=== PATIENT | female | born 1945 | race Caucasian/White ===

== ENCOUNTER 2016-11-04 16:31 | Inpatient (IN) | payer MEDICARE, OTHER ==
[2016-11-04 16:32] VITALS: BMI 30.7
--- NOTE | 2016-11-04 17:17 | C.PDOC ---
History Of Present Illness 71 y/o female presents to ED referred by Dr. Burnette for admission to start Hemodialysis. Patient complaints of new onset cough, worsening weakness, anorexia and renal function. Patient has PMHx of DM, HTN, Hypercholesterolemia, CKD, ESRD, Sleep Apnea and Diverticulitis. Status Post Fistula and Rt kidney transplant in 2000. Patient denies fever, sob, N/V/D or any other complaints at this time. REFERRED DR BURNETTE FOR ADMISSION TO START HD. PROGRESSIVE WORSENING WEAKNESS, ANOREXIA, AND RENAL FUNCTION. S/P FISTULA. NO FEVER. 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 Time Seen by Provider: 11/04/16 17:10 Chief Complaint (Nursing): Weakness/Neurological Deficit History Per: Patient History/Exam Limitations: no limitations Onset/Duration Of Symptoms: Days Current Symptoms Are (Timing): Still Present Past Medical History Reviewed: Historical Data, Nursing Documentation, Vital Signs Vital Signs: Last Vital Signs Temp 98.4 F 11/04/16 16:41 Pulse 79 11/04/16 16:41 Resp 20 11/04/16 17:58 BP 144/74 11/04/16 16:41 Pulse Ox 98 11/04/16 18:03 - Medical History PMH: Anemia, Arthritis (R FOOT GOUT), Diabetes, Diverticulitis, HTN, Hypercholesterolemia, End Stage Renal Disease (Kidney transplant Rt.2000), Chronic Kidney Disease (s/ pkidney transplant), Sleep Apnea Surgical History: Cholecystectomy - [facility] Procedures COLONOSCOPY (11/15/14) ESOPHAGOGASTRODUODENOSCOPY [EGD] W/CLOSED BIOPSY (11/15/14) PACKED CELL TRANSFUSION (11/15/14) PLICATION OF VENA CAVA (11/15/14) Family History: States: No Known Family Hx - Social History Hx Tobacco Use: No Hx Alcohol Use: No Hx Substance Use: No - Immunization History Hx Tetanus Toxoid Vaccination: No Hx Influenza Vaccination: No Hx Pneumococcal Vaccination: No Review Of Systems Except As Marked, All Systems Reviewed And Found Negative. Constitutional: Negative for: Fever, Chills Respiratory: Positive for: Cough. Negative for: Shortness of Breath Gastrointestinal: Negative for: Nausea, Vomiting, Diarrhea Neurological: Positive for: Weakness Physical Exam - Physical Exam Appears: Non-toxic Skin: Normal Color, Warm Head: Atraumatic, Normacephalic Oral Mucosa: Moist Chest: Symmetrical Cardiovascular: Rhythm Regular, No Murmur Respiratory: Normal Breath Sounds, No Rales, No Rhonchi, No Wheezing Gastrointestinal/Abdominal: Soft, No Tenderness, No Guarding, No Rebound Extremity: Normal ROM, Capillary Refill (<2 seconds) Neurological/Psych: Oriented x3, Normal Speech, Normal Cognition ED Course And Treatment ECG: Interpreted By Me ECG Rhythm: Sinus Rhythm Rate From EC O2 Sat by Pulse Oximetry: 98 (RA) Pulse Ox Interpretation: Normal - Radiology CXR: Interpreted by Me CXR Interpretation: Yes: No Acute Disease Progress - Re-Evaluation Re-evaluation Note: 11/04/16 17:21 D/W DR BELL C/F DR BURNETTE. ADMIT MED SUPERVISOR COLD ROLLING 11/04/16 17:57 D/W DR FARAH MED SUPERVISOR COLD ROLLING WILL ADMIT - Data Reviewed Data Reviewed: Lab, Diagnostic imaging, EKG, Old records Disposition Counseled Patient/Family Regarding: Studies Performed, Diagnosis - Disposition Disposition: HOSPITALIZED Disposition Time: 17:57 Condition: STABLE Instructions: Weakness (ED) - POA Present On Arrival: None - Clinical Impression Clinical Impression: Renal failure (ARF), acute on chronic, Renal transplant recipient, Weakness generalized - PA / HEAD SWAMPER / Resident Statement MD/ has reviewed & agrees with the documentation as recorded. MD/DO has examined the patient and agrees with the treatment plan. - Scribe Statement The provider has reviewed the documentation as recorded by the Dionte Lantigua All medical record entries made by the Susanaibpedro were at my direction and personally dictated by me. I have reviewed the chart and agree that the record accurately reflects my personal performance of the history, physical exam, medical decision making, and the department course for this patient. I have also personally directed, reviewed, and agree with the discharge instructions and disposition. Decision To Admit - Pt Status Changed To: Hospital Disposition Of: Inpatient - Admit Certification Admit to Inpatient:: After my assessment, the patient will require hospitalization for at least two midnights. This is because of the severity of symptoms shown, intensity of services needed, and/or the medical risk in this patient being treated as an outpatient. - InPatient: Physician Admission Certification: I certify that this patient requires 2 or more midnights of care for the following reason:: SEE NOTE - . Bed Request Type: Regular Admitting Physician: Luiza Farah Patient Diagnosis: Renal failure (ARF), acute on chronic, Renal transplant recipient, Weakness generalized
[2016-11-04 18:03] LABS: BASO % 0.2 % (0.0-2.0); EOS % 0.1 % (0.0-4.0); HEMATOCRIT 26.8 % (34.0-47.0); LYMPH # 0.3 K/uL (1.0-4.3); LYMPH % 6.7 % (20.0-40.0); MEAN CELL VOLUME 82.8 fL (81.0-99.0); MEAN CORPUSCULAR HEMOGLOBIN 25.8 pg (27.0-31.0); MEAN CORPUSCULAR HGB CONC 31.1 g/dL (33.0-37.0); MEAN PLATELET VOLUME 8.1 fL (7.2-11.7); MONO # 0.4 K/uL (0.0-0.8); MONO % 8.5 % (0.0-10.0); PLATELET COUNT 137 K/uL (130-400); RED CELL DISTRIBUTION WIDTH 17.9 % (11.5-14.5); WHITE BLOOD COUNT 5.1 K/uL (4.8-10.8)
[2016-11-04 18:13] LABS: POTASSIUM 3.5 mmol/L (3.6-5.2)
[2016-11-04 18:16] LABS: CALCIUM 7.8 mg/dl (8.6-10.4)
[2016-11-04 18:36] LABS: NEUTROPHIL 87 % (50-75); TOTAL CELLS COUNTED 100
[2016-11-04 20:29] LABS: RBC URINE 4 /hpf (0-3); URINE BACTERIA RARE (<OCC); URINE BILIRUBIN NEGATIVE (NEGATIVE); URINE BLOOD 1+ (NEGATIVE); URINE COLOR Yellow (YELLOW); URINE GLUCOSE (UA) NORMAL (Normal); URINE KETONE NEGATIVE (NEGATIVE); URINE PROTEIN NEGATIVE (NEGATIVE); URINE UROBILINOGEN NORMAL mg/dL (0.2-1.0); WBC URINE 5 /hpf (0-5)
[2016-11-04 20:35] LABS: URINE LEUKOCYTE ESTERASE TRACE Leu/uL (Negative)
[2016-11-04] MEDS ORDERED: guaiFENesin 200 mg/10 ml Syrup UD PO ONE (23:50)
[2016-11-05] MEDS ORDERED: DiphenhydrAMINE 50 mg/ml Inj IVP STA (02:10)
[2016-11-05] MEDS ORDERED: Albuterol-Ipratrop 3 mg / 0.5 (3 ml) UD INH STA (02:11)
[2016-11-05] MEDS: (Novolin 70/30) NPH/Regular 70/30 Units/ml 10 ml vial SC SCH ×2 (07:30→20:02)
[2016-11-05] MEDS: Fluticasone-Salmeterol 250-50mcg Diskus INH SCH (08:18)
[2016-11-05] MEDS: Albuterol-Ipratrop 3 mg / 0.5 (3 ml) UD INH PRN ×2 (08:19→11:37)
--- NOTE | 2016-11-05 08:54 | CP.PCM.PN ---
Subjective - Date & Time of Evaluation Date of Evaluation: 11/05/16 Time of Evaluation: 08:51 - Subjective Subjective: Medicine Progress Note- Dr Farah service Patient seen and examined with son present at bedside. Patient states that she doesn't feel well and is complaining of a non-productive cough. Pt tried taking Robitussin for the cough but it did not help. Patient breathing comfortably on 2L NC. Patient is scheduled for HD today via R arm fistula. Patient denies fever, chills, nausea, chest pain, back pain, vomiting, and dysuria. Objective - Vital Signs/Intake and Output Vital Signs (last 24 hours): Temp Pulse Resp BP Pulse Ox 98.3 F 103 H 18 154/85 H 100 11/05/16 08:00 11/05/16 08:00 11/05/16 08:00 11/05/16 08:00 11/05/16 08:00 Intake and Output: 11/05/16 11/05/16 06:59 18:59 Intake Total 120 Balance 120 - Medications Medications: Current Medications Albuterol/Ipratropium (Duoneb 3 Mg/0.5 Mg (3 Ml) Ud) 3 ml INH RQ4 PRN PRN Reason: Wheezing Last Admin: 11/05/16 08:19 Dose: 3 ml Clonidine HCl (Catapres) 0.3 mg PO TID [facility] Colchicine (Colocrys) 0.6 mg PO DAILY [facility] Cyclosporine (Cyclosporine) 25 mg PO BID [facility] Furosemide (Lasix) 40 mg PO BID [facility] Guaifenesin/Dextromethorphan (Robitussin Dm) 10 ml PO QID [facility] Heparin Sodium (Porcine) (Heparin) 5,000 units SC Q12 [facility] Home Med (Febuxostat [Uloric]) 80 mg PO DAILY [facility] Home Med (Metolazone [Metolazone]) 5 mg PO PRN PRN PRN Reason: edema Insulin Human Isoph/Insulin Regular (Novolin 70/30 (70/30 Units/Ml) 10 Ml) 20 units SC BIDAC [facility] Metoclopramide HCl (Reglan) 10 mg PO TIDAC [facility] Montelukast Sodium (Singulair) 10 mg PO HS [facility] Mycophenolate Mofetil (Cellcept Cap) 250 mg PO BID [facility] Pantoprazole Sodium (Protonix Ec Tab) 40 mg PO DAILY [facility] Prednisone (Prednisone Tab) 5 mg PO DAILY [facility] Rosuvastatin Calcium (Crestor) 2.5 mg PO HS [facility] Fluticasone/Salmeterol (Advair Diskus 250/50) 1 puff INH RQ12 [facility] Last Admin: 11/05/16 08:18 Dose: 1 puff - Constitutional Appears: Non-toxic, No Acute Distress - Head Exam Head Exam: ATRAUMATIC, NORMOCEPHALIC - Eye Exam Eye Exam: EOMI, Normal appearance - ENT Exam ENT Exam: Mucous Membranes Moist - Respiratory Exam Respiratory Exam: Clear to Ausculation Bilateral, NORMAL BREATHING PATTERN. absent: Accessory Muscle Use, Rales, Rhonchi, Wheezes, Respiratory Distress - Cardiovascular Exam Cardiovascular Exam: REGULAR RHYTHM, +S1, +S2 - GI/Abdominal Exam GI & Abdominal Exam: Soft, Normal Bowel Sounds - Extremities Exam Extremities Exam: Full ROM. absent: Pedal Edema Additional comments: Right forearm fistula + bruit + thrill - Neurological Exam Neurological Exam: Alert, Awake, Oriented x3 - Psychiatric Exam Psychiatric exam: Normal Affect, Normal Mood - Skin Skin Exam: Dry, Intact, Normal Color, Warm Assessment and Plan - Assessment and Plan (Free Text) Assessment: (1) ESRD Dr Vigil consulted- help appreciated Patient to start HD today via R fistula Monitor BUN/Cr and electrolytes (2) DM Novolin 20u SC BIDAC Accuchecks (3) HTN Clonidine Lasix (4) Anemia Likely from chronic kidney disease Patient asymptomatic and hemodynamically stable Monitor CBC (5) Prophylactic measures Protonix Heparin 5000u SC q12h SCDs Will discuss with Sofi
[2016-11-05] MEDS ORDERED: Home Med 1 UNIT (Febuxostat [Uloric] 80 MG) PO SCH (10:00)
[2016-11-05] MEDS ORDERED: Rosuvastatin Calcium 2.5 mg Tab PO SCH (10:00)
[2016-11-05] MEDS ORDERED: metOLazone 5 MG TAB PO PRN (10:00)
--- NOTE | 2016-11-05 10:17 | RAD ---
PROCEDURE: CHEST RADIOGRAPH, 1 VIEW HISTORY: Shortness of breath COMPARISON: 05/08/2016. FINDINGS: LUNGS: The lungs are clear. PLEURA: There are small pleural effusions. No pneumothorax. CARDIOVASCULAR: There is mild cardiomegaly. OSSEOUS STRUCTURES: No significant abnormalities. VISUALIZED UPPER ABDOMEN: Normal. OTHER FINDINGS: None. IMPRESSION: Mild cardiomegaly and small pleural effusions.
[2016-11-05] MEDS: CYCLOSPORINE, MODIFIED 25 MG CAP PO SCH ×2 (11:47→20:22)
[2016-11-05] MEDS: Pantoprazole 40 mg EC Tab PO SCH (11:48)
[2016-11-05] MEDS: guaiFENesin DM 200 mg-20 mg/10 ml UD PO SCH ×4 (11:48→21:22)
--- NOTE | 2016-11-05 14:00 | CP.PCM.CON ---
History of Present Illness - History of Present Illness History of Present Illness: History Of Present Illness 71 y/o female presents to ED referred by Dr. Vigil for admission to start Hemodialysis. Patient complaints of new onset cough, worsening weakness, anorexia and renal function. Patient has PMHx of DM, HTN, Hypercholesterolemia, CKD, ESRD, Sleep Apnea and Diverticulitis. Status Post Fistula and Rt kidney transplant in 2000. Patient denies fever, sob, N/V/D or any other complaints at this time. Has had progressive worsening failure and referred by transplant department for dialysis. Not eating well and has had increasing dyspnea PMH: RENAL TRANSPLANT 2000 CHRONIC ALLOGRAFT REJECTION DM 2 HTN CKD 5 DL DIVERTICULAR DISEASE PAD PSH: RENAL TRANSPLANT LE VASCULAR STENT AV FISTULA CONSULT DICTATED WILL SCHEDULE DIALYSIS CHELI Past Patient History - Infectious Disease Hx of Infectious Diseases: None - Past Medical History & Family History Past Medical History?: Yes - Past Social History Smoking Status: Never Smoked - CARDIAC Hx Congestive Heart Failure: Yes Hx Hypercholesterolemia: Yes Hx Hypertension: Yes Other/Comment: cardiac catheterization 02/10/16. scott vena cava filter - PULMONARY Hx Respiratory Disorders: Yes Hx Asthma: Yes Hx Sleep Apnea: Yes Other/Comment: uses cpap - NEUROLOGICAL Hx Neurological Disorder: No - HEENT Hx HEENT Problems: Yes Hx Cataracts: Yes (right eye july 2012 and left eye august 2012) - RENAL Hx Chronic Kidney Disease: Yes Other/Comment: kidney transplan november 07, 2000 - ENDOCRINE/METABOLIC Hx Endocrine Disorders: Yes Hx Diabetes Mellitus Type 2: Yes - HEMATOLOGICAL/ONCOLOGICAL Hx Blood Disorders: Yes Hx Anemia: Yes - INTEGUMENTARY Hx Dermatological Problems: No Other/Comment: varicose vein surgery left leg 1995 - MUSCULOSKELETAL/RHEUMATOLOGICAL Hx Musculoskeletal Disorders: Yes Hx Arthritis: Yes (R FOOT GOUT) Hx Falls: No Hx Gout: Yes - GASTROINTESTINAL Hx Gastrointestinal Disorders: Yes Hx Diverticulitis: Yes Hx Gastritis: Yes Hx Gastroesophageal Reflux: Yes Other/Comment: colonoscopy 08/03/10 - GENITOURINARY/GYNECOLOGICAL Hx Genitourinary Disorders: No - PSYCHIATRIC Hx Psychophysiologic Disorder: No Hx Substance Use: No - SURGICAL HISTORY Hx Surgeries: Yes Hx Cholecystectomy: Yes - ANESTHESIA Hx Anesthesia: Yes Hx Anesthesia Reactions: No Hx Malignant Hyperthermia: No Meds Allergies/Adverse Reactions: Allergies Allergy/AdvReac Type Severity Reaction Status Date / Time allopurinol Allergy Verified 05/08/16 00:45 atorvastatin Allergy Verified 05/08/16 00:45 Iodinated Contrast Media - AdvReac Verified 05/08/16 00:45 Oral and [Iodinated Contrast Media - IV Dye] - Medications Medications: Current Medications Albuterol/Ipratropium (Duoneb 3 Mg/0.5 Mg (3 Ml) Ud) 3 ml INH RQ4 PRN PRN Reason: Wheezing Last Admin: 11/05/16 11:37 Dose: 3 ml Clonidine HCl (Catapres) 0.3 mg PO TID [facility] Last Admin: 11/05/16 11:47 Dose: Not Given Colchicine (Colocrys) 0.6 mg PO DAILY [facility] Cyclosporine (Cyclosporine) 25 mg PO BID [facility] Last Admin: 11/05/16 11:47 Dose: Not Given Furosemide (Lasix) 40 mg PO BID [facility] Last Admin: 11/05/16 11:47 Dose: Not Given Guaifenesin/Dextromethorphan (Robitussin Dm) 10 ml PO QID [facility] Last Admin: 11/05/16 11:48 Dose: Not Given Heparin Sodium (Porcine) (Heparin) 5,000 units SC Q12 [facility] Last Admin: 11/05/16 11:50 Dose: Not Given Home Med (Febuxostat [Uloric]) 80 mg PO DAILY [facility] Insulin Human Isoph/Insulin Regular (Novolin 70/30 (70/30 Units/Ml) 10 Ml) 20 units SC BIDAC [facility] Last Admin: 11/05/16 07:30 Dose: Not Given Metolazone (Zaroxolyn) 5 mg PO DAILY PRN PRN Reason: EDEMA Montelukast Sodium (Singulair) 10 mg PO HS [facility] Mycophenolate Mofetil (Cellcept Cap) 250 mg PO BID [facility] Last Admin: 11/05/16 11:47 Dose: Not Given Ondansetron HCl (Zofran Inj) 8 mg IVP Q6H PRN PRN Reason: Nausea/Vomiting Pantoprazole Sodium (Protonix Ec Tab) 40 mg PO DAILY [facility] Last Admin: 11/05/16 11:48 Dose: Not Given Prednisone (Prednisone Tab) 5 mg PO DAILY [facility] Last Admin: 11/05/16 11:48 Dose: Not Given Rosuvastatin Calcium (Crestor) 2.5 mg PO HS [facility] Fluticasone/Salmeterol (Advair Diskus 250/50) 1 puff INH RQ12 [facility] Last Admin: 11/05/16 08:18 Dose: 1 puff Results - Vital Signs Recent Vital Signs: Last Vital Signs Temp 98 F 11/05/16 13:12 Pulse 88 11/05/16 13:12 Resp 20 11/05/16 13:12 BP 149/80 11/05/16 13:12 Pulse Ox 100 11/05/16 13:12 - Labs Result Diagrams: 11/04/16 17:58 11/04/16 17:58 Labs: Laboratory Results - last 24 hr 11/04/16 11/04/16 11/05/16 20:11 22:24 06:51 POC Glucose (mg/dL) 169 H 118 H Urine Color Yellow Urine Clarity Clear Urine pH 5.0 Ur Specific Anza 1.008 Urine Protein Negative Urine Glucose (UA) Normal Urine Ketones Negative Urine Blood 1+ H Urine Nitrate Negative Urine Bilirubin Negative Urine Urobilinogen Normal Ur Leukocyte Esterase Trace H Urine WBC (Auto) 5 Urine RBC (Auto) 4 H Ur Squamous Epith Cells 9 H Urine Bacteria Rare Hyaline Casts 3-5 H 11/05/16 11:11 POC Glucose (mg/dL) 146 H Urine Color Urine Clarity Urine pH Ur Specific Anza Urine Protein Urine Glucose (UA) Urine Ketones Urine Blood Urine Nitrate Urine Bilirubin Urine Urobilinogen Ur Leukocyte Esterase Urine WBC (Auto) Urine RBC (Auto) Ur Squamous Epith Cells Urine Bacteria Hyaline Casts
--- NOTE | 2016-11-05 14:37 | CON ---
DATE: 11/05/2016 The patient is a 71-year-old female who presents to the Emergency Department with increasing shortnes s of breath. She has not been eating for several days. She was found to have extremely high BUN and creatinine. 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 PAST MEDICAL HISTORY: Renal transplantation in 2000 for diabetic nephropathy. She has diabetes jimena itus type 2, hypertension, dyslipidemia, peripheral arterial disease, sleep apnea, diverticular disea se. PAST SURGICAL HISTORY: Status post AV fistula in the right arm, right kidney transplantation in 2000 , endovascular stent placed in the lower extremities. MEDICATIONS: Include cyclosporine, CellCept, prednisone, Norvasc, Coreg, Protonix, Zaroxolyn, Lasix, K-Dur, mag oxide, Zocor, clonidine. FAMILY HISTORY: Significant for a sister who also had a kidney transplantation. SOCIAL HISTORY: Negative for smoking, alcohol abuse or illicit drug use. REVIEW OF SYSTEMS: Significant for decreased ability to eat. She has not been eating for at least 1 week. She had increasing shortness of breath, increasing peripheral edema. She cannot sleep at [facility], uses CPAP. She has been increasingly confused. No nausea, vomiting, diarrhea. She has increase d abdominal pain of unclear etiology. Also, she had severe gout with gouty tophi with severe arthrit ic pains. Other systems are negative. PHYSICAL EXAMINATION: GENERAL: She is a well-developed female who is lethargic. VITAL SIGNS: Blood pressure 149/80, temperature 98, pulse ox is 100% on nasal cannula 3 liters and p ulse is 88. HEENT: She is anicteric. Mouth was clear. NECK: No JVD. LUNG [place]: Showed basilar rales. HEART: Regular rhythm. No murmur appreciated. ABDOMEN: Tender epigastrically. Renal allograft in right lower quadrant, which was soft and nontend er. EXTREMITIES: She had 3+ pedal edema. She had gouty tophi throughout both hands. BLOOD WORK: Showed a BUN of 122, creatinine 2.3, calcium 7.8, potassium 3.5. 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 She has peripheral arterial disease, coronary artery disease, severe gout and increasing fluid overload. PLAN: Will be for dialysis. She will need a workup for the abdominal pain as well, which was recomm ended. She should at least have abdominal ultrasound and further evaluation by the medical team. Wi schedule dialysis today. Petr Vigil MD cc: [id number] TT: 11/05/2016 14:37:17 Confirmation # [id number] Dictation # [id number]
[2016-11-05] MEDS ORDERED: Lidocaine 1% Inj (20ml) INFIL ONE (15:30)
[2016-11-05 17:07] LABS: PHOSPHOROUS 2.5 mg/dL (2.5-4.5)
--- NOTE | 2016-11-05 17:39 | CARD ---
APPROVED REPORT EKG Measurement Heart [id number] <Conclusion> Sinus rhythm with occasional premature ventricular complexes and premature atrial complexes Right bundle branch block Left anterior fascicular block Bifascicular block Voltage criteria for left ventricular hypertrophy T wave abnormality, consider lateral ischemia Abnormal ECG
[2016-11-05] MEDS ORDERED: Oxycodone/Acetaminophen 5/325 mg Tab PO PRN (18:26)
[2016-11-05] MEDS: Megestrol Acetate 40 mg/ml Cup PO SCH (19:59)
[2016-11-05] MEDS: Rosuvastatin Calcium 2.5 mg Tab PO SCH (21:23)
[2016-11-05] MEDS ORDERED: Tramadol 25 mg PO PRN (21:45)
[2016-11-06] MEDS: Albuterol-Ipratrop 3 mg / 0.5 (3 ml) UD INH PRN ×2 (00:24→11:16)
[2016-11-06 07:29] LABS: BASO % 0.6 % (0.0-2.0); EOS % 0.2 % (0.0-4.0); HEMATOCRIT 25.8 % (34.0-47.0); LYMPH # 0.7 K/uL (1.0-4.3); LYMPH % 8.8 % (20.0-40.0); MEAN CELL VOLUME 83.7 fL (81.0-99.0); MEAN CORPUSCULAR HEMOGLOBIN 26.1 pg (27.0-31.0); MEAN CORPUSCULAR HGB CONC 31.2 g/dL (33.0-37.0); MEAN PLATELET VOLUME 8.5 fL (7.2-11.7); MONO # 1.2 K/uL (0.0-0.8); PLATELET COUNT 162 K/uL (130-400); RED CELL DISTRIBUTION WIDTH 18.2 % (11.5-14.5); WHITE BLOOD COUNT 7.7 K/uL (4.8-10.8)
[2016-11-06 07:57] LABS: BILIRUBIN,TOTAL 1.5 mg/dL (0.2-1.3); TOTAL PROTEIN 5.4 g/dL (6.3-8.3)
[2016-11-06 07:58] LABS: CALCIUM 7.6 mg/dl (8.6-10.4)
[2016-11-06] MEDS: (Novolin 70/30) NPH/Regular 70/30 Units/ml 10 ml vial SC SCH ×2 (08:13→16:30)
--- NOTE | 2016-11-06 09:08 | PN ---
DATE: 11/06/2016 LOCATION: 568, bed B. This 71-year-old female seen for GI consultation on 11/05/2016, as requested by the admitting MD, ree xamined again today due to crampy persistent abdominal pain with subsequent drop of hemoglobin and he matocrit. Denied any actual chest pain, but intermittent periods of slight shortness of breath with cough and generalized weakness and malaise, without reported active bleeding recently. The patient also had been having very poor oral intake with recent loss of appetite as well as mild b stephani weight loss. The entire chart is reviewed, including but not limited to the most recent lab and radiology study re sults, current and previous medication list, current and the previous medical events, and the latest hemoglobin was 8.1 today with hematocrit 25.8, but normal platelet count and normal white blood cells with low potassium of 3.0, BUN of 76, creatinine 1.8 with low calcium 7.6 and a mildly elevated tota l bilirubin to 1.5 with increased alkaline phosphatase with low albumin 2.7, low total protein 5.4. Chest x-ray done at the time of admission, report and films seen indicative of mild cardiomegaly with small pleural effusion. PHYSICAL EXAMINATION: GENERAL: A 71-year-old female. VITAL SIGNS: Afebrile with pulse of 90, respiratory rate 20-22, and blood pressure of 158/76. HEENT: Showed pale, dry oral mucoid membrane, slightly icteric sclerae. LUNGS: Few scattered crepitation, decreased air entry at bases. HEART: Positive S1 and S2. ABDOMEN: Soft. Bowel sounds are present but hypoactive with generalized tenderness and mild distent ion. No mass or organomegaly. No rebound tenderness or guarding. RECTAL: The patient refused. EXTREMITIES: Without significant clubbing or cyanosis, but mild lower extremities edematous changes. NEUROLOGIC: No reported new neurological deficits, sensory or motor. IMPRESSION: 1. Anemia that could be secondary to chronic renal disease versus gastrointestinal blood loss, upper versus lower. 2. Known history of, but not limited to, diverticulosis with recurrent diverticulitis, peptic ulcer disease. 3. Multiple past medical history including, but not limited to, status post renal transplant due to renal failure, had rejections before. 4. Known history of diabetes mellitus, hypertension, hyperlipidemia with peripheral arterial disease . 5. Status post AV fistula insertion before. 6. Lower extremities vascular stent insertion. 7. The patient is admitted for potential starting dialysis by Dr. Vigil. 8. Recently diagnosed pleural effusion by radiology study results. SUGGESTION: 1. Agree with your plan. 2. Flat and upright abdominal x-rays. 3. Cancer markers. 4. The patient may have an early setting of early stage of diverticulitis with reexacerbation of pep tic ulcer disease, may benefit from single dose of Flagyl 500 mg once a day due to her renal failure. That to be discussed with Dr. Vigil. 5. Guaiac all the stool daily x 3. 6. Further recommendation to follow and proton pump inhibitors to be ordered with peripheral hyperal as needed. 7. The patient also may need a low dose of Reglan rather than Zofran due to her recurrent episode of nausea and vomiting until she is more stable clinically. Further recommendation to follow. Jose Le MD cc: [id number] TT: 11/06/2016 09:08:11 Confirmation # [id number] Dictation # [id number] jn
[2016-11-06] MEDS: Fluticasone-Salmeterol 250-50mcg Diskus INH SCH ×2 (09:15→19:48)
[2016-11-06 09:22] LABS: NEUTROPHIL 80 % (50-75); TOTAL CELLS COUNTED 100
[2016-11-06 10:40] LABS: CARCINOEMBRYONIC ANTIGEN 6.4 ng/mL (0-3.0)
[2016-11-06 10:43] LABS: CA 19-9 25.6 U/mL (0-37)
[2016-11-06] MEDS: Megestrol Acetate 40 mg/ml Cup PO SCH (11:12)
[2016-11-06] MEDS: CYCLOSPORINE, MODIFIED 25 MG CAP PO SCH ×2 (11:14→18:20)
[2016-11-06] MEDS: Pantoprazole 40 mg EC Tab PO SCH (11:15)
[2016-11-06] MEDS: guaiFENesin DM 200 mg-20 mg/10 ml UD PO SCH ×4 (11:16→21:35)
--- NOTE | 2016-11-06 11:43 | CP.PCM.PN ---
Subjective - Date & Time of Evaluation Date of Evaluation: 11/06/16 Time of Evaluation: 11:40 - Subjective Subjective: 71 y/o female presents to ED referred by Dr. Vigil for admission to start Hemodialysis. Patient complaints of new onset cough, worsening weakness, anorexia and renal function. Patient has PMHx of DM, HTN, Hypercholesterolemia, CKD, ESRD, Sleep Apnea and Diverticulitis. Status Post Fistula and Rt kidney transplant in 2000. Patient denies fever, sob, N/V/D or any other complaints at this time. Has had progressive worsening failure and referred by transplant department for dialysis. Not eating well and has had increasing dyspnea PMH: RENAL TRANSPLANT 2000 CHRONIC ALLOGRAFT REJECTION DM 2 HTN CKD 5 DL DIVERTICULAR DISEASE PAD PSH: RENAL TRANSPLANT LE VASCULAR STENT AV FISTULA 11/06 Feels better after first dialysis treatment Appetite remains poor Edema improved No sob at rest Has not moved around much since admission 10 point ros negative except for above report Objective - Vital Signs/Intake and Output Vital Signs (last 24 hours): Temp Pulse Resp BP Pulse Ox 98.1 F 93 H 18 155/58 H 95 11/06/16 07:27 11/06/16 07:27 11/06/16 07:27 11/06/16 11:15 11/06/16 07:27 Intake and Output: 11/06/16 11/06/16 06:59 18:59 Intake Total 240 Balance 240 - Medications Medications: Current Medications Albuterol/Ipratropium (Duoneb 3 Mg/0.5 Mg (3 Ml) Ud) 3 ml INH RQ4 PRN PRN Reason: Wheezing Last Admin: 11/06/16 11:16 Dose: 3 ml Belladonna/Phenobarbital () 1 tab PO BID [facility] Clonidine HCl (Catapres) 0.3 mg PO TID [facility] Last Admin: 11/06/16 11:11 Dose: Not Given Colchicine (Colocrys) 0.6 mg PO DAILY [facility] Cyclosporine (Cyclosporine) 25 mg PO BID [facility] Last Admin: 11/06/16 11:14 Dose: Not Given Furosemide (Lasix) 40 mg PO BID [facility] Last Admin: 11/06/16 11:15 Dose: Not Given Guaifenesin/Dextromethorphan (Robitussin Dm) 10 ml PO QID [facility] Last Admin: 11/06/16 11:16 Dose: Not Given Heparin Sodium (Porcine) (Heparin) 5,000 units SC Q12 [facility] Last Admin: 11/06/16 11:14 Dose: Not Given Home Med (Febuxostat [Uloric]) 80 mg PO DAILY [facility] Insulin Human Isoph/Insulin Regular (Novolin 70/30 (70/30 Units/Ml) 10 Ml) 20 units SC BIDAC [facility] Last Admin: 11/06/16 08:13 Dose: Not Given Megestrol Acetate (Megace) 400 mg PO DAILY [facility] Last Admin: 11/06/16 11:12 Dose: 400 mg Metolazone (Zaroxolyn) 5 mg PO DAILY PRN PRN Reason: EDEMA Montelukast Sodium (Singulair) 10 mg PO HS [facility] Last Admin: 11/05/16 21:22 Dose: Not Given Mycophenolate Mofetil (Cellcept Cap) 250 mg PO BID [facility] Last Admin: 11/06/16 11:14 Dose: Not Given Ondansetron HCl (Zofran Inj) 8 mg IVP Q6H PRN PRN Reason: Nausea/Vomiting Last Admin: 11/05/16 18:07 Dose: 8 mg Oxycodone/Acetaminophen (Percocet 5/325 Mg Tab) 1 tab PO Q6H PRN PRN Reason: Pain, moderate (4-7) Stop: 11/08/16 18:27 Pantoprazole Sodium (Protonix Ec Tab) 40 mg PO DAILY [facility] Last Admin: 11/06/16 11:15 Dose: Not Given Prednisone (Prednisone Tab) 5 mg PO DAILY [facility] Last Admin: 11/06/16 11:15 Dose: Not Given Rosuvastatin Calcium (Crestor) 2.5 mg PO [facility] Last Admin: 11/05/16 21:23 Dose: Not Given Fluticasone/Salmeterol (Advair Diskus 250/50) 1 puff INH RQ12 [facility] Last Admin: 11/06/16 09:15 Dose: Not Given Tramadol HCl (Ultram) 25 mg PO Q6 PRN PRN Reason: Pain, moderate (4-7) Last Admin: 11/05/16 21:52 Dose: 25 mg - Labs Labs: 11/06/16 07:20 11/06/16 07:20 - Constitutional Appears: Non-toxic, Older Than Stated Age - Head Exam Head Exam: ATRAUMATIC, NORMAL INSPECTION - Eye Exam Eye Exam: EOMI, Normal appearance - ENT Exam ENT Exam: Mucous Membranes Moist, Normal Oropharynx - Respiratory Exam Respiratory Exam: Rales, Rhonchi - Cardiovascular Exam Cardiovascular Exam: REGULAR RHYTHM, +S1, +S2. absent: JVD - GI/Abdominal Exam GI & Abdominal Exam: Soft, Normal Bowel Sounds Additional comments: allograft nontender - Extremities Exam Extremities Exam: Joint Swelling, Pedal Edema - Neurological Exam Neurological Exam: Alert, Awake, Oriented x3 - Psychiatric Exam Psychiatric exam: Normal Affect, Normal Mood - Skin Skin Exam: Dry, Intact Additional comments: tophi on digits noted Assessment and Plan (1) Renal failure (ARF), acute on chronic Status: Acute (2) Renal transplant recipient Status: Chronic (3) Anemia Status: Acute (4) CHF (congestive heart failure) Status: Acute (5) Diabetes mellitus Status: Acute (6) HTN (hypertension) Status: Acute (7) Hyperlipidemia Status: Acute (8) Gout Status: Chronic - Assessment and Plan (Free Text) Assessment: Failed renal transplant with uremia tolerated dialysis well 11/05 Second treatment today UF 2kg as tolerated Maintain immunosuppression - can d/c csa by discharge Bp improving Access patent Outpatient placement [facility] in progress
--- NOTE | 2016-11-06 14:54 | US ---
Abdominal ultrasound History: Abdominal pain. Comparison: CT scan dated 11/17/2014 Technique: Real-time sonography was performed through the abdomen. Findings: Bilateral pleural effusions identified. Abdominal and pelvic ascites identified. Liver: 18.1 centimeters in length, prominent. Somewhat nodular and cirrhotic contour. Increased echogenicity of the hepatic parenchymal cortex suggestive for hepatic parenchymal disease versus fatty infiltration. Prior cholecystectomy. Common bile duct measures up to 5 millimeters within normal limits. Pancreas not well visualized, likely atrophic. Spleen measures 8.7 centimeters in length, within normal limits. Visualized IVC is preserved. Aorta and not well visualized. [place] right kidney: 5.0 x 2.2 x 2.4 centimeters. Atrophic. Upper pole hypoechoic cyst measuring 9 x 11 x 11 millimeters. Additional more complex multi lobulated lower pole cystic lesion measuring 2.1 x 2.1 x 2.5 centimeters. Left [place] kidney: Not well visualized. Right lower quadrant transplant kidney: 10.3 x 4.3 x 4.4 centimeters. Mild fullness of the transplant kidney collecting system. Impression: Mild fullness of the right lower quadrant transplant kidney collecting system. Left [place] kidney not visualized. Atrophic right [place] kidney with multi lobulated complex cystic lesion emanating from the lower pole measuring up to 2.5 centimeters. Clinical correlation. Additional upper pole smaller hypoechoic cystic lesion. Prominent liver with a somewhat nodular and cirrhotic contour as well as diffuse increased echogenicity suggestive for hepatic parenchymal disease versus fatty infiltration. Abdominal and pelvic ascites. Bilateral pleural effusions. Atrophic pancreas which is not well visualized.
[2016-11-06] MEDS: Belladonna-Phenobarbital PO SCH (18:20)
[2016-11-06] MEDS: Rosuvastatin Calcium 2.5 mg Tab PO SCH (21:34)
[2016-11-07] MEDS: Albuterol-Ipratrop 3 mg / 0.5 (3 ml) UD INH PRN ×4 (08:12→20:00)
[2016-11-07] MEDS: Fluticasone-Salmeterol 250-50mcg Diskus INH SCH ×2 (08:12→20:00)
[2016-11-07] MEDS: (Novolin 70/30) NPH/Regular 70/30 Units/ml 10 ml vial SC SCH ×2 (08:26→17:55)
[2016-11-07] MEDS: CYCLOSPORINE, MODIFIED 25 MG CAP PO SCH ×2 (10:35→17:54)
[2016-11-07] MEDS: Pantoprazole 40 mg EC Tab PO SCH (10:35)
[2016-11-07] MEDS: Belladonna-Phenobarbital PO SCH ×2 (10:35→18:05)
[2016-11-07] MEDS: guaiFENesin DM 200 mg-20 mg/10 ml UD PO SCH ×3 (10:36→21:11)
[2016-11-07] MEDS: Megestrol Acetate 40 mg/ml Cup PO SCH (10:38)
--- NOTE | 2016-11-07 13:08 | PN ---
DATE: 11/07/2016 LOCATION: 568, bed B. This is a 71-year-old female seen and examined in rounds today in the presence of the nursing staff o n the floor as well as the patient's own daughter. Was complaining of much less abdominal pain, had been on ____ p.o. also. No reported nausea or vomiting and the most recent lab results as well as current and previous medica tion list, current and the previous medical events were reviewed. Abdominal ultrasound was done yesterday as requested by myself, which showed left kidney, not visuali zed with atrophy of the right side of the kidney with multiple lobulated complex cystic lesions. Possible diffuse hepatic parenchymal disease versus fatty infiltrate with abdominal and pelvic ascite s as well as bilateral pleural effusion with atrophic pancreas. Most recent lab results showed low hemoglobin of 8.1, hematocrit 25.8 with low indices highly suggest faiza of hypochromic microcytic anemia with blood glucose level of 106 with low potassium of 3.0, incre ased BUN 78, creatinine 1.8 with low calcium and mildly increased total protein as well as low albumi n, low total protein and increased alkaline phosphatase. Her CEA level is 6.4 with CA-125 antigen el evated to 50 for which colonoscopy is to be kept in mind. The patient for hemodialysis. PHYSICAL EXAMINATION: GENERAL: A 71-year-old female, awake, alert, oriented. VITAL SIGNS: Afebrile with pulse of 80, respiratory rate 20-22 with blood pressure of 150/66. HEENT: Showed pale, dry oral mucoid membrane, slightly icteric sclerae. LUNGS: Few scattered crepitation, decreased air entry at bases. HEART: Positive S1 and S2. ABDOMEN: Soft. Bowel sounds are present with mild generalized tenderness. No mass or organomegaly. No rebound tenderness or guarding. EXTREMITIES: Without significant clubbing or cyanosis, but with mild edematous changes. NEUROLOGIC: No reported neurological deficits, sensory or motor. IMPRESSION: 1. Acute renal failure, for hemodialysis. 2. Reexacerbation of peptic ulcer disease. 3. Nonproductive cough of unclear etiology. The patient is still having persistent cough that could be drug-induced versus possible pancreatitis; however, due to the patient's pleural effusion, that c an induce her persistent cough also. 4. Abnormal ultrasound of the abdomen and the pelvis with possible fatty infiltrate of the liver jhonny kevin liver cirrhosis. 5. Ascites, most likely secondary to portal hypertension and/or positive early congestive heart fail ure. 6. Anemia secondary to above. 7. Elevated CEA level, to rule out occult lower gastrointestinal tract malignancy, keeping in mind t hat patient has low hemoglobin and hematocrit. SUGGESTION: 1. Agree with your plan. 2. The patient is to be referred for potential colonoscopy after ____ and adequate preparation. 3. Serum lipase, amylase level. 4. Further recommendation to follow. Jose Le MD cc: 14 TT: 11/07/2016 12:01:30 Confirmation # [id number] Dictation # [id number] mn 11/07/2016 12:07:30
[2016-11-07] MEDS: Rosuvastatin Calcium 2.5 mg Tab PO SCH (21:11)
--- NOTE | 2016-11-08 03:19 | CON ---
DATE: 11/05/[address] Jose Le to Dr. Luiza Muro. I was called for GI consultation by the admitting MD. The patient is seen and fully examined on 01/2017 as requested by the admitting medical team. The entire chart is reviewed, including but not l imited to the most recent lab and radiology study results, current and previous medication list, curr ent and the previous medical events, allergy to medication list, as well as all the available current and the previous medical record. Case discussed at length with the admitting medical staff. HISTORY OF PRESENT ILLNESS: This is a 71-year-old female who was admitted to the hospital through th e Emergency Room as referred by the nephrology fundraising consultant on the case, Dr. Vigil, for initiation of hemodialysis. Had been complaining of crampy abdominal pain, persistent cough, generalized weakness and malaise and there was anorexia, as well as poor oral intake recently with intermittent periods of abdominal pain. The patient also reports some recent change of bowel movement habit of unclear etiology, but no repor key actual chest pain or significant shortness of breath. No reported chills or fever. PAST MEDICAL HISTORY: Including but not limited to: 1. Peptic ulcer disease. 2. End-stage renal disease on hemodialysis. 3. History of hyperlipidemia. 4. Diabetes mellitus. 5. Hypertension. 6. Diverticulosis with period of diverticulitis before. 7. Sleep apnea by history. 8. Status post right kidney transplant in 2000. ALLERGIES TO MEDICATION: Unclear. CURRENT MEDICATIONS: Medication lists were reviewed. FAMILY HISTORY: Noncontributory. SOCIAL HISTORY: No reported history of cigarette smoking or alcohol intake recently. SURGICAL HISTORY: The patient also has a history of status post cholecystectomy. The last colonoscopy the patient had was 2 years ago and she was told it is okay, but with colon poly p as per her doctor's statement. After being admitted to the hospital, the patient was found to have low hemoglobin and hematocrit wit h increased BUN and creatinine with underlying electrolyte imbalance. PHYSICAL EXAMINATION: GENERAL: A 71-year-old female, appears to be awake, alert, oriented, seen and examined for GI consul tation on 11/05/2016 in the presence of her daughters, as well as the staff on the floor. VITAL SIGNS: Afebrile with pulse of 82, respiratory rate 20-22, blood pressure 136/70. HEENT: Showed pale, dry oral mucoid membrane. Nonicteric sclerae. LUNGS: Few scattered crepitation, decreased air entry at bases. LYMPH NODES: No lymphadenitis or lymphadenopathy. HEART: Positive S1 and S2. ABDOMEN: Soft with generalized tenderness. Bowel sounds are hypoactive with mild distention. No ma ss or organomegaly. No rebound tenderness or guarding. RECTAL: The patient refused. EXTREMITIES: With slight lower extremity edematous changes. No clubbing or cyanosis. Peripheral pu lses are present. NEUROLOGICAL: No reported neurological deficits, sensory or motor. IMPRESSION: 1. Reexacerbation of peptic ulcer disease. 2. Change of bowel movement habit with possible diverticulosis and earlier history of diverticulitis . 3. Multiple past medical history including, but not limited to, hypertension, diabetes mellitus, chr onic renal disease, hyperlipidemia, was status post right kidney transplant before, as well as status post cholecystectomy with known history of sleep apnea. SUGGESTION: 1. Agree with your plan. 2. Due to the patient's clinical presentation and recent change of bowel movement habit, as well as reported traces of rectal bleeding recently, the patient will need followup colonoscopy, as well as u pper endoscopy. According to the patient's daughter, patient refused any endoscopic evaluation of th e GI tract. That to be discussed with the admitting MD. 3. Proton pump inhibitor. 4. Guaiac of the stool daily. 5. Cancer markers including CEA and CA 19-9, as well as CA-125. Thank you for letting me participate in your patient's case management. Will follow up closely with you. Jose Le MD cc: 14 TT: 11/08/2016 03:18:48 Confirmation # [id number] Dictation # [id number] mn
--- NOTE | 2016-11-08 07:22 | HP ---
A 71-year-old female suffers from chronic anemia. Admitted to the hospital with chief complaint of s evere anemia. The patient has history of diabetes, hypertension. PHYSICAL EXAMINATION: GENERAL: The patient is awake, alert, oriented. VITAL SIGNS: Temperature 98, pulse 90. HEENT: Within normal limits. NECK: Supple. CHEST: Symmetrical. HEART: Regular. ABDOMEN: Soft. EXTREMITIES: No edema. The patient suffers from severe anemia. The patient will get blood transfusion, supportive care. Luiza Muro MD cc: [id number] TT: 11/05/2016 12:15:09 en
--- NOTE | 2016-11-08 08:44 | PN ---
DATE: 11/06/2016 The patient is getting supportive care in the dialysis. Luiza Muro MD cc: [id number] TT: 11/06/2016 18:23:29 Confirmation # [id number] Dictation # [id number] jn 11/08/2016 07:43:39
[2016-11-08] MEDS: guaiFENesin DM 200 mg-20 mg/10 ml UD PO SCH ×4 (09:01→21:35)
[2016-11-08] MEDS: Fluticasone-Salmeterol 250-50mcg Diskus INH SCH ×2 (09:08→20:46)
[2016-11-08] MEDS: Albuterol-Ipratrop 3 mg / 0.5 (3 ml) UD INH PRN ×2 (09:08→20:46)
--- NOTE | 2016-11-08 09:32 | CP.PCM.PN ---
Subjective - Date & Time of Evaluation Date of Evaluation: 11/08/16 Time of Evaluation: 10:00 - Subjective Subjective: Dr. Farah service: Patient is seen and examined in room. She is seen with daughter present in room. She says that her breathing, nausea, vomiting, and swelling have improved since admission. Patient was told in the past she might need dialysis but refused it. She has no complaints of fever, chills, nausea, vomiting, diarrhea, or constipation. Objective - Vital Signs/Intake and Output Vital Signs (last 24 hours): Temp Pulse Resp BP Pulse Ox 98.1 F 84 20 137/74 97 11/08/16 08:11 11/08/16 08:11 11/08/16 08:11 11/08/16 08:11 11/08/16 08:11 - Medications Medications: Current Medications Albuterol/Ipratropium (Duoneb 3 Mg/0.5 Mg (3 Ml) Ud) 3 ml INH RQ4 PRN PRN Reason: Wheezing Last Admin: 11/08/16 09:08 Dose: 3 ml Belladonna/Phenobarbital () 1 tab PO BID [facility] Last Admin: 11/07/16 18:05 Dose: 1 tab Clonidine HCl (Catapres) 0.3 mg PO TID [facility] Last Admin: 11/07/16 17:54 Dose: 0.3 mg Colchicine (Colocrys) 0.6 mg PO DAILY [facility] Cyclosporine (Cyclosporine) 25 mg PO BID [facility] Last Admin: 11/07/16 17:54 Dose: 25 mg Furosemide (Lasix) 40 mg PO BID [facility] Last Admin: 11/07/16 17:54 Dose: 40 mg Guaifenesin/Dextromethorphan (Robitussin Dm) 10 ml PO QID [facility] Last Admin: 11/08/16 09:01 Dose: Not Given Heparin Sodium (Porcine) (Heparin) 5,000 units SC Q12 [facility] Last Admin: 11/08/16 09:00 Dose: Not Given Home Med (Febuxostat [Uloric]) 80 mg PO DAILY [facility] Insulin Human Isoph/Insulin Regular (Novolin 70/30 (70/30 Units/Ml) 10 Ml) 20 units SC BIDAC [facility] Last Admin: 11/07/16 17:55 Dose: 20 units Megestrol Acetate (Megace) 400 mg PO DAILY [facility] Last Admin: 11/07/16 10:38 Dose: 400 mg Metolazone (Zaroxolyn) 5 mg PO DAILY PRN PRN Reason: EDEMA Montelukast Sodium (Singulair) 10 mg PO HS [facility] Last Admin: 11/07/16 21:11 Dose: 10 mg Mycophenolate Mofetil (Cellcept Cap) 250 mg PO BID [facility] Last Admin: 11/07/16 17:53 Dose: 250 mg Ondansetron HCl (Zofran Inj) 8 mg IVP Q6H PRN PRN Reason: Nausea/Vomiting Last Admin: 11/05/16 18:07 Dose: 8 mg Oxycodone/Acetaminophen (Percocet 5/325 Mg Tab) 1 tab PO Q6H PRN PRN Reason: Pain, moderate (4-7) Stop: 11/08/16 18:27 Pantoprazole Sodium (Protonix Ec Tab) 40 mg PO DAILY [facility] Last Admin: 11/07/16 10:35 Dose: 40 mg Prednisone (Prednisone Tab) 5 mg PO DAILY [facility] Last Admin: 11/07/16 10:38 Dose: 5 mg Rosuvastatin Calcium (Crestor) 2.5 mg PO [facility] Last Admin: 11/07/16 21:11 Dose: 2.5 mg Fluticasone/Salmeterol (Advair Diskus 250/50) 1 puff INH RQ12 [facility] Last Admin: 11/08/16 09:08 Dose: 1 puff Tramadol HCl (Ultram) 25 mg PO Q6 PRN PRN Reason: Pain, moderate (4-7) Last Admin: 11/05/16 21:52 Dose: 25 mg - Labs Labs: 11/06/16 07:20 11/06/16 07:20 - Constitutional Appears: Non-toxic, No Acute Distress - Eye Exam Eye Exam: Normal appearance Pupil Exam: NORMAL ACCOMODATION - ENT Exam ENT Exam: Normal Exam - Respiratory Exam Respiratory Exam: Clear to Ausculation Bilateral. absent: Rhonchi, Wheezes - Cardiovascular Exam Cardiovascular Exam: REGULAR RHYTHM, RRR, +S1, +S2. absent: Gallop, Rubs - Extremities Exam Extremities Exam: Normal Inspection - Psychiatric Exam Psychiatric exam: Normal Affect, Normal Mood Assessment and Plan - Assessment and Plan (Free Text) Assessment: (1) ESRD 11/08: Will need to have outpatient dialysis started. Dr Vigil consulted- help appreciated Patient to start HD today via R fistula Monitor BUN/Cr and electrolytes (2) DM Novolin 20u SC BIDAC Accuchecks (3) HTN Clonidine Lasix (4) Anemia 11/08: Hbg is 6.8, transfused 1 unit post dialysis. Likely from chronic kidney disease Patient asymptomatic and hemodynamically stable Monitor CBC (5) Prophylactic measures Protonix Heparin 5000u SC q12h [facility] Will discuss with Sofi
[2016-11-08] MEDS: (Novolin 70/30) NPH/Regular 70/30 Units/ml 10 ml vial SC SCH ×2 (09:37→19:24)
[2016-11-08] MEDS: Pantoprazole 40 mg EC Tab PO SCH (11:07)
[2016-11-08] MEDS: Megestrol Acetate 40 mg/ml Cup PO SCH (11:07)
[2016-11-08] MEDS: CYCLOSPORINE, MODIFIED 25 MG CAP PO SCH (11:08)
[2016-11-08] MEDS: Belladonna-Phenobarbital PO SCH ×2 (11:09→19:23)
[2016-11-08 11:27] LABS: BASO % 0.4 % (0.0-2.0); EOS % 0.4 % (0.0-4.0); HEMATOCRIT 22.2 % (34.0-47.0); LYMPH # 0.6 K/uL (1.0-4.3); LYMPH % 8.7 % (20.0-40.0); MEAN CELL VOLUME 84.7 fL (81.0-99.0); MEAN CORPUSCULAR HEMOGLOBIN 25.9 pg (27.0-31.0); MEAN CORPUSCULAR HGB CONC 30.6 g/dL (33.0-37.0); MEAN PLATELET VOLUME 8.8 fL (7.2-11.7); MONO # 0.7 K/uL (0.0-0.8); MONO % 10.5 % (0.0-10.0); PLATELET COUNT 136 K/uL (130-400); RED CELL DISTRIBUTION WIDTH 18.2 % (11.5-14.5); WHITE BLOOD COUNT 6.7 K/uL (4.8-10.8)
[2016-11-08 11:44] LABS: ALB/GLOB RATIO 1.1 (1.0-2.1); BILIRUBIN,TOTAL 1.3 mg/dL (0.2-1.3)
[2016-11-08 11:45] LABS: CALCIUM 7.6 mg/dl (8.6-10.4)
--- NOTE | 2016-11-08 11:48 | CP.PCM.PN ---
Subjective - Date & Time of Evaluation Date of Evaluation: 11/08/16 Time of Evaluation: 11:46 - Subjective Subjective: Stable dialysis 6/10 Still very weak; moderately dyspneic still Tophi painful Will need to reschedule dialysis and make outpt dialysis arrangements Objective - Vital Signs/Intake and Output Vital Signs (last 24 hours): Temp Pulse Resp BP Pulse Ox 98.1 F 84 20 137/74 97 11/08/16 08:11 11/08/16 08:11 11/08/16 08:11 11/08/16 08:11 11/08/16 08:11 - Medications Medications: Current Medications Albuterol/Ipratropium (Duoneb 3 Mg/0.5 Mg (3 Ml) Ud) 3 ml INH RQ4 PRN PRN Reason: Wheezing Last Admin: 11/08/16 09:08 Dose: 3 ml Belladonna/Phenobarbital () 1 tab PO BID [facility] Last Admin: 11/08/16 11:09 Dose: 1 tab Clonidine HCl (Catapres) 0.3 mg PO TID [facility] Colchicine (Colocrys) 0.6 mg PO DAILY [facility] Cyclosporine (Cyclosporine) 25 mg PO BID [facility] Last Admin: 11/08/16 11:08 Dose: 25 mg Furosemide (Lasix) 40 mg PO BID [facility] Last Admin: 11/07/16 17:54 Dose: 40 mg Guaifenesin/Dextromethorphan (Robitussin Dm) 10 ml PO QID [facility] Last Admin: 11/08/16 09:01 Dose: Not Given Home Med (Febuxostat [Uloric]) 80 mg PO DAILY [facility] Insulin Human Isoph/Insulin Regular (Novolin 70/30 (70/30 Units/Ml) 10 Ml) 20 units SC BIDAC [facility] Last Admin: 11/08/16 09:37 Dose: 20 units Megestrol Acetate (Megace) 400 mg PO DAILY [facility] Last Admin: 11/08/16 11:07 Dose: 400 mg Metolazone (Zaroxolyn) 5 mg PO DAILY PRN PRN Reason: EDEMA Montelukast Sodium (Singulair) 10 mg PO HS [facility] Last Admin: 11/07/16 21:11 Dose: 10 mg Mycophenolate Mofetil (Cellcept Cap) 250 mg PO BID [facility] Last Admin: 11/08/16 11:09 Dose: 250 mg Ondansetron HCl (Zofran Inj) 8 mg IVP Q6H PRN PRN Reason: Nausea/Vomiting Last Admin: 11/05/16 18:07 Dose: 8 mg Oxycodone/Acetaminophen (Percocet 5/325 Mg Tab) 1 tab PO Q6H PRN PRN Reason: Pain, moderate (4-7) Stop: 11/08/16 18:27 Pantoprazole Sodium (Protonix Ec Tab) 40 mg PO DAILY [facility] Last Admin: 11/08/16 11:07 Dose: 40 mg Prednisone (Prednisone Tab) 5 mg PO DAILY [facility] Last Admin: 11/08/16 11:09 Dose: 5 mg Rosuvastatin Calcium (Crestor) 2.5 mg PO HS [facility] Last Admin: 11/07/16 21:11 Dose: 2.5 mg Fluticasone/Salmeterol (Advair Diskus 250/50) 1 puff INH RQ12 [facility] Last Admin: 11/08/16 09:08 Dose: 1 puff Tramadol HCl (Ultram) 25 mg PO Q6 PRN PRN Reason: Pain, moderate (4-7) Last Admin: 11/05/16 21:52 Dose: 25 mg - Labs Labs: 11/08/16 11:16 11/06/16 07:20 - Constitutional Appears: No Acute Distress, Chronically Ill - Head Exam Head Exam: ATRAUMATIC, NORMAL INSPECTION - Eye Exam Eye Exam: EOMI, Normal appearance - Neck Exam Neck Exam: Normal Inspection. absent: Tenderness - Respiratory Exam Respiratory Exam: Clear to Ausculation Bilateral, NORMAL BREATHING PATTERN - Cardiovascular Exam Cardiovascular Exam: REGULAR RHYTHM, +S1 - GI/Abdominal Exam GI & Abdominal Exam: Soft. 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
[2016-11-08] MEDS ORDERED: Ferric Sodium Gluconat Complex 62.5 mg/5 ml Vial IVPB SCH (12:00)
[2016-11-08] MEDS ORDERED: Potassium Chloride 20 mEq ER Tab PO ONE (12:12)
[2016-11-08 12:21] LABS: MYELOCYTE 1 % (0-0); NEUTROPHIL 77 % (50-75); TOTAL CELLS COUNTED 100
--- NOTE | 2016-11-08 12:37 | PN ---
DATE: 11/08/2016 LOCATION: 568, bed B. This 71-year-old female seen and examined at rounds without significant clinical changes or reported active bleeding, on hemodialysis. The entire chart is reviewed including, but not limited to, the most recent lab and radiology study r esults, current and previous medication lists, current and the previous medical events. Case discuss ed with the staff as well as the patient's daughter at length. It has to be mentioned that today's hemoglobin dropped to 6.8 with hematocrit 22.2 with low indices, but normal white blood cells with low potassium of 3.0, increased BUN 80, creatinine 2.4 with blood g lucose level 173, calcium 7.6 with low albumin 2.6 and low total protein of 5. Please again, the patient, as per her daughter's statement, refusing any colonoscopy or upper endosco py. PHYSICAL EXAMINATION: GENERAL: A 71-year-old female, appears to be awake, alert. VITAL SIGNS: Afebrile with pulse of 80, respiratory rate 20-22, blood pressure of 130/72. HEENT: Showed pale, dry oral mucoid membrane. Nonicteric sclerae. LUNGS: A few scattered crepitation. Decreased air entry at bases. HEART: Positive S1 and S2. ABDOMEN: Soft. Bowel sounds are present. No mass or organomegaly. No rebound tenderness or guardi ng. EXTREMITIES: With evidence of slight lower extremity edematous changes. No clubbing or cyanosis. NEUROLOGIC: No reported neurological deficits, sensory or motor. However, patient appears to be jhonny y weak and dyspneic at times. IMPRESSION: 1. Chronic renal failure, on hemodialysis. 2. Status post renal transplant, right kidney before. 3. Reported congestive heart failure. 4. Known history of gouty arthritis. 5. Severe anemia that could be secondary to above versus gastrointestinal bleeding, upper versus low er. 6. Nonproductive cough, chronic, of unclear etiology. 7. Pleural effusion by radiology study results. 8. Abnormal ultrasound of the abdomen with fatty infiltrate of the liver versus liver cirrhosis. 9. Ascites with possible portal hypertension. 10. Elevated CEA level. Again, patient will need repeat colonoscopy; had refused. SUGGESTION: 1. Continue current management. 2. Blood transfusion to keep hemoglobin around 10 g%. 3. Antireflux measures. Jose Le MD cc: 14 TT: 11/08/2016 12:36:07 Confirmation # [id number] Dictation # [id number] mn
[2016-11-08] MEDS ORDERED: Potassium Chloride 20 mEq/15 ml LIQ UD PO STA (13:02)
[2016-11-08 14:11] LABS: IRON 20 ug/dL (37-170)
[2016-11-08] MEDS: Rosuvastatin Calcium 2.5 mg Tab PO SCH (21:35)
[2016-11-08 22:17] LABS: CALCIUM 8.4 mg/dL (8.6-10.4)
[2016-11-09] MEDS ORDERED: Ferric Sodium Gluconat Complex 62.5 mg/5 ml Vial IVPB SCH (08:04)
[2016-11-09 08:43] LABS: BASO % 0.2 % (0.0-2.0); EOS % 0.3 % (0.0-4.0); HEMATOCRIT 27.3 % (34.0-47.0); LYMPH # 0.7 K/uL (1.0-4.3); LYMPH % 7.7 % (20.0-40.0); MEAN CELL VOLUME 85.1 fL (81.0-99.0); MEAN CORPUSCULAR HEMOGLOBIN 26.7 pg (27.0-31.0); MEAN CORPUSCULAR HGB CONC 31.3 g/dL (33.0-37.0); MEAN PLATELET VOLUME 8.6 fL (7.2-11.7); MONO # 1.2 K/uL (0.0-0.8); PLATELET COUNT 141 K/uL (130-400); RED CELL DISTRIBUTION WIDTH 18.4 % (11.5-14.5); WHITE BLOOD COUNT 9.3 K/uL (4.8-10.8)
[2016-11-09] MEDS: Belladonna-Phenobarbital PO SCH ×2 (09:39→18:41)
[2016-11-09] MEDS: Megestrol Acetate 40 mg/ml Cup PO SCH (09:39)
[2016-11-09] MEDS: Pantoprazole 40 mg EC Tab PO SCH (09:39)
[2016-11-09] MEDS: (Novolin 70/30) NPH/Regular 70/30 Units/ml 10 ml vial SC SCH ×2 (09:40→18:25)
[2016-11-09] MEDS: guaiFENesin DM 200 mg-20 mg/10 ml UD PO SCH ×4 (09:41→21:29)
--- NOTE | 2016-11-09 10:06 | PN ---
DATE: 11/09/2016 LOCATION: 568, bed B. This 71-year-old female is seen and examined in rounds today without reported significant changes or active bleeding. On hemodialysis. The patient appeared to be awake, alert, oriented, seen with the medical and nursing staff on the floor, but complaining of generalized weakness and malaise with inte rmittent periods of shortness of breath, mild, with periods of dry cough still. The entire chart is reviewed including, but not limited to, the most recent lab and radiology study r esults, current and previous medication lists, current and the previous medical events, and today's b lood glucose level reported to be 148. The patient still has very low hemoglobin and hematocrit as p er yesterday's reports, with hemoglobin of 6.8, hematocrit 22.2 with normal platelet count, with low potassium as well as low calcium of 7.6, BUN is 80, creatinine 2.4, compatible [facility], with low albumin 2.6 and low total protein 5.0. No reported hematemesis, but less oral intake. The patient complained also of mild increase of abdominal gas. PHYSICAL EXAMINATION: GENERAL: A 71-year-old female. VITAL SIGNS: Afebrile with heart rate of 94, respiratory rate 22-24 with blood pressure of 130/74. HEENT: Showed pale, dry oral mucoid membrane. Nonicteric sclerae. LUNGS: A few scattered crepitations with mild bilateral rales and decreased air entry at bases. HEART: Positive S1 and S2 with increased rate. ABDOMEN: Soft with slight distention, positive for ascites with slight generalized tenderness and mi ld distention. No mass or organomegaly. No rebound tenderness or guarding. RECTAL: The patient refused. EXTREMITIES: With mild lower extremities edematous changes. Right upper extremity AV shunt is funct ioning. NEUROLOGIC: No reported new neurological deficits, sensory or motor. IMPRESSION: 1. Chronic renal failure, on hemodialysis. 2. Evidence of liver cirrhosis by abdominal ultrasound only, with portal hypertension and ascites. 3. Reported congestive heart failure. 4. Known history of status post renal transplant, right kidney. 5. Severe anemia as a possibility of gastrointestinal blood loss was raised, upper versus lower, wit h possible blood loss from possible esophageal varices. As per daughter's statement again, the patie nt is refusing upper or lower endoscopy so far; that to be discussed with admitting medical team. 6. Pleural effusion by radiology study results with intermittent periods of dry cough. SUGGESTION: 1. Agree with your plan. 2. Due to the elevated CEA level, again barium enema to be offered to the patient. Otherwise close observation with blood transfusion through with the dialysis should be kept in mind. Jose Le MD cc: 14 TT: 11/09/2016 10:06:18 Confirmation # [id number] Dictation # [id number] mn
--- NOTE | 2016-11-09 10:52 | CP.PCM.PN ---
Subjective - Date & Time of Evaluation Date of Evaluation: 11/09/16 Time of Evaluation: 10:51 - Subjective Subjective: seen and examined s/p hd yesterday, used av fistula. severe bruising at avf site, per granddaughter-improving Objective - Vital Signs/Intake and Output Vital Signs (last 24 hours): Temp Pulse Resp BP Pulse Ox 98.9 F 93 H 20 135/77 95 11/08/16 23:27 11/08/16 23:27 11/08/16 23:27 11/08/16 23:27 11/08/16 23:27 - Medications Medications: Current Medications Albuterol/Ipratropium (Duoneb 3 Mg/0.5 Mg (3 Ml) Ud) 3 ml INH RQ4 PRN PRN Reason: Wheezing Last Admin: 11/08/16 20:46 Dose: 3 ml Belladonna/Phenobarbital () 1 tab PO BID [facility] Last Admin: 11/09/16 09:39 Dose: 1 tab Clonidine HCl (Catapres) 0.3 mg PO TID [facility] Last Admin: 11/09/16 09:39 Dose: 0.3 mg Colchicine (Colocrys) 0.6 mg PO DAILY [facility] Epoetin Erasto (Procrit) 10,000 unit IV MWF [facility] Ferric Sodium Gluconate Complex (Ferrlecit) 125 mg IVPB DAILY [facility] Stop: 11/16/16 16:01 Guaifenesin/Dextromethorphan (Robitussin Dm) 10 ml PO QID [facility] Last Admin: 11/09/16 09:41 Dose: Not Given Home Med (Febuxostat [Uloric]) 80 mg PO DAILY [facility] Insulin Human Isoph/Insulin Regular (Novolin 70/30 (70/30 Units/Ml) 10 Ml) 20 units SC BIDAC [facility] Last Admin: 11/09/16 09:40 Dose: 20 units Megestrol Acetate (Megace) 400 mg PO DAILY [facility] Last Admin: 11/09/16 09:39 Dose: 400 mg Metolazone (Zaroxolyn) 5 mg PO DAILY PRN PRN Reason: EDEMA Montelukast Sodium (Singulair) 10 mg PO HS [facility] Last Admin: 11/08/16 21:35 Dose: 10 mg Ondansetron HCl (Zofran Inj) 8 mg IVP Q6H PRN PRN Reason: Nausea/Vomiting Last Admin: 11/05/16 18:07 Dose: 8 mg Pantoprazole Sodium (Protonix Ec Tab) 40 mg PO DAILY [facility] Last Admin: 11/09/16 09:39 Dose: 40 mg Prednisone (Prednisone Tab) 5 mg PO DAILY [facility] Last Admin: 11/09/16 09:39 Dose: 5 mg Rosuvastatin Calcium (Crestor) 2.5 mg PO HS [facility] Last Admin: 11/08/16 21:35 Dose: 2.5 mg Fluticasone/Salmeterol (Advair Diskus 250/50) 1 puff INH RQ12 [facility] Last Admin: 11/08/16 20:46 Dose: 1 puff Tramadol HCl (Ultram) 25 mg PO Q6 PRN PRN Reason: Pain, moderate (4-7) Last Admin: 11/05/16 21:52 Dose: 25 mg - Labs Labs: 11/09/16 08:29 11/08/16 11:16 - Constitutional Appears: Non-toxic, No Acute Distress, Chronically Ill - Head Exam Head Exam: NORMAL INSPECTION - Eye Exam Eye Exam: Normal appearance - ENT Exam ENT Exam: Mucous Membranes Moist, Normal Exam - Neck Exam Neck Exam: Normal Inspection - Respiratory Exam Respiratory Exam: Clear to Ausculation Bilateral - Cardiovascular Exam Cardiovascular Exam: REGULAR RHYTHM, RRR - GI/Abdominal Exam GI & Abdominal Exam: Soft, Normal Bowel Sounds - Extremities Exam Extremities Exam: Normal Inspection Additional comments: rue avf w/ dressing, bruising around Assessment and Plan (1) ESRD (end stage renal disease) Status: Acute (2) Renal transplant recipient Status: Chronic (3) HTN (hypertension) Status: Acute (4) Hypokalemia Status: Acute - Assessment and Plan (Free Text) Assessment: dc mmf, slow taper of prednisone to be done outpatient. hd mwf placement iv iron peri for anemia
[2016-11-09 11:50] LABS: POTASSIUM 3.6 mmol/L (3.6-5.2)
[2016-11-09 11:52] LABS: ALB/GLOB RATIO 1.2 (1.0-2.1); BILIRUBIN,TOTAL 1.4 mg/dL (0.2-1.3); CALCIUM 7.9 mg/dl (8.6-10.4); PHOSPHOROUS 2.7 mg/dL (2.5-4.5); TOTAL PROTEIN 5.4 g/dL (6.3-8.3)
[2016-11-09 11:53] LABS: MAGNESIUM 1.6 mg/dL (1.6-2.3)
[2016-11-09 12:06] LABS: NEUTROPHIL 82 % (50-75); TOTAL CELLS COUNTED 100
[2016-11-09] MEDS: Fluticasone-Salmeterol 250-50mcg Diskus INH SCH ×2 (13:35→20:02)
--- NOTE | 2016-11-09 14:32 | CP.PCM.PN ---
Subjective - Date & Time of Evaluation Date of Evaluation: 11/09/16 Time of Evaluation: 10:00 - Subjective Subjective: Dr. Farah's note: Patient seen in room with daughter present. She says she is feeling well today with no nausea, vomiting, or shortness of breath. She came to the hospital because of nausea and vomiting. She needs to have an out patient dialysis arrangment. Objective - Vital Signs/Intake and Output Vital Signs (last 24 hours): Temp Pulse Resp BP Pulse Ox 98.9 F 93 H 20 135/77 95 11/08/16 23:27 11/08/16 23:27 11/08/16 23:27 11/08/16 23:27 11/08/16 23:27 - Medications Medications: Current Medications Albuterol/Ipratropium (Duoneb 3 Mg/0.5 Mg (3 Ml) Ud) 3 ml INH RQ4 PRN PRN Reason: Wheezing Last Admin: 11/08/16 20:46 Dose: 3 ml Belladonna/Phenobarbital () 1 tab PO BID [facility] Last Admin: 11/09/16 09:39 Dose: 1 tab Clonidine HCl (Catapres) 0.3 mg PO TID [facility] Last Admin: 11/09/16 09:39 Dose: 0.3 mg Colchicine (Colocrys) 0.6 mg PO DAILY [facility] Epoetin Erasto (Procrit) 10,000 unit IV MWF [facility] Ferric Sodium Gluconate Complex (Ferrlecit) 125 mg IVPB DAILY [facility] Stop: 11/16/16 16:01 Guaifenesin/Dextromethorphan (Robitussin Dm) 10 ml PO QID [facility] Last Admin: 11/09/16 09:41 Dose: Not Given Home Med (Febuxostat [Uloric]) 80 mg PO DAILY [facility] Insulin Human Isoph/Insulin Regular (Novolin 70/30 (70/30 Units/Ml) 10 Ml) 20 units SC BIDAC [facility] Last Admin: 11/09/16 09:40 Dose: 20 units Megestrol Acetate (Megace) 400 mg PO DAILY [facility] Last Admin: 11/09/16 09:39 Dose: 400 mg Metolazone (Zaroxolyn) 5 mg PO DAILY PRN PRN Reason: EDEMA Montelukast Sodium (Singulair) 10 mg PO HS [facility] Last Admin: 11/08/16 21:35 Dose: 10 mg Ondansetron HCl (Zofran Inj) 8 mg IVP Q6H PRN PRN Reason: Nausea/Vomiting Last Admin: 11/05/16 18:07 Dose: 8 mg Pantoprazole Sodium (Protonix Ec Tab) 40 mg PO DAILY [facility] Last Admin: 11/09/16 09:39 Dose: 40 mg Prednisone (Prednisone Tab) 5 mg PO DAILY [facility] Last Admin: 11/09/16 09:39 Dose: 5 mg Rosuvastatin Calcium (Crestor) 2.5 mg PO HS [facility] Last Admin: 11/08/16 21:35 Dose: 2.5 mg Fluticasone/Salmeterol (Advair Diskus 250/50) 1 puff INH RQ12 [facility] Last Admin: 11/09/16 13:35 Dose: 1 puff Tramadol HCl (Ultram) 25 mg PO Q6 PRN PRN Reason: Pain, moderate (4-7) Last Admin: 11/05/16 21:52 Dose: 25 mg - Labs Labs: 11/09/16 08:29 11/09/16 11:24 - Constitutional Appears: Non-toxic, No Acute Distress - Head Exam Head Exam: NORMAL INSPECTION - Eye Exam Eye Exam: Normal appearance - ENT Exam ENT Exam: Normal Exam - Neck Exam Neck Exam: Normal Inspection - Respiratory Exam Respiratory Exam: Clear to Ausculation Bilateral. absent: Rales, Rhonchi, Wheezes - Cardiovascular Exam Cardiovascular Exam: REGULAR RHYTHM, RRR, +S1, +S2. absent: Gallop, Rubs - GI/Abdominal Exam GI & Abdominal Exam: Soft, Normal Bowel Sounds. absent: Tenderness - Extremities Exam Extremities Exam: Normal Inspection. absent: Pedal Edema - Back Exam Back Exam: NORMAL INSPECTION - Psychiatric Exam Psychiatric exam: Normal Affect, Normal Mood - Skin Skin Exam: Normal Color Assessment and Plan - Assessment and Plan (Free Text) Assessment: (1) ESRD 11/09: Discharge pending placement for outpatient dialysis. 11/08: Will need to have outpatient dialysis started. Dr Vigil consulted- help appreciated Patient to start HD today via R fistula Monitor BUN/Cr and electrolytes (2) DM Novolin 20u SC BIDAC Accuchecks (3) HTN Clonidine Lasix (4) Anemia 11/09: Hbg improved to 7.8, continue to monitor. 11/08: Hbg is 6.8, transfused 1 unit post dialysis. Likely from chronic kidney disease Patient asymptomatic and hemodynamically stable Monitor CBC (5) Prophylactic measures Protonix Heparin 5000u SC q12h SCDs Will discuss with Sofi
[2016-11-09] MEDS: Rosuvastatin Calcium 2.5 mg Tab PO SCH (21:29)
--- NOTE | 2016-11-10 08:12 | CP.PCM.PN ---
Subjective - Date & Time of Evaluation Date of Evaluation: 11/10/16 Time of Evaluation: 07:35 - Subjective Subjective: PGY2 Medicine Note - Dr. Farah's service: Patient seen and examined at bedside this AM. Patient reports cough x 3 weeks productive of yellow phlegm. She says it really bothers her. Patient has no other complaints. Objective - Vital Signs/Intake and Output Vital Signs (last 24 hours): Temp Pulse Resp BP Pulse Ox 98.1 F 75 20 131/77 100 11/09/16 23:38 11/09/16 23:38 11/09/16 23:38 11/09/16 23:38 11/09/16 23:38 Intake and Output: 11/10/16 11/10/16 06:59 18:59 Intake Total 200 Balance 200 - Medications Medications: Current Medications Albuterol/Ipratropium (Duoneb 3 Mg/0.5 Mg (3 Ml) Ud) 3 ml INH RQ4 PRN PRN Reason: Wheezing Last Admin: 11/08/16 20:46 Dose: 3 ml Belladonna/Phenobarbital () 1 tab PO BID [facility] Last Admin: 11/09/16 18:41 Dose: Not Given Clonidine HCl (Catapres) 0.3 mg PO TID [facility] Last Admin: 11/09/16 18:55 Dose: 0.3 mg Epoetin Erasto (Procrit) 10,000 unit IV MWF [facility] Ferric Sodium Gluconate Complex (Ferrlecit) 125 mg IVPB DAILY [facility] Stop: 11/16/16 16:01 Guaifenesin/Dextromethorphan (Robitussin Dm) 10 ml PO QID [facility] Last Admin: 11/09/16 21:29 Dose: Not Given Home Med (Febuxostat [Uloric]) 80 mg PO DAILY [facility] Insulin Human Isoph/Insulin Regular (Novolin 70/30 (70/30 Units/Ml) 10 Ml) 20 units SC BIDAC [facility] Last Admin: 11/09/16 18:25 Dose: 20 units Megestrol Acetate (Megace) 400 mg PO DAILY [facility] Last Admin: 11/09/16 09:39 Dose: 400 mg Metolazone (Zaroxolyn) 5 mg PO DAILY PRN PRN Reason: EDEMA Montelukast Sodium (Singulair) 10 mg PO HS [facility] Last Admin: 11/09/16 21:29 Dose: 10 mg Ondansetron HCl (Zofran Inj) 8 mg IVP Q6H PRN PRN Reason: Nausea/Vomiting Last Admin: 11/05/16 18:07 Dose: 8 mg Pantoprazole Sodium (Protonix Ec Tab) 40 mg PO DAILY [facility] Last Admin: 11/09/16 09:39 Dose: 40 mg Prednisone (Prednisone Tab) 5 mg PO DAILY [facility] Last Admin: 11/09/16 09:39 Dose: 5 mg Rosuvastatin Calcium (Crestor) 2.5 mg PO HS [facility] Last Admin: 11/09/16 21:29 Dose: 2.5 mg Fluticasone/Salmeterol (Advair Diskus 250/50) 1 puff INH RQ12 [facility] Last Admin: 11/09/16 20:02 Dose: 1 puff Tramadol HCl (Ultram) 25 mg PO Q6 PRN PRN Reason: Pain, moderate (4-7) Last Admin: 11/05/16 21:52 Dose: 25 mg - Labs Labs: 11/09/16 08:29 11/09/16 11:24 - Constitutional Appears: Non-toxic, No Acute Distress - Head Exam Head Exam: NORMAL INSPECTION - Eye Exam Eye Exam: EOMI - ENT Exam ENT Exam: Mucous Membranes Moist - Respiratory Exam Respiratory Exam: Rhonchi, NORMAL BREATHING PATTERN. absent: Accessory Muscle Use, Chest Wall Tenderness, Rales, Wheezes, Respiratory Distress - Cardiovascular Exam Cardiovascular Exam: REGULAR RHYTHM, +S1, +S2. absent: Gallop, Rubs - GI/Abdominal Exam GI & Abdominal Exam: Soft, Normal Bowel Sounds. absent: Tenderness - Extremities Exam Extremities Exam: Pedal Edema (2+ pitting b/l to knees) - Neurological Exam Neurological Exam: Alert, Awake, Oriented x3 - Psychiatric Exam Psychiatric exam: Normal Affect, Normal Mood - Skin Skin Exam: Normal Color, Warm Assessment and Plan - Assessment and Plan (Free Text) Assessment: (1) ESRD 614: pending outpatient dialysis placement 11/09: Discharge pending placement for outpatient dialysis. 11/08: Will need to have outpatient dialysis started. Dr Vigil consulted- help appreciated Patient to start HD today via R fistula Monitor BUN/Cr and electrolytes (2) cough F/U CXR Will add abx if patient has pneumonia on X ray (3) DM Novolin 20u SC BIDAC Accuchecks (4) HTN Clonidine Lasix (5) Anemia 11/10: F/U Hgb 11/09: Hbg improved to 7.8, continue to monitor. 11/08: Hbg is 6.8, transfused 1 unit post dialysis. Likely from chronic kidney disease Patient asymptomatic and hemodynamically stable Monitor CBC (6) Prophylactic measures Protonix Heparin 5000u SC q12h [facility]CDs Will discuss with Sofi
[2016-11-10] MEDS: Fluticasone-Salmeterol 250-50mcg Diskus INH SCH ×2 (08:39→19:00)
[2016-11-10] MEDS ORDERED: EPOETIN ALFA 10,000 UNIT/ML ML IV SCH (09:00)
[2016-11-10 09:14] LABS: BASO % 0.5 % (0.0-2.0); EOS % 0.4 % (0.0-4.0); LYMPH # 0.8 K/uL (1.0-4.3); MEAN CELL VOLUME 85.6 fL (81.0-99.0); MEAN CORPUSCULAR HEMOGLOBIN 26.3 pg (27.0-31.0); MEAN CORPUSCULAR HGB CONC 30.7 g/dL (33.0-37.0); MEAN PLATELET VOLUME 8.7 fL (7.2-11.7); MONO # 1.1 K/uL (0.0-0.8); MONO % 12.7 % (0.0-10.0); PLATELET COUNT 136 K/uL (130-400); RED CELL DISTRIBUTION WIDTH 18.6 % (11.5-14.5); WHITE BLOOD COUNT 8.5 K/uL (4.8-10.8)
[2016-11-10 09:25] LABS: POTASSIUM 4.1 mmol/L (3.6-5.2)
[2016-11-10 09:27] LABS: ALB/GLOB RATIO 1.2 (1.0-2.1); BILIRUBIN,TOTAL 1.6 mg/dL (0.2-1.3); TOTAL PROTEIN 5.5 g/dL (6.3-8.3)
[2016-11-10 09:28] LABS: CALCIUM 8.3 mg/dl (8.6-10.4)
[2016-11-10 09:50] LABS: BASOPHIL 1 % (0-2); NEUTROPHIL 83 % (50-75); TOTAL CELLS COUNTED 100
--- NOTE | 2016-11-10 10:19 | RAD ---
Chest x-ray single frontal view History: Coughing up phlegm. Comparison: 11/04/2016 Findings: Moderate loculated right pleural effusion. Confluent airspace opacification in the right mid to lower lung zone. Small left pleural effusion with left basilar airspace opacity. Right paratracheal airspace opacity may represent prominent vasculature. Calcification at the aortic knob. Cardiomegaly. IVC filter in place. Rounded radiopaque density projects over the left sergey abdomen/renal fossa. Clinical correlation. Degenerative changes in the spine and shoulders. Rounded radiopaque calcifications project in the soft tissues of the distal right humerus. Impression: Moderate loculated right pleural effusion. Confluent airspace opacification in the right mid to lower lung zone. Small left pleural effusion with left basilar airspace opacity. Right paratracheal airspace opacity may represent prominent vasculature. Calcification at the aortic knob. Cardiomegaly.
[2016-11-10] MEDS: Epoetin Alfa 10,000 unit/ml Dialysis IV SCH (11:50)
[2016-11-10] MEDS: (Novolin 70/30) NPH/Regular 70/30 Units/ml 10 ml vial SC SCH ×2 (12:27→18:39)
[2016-11-10] MEDS: Belladonna-Phenobarbital PO SCH ×2 (12:27→18:38)
[2016-11-10] MEDS: guaiFENesin DM 200 mg-20 mg/10 ml UD PO SCH ×4 (12:28→21:40)
--- NOTE | 2016-11-10 14:06 | PN ---
DATE: 11/10/2016 LOCATION: 568, bed B. This is a 71-year-old female seen and examined in rounds without significant clinical changes or repo rted active bleeding, post right upper extremity AV shunt insertion. The patient is still has intermittent periods of mild abdominal pain, but no reported active bleeding , somewhat tolerating oral intake with persistent nausea and intermittent period of productive cough. No reported hematemesis or active bleeding. The entire chart is reviewed including, but not limited to most recent lab and radiology study results, current and the previous medication lists, current an d the previous medical events. The patient still has low hemoglobin of 8.6 with hematocrit 28.0, but with normal platelet count and normal white blood cells with increased BUN to 56, creatinine 2.5 wit h low calcium of 8.3, high total bilirubin 1.6 with low albumin 2.9, low total protein 5.5. Today's chest x-ray report and film are seen indicative of moderate loculated right pleural effusion with possible pneumonia and small left pleural effusion with evidence of cardiomegaly. The above fin ding may be the main reason for the patient's persistent coughing. PHYSICAL EXAMINATION: GENERAL: A 71-year-old female, awake, alert. VITAL SIGNS: Low-grade temperature of 99.3 and pulse of 80, respiratory rate of 20-22 with blood pre ssure of 130/70. HEENT: Showed dry, pale oral mucoid membrane. Nonicteric sclerae. LUNGS: Few scattered crepitation, decreased air entry at bases. HEART: Positive S1 and S2. ABDOMEN: Soft. Bowel sounds are present with mild generalized tenderness. No mass or organomegaly. No rebound tenderness or guarding. RECTAL: Positive tone. Vault is empty. EXTREMITIES: Without significant clubbing or cyanosis, but mild edematous changes. NEUROLOGIC: No new reported neurological deficits, sensory or motor. Peripheral pulses are positive. IMPRESSION: 1. Chronic renal failure, on hemodialysis. 2. Status post right kidney transplant. 3. Evidence of liver cirrhosis by abdominal ultrasound with portal hypertension and ascites. 4. Bilateral pleural effusion. 5. Reported congestive heart failure. 6. Possible pneumonia. 7. Anemia which could be secondary to above versus gastrointestinal blood loss, upper versus lower a nd the possibility of esophageal varices to be ruled in or out, has one of leading causes of the cely ent's anemia. SUGGESTION: 1. Agree with your plan. 2. Due to the patient's elevated CEA level of 6.4 and elevated CA 125 to 50.7, sectional abdominal a nd pelvic CAT scan to be kept in mind and the patient is to be scheduled for endoscopic evaluation of the GI tract when she is more stable clinically. Case is to be discussed with also Dr. Sean Muro at length. We will follow up closely with you. Jose Le MD cc: 14 TT: 11/10/2016 14:06:15 Confirmation # [id number] Dictation # [id number]
--- NOTE | 2016-11-10 14:10 | CP.PCM.PN ---
Subjective - Date & Time of Evaluation Date of Evaluation: 11/10/16 Time of Evaluation: 14:08 - Subjective Subjective: Seen at dialysis Removing 2800ml fluid BP better controlled ESAs, IV Fe started Feels better- less dyspneic Objective - Vital Signs/Intake and Output Vital Signs (last 24 hours): Temp Pulse Resp BP Pulse Ox 99.3 F 85 19 124/66 98 11/10/16 09:50 11/10/16 09:50 11/10/16 09:50 11/10/16 12:50 11/10/16 09:50 Intake and Output: 11/10/16 11/10/16 06:59 18:59 Intake Total 200 Balance 200 - Medications Medications: Current Medications Albuterol/Ipratropium (Duoneb 3 Mg/0.5 Mg (3 Ml) Ud) 3 ml INH RQ4 PRN PRN Reason: Wheezing Last Admin: 11/08/16 20:46 Dose: 3 ml Belladonna/Phenobarbital () 1 tab PO BID [facility] Last Admin: 11/10/16 12:27 Dose: Not Given Clonidine HCl (Catapres) 0.3 mg PO TID [facility] Last Admin: 11/10/16 12:27 Dose: Not Given Epoetin Erasto (Procrit) 10,000 unit IV MWF [facility] Last Admin: 11/10/16 11:50 Dose: 10,000 unit Ferric Sodium Gluconate Complex (Ferrlecit) 125 mg IVPB Q24H [facility] Stop: 11/18/16 16:01 Furosemide (Lasix) 40 mg IVP BID [facility] Guaifenesin/Dextromethorphan (Robitussin Dm) 10 ml PO QID [facility] Last Admin: 11/10/16 12:28 Dose: Not Given Home Med (Febuxostat [Uloric]) 80 mg PO DAILY [facility] Insulin Human Isoph/Insulin Regular (Novolin 70/30 (70/30 Units/Ml) 10 Ml) 20 units SC BIDAC [facility] Last Admin: 11/10/16 12:27 Dose: Not Given Megestrol Acetate (Megace) 400 mg PO DAILY [facility] Last Admin: 11/09/16 09:39 Dose: 400 mg Metolazone (Zaroxolyn) 5 mg PO DAILY PRN PRN Reason: EDEMA Montelukast Sodium (Singulair) 10 mg PO HS [facility] Last Admin: 11/09/16 21:29 Dose: 10 mg Ondansetron HCl (Zofran Inj) 8 mg IVP Q6H PRN PRN Reason: Nausea/Vomiting Last Admin: 11/05/16 18:07 Dose: 8 mg Pantoprazole Sodium (Protonix Ec Tab) 40 mg PO DAILY [facility] Last Admin: 11/09/16 09:39 Dose: 40 mg Prednisone (Prednisone Tab) 5 mg PO DAILY [facility] Last Admin: 11/09/16 09:39 Dose: 5 mg Rosuvastatin Calcium (Crestor) 2.5 mg PO HS [facility] Last Admin: 11/09/16 21:29 Dose: 2.5 mg Fluticasone/Salmeterol (Advair Diskus 250/50) 1 puff INH RQ12 [facility] Last Admin: 11/10/16 08:39 Dose: 1 puff Tramadol HCl (Ultram) 25 mg PO Q6 PRN PRN Reason: Pain, moderate (4-7) Last Admin: 11/05/16 21:52 Dose: 25 mg - Labs Labs: 11/10/16 09:10 11/10/16 09:10 - Constitutional Appears: No Acute Distress, Chronically Ill - Head Exam Head Exam: ATRAUMATIC, NORMAL INSPECTION - Eye Exam Eye Exam: EOMI, Normal appearance - Neck Exam Neck Exam: Normal Inspection. absent: Tenderness - Respiratory Exam Respiratory Exam: Clear to Ausculation Bilateral, NORMAL BREATHING PATTERN - Cardiovascular Exam Cardiovascular Exam: REGULAR RHYTHM, +S1 - GI/Abdominal Exam GI & Abdominal Exam: Soft. absent: Tenderness - Extremities Exam Extremities Exam: Pedal Edema, Tenderness - Neurological Exam Neurological Exam: Alert, Awake - Skin Skin Exam: Dry, Warm Assessment and Plan (1) Renal failure (ARF), acute on chronic Status: Acute (2) Renal transplant recipient Status: Chronic (3) CHF (congestive heart failure) Status: Acute (4) Gout Status: Chronic - Assessment and Plan (Free Text) Plan: Dialysis MWF Adequate UF Soon stop lasix Needs AV access eval Then outpt dialysis placement
[2016-11-10] MEDS: Pantoprazole 40 mg EC Tab PO SCH (14:49)
[2016-11-10] MEDS: Megestrol Acetate 40 mg/ml Cup PO SCH (14:49)
--- NOTE | 2016-11-10 17:54 | CT ---
PROCEDURE: CT Chest without contrast HISTORY: pleural effusion, possible pneumonia COMPARISON: Comparison made with chest radiograph 11/10/2016. TECHNIQUE: Contiguous axial images were obtained through the chest without intravenous contrast enhancement. Sagittal and coronal reconstructions were performed. Radiation dose (DLP): 183.04 mGy-cm. This CT exam was performed using one or more of the following dose reduction techniques: Automated exposure control, adjustment of the mA and/or kV according to patient size, and/or use of iterative reconstruction technique. FINDINGS: LUNGS: Bibasilar atelectasis and bilateral effusions right larger than left. MEDIASTINUM: Heart size is mildly enlarged. Coronary artery calcifications are present. . No significant pericardial effusion. . Findings also suggest underlying anemia. Clinical correlation recommended. There is fusiform aneurysmal dilatation of the ascending thoracic aorta which measures approximately 4.26 cm in greatest diameter. Descending thoracic aorta measures approximately 2.9 cm. Partially calcified atherosclerotic plaque seen along the thoracic aorta Pulmonary trunk measures approximately 3.28 cm. Small nonspecific mediastinal lymph nodes Evaluation for hilar adenopathy is somewhat limited due to the lack of circulating intravenous contrast material. PLEURA: No pleural fluid. No pneumothorax. BONES: Mild multilevel degenerative spondylosis of the thoracic spine. No acute compression fractures nor retropulsed fragments. Mild levoscoliosis centered in the lower thoracic region. 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 The [place] kidneys are atrophic. Transplant kidney in right pelvis seen on prior study not appreciated on this exam OTHER FINDINGS: None. IMPRESSION: Moderately large right and slightly smaller left-sided effusion with bibasilar atelectasis. Cardiomegaly with evidence of anemia. Fusiform aneurysmal dilatation of the ascending thoracic aorta measuring up to approximately 4.26 cm in greatest transverse dimension. See above discussion for additional findings and details.
--- NOTE | 2016-11-10 18:27 | CON ---
DATE: 11/10/2016 The patient is a 71-year-old woman seen for evaluation of right arm dialysis access. The patient had a kidney transplant in the past. She had access created a number of years ago and now our problem i s that she has developed an issue with her right arm where the fistula was used and there is extravas ation. Examination shows a fistula in the arm which appears to be maturing and has a good thrill but it is unclear, however, if it extends up the arm and if there has been previous interventions on thi s. The patient also had a history of having had a vena cava filter inserted a number of years ago fo r GI bleeding. Now, the present problem is that they used it a few times and had some bleeding. The exact details of the operation carried out etc. are not available on review of the patient's records here and so my recommendation and plan is that she have a duplex scan done to evaluate this, see how deep the upper portion of this is. If it is too deep to the skin, then perhaps it will need interve ntion or elevation or even a catheter. She did undergo dialysis today and is next scheduled on [facility]. Andrew Valdez Jr., MD cc: 56 TT: 11/10/2016 18:26:35 Confirmation # [id number] Dictation # [id number]
[2016-11-10] MEDS: Ferric Sodium Gluconat Complex 62.5 mg/5 ml Vial IVPB SCH (18:38)
[2016-11-10] MEDS: Albuterol-Ipratrop 3 mg / 0.5 (3 ml) UD INH PRN (19:00)
[2016-11-10] MEDS: Rosuvastatin Calcium 2.5 mg Tab PO SCH (21:23)
[2016-11-11] MEDS: (Novolin 70/30) NPH/Regular 70/30 Units/ml 10 ml vial SC SCH (08:10)
[2016-11-11 09:09] LABS: BASO % 0.3 % (0.0-2.0); EOS % 0.2 % (0.0-4.0); HEMATOCRIT 27.4 % (34.0-47.0); LYMPH # 0.8 K/uL (1.0-4.3); LYMPH % 7.7 % (20.0-40.0); MEAN CELL VOLUME 85.9 fL (81.0-99.0); MEAN CORPUSCULAR HEMOGLOBIN 26.2 pg (27.0-31.0); MEAN CORPUSCULAR HGB CONC 30.5 g/dL (33.0-37.0); MEAN PLATELET VOLUME 9.6 fL (7.2-11.7); MONO # 1.6 K/uL (0.0-0.8); MONO % 15.5 % (0.0-10.0); PLATELET COUNT 146 K/uL (130-400); RED CELL DISTRIBUTION WIDTH 17.9 % (11.5-14.5); WHITE BLOOD COUNT 10.3 K/uL (4.8-10.8)
[2016-11-11 09:29] LABS: BILIRUBIN,TOTAL 1.4 mg/dL (0.2-1.3)
[2016-11-11 09:30] LABS: CALCIUM 8.1 mg/dl (8.6-10.4); TOTAL PROTEIN 5.2 g/dL (6.3-8.3)
[2016-11-11 09:34] LABS: POTASSIUM 4.4 mmol/L (3.6-5.2)
[2016-11-11] MEDS: Belladonna-Phenobarbital PO SCH ×2 (10:00→17:59)
[2016-11-11 10:02] LABS: NEUTROPHIL 73 % (50-75); REACTIVE LYMPHOCYTES 1 % (0-0); TOTAL CELLS COUNTED 100
[2016-11-11 10:15] LABS: INR 1.3
--- NOTE | 2016-11-11 10:19 | CP.PCM.PN ---
Subjective - Date & Time of Evaluation Date of Evaluation: 11/11/16 Time of Evaluation: 10:17 - Subjective Subjective: For thoracentesis today s/p dialysis 11/10- UF 2800ml Still dyspneic- appears better BP controlled Chemistries acceptable AV access evaluated by surgery- will monitor patency Objective - Vital Signs/Intake and Output Vital Signs (last 24 hours): Temp Pulse Resp BP Pulse Ox 98.9 F 84 19 138/80 99 11/11/16 08:00 11/11/16 08:00 11/11/16 08:00 11/11/16 08:00 11/11/16 08:00 Intake and Output: 11/11/16 11/11/16 06:59 18:59 Intake Total 400 Balance 400 - Medications Medications: Current Medications Albuterol/Ipratropium (Duoneb 3 Mg/0.5 Mg (3 Ml) Ud) 3 ml INH RQ4 PRN PRN Reason: Wheezing Last Admin: 11/10/16 19:00 Dose: 3 ml Belladonna/Phenobarbital () 1 tab PO BID [facility] Last Admin: 11/10/16 18:38 Dose: 1 tab Clonidine HCl (Catapres) 0.3 mg PO TID [facility] Last Admin: 11/10/16 18:57 Dose: 0.3 mg Epoetin Erasto (Procrit) 10,000 unit IV MWF [facility] Last Admin: 11/10/16 11:50 Dose: 10,000 unit Ferric Sodium Gluconate Complex (Ferrlecit) 125 mg IVPB Q24H [facility] Stop: 11/18/16 16:01 Last Admin: 11/10/16 18:38 Dose: 125 mg Guaifenesin/Dextromethorphan (Robitussin Dm) 10 ml PO QID [facility] Last Admin: 11/10/16 21:40 Dose: Not Given Home Med (Febuxostat [Uloric]) 80 mg PO DAILY [facility] Insulin Human Isoph/Insulin Regular (Novolin 70/30 (70/30 Units/Ml) 10 Ml) 20 units SC BIDAC [facility] Last Admin: 11/11/16 08:10 Dose: Not Given Megestrol Acetate (Megace) 400 mg PO DAILY [facility] Last Admin: 11/10/16 14:49 Dose: 400 mg Metolazone (Zaroxolyn) 5 mg PO DAILY PRN PRN Reason: EDEMA Montelukast Sodium (Singulair) 10 mg PO HS [facility] Last Admin: 11/10/16 21:23 Dose: 10 mg Ondansetron HCl (Zofran Inj) 8 mg IVP Q6H PRN PRN Reason: Nausea/Vomiting Last Admin: 11/05/16 18:07 Dose: 8 mg Pantoprazole Sodium (Protonix Ec Tab) 40 mg PO DAILY [facility] Last Admin: 11/10/16 14:49 Dose: 40 mg Prednisone (Prednisone Tab) 5 mg PO DAILY [facility] Last Admin: 11/10/16 14:49 Dose: 5 mg Rosuvastatin Calcium (Crestor) 2.5 mg PO HS [facility] Last Admin: 11/10/16 21:23 Dose: 2.5 mg Fluticasone/Salmeterol (Advair Diskus 250/50) 1 puff INH RQ12 [facility] Last Admin: 11/10/16 19:00 Dose: 1 puff Tramadol HCl (Ultram) 25 mg PO Q6 PRN PRN Reason: Pain, moderate (4-7) Last Admin: 11/05/16 21:52 Dose: 25 mg - Labs Labs: 11/11/16 08:47 11/11/16 08:47 - Constitutional Appears: No Acute Distress, Chronically Ill - Head Exam Head Exam: ATRAUMATIC, NORMAL INSPECTION - Eye Exam Eye Exam: EOMI, Normal appearance - Neck Exam Neck Exam: Normal Inspection. absent: Tenderness - Respiratory Exam Respiratory Exam: Decreased Breath Sounds, Rales, Respiratory Distress - GI/Abdominal Exam GI & Abdominal Exam: Soft. absent: Tenderness - Extremities Exam Extremities Exam: Normal Inspection. absent: Tenderness - Neurological Exam Neurological Exam: Alert, CN II-XII Intact - Skin Skin Exam: Dry, Warm Assessment and Plan (1) Renal failure (ARF), acute on chronic Status: Acute (2) Renal transplant recipient Status: Chronic (3) CHF (congestive heart failure) Status: Acute (4) Gout Status: Chronic (5) ESRD (end stage renal disease) Status: Acute - Assessment and Plan (Free Text) Plan: thoracentesis now Monitor BP Dialysis MWF Increase UF rate
[2016-11-11] MEDS ORDERED: Moxifloxacin IV 400mg/250ml NS 400 MG/250 ML BAG IVPB SCH (11:30)
--- NOTE | 2016-11-11 11:33 | CP.PCM.PN ---
Subjective - Date & Time of Evaluation Date of Evaluation: 11/11/16 Time of Evaluation: 09:55 - Subjective Subjective: PGY2 Medicine Note - Dr. Farah's service: Patient seen and examined at bedside this AM. Patient reports cough x 3 weeks productive of yellow phlegm. She says it really bothers her. Patient has no other complaints. Objective - Vital Signs/Intake and Output Vital Signs (last 24 hours): Temp Pulse Resp BP Pulse Ox 98.9 F 84 19 138/80 99 11/11/16 08:00 11/11/16 08:00 11/11/16 08:00 11/11/16 08:00 11/11/16 08:00 Intake and Output: 11/11/16 11/11/16 06:59 18:59 Intake Total 400 Balance 400 - Medications Medications: Current Medications Albuterol/Ipratropium (Duoneb 3 Mg/0.5 Mg (3 Ml) Ud) 3 ml INH RQ4 PRN PRN Reason: Wheezing Last Admin: 11/10/16 19:00 Dose: 3 ml Belladonna/Phenobarbital () 1 tab PO BID [facility] Last Admin: 11/10/16 18:38 Dose: 1 tab Clonidine HCl (Catapres) 0.3 mg PO TID [facility] Last Admin: 11/10/16 18:57 Dose: 0.3 mg Epoetin Erasto (Procrit) 10,000 unit IV MWF [facility] Last Admin: 11/10/16 11:50 Dose: 10,000 unit Ferric Sodium Gluconate Complex (Ferrlecit) 125 mg IVPB Q24H [facility] Stop: 11/18/16 16:01 Last Admin: 11/10/16 18:38 Dose: 125 mg Guaifenesin/Dextromethorphan (Robitussin Dm) 10 ml PO QID [facility] Last Admin: 11/10/16 21:40 Dose: Not Given Home Med (Febuxostat [Uloric]) 80 mg PO DAILY [facility] Moxifloxacin HCl (Avelox Iv 400mg/250ml Ns) 400 mg in 250 mls @ 167 mls/hr IVPB Q24H [facility] Insulin Human Isoph/Insulin Regular (Novolin 70/30 (70/30 Units/Ml) 10 Ml) 20 units SC BIDAC [facility] Last Admin: 11/11/16 08:10 Dose: Not Given Megestrol Acetate (Megace) 400 mg PO DAILY [facility] Last Admin: 11/10/16 14:49 Dose: 400 mg Metolazone (Zaroxolyn) 5 mg PO DAILY PRN PRN Reason: EDEMA Montelukast Sodium (Singulair) 10 mg PO HS [facility] Last Admin: 11/10/16 21:23 Dose: 10 mg Ondansetron HCl (Zofran Inj) 8 mg IVP Q6H PRN PRN Reason: Nausea/Vomiting Last Admin: 11/05/16 18:07 Dose: 8 mg Pantoprazole Sodium (Protonix Ec Tab) 40 mg PO DAILY [facility] Last Admin: 11/10/16 14:49 Dose: 40 mg Prednisone (Prednisone Tab) 5 mg PO DAILY [facility] Last Admin: 11/10/16 14:49 Dose: 5 mg Rosuvastatin Calcium (Crestor) 2.5 mg PO HS [facility] Last Admin: 11/10/16 21:23 Dose: 2.5 mg Fluticasone/Salmeterol (Advair Diskus 250/50) 1 puff INH RQ12 [facility] Last Admin: 11/10/16 19:00 Dose: 1 puff Tramadol HCl (Ultram) 25 mg PO Q6 PRN PRN Reason: Pain, moderate (4-7) Last Admin: 11/05/16 21:52 Dose: 25 mg - Labs Labs: 11/11/16 08:47 11/11/16 08:47 PT 14.8 SECONDS (9.7-12.2) H 11/11/16 10:05 INR 1.3 11/11/16 10:05 APTT 30 SECONDS (21-34) 11/11/16 10:05 - Constitutional Appears: Non-toxic, No Acute Distress - Head Exam Head Exam: NORMAL INSPECTION - Eye Exam Eye Exam: EOMI - ENT Exam ENT Exam: Mucous Membranes Moist - Respiratory Exam Respiratory Exam: Rales, Rhonchi, NORMAL BREATHING PATTERN. absent: Accessory Muscle Use, Respiratory Distress - Cardiovascular Exam Cardiovascular Exam: REGULAR RHYTHM, +S1, +S2. absent: Gallop, Rubs, Murmur - GI/Abdominal Exam GI & Abdominal Exam: Soft, Normal Bowel Sounds. absent: Tenderness - Extremities Exam Extremities Exam: Normal Capillary Refill, Pedal Edema - Neurological Exam Neurological Exam: Alert, Awake - Psychiatric Exam Psychiatric exam: Normal Affect, Normal Mood - Skin Skin Exam: Normal Color, Warm Assessment and Plan - Assessment and Plan (Free Text) Assessment: (1) ESRD 11/11: pending placement, had 2800cc removed yesterday 614: pending outpatient dialysis placement 11/09: Discharge pending placement for outpatient dialysis. 11/08: Will need to have outpatient dialysis started. Dr Vigil consulted- help appreciated Patient to start HD today via R fistula Monitor BUN/Cr and electrolytes (2) cough CXR showed b/l pleural effusions Chest CT - moderately large right and slighly smaller left eddusion with bibasilar atelectasis; mardiomegaly; fusiform aneurysmal dilatation of ascending thoracic aorta 4.26cm in transverse dimension (please see full report) Thoracentesis today Avelox added 11/11/16 (3) DM Novolin 20u SC BIDAC Accuchecks (4) HTN Clonidine Lasix (5) Anemia 11/11: Hgb 8.4, monitor 11/09: Hbg improved to 7.8, continue to monitor. 11/08: Hbg is 6.8, transfused 1 unit post dialysis. Likely from chronic kidney disease Patient asymptomatic and hemodynamically stable Monitor CBC (6) Prophylactic measures Protonix Heparin 5000u SC q12h [facility] Will discuss with Sofi
[2016-11-11] MEDS: guaiFENesin DM 200 mg-20 mg/10 ml UD PO SCH ×4 (12:28→21:38)
--- NOTE | 2016-11-11 12:41 | PN ---
DATE: 11/11/2016 LOCATION: 568, bed B. This is a 71-year-old female seen and examined today in the endoscopy room post thoracocentesis with slight shortness of breath post thoracocentesis for which her EGD was canceled today as requested als o by the anesthesia staff. The entire chart is reviewed including, but not limited to, the most rece nt lab and radiology study results, current and previous medication lists, current and the previous m edical events including the most recent chest CAT scan which showed moderately large right and slight ly smaller left-sided effusion for which thoracocentesis done by the radiology staff is done. 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 PHYSICAL EXAMINATION: GENERAL: A 71-year-old female post thoracocentesis with mild respiratory distress of 22-24. VITAL SIGNS: Afebrile with pulse of 86, blood pressure of 132/78. HEENT: Showed pale, dry oral mucoid membrane. Nonicteric sclerae. LUNGS: A few scattered crepitations with decreased air entry, especially in the right side bases. HEART: Positive S1 and S2. ABDOMEN: Soft with slight generalized tenderness. No mass or organomegaly. No rebound tenderness o r guarding. EXTREMITIES: With slight lower extremity edematous changes. No clubbing or cyanosis. NEUROLOGIC: No new reported neurological deficits, sensory or motor. IMPRESSION: 1. Anemia, to rule out gastrointestinal blood loss, upper versus lower. 2. Chronic renal failure. 3. Reexacerbation of peptic ulcer disease. 4. Status post right kidney transplant. 5. Large pleural effusion, status post thoracocentesis. 6. Evidence of liver cirrhosis with ultrasound as well as portal hypertension and ascites. 7. Reported congestive heart failure. 8. Pneumonia as reported by the radiology study results. SUGGESTION: 1. Agree with your plan. 2. Reschedule EGD for a.m. That was discussed at length with the anesthesia staff. 3. Will follow up closely with you. 4. Further recommendation to follow. Jose Le MD cc: 14 TT: 11/11/2016 12:40:40 Confirmation # [id number] Dictation # [id number] mn
[2016-11-11] MEDS ORDERED: Phytonadione 10 mg/ml Inj (Adult) SC STA (12:42)
--- NOTE | 2016-11-11 12:43 | PCM.SURG1 ---
Surgeon's Initial Post Op Note - Surgeon's Notes Surgeon: Ricco Javier MD Air Conditioning Insulation Installer: NONE Type of Anesthesia: Local Pre-Operative Diagnosis: Right pleural effusion Operative Findings: US showed moderate amount of pleural fluid Post-Operative Diagnosis: Right pleural effusion Operation Performed: US guided right thoracentesis. Specimen/Specimens Removed: 600 cc of straw colored fluid Estimated Blood Loss: EBL {In ML}: 0 Blood Products Given: N/A Drains Used: No Drains Post-Op Condition: Fair Date of Surgery/Procedure: 11/11/16 Time of Surgery/Procedure: 10:45
[2016-11-11 13:11] LABS: BODY FLUID TYPE PLEURAL/THORACENTESI
[2016-11-11] MEDS: Megestrol Acetate 40 mg/ml Cup PO SCH (13:31)
[2016-11-11] MEDS: Pantoprazole 40 mg EC Tab PO SCH (13:31)
[2016-11-11 14:02] LABS: BF GROSS APPEARANCE SL CLOUDY (CLEAR)
[2016-11-11 14:03] LABS: BODY FLUID TOTAL COUNT 100 (0-0)
--- NOTE | 2016-11-11 15:37 | US ---
PROCEDURE: Date of procedure: 11/11/2016 Procedure: 1. Ultrasound-guided Right thoracentesis, CPT 19088 Medications: 6cc 1% Lidocaine HISTORY: Right pleural effusion, shortness of breath TECHNIQUE: Following informed consent ,the Patients' right chest was marked. Procedure time-out was called, and the patient was placed in the sitting position and limited ultrasound showed a large right effusion. The patient's right back was prepped and draped in the usual sterile fashion. After the skin was anesthetized with lidocaine, a drainage catheter was advanced under ultrasound guidance into the pleural space. Ultrasound-guided thoracentesis was performed. A total of 600 cubic centimeters of straw-colored fluid removed without complication. A Xeroform dressing was applied. IMPRESSION: Ultrasound guided Right thoracentesis. There were no immediate complications.
--- NOTE | 2016-11-11 16:37 | RAD ---
PROCEDURE: CHEST RADIOGRAPH, 1 VIEW HISTORY: POST THORACENTESIS COMPARISON: 11/10/2016 FINDINGS: LUNGS: Status post right thoracentesis. No evidence of postprocedure pneumothorax. Prominent nodular opacity at the right lung base. Venous congestion. Bibasilar airspace opacities. Bilateral hilar prominence. PLEURA: As above. CARDIOVASCULAR: Cardiomegaly. Calcification at the aortic knob. OSSEOUS STRUCTURES: Degenerative changes in the spine and shoulders. VISUALIZED UPPER ABDOMEN: Normal. OTHER FINDINGS: None. IMPRESSION: Status post right thoracentesis. No evidence of postprocedure pneumothorax. Prominent nodular opacity at the right lung base. Venous congestion. Bibasilar airspace opacities. Bilateral hilar prominence.
[2016-11-11] MEDS: Ferric Sodium Gluconat Complex 62.5 mg/5 ml Vial IVPB SCH (16:41)
[2016-11-11] MEDS: Fluticasone-Salmeterol 250-50mcg Diskus INH SCH (20:16)
[2016-11-11] MEDS: Albuterol-Ipratrop 3 mg / 0.5 (3 ml) UD INH PRN (20:21)
[2016-11-11] MEDS: Rosuvastatin Calcium 2.5 mg Tab PO SCH (21:35)
[2016-11-12] MEDS: Fluticasone-Salmeterol 250-50mcg Diskus INH SCH ×2 (08:04→20:33)
[2016-11-12 08:51] LABS: BASO % 0.3 % (0.0-2.0); EOS % 0.1 % (0.0-4.0); HEMATOCRIT 30.5 % (34.0-47.0); LYMPH # 0.9 K/uL (1.0-4.3); LYMPH % 7.3 % (20.0-40.0); MEAN CELL VOLUME 86.2 fL (81.0-99.0); MEAN CORPUSCULAR HEMOGLOBIN 26.1 pg (27.0-31.0); MEAN CORPUSCULAR HGB CONC 30.2 g/dL (33.0-37.0); MONO # 1.7 K/uL (0.0-0.8); MONO % 13.9 % (0.0-10.0); NRBC % 0.1 % (0.0-2.0); PLATELET COUNT 238 K/uL (130-400); RED CELL DISTRIBUTION WIDTH 18.9 % (11.5-14.5)
[2016-11-12] MEDS ORDERED: Propofol 10 mg/ml Inj (20 ML) ONE (09:34)
[2016-11-12] MEDS ORDERED: Lidocaine Hydrochloride 5 ML INJ ONE (09:34)
--- NOTE | 2016-11-12 09:36 | CP.PCM.PN ---
Subjective - Date & Time of Evaluation Date of Evaluation: 11/12/16 Time of Evaluation: 07:35 - Subjective Subjective: PGY2 Medicine Note - Dr. Farah's service: Patient seen and examined at bedside this AM. Patient reports coughing with mild improvement. PAtient denies fever, chills, chest pain, abdominal pain, nausea, vomiting, dysuria. Objective - Vital Signs/Intake and Output Vital Signs (last 24 hours): Temp Pulse Resp BP Pulse Ox 98.5 F 89 19 146/77 100 11/12/16 08:00 11/12/16 08:00 11/12/16 08:00 11/12/16 08:00 11/12/16 08:00 - Medications Medications: Current Medications Albuterol/Ipratropium (Duoneb 3 Mg/0.5 Mg (3 Ml) Ud) 3 ml INH RQ4 PRN PRN Reason: Wheezing Last Admin: 11/11/16 20:21 Dose: 3 ml Belladonna/Phenobarbital () 1 tab PO BID [facility] Last Admin: 11/11/16 17:59 Dose: 1 tab Clonidine HCl (Catapres) 0.3 mg PO TID [facility] Last Admin: 11/11/16 18:00 Dose: Not Given Epoetin Erasto (Procrit) 10,000 unit IV MWF [facility] Last Admin: 11/10/16 11:50 Dose: 10,000 unit Ferric Sodium Gluconate Complex (Ferrlecit) 125 mg IVPB Q24H [facility] Stop: 11/18/16 16:01 Last Admin: 11/11/16 16:41 Dose: 125 mg Guaifenesin/Dextromethorphan (Robitussin Dm) 10 ml PO QID [facility] Last Admin: 11/11/16 21:38 Dose: Not Given Moxifloxacin HCl (Avelox Iv 400mg/250ml Ns) 400 mg in 250 mls @ 167 mls/hr IVPB Q24H [facility] Last Admin: 11/11/16 13:32 Dose: 167 mls/hr Insulin Human Isoph/Insulin Regular (Novolin 70/30 (70/30 Units/Ml) 10 Ml) 20 units SC BIDAC [facility] Last Admin: 11/11/16 08:10 Dose: Not Given Megestrol Acetate (Megace) 400 mg PO DAILY [facility] Last Admin: 11/11/16 13:31 Dose: 400 mg Metolazone (Zaroxolyn) 5 mg PO DAILY PRN PRN Reason: EDEMA Montelukast Sodium (Singulair) 10 mg PO HS [facility] Last Admin: 11/11/16 21:36 Dose: 10 mg Ondansetron HCl (Zofran Inj) 8 mg IVP Q6H PRN PRN Reason: Nausea/Vomiting Last Admin: 11/05/16 18:07 Dose: 8 mg Pantoprazole Sodium (Protonix Ec Tab) 40 mg PO DAILY [facility] Last Admin: 11/11/16 13:31 Dose: 40 mg Prednisone (Prednisone Tab) 5 mg PO DAILY [facility] Last Admin: 11/11/16 13:31 Dose: 5 mg Rosuvastatin Calcium (Crestor) 2.5 mg PO HS [facility] Last Admin: 11/11/16 21:35 Dose: 2.5 mg Fluticasone/Salmeterol (Advair Diskus 250/50) 1 puff INH RQ12 [facility] Last Admin: 11/12/16 08:04 Dose: 1 puff Tramadol HCl (Ultram) 25 mg PO Q6 PRN PRN Reason: Pain, moderate (4-7) Last Admin: 11/05/16 21:52 Dose: 25 mg - Labs Labs: 11/12/16 08:36 11/11/16 08:47 PT 14.8 SECONDS (9.7-12.2) H 11/11/16 10:05 INR 1.3 11/11/16 10:05 APTT 30 SECONDS (21-34) 11/11/16 10:05 - Constitutional Appears: Non-toxic, No Acute Distress - Head Exam Head Exam: NORMAL INSPECTION - Eye Exam Eye Exam: EOMI - ENT Exam ENT Exam: Mucous Membranes Moist - Respiratory Exam Respiratory Exam: Rales, Rhonchi, NORMAL BREATHING PATTERN. absent: Accessory Muscle Use, Respiratory Distress - Cardiovascular Exam Cardiovascular Exam: REGULAR RHYTHM, +S1, +S2. absent: Gallop, Rubs, Murmur - GI/Abdominal Exam GI & Abdominal Exam: Soft, Normal Bowel Sounds. absent: Tenderness - Extremities Exam Extremities Exam: Pedal Edema - Neurological Exam Neurological Exam: Alert, Awake, Oriented x3 - Psychiatric Exam Psychiatric exam: Normal Affect, Normal Mood - Skin Skin Exam: Normal Color, Warm Assessment and Plan - Assessment and Plan (Free Text) Assessment: (1) ESRD 11/12: dialysis today 11/11: pending placement, had 2800cc removed yesterday 614: pending outpatient dialysis placement 11/09: Discharge pending placement for outpatient dialysis. 11/08: Will need to have outpatient dialysis started. Dr Vigil consulted- help appreciated Patient to start HD today via R fistula Monitor BUN/Cr and electrolytes (2) cough CXR showed b/l pleural effusions Chest CT - moderately large right and slighly smaller left eddusion with bibasilar atelectasis; mardiomegaly; fusiform aneurysmal dilatation of ascending thoracic aorta 4.26cm in transverse dimension (please see full report) Thoracentesis 11/11/16 - 600cc of straw colored fluid removed CXR s/p thoracentesis - prominent nodular opacity at right lung base. venous congestion. bibasilar airspace opacities. b/l hilar prominencies. (please see full report) Avelox added 11/11/16 (3) DM Novolin 20u SC BIDAC Accuchecks (4) HTN Clonidine Lasix (5) Anemia 11/12: Hgb 6.4, EGD today 11/11: Hgb 8.4, monitor 11/09: Hbg improved to 7.8, continue to monitor. 11/08: Hbg is 6.8, transfused 1 unit post dialysis. Likely from chronic kidney disease Patient asymptomatic and hemodynamically stable Monitor CBC (6) Prophylactic measures Protonix Heparin 5000u SC q12h [facility]CD[facility] Will discuss with Sofi
[2016-11-12 09:46] LABS: POTASSIUM 4.5 mmol/L (3.6-5.2)
[2016-11-12 09:48] LABS: ALB/GLOB RATIO 0.9 (1.0-2.1); BILIRUBIN,TOTAL 1.2 mg/dL (0.2-1.3); CALCIUM 8.2 mg/dl (8.6-10.4); TOTAL PROTEIN 5.5 g/dL (6.3-8.3)
[2016-11-12] MEDS ORDERED: Lactated Ringer's 1,000 ML IV ONE (09:55)
[2016-11-12] MEDS: guaiFENesin DM 200 mg-20 mg/10 ml UD PO SCH ×4 (10:00→21:34)
[2016-11-12] MEDS: Belladonna-Phenobarbital PO SCH ×2 (10:00→19:13)
[2016-11-12 10:20] LABS: NEUTROPHIL 85 % (50-75); TOTAL CELLS COUNTED 100
[2016-11-12] MEDS: Pantoprazole 40 mg EC Tab PO SCH (12:54)
[2016-11-12] MEDS: Megestrol Acetate 40 mg/ml Cup PO SCH (12:54)
--- NOTE | 2016-11-12 14:49 | CP.PCM.PN ---
Subjective - Date & Time of Evaluation Date of Evaluation: 11/12/16 Time of Evaluation: 14:32 - Subjective Subjective: to start dialysis now trying to cannulate overall pt feels much better s/p thoracentesis 11/11 still with cough; appetite improved Objective - Vital Signs/Intake and Output Vital Signs (last 24 hours): Temp Pulse Resp BP Pulse Ox 97.1 F L 95 H 19 135/73 98 11/12/16 09:55 11/12/16 10:25 11/12/16 10:25 11/12/16 10:25 11/12/16 10:25 Intake and Output: 11/12/16 11/12/16 06:59 18:59 Intake Total 50 Balance 50 - Medications Medications: Current Medications Albuterol/Ipratropium (Duoneb 3 Mg/0.5 Mg (3 Ml) Ud) 3 ml INH RQ4 PRN PRN Reason: Wheezing Last Admin: 11/11/16 20:21 Dose: 3 ml Belladonna/Phenobarbital () 1 tab PO BID [facility] Last Admin: 11/12/16 10:00 Dose: Not Given Clonidine HCl (Catapres) 0.3 mg PO TID [facility] Last Admin: 11/12/16 10:00 Dose: Not Given Epoetin Erasto (Procrit) 10,000 unit IV MWF [facility] Last Admin: 11/10/16 11:50 Dose: 10,000 unit Ferric Sodium Gluconate Complex (Ferrlecit) 125 mg IVPB Q24H [facility] Stop: 11/18/16 16:01 Last Admin: 11/11/16 16:41 Dose: 125 mg Guaifenesin/Dextromethorphan (Robitussin Dm) 10 ml PO QID [facility] Last Admin: 11/12/16 10:00 Dose: Not Given Moxifloxacin HCl (Avelox Iv 400mg/250ml Ns) 400 mg in 250 mls @ 167 mls/hr IVPB Q24H [facility] Insulin Human Isoph/Insulin Regular (Novolin 70/30 (70/30 Units/Ml) 10 Ml) 20 units SC BIDAC [facility] Last Admin: 11/11/16 08:10 Dose: Not Given Megestrol Acetate (Megace) 400 mg PO DAILY [facility] Last Admin: 11/12/16 12:54 Dose: 400 mg Metoclopramide HCl (Reglan) 5 mg IVP BID [facility] Last Admin: 11/12/16 10:00 Dose: Not Given Metolazone (Zaroxolyn) 5 mg PO DAILY PRN PRN Reason: EDEMA Montelukast Sodium (Singulair) 10 mg PO HS [facility] Last Admin: 11/11/16 21:36 Dose: 10 mg Ondansetron HCl (Zofran Inj) 8 mg IVP Q6H PRN PRN Reason: Nausea/Vomiting Last Admin: 11/05/16 18:07 Dose: 8 mg Pantoprazole Sodium (Protonix Ec Tab) 40 mg PO DAILY [facility] Last Admin: 11/12/16 12:54 Dose: 40 mg Prednisone (Prednisone Tab) 5 mg PO DAILY [facility] Last Admin: 11/12/16 12:54 Dose: 5 mg Rosuvastatin Calcium (Crestor) 2.5 mg PO HS [facility] Last Admin: 11/11/16 21:35 Dose: 2.5 mg Fluticasone/Salmeterol (Advair Diskus 250/50) 1 puff INH RQ12 [facility] Last Admin: 11/12/16 08:04 Dose: 1 puff Tramadol HCl (Ultram) 25 mg PO Q6 PRN PRN Reason: Pain, moderate (4-7) Last Admin: 11/05/16 21:52 Dose: 25 mg - Labs Labs: 11/12/16 08:36 11/12/16 08:36 PT 14.8 SECONDS (9.7-12.2) H 11/11/16 10:05 INR 1.3 11/11/16 10:05 APTT 30 SECONDS (21-34) 11/11/16 10:05 - Constitutional Appears: No Acute Distress, Chronically Ill - Head Exam Head Exam: ATRAUMATIC, NORMAL INSPECTION - Eye Exam Eye Exam: EOMI, Normal appearance - Neck Exam Neck Exam: Normal Inspection. absent: Tenderness - Respiratory Exam Respiratory Exam: Decreased Breath Sounds, NORMAL BREATHING PATTERN - Cardiovascular Exam Cardiovascular Exam: REGULAR RHYTHM, +S1 - GI/Abdominal Exam GI & Abdominal Exam: Soft. absent: Tenderness - Extremities Exam Extremities Exam: Normal Inspection. absent: Tenderness - Neurological Exam Neurological Exam: Alert, CN II-XII Intact - Skin Skin Exam: Dry, Warm Assessment and Plan (1) Renal failure (ARF), acute on chronic Status: Acute (2) Renal transplant recipient Status: Chronic (3) CHF (congestive heart failure) Status: Acute (4) Gout Status: Chronic (5) ESRD (end stage renal disease) Status: Acute - Assessment and Plan (Free Text) Plan: Dialysis now- check patency of AV fistula UF 2500ml Labs improved Continue IV Fe, ESAs Will need outpt dialysis placement
[2016-11-12] MEDS: Epoetin Alfa 10,000 unit/ml Dialysis IV SCH (17:03)
[2016-11-12] MEDS: Ferric Sodium Gluconat Complex 62.5 mg/5 ml Vial IVPB SCH (17:03)
--- NOTE | 2016-11-12 19:06 | CARD ---
APPROVED REPORT EXAM: Two-dimensional and M-mode echocardiogram with Doppler and color Doppler. Other Information Quality : GoodRhythm : NSR INDICATION Pleural Effusion Congestive Heart Failure RISK FACTORS Hypertension Hyperlipidemia Diabetes M-Mode DIMENSIONS RVDd1.66 (2.1-3.2cm)Left Atrium (MM)4.17 (2.5-4.0cm) IVSd0.89 (0.7-1.1cm)Aortic Root2.99 (2.2-3.7cm) LVDd7.26 (4.0-5.6cm)Aortic Cusp Exc.1.77 (1.5-2.0cm) PWd1.14 (0.7-1.1cm)FS (%) 28 % LVDs5.20 (2.0-3.8cm)LVEF (%)53 (>50%) Aortic Valve AoV Peak Gycdpkat544.0cm/Ty Peak GR.15mmHgAI P 1/2 [id number] Mitral Valve MV E Utjmjrqf365.6cm/sMV A Uzduhphq19.1cm/sE/A ratio1.6 TDI E/Lateral E'0.0E/Medial E'0.0 Tricuspid Valve TR Peak [id number]/sTR Peak Gr.71fzByPFGS78hwAv LEFT VENTRICLE The Left Ventricle is moderately dilated. There is normal left ventricular wall thickness. Left ventricle systolic function is low normal with Ejection Fraction of 50-55%. There is normal LV segmental wall motion. The left ventricular diastolic function is normal. No left ventricle thrombus noted on this study. RIGHT VENTRICLE The right ventricle is normal size. The right ventricular systolic function is normal. ATRIA The left atrium is borderline dilated. The right atrium is mildly dilated AORTIC VALVE The aortic valve is mildly to moderately calcified. The aortic valve is probably trileaflet. There is moderate aortic regurgitation. There is trace valvular aortic stenosis. There is no aortic valvular vegetation. MITRAL VALVE The mitral valve leaflets are thickened. There is no evidence of mitral valve prolapse. There is no mitral valve stenosis. Mitral regurgitation is mild to moderate. TRICUSPID VALVE The tricuspid valve is normal in structure. There is moderate to severe tricuspid regurgitation. Right ventricular systolic pressure is estimated at 40-50 mmHg. There is mild-moderate pulmonary hypertension. PULMONIC VALVE The pulmonic valve is not well visualized. There is mild to moderate pulmonic valvular regurgitation. GREAT VESSELS The aortic root is normal in size. The IVC is normal in size and collapses<50% with inspiration. PERICARDIAL EFFUSION There is no pericardial effusion. There is mild to moderate bilateral pleural effusion. <Conclusion> Left ventricle systolic function is low normal with Ejection Fraction of 50-55%. The left ventricular diastolic function is normal. The right ventricle is normal size. The right ventricular systolic function is normal. There is moderate aortic regurgitation. There is trace valvular aortic stenosis. There is moderate to severe tricuspid regurgitation. Right ventricular systolic pressure is estimated at 40-50 mmHg. There is mild to moderate pulmonary hypertension. There is mild to moderate bilateral pleural effusion. Mitral regurgitation is mild to moderate. There is mild to moderate pulmonic valvular regurgitation.
[2016-11-12] MEDS: Moxifloxacin IV 400mg/250ml NS 400 MG/250 ML BAG IVPB SCH (19:14)
[2016-11-12] MEDS: Albuterol-Ipratrop 3 mg / 0.5 (3 ml) UD INH PRN (20:33)
[2016-11-12] MEDS: Rosuvastatin Calcium 2.5 mg Tab PO SCH (21:34)
[2016-11-13] MEDS: Albuterol-Ipratrop 3 mg / 0.5 (3 ml) UD INH PRN ×3 (02:48→19:03)
[2016-11-13] MEDS: Fluticasone-Salmeterol 250-50mcg Diskus INH SCH ×2 (08:35→19:03)
[2016-11-13 08:39] LABS: BASO % 0.3 % (0.0-2.0); EOS % 0.1 % (0.0-4.0); HEMATOCRIT 30.9 % (34.0-47.0); LYMPH % 8.9 % (20.0-40.0); MEAN CELL VOLUME 86.1 fL (81.0-99.0); MEAN CORPUSCULAR HGB CONC 31.4 g/dL (33.0-37.0); MONO # 1.7 K/uL (0.0-0.8); NRBC % 0.2 % (0.0-2.0); PLATELET COUNT 233 K/uL (130-400); RED CELL DISTRIBUTION WIDTH 19.2 % (11.5-14.5); WHITE BLOOD COUNT 10.8 K/uL (4.8-10.8)
[2016-11-13 08:56] LABS: BILIRUBIN,TOTAL 1.1 mg/dL (0.2-1.3); TOTAL PROTEIN 5.5 g/dL (6.3-8.3)
--- NOTE | 2016-11-13 09:55 | CP.PCM.PN ---
Subjective - Date & Time of Evaluation Date of Evaluation: 11/13/16 Time of Evaluation: 08:40 - Subjective Subjective: feels better daughter at side still with cough at night no chest pain no sob no headache no rash no nausea no sinus tenderness no increased thirst Objective - Vital Signs/Intake and Output Vital Signs (last 24 hours): Temp Pulse Resp BP Pulse Ox 98.6 F 91 H 20 156/78 H 97 11/13/16 00:00 11/13/16 00:00 11/13/16 00:00 11/13/16 00:00 11/13/16 00:00 Intake and Output: 11/13/16 11/13/16 06:59 18:59 Intake Total 910 Balance 910 - Medications Medications: Current Medications Albuterol/Ipratropium (Duoneb 3 Mg/0.5 Mg (3 Ml) Ud) 3 ml INH RQ4 PRN PRN Reason: Wheezing Last Admin: 11/13/16 08:35 Dose: 3 ml Belladonna/Phenobarbital () 1 tab PO BID [facility] Last Admin: 11/12/16 19:13 Dose: 1 tab Clonidine HCl (Catapres) 0.3 mg PO TID [facility] Last Admin: 11/12/16 19:13 Dose: 0.3 mg Epoetin Erasto (Procrit) 10,000 unit IV MWF [facility] Last Admin: 11/12/16 17:03 Dose: 10,000 unit Ferric Sodium Gluconate Complex (Ferrlecit) 125 mg IVPB Q24H [facility] Stop: 11/18/16 16:01 Last Admin: 11/12/16 17:03 Dose: 125 mg Guaifenesin/Dextromethorphan (Robitussin Dm) 10 ml PO QID [facility] Last Admin: 11/12/16 21:34 Dose: Not Given Moxifloxacin HCl (Avelox Iv 400mg/250ml Ns) 400 mg in 250 mls @ 167 mls/hr IVPB Q24H [facility] Last Admin: 11/12/16 19:14 Dose: 167 mls/hr Insulin Human Isoph/Insulin Regular (Novolin 70/30 (70/30 Units/Ml) 10 Ml) 20 units SC BIDAC [facility] Last Admin: 11/11/16 08:10 Dose: Not Given Megestrol Acetate (Megace) 400 mg PO DAILY [facility] Last Admin: 11/12/16 12:54 Dose: 400 mg Metoclopramide HCl (Reglan) 5 mg IVP BID [facility] Last Admin: 11/12/16 19:14 Dose: 5 mg Montelukast Sodium (Singulair) 10 mg PO HS [facility] Last Admin: 11/12/16 21:34 Dose: 10 mg Ondansetron HCl (Zofran Inj) 8 mg IVP Q6H PRN PRN Reason: Nausea/Vomiting Last Admin: 11/05/16 18:07 Dose: 8 mg Pantoprazole Sodium (Protonix Ec Tab) 40 mg PO DAILY [facility] Last Admin: 11/12/16 12:54 Dose: 40 mg Prednisone (Prednisone Tab) 5 mg PO DAILY [facility] Last Admin: 11/12/16 12:54 Dose: 5 mg Rosuvastatin Calcium (Crestor) 2.5 mg PO HS [facility] Last Admin: 11/12/16 21:34 Dose: 2.5 mg Fluticasone/Salmeterol (Advair Diskus 250/50) 1 puff INH RQ12 [facility] Last Admin: 11/13/16 08:35 Dose: 1 puff Tramadol HCl (Ultram) 25 mg PO Q6 PRN PRN Reason: Pain, moderate (4-7) Last Admin: 11/05/16 21:52 Dose: 25 mg - Labs Labs: 11/13/16 08:23 11/13/16 08:23 PT 14.8 SECONDS (9.7-12.2) H 11/11/16 10:05 INR 1.3 11/11/16 10:05 APTT 30 SECONDS (21-34) 11/11/16 10:05 - Constitutional Appears: Chronically Ill - Eye Exam Eye Exam: EOMI - ENT Exam ENT Exam: Mucous Membranes Moist - Neck Exam Neck Exam: Full ROM. absent: Lymphadenopathy - Respiratory Exam Respiratory Exam: Decreased Breath Sounds, Rhonchi. absent: Accessory Muscle Use - Cardiovascular Exam Cardiovascular Exam: REGULAR RHYTHM. absent: Rubs - GI/Abdominal Exam GI & Abdominal Exam: Soft. absent: Tenderness - Extremities Exam Extremities Exam: Pedal Edema - Neurological Exam Neurological Exam: Alert, Oriented x3 Assessment and Plan - Assessment and Plan (Free Text) Plan: kidney transplant failure anemia fluid overload suggest repeat HD today for fluid overload, but patient wants to wait moitor use of ric fluid restrict d/c cellcept taper cyclosporin send to [facility] for placement
[2016-11-13 10:04] LABS: NEUTROPHIL 70 % (50-75); TOTAL CELLS COUNTED 100
[2016-11-13 10:07] LABS: LARGE PLATELETS PRESENT
[2016-11-13] MEDS: Pantoprazole 40 mg EC Tab PO SCH (10:17)
[2016-11-13] MEDS: Belladonna-Phenobarbital PO SCH ×2 (10:17→17:33)
[2016-11-13] MEDS: Megestrol Acetate 40 mg/ml Cup PO SCH (10:17)
[2016-11-13] MEDS: guaiFENesin DM 200 mg-20 mg/10 ml UD PO SCH ×4 (10:18→21:32)
--- NOTE | 2016-11-13 11:59 | CP.PCM.PN ---
Subjective - Date & Time of Evaluation Date of Evaluation: 11/13/16 Time of Evaluation: 11:59 - Subjective Subjective: see dictation re access Objective - Vital Signs/Intake and Output Vital Signs (last 24 hours): Temp Pulse Resp BP Pulse Ox 98.6 F 91 H 20 156/78 H 97 11/13/16 00:00 11/13/16 00:00 11/13/16 00:00 11/13/16 00:00 11/13/16 00:00 Intake and Output: 11/13/16 11/13/16 06:59 18:59 Intake Total 910 Balance 910 - Medications Medications: Current Medications Albuterol/Ipratropium (Duoneb 3 Mg/0.5 Mg (3 Ml) Ud) 3 ml INH RQ4 PRN PRN Reason: Wheezing Last Admin: 11/13/16 08:35 Dose: 3 ml Belladonna/Phenobarbital () 1 tab PO BID [facility] Last Admin: 11/13/16 10:17 Dose: 1 tab Clonidine HCl (Catapres) 0.3 mg PO TID [facility] Last Admin: 11/13/16 10:17 Dose: 0.3 mg Cyclosporine (Cyclosporine) 50 mg PO Q12 [facility] Epoetin Erasto (Procrit) 10,000 unit IV MWF [facility] Last Admin: 11/12/16 17:03 Dose: 10,000 unit Ferric Sodium Gluconate Complex (Ferrlecit) 125 mg IVPB Q24H [facility] Stop: 11/18/16 16:01 Last Admin: 11/12/16 17:03 Dose: 125 mg Guaifenesin/Dextromethorphan (Robitussin Dm) 10 ml PO QID [facility] Last Admin: 11/13/16 10:18 Dose: Not Given Moxifloxacin HCl (Avelox Iv 400mg/250ml Ns) 400 mg in 250 mls @ 167 mls/hr IVPB Q24H [facility] Last Admin: 11/12/16 19:14 Dose: 167 mls/hr Insulin Human Isoph/Insulin Regular (Novolin 70/30 (70/30 Units/Ml) 10 Ml) 20 units SC BIDAC [facility] Last Admin: 11/11/16 08:10 Dose: Not Given Megestrol Acetate (Megace) 400 mg PO DAILY [facility] Last Admin: 11/13/16 10:17 Dose: 400 mg Metoclopramide HCl (Reglan) 5 mg IVP BID [facility] Last Admin: 11/13/16 10:18 Dose: 5 mg Montelukast Sodium (Singulair) 10 mg PO HS [facility] Last Admin: 11/12/16 21:34 Dose: 10 mg Ondansetron HCl (Zofran Inj) 8 mg IVP Q6H PRN PRN Reason: Nausea/Vomiting Last Admin: 11/05/16 18:07 Dose: 8 mg Pantoprazole Sodium (Protonix Ec Tab) 40 mg PO DAILY [facility] Last Admin: 11/13/16 10:17 Dose: 40 mg Prednisone (Prednisone Tab) 5 mg PO DAILY [facility] Last Admin: 11/13/16 10:17 Dose: 5 mg Rosuvastatin Calcium (Crestor) 2.5 mg PO HS [facility] Last Admin: 11/12/16 21:34 Dose: 2.5 mg Fluticasone/Salmeterol (Advair Diskus 250/50) 1 puff INH RQ12 [facility] Last Admin: 11/13/16 08:35 Dose: 1 puff Tramadol HCl (Ultram) 25 mg PO Q6 PRN PRN Reason: Pain, moderate (4-7) Last Admin: 11/05/16 21:52 Dose: 25 mg - Labs Labs: 11/13/16 08:23 11/13/16 08:23 PT 14.8 SECONDS (9.7-12.2) H 11/11/16 10:05 INR 1.3 11/11/16 10:05 APTT 30 SECONDS (21-34) 11/11/16 10:05
[2016-11-13] MEDS: CYCLOSPORINE, MODIFIED 25 MG CAP PO SCH ×2 (12:33→21:31)
--- NOTE | 2016-11-13 13:08 | PN ---
DATE: 11/13/2016 LOCATION: 568, bed B. This is a 71-year-old female is status post upper endoscopy, seen and examined on rounds without any significant clinical changes . The patient tolerated oral intake so far well. The entire chart is reviewed, including but not limit ed to the most recent lab and radiology study results, current and previous medication lists, current and previous medical events. Case discussed with the staff at length on the floor. Most recent lab results showed hemoglobin 9.7, hematocrit 30.9 with normal platelet count with increa sed BUN to 35, creatinine 1.9, improving than before with blood glucose level 146, low calcium 8.0, i ncreased alkaline phosphatase 397 with low albumin 2.7 and low total protein 5.5. PHYSICAL EXAMINATION: GENERAL: A 71-year-old female, awake, alert, oriented. VITAL SIGNS: Afebrile with pulse of 88, respiratory rate 20-22, blood pressure of 144/74. HEENT: Showed pale, dry oral mucoid membrane. Nonicteric sclerae. LUNGS: Few scattered crepitations. Decreased air entry at bases. HEART: Positive S1 and S2. ABDOMEN: Soft with mild generalized tenderness. No mass or organomegaly. No rebound tenderness or g uarding. RECTAL: The patient refused. EXTREMITIES: Without significant clubbing, cyanosis or edema. IMPRESSION: 1. Reexacerbation of peptic ulcer disease. 2. Anemia, most likely secondary to above. 3. Chronic renal failure. 4. Known history of status post right kidney transplant. 5. Congestive heart failure by patient history. 6. Evidence of liver cirrhosis by radiology study results with clinical evidence of portal hypertens ion and ascites. 7. Pneumonia, improving clinically. SUGGESTION: 1. Continue current management. 2. May add Reglan IV p.r.n. only 5 mg q. 8-12 hours. 3. Follow up on cancer markers including CEA. 4. Further recommendation to follow. Thank you for letting me participate in your patient's case management. Jose Le MD cc: 14 TT: 11/13/2016 13:07:41 Confirmation # [id number] Dictation # [id number] rn
[2016-11-13] MEDS: Moxifloxacin IV 400mg/250ml NS 400 MG/250 ML BAG IVPB SCH (15:55)
[2016-11-13] MEDS: Ferric Sodium Gluconat Complex 62.5 mg/5 ml Vial IVPB SCH (17:32)
--- NOTE | 2016-11-13 18:56 | CON ---
DATE: 11/13/2016 The patient is seen for evaluation of the reaction. She had extravasation, has been and was black and blue. I was asked to evaluate for hemodialysis access. Distally, towards the hand, sh e has great flow through the fistula and is very accessible. More proximally, there is a stenosis wh ich is quite evident on her duplex examination. One, her condition is stabilized and she is stable a nd she agrees this should be dilated and can be arranged as an inpatient before she is discharged. I will review this and make arrangements to get this done. However, I think there should be some bene fit if there is any trouble with access temporarily placing the catheter until everything calms down. There is a bruising on the arm from the extravasation, fairly significant. Andrew Valdez Jr., MD cc: 56 TT: 11/13/2016 18:56:04 Confirmation # [id number] Dictation # [id number] mn
[2016-11-13] MEDS: Rosuvastatin Calcium 2.5 mg Tab PO SCH (21:31)
[2016-11-14 08:30] LABS: BASO % 0.3 % (0.0-2.0); EOS % 0.2 % (0.0-4.0); HEMATOCRIT 28.6 % (34.0-47.0); LYMPH # 0.9 K/uL (1.0-4.3); LYMPH % 12.6 % (20.0-40.0); MEAN CELL VOLUME 86.2 fL (81.0-99.0); MEAN CORPUSCULAR HEMOGLOBIN 26.3 pg (27.0-31.0); MEAN CORPUSCULAR HGB CONC 30.5 g/dL (33.0-37.0); MEAN PLATELET VOLUME 8.7 fL (7.2-11.7); MONO # 1.1 K/uL (0.0-0.8); MONO % 15.4 % (0.0-10.0); NRBC % 0.2 % (0.0-2.0); RED CELL DISTRIBUTION WIDTH 19.1 % (11.5-14.5); WHITE BLOOD COUNT 7.2 K/uL (4.8-10.8)
[2016-11-14 08:41] LABS: POTASSIUM 4.1 mmol/L (3.6-5.2)
[2016-11-14 08:43] LABS: ALB/GLOB RATIO 1.1 (1.0-2.1); BILIRUBIN,TOTAL 1.1 mg/dL (0.2-1.3); TOTAL PROTEIN 5.2 g/dL (6.3-8.3)
[2016-11-14 08:44] LABS: CALCIUM 7.8 mg/dl (8.6-10.4)
[2016-11-14] MEDS: Fluticasone-Salmeterol 250-50mcg Diskus INH SCH ×2 (09:12→19:31)
[2016-11-14] MEDS: Albuterol-Ipratrop 3 mg / 0.5 (3 ml) UD INH PRN (09:12)
[2016-11-14] MEDS ORDERED: Magnesium Citrate Oral SOL (300 ml) PO ONE (10:30)
[2016-11-14] MEDS: Pantoprazole 40 mg EC Tab PO SCH (10:50)
[2016-11-14] MEDS: Belladonna-Phenobarbital PO SCH ×2 (10:50→17:36)
[2016-11-14] MEDS: Megestrol Acetate 40 mg/ml Cup PO SCH (10:51)
[2016-11-14] MEDS: guaiFENesin DM 200 mg-20 mg/10 ml UD PO SCH ×3 (10:51→22:00)
--- NOTE | 2016-11-14 11:41 | PN ---
DATE: 11/14/2016 LOCATION: 568, bed B. HISTORY OF PRESENT ILLNESS: This is a 71-year-old female seen and examined in rounds today without si gnificant clinical changes or reported active bleeding, with a complaint of constipation on and off w ith gradually improving episodes of coughing. This patient had a hemodialysis catheter insertion. The entire chart is reviewed, including but not limited to the most recent lab and radiology study re sults, current and previous medication list, current and previous medical events. Case discussed wit h the staff at length. Today's labs showed low hemoglobin of 8.7, hematocrit 28.6 with low indices highly suggestive of hypo chromic microcytic anemia but normal platelet count with increased BUN to 50, creatinine 2.6 with CO2 , indicative of respiratory alkalosis with blood glucose level of 161, calcium 7.8 with increas ed alkaline phosphatase 326 but low albumin of 2.8 and low total protein of 5.2 due to the patient's poor oral intake. PHYSICAL EXAMINATION: GENERAL: A 71-year-old female. VITAL SIGNS: Afebrile with heart rate of 86, respiratory rate 20-22, blood pressure 140/70. HEENT: Showed pale, dry oral mucoid membrane. Nonicteric sclerae. LUNGS: Few scattered crepitation, decreased air entry at bases. HEART: Positive S1 and S2. ABDOMEN: Soft. Bowel sounds are present with mild generalized tenderness. No mass or organomegaly. No rebound tenderness or guarding. RECTAL: The patient refused. EXTREMITIES: Without significant clubbing, cyanosis or edema. Peripheral pulses are present. NEUROLOGIC: No reported new significant neurologic deficits, sensory or motor. IMPRESSION: 1. Exacerbation of peptic ulcer disease. 2. Chronic renal failure, for hemodialysis. 3. Anemia, most likely secondary to above. 4. Change of bowel movement habit of unclear etiology, could be medication related. 5. Known history of status post right kidney transplantation. 6. History of congestive heart failure. 7. Reported evidence of liver cirrhosis with evidence of portal hypertension and mild ascites. 8. Pneumonia by recent history, gradually improving. 9. Pleural effusion, status post thoracocentesis. SUGGESTION: 1. Continue current management. 2. Cancer markers including increased CEA and CA-125 to be followed up as the patient had elevated C EA level at 6.4 with elevated CA 125 ; that is to be investigated. However, the elevated CEA le bridget could be secondary also to liver cirrhosis. 2. Low dose of citrate of magnesium. 3. The patient will need colonoscopy due to the elevated CEA and drop of hemoglobin and hematocrit, that to be discussed with admitting medical team. Jose Le MD cc: 14 TT: 11/14/2016 11:40:56 Confirmation # [id number] Dictation # [id number] ln
[2016-11-14] MEDS: CYCLOSPORINE, MODIFIED 25 MG CAP PO SCH ×2 (12:56→21:41)
[2016-11-14] MEDS: Ferric Sodium Gluconat Complex 62.5 mg/5 ml Vial IVPB SCH (16:00)
[2016-11-14] MEDS: Moxifloxacin IV 400mg/250ml NS 400 MG/250 ML BAG IVPB SCH (17:00)
[2016-11-14 17:45] LABS: LDH PLEURAL FLUID 49 U/L
[2016-11-14] MEDS: Rosuvastatin Calcium 2.5 mg Tab PO SCH (21:41)
[2016-11-15 07:36] LABS: POTASSIUM 4.1 mmol/L (3.6-5.2)
[2016-11-15 07:38] LABS: BILIRUBIN,TOTAL 1.1 mg/dL (0.2-1.3)
[2016-11-15 07:39] LABS: ALB/GLOB RATIO 1.1 (1.0-2.1); CALCIUM 7.5 mg/dl (8.6-10.4); TOTAL PROTEIN 5.2 g/dL (6.3-8.3)
[2016-11-15] MEDS: Fluticasone-Salmeterol 250-50mcg Diskus INH SCH (07:44)
[2016-11-15 07:45] LABS: BASO % 0.4 % (0.0-2.0); EOS % 0.2 % (0.0-4.0); HEMATOCRIT 28.6 % (34.0-47.0); LYMPH # 0.8 K/uL (1.0-4.3); MEAN CELL VOLUME 86.5 fL (81.0-99.0); MEAN CORPUSCULAR HEMOGLOBIN 26.6 pg (27.0-31.0); MEAN CORPUSCULAR HGB CONC 30.8 g/dL (33.0-37.0); MEAN PLATELET VOLUME 8.2 fL (7.2-11.7); MONO # 1.1 K/uL (0.0-0.8); MONO % 13.9 % (0.0-10.0); NRBC % 0.1 % (0.0-2.0); RED CELL DISTRIBUTION WIDTH 19.4 % (11.5-14.5); WHITE BLOOD COUNT 7.7 K/uL (4.8-10.8)
--- NOTE | 2016-11-15 09:33 | PN ---
DATE: 11/13/2016 Give supportive care. Dialysis ____. Luiza Muro MD cc: [id number] TT: 11/13/2016 16:37:48 Confirmation # [id number] Dictation # [id number] jn
[2016-11-15] MEDS: guaiFENesin DM 200 mg-20 mg/10 ml UD PO SCH ×2 (10:00→13:22)
[2016-11-15] MEDS: Belladonna-Phenobarbital PO SCH (10:00)
[2016-11-15] MEDS: CYCLOSPORINE, MODIFIED 25 MG CAP PO SCH (10:00)
--- NOTE | 2016-11-15 10:59 | CP.PCM.PN ---
Subjective - Date & Time of Evaluation Date of Evaluation: 11/15/16 Time of Evaluation: 10:58 - Subjective Subjective: seen on hd estimated uf 3L av fistula Objective - Vital Signs/Intake and Output Vital Signs (last 24 hours): Temp Pulse Resp BP Pulse Ox 98 F 81 18 144/80 100 11/15/16 09:10 11/15/16 09:10 11/15/16 09:10 11/15/16 10:25 11/15/16 09:10 - Medications Medications: Current Medications Belladonna/Phenobarbital () 1 tab PO BID [facility] Last Admin: 11/14/16 17:36 Dose: 1 tab Clonidine HCl (Catapres) 0.3 mg PO TID [facility] Last Admin: 11/14/16 17:37 Dose: 0.3 mg Cyclosporine (Cyclosporine) 50 mg PO Q12 [facility] Last Admin: 11/14/16 21:41 Dose: 50 mg Docusate Sodium (Colace) 100 mg PO BID [facility] Last Admin: 11/14/16 17:37 Dose: 100 mg Epoetin Erasto (Procrit) 10,000 unit IV MWF [facility] Last Admin: 11/12/16 17:03 Dose: 10,000 unit Ferric Sodium Gluconate Complex (Ferrlecit) 125 mg IVPB Q24H [facility] Stop: 11/18/16 16:01 Last Admin: 11/14/16 16:00 Dose: 125 mg Guaifenesin/Dextromethorphan (Robitussin Dm) 10 ml PO QID [facility] Last Admin: 11/14/16 22:00 Dose: Not Given Moxifloxacin HCl (Avelox Iv 400mg/250ml Ns) 400 mg in 250 mls @ 167 mls/hr IVPB Q24H [facility] Last Admin: 11/14/16 17:00 Dose: 167 mls/hr Insulin Human Isoph/Insulin Regular (Novolin 70/30 (70/30 Units/Ml) 10 Ml) 20 units SC BIDAC [facility] Last Admin: 11/11/16 08:10 Dose: Not Given Megestrol Acetate (Megace) 400 mg PO DAILY [facility] Last Admin: 11/14/16 10:51 Dose: 400 mg Metoclopramide HCl (Reglan) 5 mg IVP BID [facility] Last Admin: 11/14/16 17:37 Dose: 5 mg Montelukast Sodium (Singulair) 10 mg PO HS [facility] Last Admin: 11/14/16 21:41 Dose: 10 mg Ondansetron HCl (Zofran Inj) 8 mg IVP Q6H PRN PRN Reason: Nausea/Vomiting Last Admin: 11/05/16 18:07 Dose: 8 mg Pantoprazole Sodium (Protonix Ec Tab) 40 mg PO DAILY [facility] Last Admin: 11/14/16 10:50 Dose: 40 mg Prednisone (Prednisone Tab) 5 mg PO DAILY [facility] Last Admin: 11/14/16 10:50 Dose: 5 mg Rosuvastatin Calcium (Crestor) 2.5 mg PO HS [facility] Last Admin: 11/14/16 21:41 Dose: 2.5 mg Fluticasone/Salmeterol (Advair Diskus 250/50) 1 puff INH RQ12 [facility] Last Admin: 11/15/16 07:44 Dose: 1 puff Tramadol HCl (Ultram) 25 mg PO Q6 PRN PRN Reason: Pain, moderate (4-7) Last Admin: 11/05/16 21:52 Dose: 25 mg - Labs Labs: 11/15/16 07:19 11/15/16 07:19 PT 14.8 SECONDS (9.7-12.2) H 11/11/16 10:05 INR 1.3 11/11/16 10:05 APTT 30 SECONDS (21-34) 11/11/16 10:05 - Constitutional Appears: Non-toxic, No Acute Distress, Chronically Ill - Head Exam Head Exam: NORMAL INSPECTION - Eye Exam Eye Exam: Normal appearance - ENT Exam ENT Exam: Mucous Membranes Moist, Normal Exam - Neck Exam Neck Exam: Normal Inspection - Respiratory Exam Respiratory Exam: Decreased Breath Sounds, NORMAL BREATHING PATTERN - Cardiovascular Exam Cardiovascular Exam: REGULAR RHYTHM, RRR - GI/Abdominal Exam GI & Abdominal Exam: Distended, Soft - Extremities Exam Extremities Exam: Pedal Edema (3+) Assessment and Plan (1) ESRD (end stage renal disease) Status: Acute (2) Renal transplant recipient Status: Chronic (3) HTN (hypertension) Status: Acute (4) Hypokalemia Status: Acute - Assessment and Plan (Free Text) Assessment: kidney transplant failure/ esrd on hd anemia fluid overload maintain hd mwf, fluid restriction taper cyclosporin outpt [facility] mwf follow up w/ Dr Valdez for av fistula / ?need for permcath
[2016-11-15] MEDS: Epoetin Alfa 10,000 unit/ml Dialysis IV SCH (12:09)
--- NOTE | 2016-11-15 12:21 | CP.PCM.PN ---
Subjective - Date & Time of Evaluation Date of Evaluation: 11/15/16 Time of Evaluation: 08:35 - Subjective Subjective: PGY2 Medicine Discharge Note - Dr. Farah's Service Patient is stable for discharge per Dr. Luiza Farah. Patient should resume all home medications as outlined in this document. 1. Please make an appointment and follow up with your Primary Doctor within one week of discharge. 2. Please make an appointment and follow up with Dr. Valdez (surgery) within one week of discharge - regarding your need for a permacath. 3. Please make an appointment and follow up with Dr. Le (Gastro-enterology) within one week of discharge - regarding your need for Colonoscopy and review your EGD results. 4. Please attend your Dialysis sessions on MWF. 5. Please work with [facility] care Physical Therapy (script provided). Patient should return to ED immediately if symptoms return or worsen. Instructions discussed with patient who understood and agreed. Objective - Vital Signs/Intake and Output Vital Signs (last 24 hours): Temp Pulse Resp BP Pulse Ox 98 F 81 18 144/80 100 11/15/16 09:10 11/15/16 09:10 11/15/16 09:10 11/15/16 10:25 11/15/16 09:10 - Medications Medications: Current Medications Belladonna/Phenobarbital () 1 tab PO BID [facility] Last Admin: 11/14/16 17:36 Dose: 1 tab Clonidine HCl (Catapres) 0.3 mg PO TID [facility] Last Admin: 11/14/16 17:37 Dose: 0.3 mg Cyclosporine (Cyclosporine) 50 mg PO Q12 [facility] Last Admin: 11/14/16 21:41 Dose: 50 mg Docusate Sodium (Colace) 100 mg PO BID [facility] Last Admin: 11/14/16 17:37 Dose: 100 mg Epoetin Erasto (Procrit) 10,000 unit IV MWF [facility] Last Admin: 11/15/16 12:09 Dose: 10,000 unit Ferric Sodium Gluconate Complex (Ferrlecit) 125 mg IVPB Q24H [facility] Stop: 11/18/16 16:01 Last Admin: 11/14/16 16:00 Dose: 125 mg Guaifenesin/Dextromethorphan (Robitussin Dm) 10 ml PO QID [facility] Last Admin: 11/14/16 22:00 Dose: Not Given Moxifloxacin HCl (Avelox Iv 400mg/250ml Ns) 400 mg in 250 mls @ 167 mls/hr IVPB Q24H [facility] Last Admin: 11/14/16 17:00 Dose: 167 mls/hr Insulin Human Isoph/Insulin Regular (Novolin 70/30 (70/30 Units/Ml) 10 Ml) 20 units SC BIDAC [facility] Last Admin: 11/11/16 08:10 Dose: Not Given Megestrol Acetate (Megace) 400 mg PO DAILY [facility] Last Admin: 11/14/16 10:51 Dose: 400 mg Metoclopramide HCl (Reglan) 5 mg IVP BID [facility] Last Admin: 11/14/16 17:37 Dose: 5 mg Montelukast Sodium (Singulair) 10 mg PO HS [facility] Last Admin: 11/14/16 21:41 Dose: 10 mg Ondansetron HCl (Zofran Inj) 8 mg IVP Q6H PRN PRN Reason: Nausea/Vomiting Last Admin: 11/05/16 18:07 Dose: 8 mg Pantoprazole Sodium (Protonix Ec Tab) 40 mg PO DAILY [facility] Last Admin: 11/14/16 10:50 Dose: 40 mg Prednisone (Prednisone Tab) 5 mg PO DAILY [facility] Last Admin: 11/14/16 10:50 Dose: 5 mg Rosuvastatin Calcium (Crestor) 2.5 mg PO HS [facility] Last Admin: 11/14/16 21:41 Dose: 2.5 mg Fluticasone/Salmeterol (Advair Diskus 250/50) 1 puff INH RQ12 [facility] Last Admin: 11/15/16 07:44 Dose: 1 puff Tramadol HCl (Ultram) 25 mg PO Q6 PRN PRN Reason: Pain, moderate (4-7) Last Admin: 11/05/16 21:52 Dose: 25 mg - Labs Labs: 11/15/16 07:19 11/15/16 07:19 PT 14.8 SECONDS (9.7-12.2) H 11/11/16 10:05 INR 1.3 11/11/16 10:05 APTT 30 SECONDS (21-34) 11/11/16 10:05 - Additional Findings Additional findings: - Constitutional Appears: Non-toxic, No Acute Distress - Head Exam Head Exam: NORMAL INSPECTION - Eye Exam Eye Exam: EOMI - ENT Exam ENT Exam: Mucous Membranes Moist - Respiratory Exam Respiratory Exam: NORMAL BREATHING PATTERN. absent: Accessory Muscle Use, Respiratory Distress, Rales, Rhonchi - Cardiovascular Exam Cardiovascular Exam: REGULAR RHYTHM, +S1, +S2. absent: Gallop, Rubs, Murmur - GI/Abdominal Exam GI & Abdominal Exam: Soft, Normal Bowel Sounds. absent: Tenderness - Extremities Exam Extremities Exam: Pedal Edema (mild) Note: R arm AVF intact. - Neurological Exam Neurological Exam: Alert, Awake, Oriented x3 - Psychiatric Exam Psychiatric exam: Normal Affect, Normal Mood - Skin Skin Exam: Normal Color, Warm
[2016-11-15] MEDS: Pantoprazole 40 mg EC Tab PO SCH (14:34)
[2016-11-15] MEDS: Megestrol Acetate 40 mg/ml Cup PO SCH (14:34)
[2016-11-15 14:38] VITALS: RESP 20
--- NOTE | 2016-11-15 15:05 | PN ---
DATE: 11/15/2016 LOCATION: 568, bed B. This is a 71-year-old female, seen and examined in rounds without significant clinical changes, but n o reported active bleeding, on hemodialysis with functioning AV fistula. No reported active bleeding and the entire chart is reviewed including, but not limited to, the most recent lab and radiology study results, current and previous medication lists, current and previous m edical events. Case discussed at length with the staff on the floor and today's hemoglobin is still low 8.8 with hematocrit 28.6 with BUN elevated to , creatinine 2.6 with blood glucose level 210 with low calcium 7.5 and low total protein 5.2, low albumin 2.7. PHYSICAL EXAMINATION: GENERAL: A 71-year-old female, seen in rounds with the staff. VITAL SIGNS: Afebrile with pulse of 70, respiratory rate 18-20 with blood pressure of 138/70. HEENT: Showed pale, dry oral mucoid membrane. Nonicteric sclerae. LUNGS: Few scattered crepitation, decreased air entry at bases. HEART: Positive S1 and S2. ABDOMEN: Soft. Bowel sounds are present. No mass or organomegaly. No rebound tenderness or guardi ng. EXTREMITIES: Without significant clubbing, cyanosis or edema. NEUROLOGIC: No reported new neurological deficits, sensory or motor. VASCULAR: It has to be mentioned that the peripheral pulses are present, but weak, mildly bilaterall y. IMPRESSION: 1. Reexacerbation of peptic ulcer disease. [place] [facility] [place] [place] [place]. 2. Known history of chronic renal failure, on hemodialysis. 3. Change of bowel movement habit recently of unclear etiology with constipation . That could be medication induced. 4. Known history of congestive heart failure. 5. History of status post right kidney transplantation. 6. Reported evidence of liver cirrhosis, portal hypertension, some ascites. 7. Pleural effusion with status post thoracocentesis recently, reported history of pneumonia, on ant ibiotics. SUGGESTION: 1. Continue current management. 2. Due to the elevated CEA level, patient is to be scheduled for colonoscopy after soft and slow pre paration. 3. Further recommendation to follow. Thank you for letting me participate in your patient's case management. Jose Le MD cc: 14 TT: 11/15/2016 15:04:00 Confirmation # [id number] Dictation # [id number]
[2016-11-15 16:25] VITALS: BP 131/74; TEMP 99.2; O2SAT 96
[2016-11-15 19:38] VITALS: PULSE 88
--- NOTE | 2016-11-16 07:13 | DS ---
The patient chief complaint nausea, vomiting, anemia. The patient hemodialysis. gastrit is symptoms. Showed improvement. The patient being discharged, follow up with dialysis as an outpatient. failure, ____ kidney transplant. Luiza Muro MD cc: 634 TT: 11/15/2016 18:27:57 dn 11/16/2016 06:12:28
== END 2016-11-15 21:34 | disposition home health service (06) | DRG 683 ==
LOC: C.ER 16:31 → C.9E 18:10 → C.5T 20:54
PROVIDERS: ADMIT Internal Medicine Pulmonary Disease; ATTEND Internal Medicine Pulmonary Disease
PROC: 5A1D60Z (ICD-10-PCS; principal; 2016-11-05)
PROC: 30233N1 Transfusion of Nonautologous Red Blood Cells into Peripheral Vein, Percutaneous Approach (ICD-10-PCS; 2016-11-08)
PROC: 0W993ZZ Drainage of Right Pleural Cavity, Percutaneous Approach (ICD-10-PCS; 2016-11-11)
PROC: BB4BZZZ Ultrasonography of Pleura (ICD-10-PCS; 2016-11-11)
PROC: 0DB68ZX Excision of Stomach, Via Natural or Artificial Opening Endoscopic, Diagnostic (ICD-10-PCS; 2016-11-12)
DX: N17.9 Acute kidney failure, unspecified (principal); I13.2 Hypertensive heart and chronic kidney disease with heart failure and with stage 5 chronic kidney disease, or end stage renal disease; J90 Pleural effusion, not elsewhere classified; T86.11 Kidney transplant rejection; K76.6 Portal hypertension; J98.11 Atelectasis; R18.8 Other ascites; E11.21 Type 2 diabetes mellitus with diabetic nephropathy; N18.6 End stage renal disease; E11.22 Type 2 diabetes mellitus with diabetic chronic kidney disease; I50.9 Heart failure, unspecified; D63.1 Anemia in chronic kidney disease; M1A.9XX1 Chronic gout, unspecified, with tophus (tophi); G47.30 Sleep apnea, unspecified; K29.00 Acute gastritis without bleeding; K44.9 Diaphragmatic hernia without obstruction or gangrene; K21.0 Gastro-esophageal reflux disease with esophagitis; E11.51 Type 2 diabetes mellitus with diabetic peripheral angiopathy without gangrene; E78.00 Pure hypercholesterolemia, unspecified; Z99.2 Dependence on renal dialysis; Z79.4 Long term (current) use of insulin; E78.5 Hyperlipidemia, unspecified; E87.6 Hypokalemia; I25.10 Atherosclerotic heart disease of native coronary artery without angina pectoris; I71.2 Thoracic aortic aneurysm, without rupture; J45.909 Unspecified asthma, uncomplicated; K59.00 Constipation, unspecified; Z86.010 Personal history of colon polyps; Z87.01 Personal history of pneumonia (recurrent); Z87.11 Personal history of peptic ulcer disease; Z90.49 Acquired absence of other specified parts of digestive tract; K74.60 Unspecified cirrhosis of liver

== ENCOUNTER 2017-02-03 08:22 | Emergency (ER) | payer MEDICARE, OTHER ==
[2017-02-03 08:28] VITALS: BMI 24.6
[2017-02-03 08:30] VITALS: TEMP 98.3
--- NOTE | 2017-02-03 09:01 | C.PDOC ---
History Of Present Illness 71 y/o female presents to ED with c/o abdominal pain with vomiting and diarrhea for the last 4 days. Patient also c/o SOB, particularly when laying flat, and lower leg swelling and pain. Patient has history of ESRD, on hemodialysis, last dialysis was yesterday. She denies fever/chills, chest pain, fever. Time Seen by Provider: 02/03/17 08:29 Chief Complaint (Nursing): Abdominal Pain History Per: Patient History/Exam Limitations: no limitations Current Symptoms Are (Timing): Still Present Severity: Moderate Location Of Pain/Discomfort: RUQ, Epigastric, LUQ Radiation Of Pain To:: None Associated Symptoms: Vomiting, Diarrhea. denies: Fever, Chills Abnormal Vaginal Bleeding: No Past Medical History Reviewed: Historical Data, Nursing Documentation, Vital Signs Vital Signs: Last Vital Signs Temp 98.3 F 02/03/17 08:28 Pulse 76 02/03/17 12:00 Resp 15 02/03/17 12:00 BP 128/67 02/03/17 12:00 Pulse Ox 96 02/03/17 13:07 - Medical History PMH: Anemia, Arthritis, Asthma, CHF, Diabetes, Diverticulitis, Deep Vein Thrombosis, Gastritis, Hiatal Hernia, HTN, Hypercholesterolemia, End Stage Renal Disease (Kidney transplant Rt.2000), Chronic Kidney Disease, Sleep Apnea Surgical History: Cholecystectomy - [facility] Procedures COLONOSCOPY (11/15/14) DRAINAGE OF RIGHT PLEURAL CAVITY, PERCUTANEOUS APPROACH (11/04/16) ESOPHAGOGASTRODUODENOSCOPY [EGD] W/CLOSED BIOPSY (11/15/14) EXCISION OF STOMACH, ENDO, DIAGN (11/04/16) PACKED CELL TRANSFUSION (11/15/14) PERFORMANCE OF URINARY FILTRATION, MULTIPLE (11/04/16) PLICATION OF VENA CAVA (11/15/14) TRANSFUSE NONAUT RED BLOOD CELLS IN PERIPH VEIN, PERC (11/04/16) ULTRASONOGRAPHY OF PLEURA (11/04/16) Family History: States: No Known Family Hx - Social History Hx Tobacco Use: No Hx Alcohol Use: No Hx Substance Use: No - Immunization History Hx Tetanus Toxoid Vaccination: Yes Hx Influenza Vaccination: No Hx Pneumococcal Vaccination: Yes Review Of Systems Except As Marked, All Systems Reviewed And Found Negative. Constitutional: Negative for: Fever, Chills Cardiovascular: Positive for: Edema (bilateral lower extremities). Negative for : Chest Pain, Palpitations Respiratory: Positive for: Shortness of Breath. Negative for: Cough, Wheezing Gastrointestinal: Positive for: Vomiting, Abdominal Pain, Diarrhea. Negative for: Nausea Skin: Negative for: Rash Physical Exam - Physical Exam Appears: Well, Non-toxic, Other (comfortable, speaking in full setnences) Skin: Normal Color, Warm, Dry, No Rash Head: Normacephalic Eye(s): bilateral: Normal Inspection Oral Mucosa: Moist Chest: Symmetrical Cardiovascular: Rhythm Regular Respiratory: No Accessory Muscle Use, Rales (mild, bibasilar), No Rhonchi, No Wheezing Gastrointestinal/Abdominal: Bowel Sounds, Soft, Tenderness (RUQ, epigastric, LUQ mild TTP), No Guarding, No Rebound Back: Normal Inspection Extremity: Normal ROM, Capillary Refill (< 2 sec all digits ), Other (+2 pitting edema bilateral lower extremities) Neurological/Psych: Oriented x3 ED Course And Treatment - Laboratory Results Result Diagrams: 02/03/17 09:08 02/03/17 09:08 O2 Sat by Pulse Oximetry: 96 (RA) Pulse Ox Interpretation: Normal - Other Rad Chest X-Ray X-Ray: Viewed By Me, Read By Radiologist Interpretation: IMPRESSION: Small right pleural effusion. Persistent mild cardiomegaly. - CT Scan/US CT Abdomen/Pelvis Other Rad Studies (CT/US): Read By Radiologist, Radiology Report Reviewed CT/US Interpretation: FINDINGS: LOWER THORAX: There is a moderate right pleural effusion and compressive atelectasis in the right lower lobe. There is multifocal subsegmental atelectasis in the visualized lungs. There is moderate cardiomegaly. LIVER: The liver is normal in size. No gross lesion or ductal dilatation. GALLBLADDER AND BILE DUCTS: Surgically absent. PANCREAS: There is diffuse atrophy of the pancreas. There is redemonstration of a stable elliptical calcification anterior to the body of the pancreas which may represent a calcified fusiform aneurysm. SPLEEN: The spleen is normal in size. ADRENALS: Both adrenal glands are normal in size without discrete nodule. KIDNEYS AND URETERS: Again seen are atrophic small [place] kidneys. There is a transplant kidney in the right lower quadrant which is normal in size without hydronephrosis or nephrolithiasis. VASCULATURE: No aortic aneurysm. There are extensive atherosclerotic vascular calcifications and aortoiliac calcifications. BOWEL: The small bowel loops are normal in caliber. There is extensive colonic diverticulosis. Evaluation of the bowel is limited in the absence of oral contrast. Allowing for this, apparent mild mural thickening in the sigmoid colon is nonspecific. No bowel dilatation or obstruction. APPENDIX: Normal appendix. PERITONEUM: No free fluid. No free air. LYMPH NODES: No enlarged lymph nodes. BLADDER: Partially decompressed. REPRODUCTIVE: Unremarkable. BONES: No acute fracture. Mild dextroscoliosis in the lumbar spine and multilevel degenerative changes. OTHER FINDINGS: There is a small right inguinal hernia containing nonobstructed small bowel loops. There is a small fat containing umbilical hernia. IMPRESSION: 1. Evaluation of the bowel is limited in the absence of oral contrast. Extensive colonic diverticulosis. Apparent mild mural thickening in the sigmoid colon is nonspecific and could be related to underdistention however early acute diverticulitis/colitis cannot be entirely excluded. Clinical correlation and follow-up is advised. No bowel dilatation or obstruction. 2. Moderate right pleural effusion and moderate cardiomegaly. 3. Additional stable chronic findings as described above. Progress Note: Blood work, CT abdomen/pelvis, CxR ordered and reviewed. Patient given low dose IV morphine. Reevaluation Time: 12:00 Reassessment Condition: Improved (On reassessment, patient is resting comfortably, in no current pain/distress. On exam, abdomen is soft and nontender. CT scan shows some thickening of sigmoid colon - will treat as possible colitis/diverticulitis. Patient also has small left sided pleural effusion. She was offered admission, but states she would like to go home instead with antibiotics. Patient/family instructed to return to ED immediately if symptoms worsen. Rxs for Cipro, Flagyl and Bentyl given.) Disposition Counseled Patient/Family Regarding: Studies Performed, Diagnosis, Need For Followup, Rx Given - Disposition Referrals: Flako Fagan MD [Staff Provider] - Disposition: HOME/ ROUTINE Disposition Time: 11:45 Condition: STABLE Additional Instructions: GO TO SCHEDULED DIALYSIS TOMORROW USE MEDICATIONS DIRECTED RETURN TO ER IMMEDIATELY IF SYMPTOMS WORSEN FOLLOW UP WITH YOUR DOCTOR IN 1-2 DAYS Prescriptions: Ciprofloxacin [Cipro] 1 tab PO BID #14 tab Dicyclomine [Bentyl] 20 mg PO Q6 PRN #12 tab PRN Reason: ABDOMINAL CRAMPING metroNIDAZOLE [Flagyl] 500 mg PO TID #21 tab Instructions: Pleural Effusion (ED), End Stage Kidney Disease (ED), Colitis (ED ) Forms: [employer] (Welsh) Print Language: KINYARWANDA - Clinical Impression Clinical Impression: Colitis, Pleural effusion, Elevated liver enzymes, ESRD (end stage renal disease) on dialysis - Scribe Statement The provider has reviewed the documentation as recorded by the Scribe SM All medical record entries made by the Scribe were at my direction and personally dictated by me. I have reviewed the chart and agree that the record accurately reflects my personal performance of the history, physical exam, medical decision making, and the department course for this patient. I have also personally directed, reviewed, and agree with the discharge instructions and disposition.
[2017-02-03 09:13] LABS: BASO % 0.9 % (0.0-2.0); EOS % 0.5 % (0.0-4.0); HEMATOCRIT 36.3 % (34.0-47.0); LYMPH # 0.7 K/uL (1.0-4.3); LYMPH % 13.6 % (20.0-40.0); MEAN CELL VOLUME 95.5 fL (81.0-99.0); MEAN CORPUSCULAR HEMOGLOBIN 31.6 pg (27.0-31.0); MEAN CORPUSCULAR HGB CONC 33.1 g/dL (33.0-37.0); MEAN PLATELET VOLUME 8.2 fL (7.2-11.7); MONO # 1.4 K/uL (0.0-0.8); MONO % 25.1 % (0.0-10.0); NRBC % 0.1 % (0.0-2.0); PLATELET COUNT 113 K/uL (130-400); WHITE BLOOD COUNT 5.4 K/uL (4.8-10.8)
[2017-02-03 09:21] LABS: CHLORIDE 96 mmol/L (98-107); POTASSIUM 3.4 mmol/L (3.6-5.2); SODIUM 138 mmol/L (132-148)
[2017-02-03 09:23] LABS: ALB/GLOB RATIO 1.1 (1.0-2.1); AST/SGOT 70 U/L (14-36); BILIRUBIN,TOTAL 2.3 mg/dL (0.2-1.3); CARBON DIOXIDE 27 mmol/L (22-30); GFR AFRICAN-AMERICAN 22; TOTAL PROTEIN 6.1 g/dL (6.3-8.3)
[2017-02-03 09:24] LABS: ALKALINE PHOSPHATASE 334 U/L (38-126); ALT/SGPT 53 U/L (9-52); BLOOD UREA NITROGEN 23 mg/dL (7-17); GLUCOSE,RANDOM 81 mg/dL (65-105)
--- NOTE | 2017-02-03 09:39 | RAD ---
PROCEDURE: CHEST RADIOGRAPH, 1 VIEW HISTORY: SOB COMPARISON: 11/04/2016. FINDINGS: LUNGS: The lungs are clear. PLEURA: There is a small right pleural effusion. No pneumothorax or left pleural fluid seen. CARDIOVASCULAR: There is mild cardiomegaly. Atherosclerotic aortic arch calcifications are present. OSSEOUS STRUCTURES: No significant abnormalities. VISUALIZED UPPER ABDOMEN: Normal. OTHER FINDINGS: None. IMPRESSION: Small right pleural effusion. Persistent mild cardiomegaly.
[2017-02-03 10:07] LABS: NEUTROPHIL 57 % (50-75); TOTAL CELLS COUNTED 100
--- NOTE | 2017-02-03 10:17 | CT ---
PROCEDURE: CT Abdomen and Pelvis without intravenous contrast HISTORY: upper abdominal pain, diarrhea, nausea COMPARISON: 11/17/2014 TECHNIQUE: CT scan of the abdomen and pelvis was performed without administration of intravenous contrast. Oral contrast was not administered. Coronal and sagittal reformatted images were obtained. Radiation dose: Total exam DLP = 233.46 mGy-cm. This CT exam was performed using one or more of the following dose reduction techniques: Automated exposure control, adjustment of the mA and/or kV according to patient size, and/or use of iterative reconstruction technique. FINDINGS: LOWER THORAX: There is a moderate right pleural effusion and compressive atelectasis in the right lower lobe. There is multifocal subsegmental atelectasis in the visualized lungs. There is moderate cardiomegaly. LIVER: The liver is normal in size. No gross lesion or ductal dilatation. GALLBLADDER AND BILE DUCTS: Surgically absent. PANCREAS: There is diffuse atrophy of the pancreas. There is redemonstration of a stable elliptical calcification anterior to the body of the pancreas which may represent a calcified fusiform aneurysm. SPLEEN: The spleen is normal in size. ADRENALS: Both adrenal glands are normal in size without discrete nodule. KIDNEYS AND URETERS: Again seen are atrophic small morongo kidneys. There is a transplant kidney in the right lower quadrant which is normal in size without hydronephrosis or nephrolithiasis. VASCULATURE: No aortic aneurysm. There are extensive atherosclerotic vascular calcifications and aortoiliac calcifications. BOWEL: The small bowel loops are normal in caliber. There is extensive colonic diverticulosis. Evaluation of the bowel is limited in the absence of oral contrast. Allowing for this, apparent mild mural thickening in the sigmoid colon is nonspecific. No bowel dilatation or obstruction. APPENDIX: Normal appendix. PERITONEUM: No free fluid. No free air. LYMPH NODES: No enlarged lymph nodes. BLADDER: Partially decompressed. REPRODUCTIVE: Unremarkable. BONES: No acute fracture. Mild dextroscoliosis in the lumbar spine and multilevel degenerative changes OTHER FINDINGS: There is a small right inguinal hernia containing nonobstructed small bowel loops. There is a small fat containing umbilical hernia. IMPRESSION: 1. Evaluation of the bowel is limited in the absence of oral contrast. Extensive colonic diverticulosis. Apparent mild mural thickening in the sigmoid colon is nonspecific and could be related to underdistention however early acute diverticulitis/colitis cannot be entirely excluded. Clinical correlation and follow-up is advised. No bowel dilatation or obstruction. 2. Moderate right pleural effusion and moderate cardiomegaly 3. Additional stable chronic findings as described above.
[2017-02-03 12:01] VITALS: BP 128/67; PULSE 76; RESP 15
[2017-02-03 13:07] VITALS: O2SAT 96
== END 2017-02-03 12:01 | disposition home or self-care (01) ==
LOC: C.ER 08:22
DX: K52.9 Noninfective gastroenteritis and colitis, unspecified (principal); J90 Pleural effusion, not elsewhere classified; R74.8 Abnormal levels of other serum enzymes; N18.6 End stage renal disease; Z99.2 Dependence on renal dialysis
CPT/HCPCS: 71010; 74176; 80053; 82550; 82553; 83690; 83880; 84484; 85025; 96374; 99284; J2270

== ENCOUNTER 2017-02-04 17:15 | Inpatient (IN) | payer MEDICARE, OTHER ==
[2017-02-04 17:15] VITALS: BMI 24.6
--- NOTE | 2017-02-04 17:43 | C.PDOC ---
History Of Present Illness 71 yr old female presents to the ER with complaints of abdominal pain for the past 4 days. Patient states the pain is constant, denies any exacerbating factors. Patient states she has not eaten in 4 days. Reports she initially had diarrhea but none now and also has nausea. Patient is a dialysis patient, goes M /W/F, last dialysis was today [facility]. Patient was seen in ER yesterday for similar complaints and was prescribes antibiotics, states she was told its "intestinal bacteria". Patient denies fever, chills, chest pain, SOB, vomiting, dysuria, weakness or numbness. Time Seen by Provider: 02/04/17 17:39 Chief Complaint (Nursing): Abdominal Pain History Per: Patient History/Exam Limitations: no limitations Onset/Duration Of Symptoms: Days (4) Past Medical History Reviewed: Historical Data, Nursing Documentation, Vital Signs Vital Signs: Last Vital Signs Temp 98.6 F 02/08/17 09:14 Pulse 81 02/08/17 09:14 Resp 20 02/08/17 09:14 BP 107/64 02/08/17 10:26 Pulse Ox 97 02/08/17 09:14 - Medical History PMH: Anemia, Arthritis, Asthma, CHF, Diabetes, Diverticulitis, Deep Vein Thrombosis, Gastritis, Hiatal Hernia, HTN, Hypercholesterolemia, End Stage Renal Disease (Kidney transplant Rt.2000), Chronic Kidney Disease, Sleep Apnea Surgical History: Cholecystectomy - [facility] Procedures COLONOSCOPY (11/15/14) DRAINAGE OF RIGHT PLEURAL CAVITY, PERCUTANEOUS APPROACH (11/04/16) ESOPHAGOGASTRODUODENOSCOPY [EGD] W/CLOSED BIOPSY (11/15/14) EXCISION OF STOMACH, ENDO, DIAGN (11/04/16) PACKED CELL TRANSFUSION (11/15/14) PERFORMANCE OF URINARY FILTRATION, MULTIPLE (11/04/16) PLICATION OF VENA CAVA (11/15/14) TRANSFUSE NONAUT RED BLOOD CELLS IN PERIPH VEIN, PERC (11/04/16) ULTRASONOGRAPHY OF PLEURA (11/04/16) Family History: States: No Known Family Hx - Social History Hx Tobacco Use: No Hx Alcohol Use: No Hx Substance Use: No - Immunization History Hx Tetanus Toxoid Vaccination: Yes Hx Influenza Vaccination: No Hx Pneumococcal Vaccination: Yes Review Of Systems Except As Marked, All Systems Reviewed And Found Negative. Constitutional: Negative for: Fever, Chills Cardiovascular: Negative for: Chest Pain Respiratory: Negative for: Shortness of Breath Gastrointestinal: Positive for: Nausea, Abdominal Pain. Negative for: Vomiting Genitourinary: Negative for: Dysuria Neurological: Negative for: Weakness, Numbness Physical Exam - Physical Exam Appears: Non-toxic, No Acute Distress Skin: Warm, Dry, No Rash Head: Atraumatic, Normacephalic Oral Mucosa: Moist Chest: Symmetrical, No Tenderness Cardiovascular: Rhythm Regular, No Murmur Respiratory: Normal Breath Sounds, No Rales, No Rhonchi, No Stridor, No Wheezing Gastrointestinal/Abdominal: Soft, Tenderness (LLQ ), No Guarding, No Rebound Extremity: Normal ROM, No Swelling Neurological/Psych: Oriented x3, Normal Speech, Normal Motor ED Course And Treatment - Laboratory Results Result Diagrams: 02/04/17 18:30 02/08/17 08:24 O2 Sat by Pulse Oximetry: 100 (RA) Pulse Ox Interpretation: Normal Medical Decision Making Medical Decision Making: PLAN: * EKG * VBG * CBC * CMP * Troponin * Morphine IVP * Zofran IVP Disposition - Disposition Disposition: HOSPITALIZED Disposition Time: 18:51 Condition: STABLE - Clinical Impression Clinical Impression: Abdominal pain - Scribe Statement The provider has reviewed the documentation as recorded by the Dionte Paniagua Provider Attestation: All medical record entries made by the Dionte were at my direction and personally dictated by me. I have reviewed the chart and agree that the record accurately reflects my personal performance of the history, physical exam, medical decision making, and the department course for this patient. I have also personally directed, reviewed, and agree with the discharge instructions and disposition.
[2017-02-04] MEDS ORDERED: Morphine 4 MG/ML VIAL ONE (18:32)
[2017-02-04 18:34] LABS: BASO % 0.6 % (0.0-2.0); EOS % 0.6 % (0.0-4.0); HEMATOCRIT 36.3 % (34.0-47.0); LYMPH # 0.4 K/uL (1.0-4.3); LYMPH % 10.9 % (20.0-40.0); MEAN CELL VOLUME 94.9 fL (81.0-99.0); MEAN CORPUSCULAR HEMOGLOBIN 31.9 pg (27.0-31.0); MEAN CORPUSCULAR HGB CONC 33.6 g/dL (33.0-37.0); MEAN PLATELET VOLUME 8.3 fL (7.2-11.7); MONO # 0.9 K/uL (0.0-0.8); NRBC % 0.2 % (0.0-2.0); PLATELET COUNT 92 K/uL (130-400); RED CELL DISTRIBUTION WIDTH 15.8 % (11.5-14.5); WHITE BLOOD COUNT 3.6 K/uL (4.8-10.8)
[2017-02-04 18:42] LABS: CHLORIDE 96 mmol/L (98-107); POTASSIUM 3.1 mmol/L (3.6-5.2); SODIUM 137 mmol/L (132-148)
[2017-02-04 18:43] LABS: VENOUS BLOOD GAS BASE EXCESS 7.1 mmol/L (0.0-2.0); VENOUS BLOOD GAS PCO2 45 mmHg (40-60); VENOUS BLOOD PH 7.46 (7.32-7.43)
[2017-02-04 18:44] LABS: GFR AFRICAN-AMERICAN 41
[2017-02-04 18:45] LABS: ALB/GLOB RATIO 1.1 (1.0-2.1); ALKALINE PHOSPHATASE 410 U/L (38-126); ALT/SGPT 57 U/L (9-52); AST/SGOT 65 U/L (14-36); BLOOD UREA NITROGEN 12 mg/dL (7-17); CALCIUM 8.6 mg/dl (8.6-10.4); CARBON DIOXIDE 30 mmol/L (22-30); GLUCOSE,RANDOM 72 mg/dL (65-105); TOTAL PROTEIN 5.6 g/dL (6.3-8.3)
[2017-02-04] MEDS ORDERED: metroNIDAZOLE IV 500 mg/100 ml 500 MG/100 ML BAG IVPB STA (18:53)
[2017-02-04] MEDS ORDERED: Ciprofloxacin 400mg/200ml D5W 400 MG/200 ML BAG IVPB STA (18:53)
[2017-02-04] MEDS ORDERED: Sodium Chloride 0.9% 1,000 ML IV SCH (19:00)
[2017-02-04] MEDS ORDERED: Iohexol 300 100 ML IJ ONE (19:09)
[2017-02-04 20:13] LABS: BASOPHIL 1 % (0-2); NEUTROPHIL 66 % (50-75); TOTAL CELLS COUNTED 100
--- NOTE | 2017-02-04 20:22 | CP.PCM.HP ---
Past Patient History - Infectious Disease Hx of Infectious Diseases: None - Past Medical History & Family History Past Medical History?: Yes - Past Social History Smoking Status: Never Smoked - CARDIAC Hx Congestive Heart Failure: Yes Hx Hypercholesterolemia: Yes Hx Hypertension: Yes - PULMONARY Hx Asthma: Yes Hx Sleep Apnea: Yes - NEUROLOGICAL Hx Neurological Disorder: No - HEENT Hx HEENT Problems: Yes Hx Cataracts: Yes (right eye july 2012 and left eye august 2012) - RENAL Hx Chronic Kidney Disease: Yes - ENDOCRINE/METABOLIC Hx Endocrine Disorders: Yes Hx Diabetes Mellitus Type 2: Yes - HEMATOLOGICAL/ONCOLOGICAL Hx Anemia: Yes - INTEGUMENTARY Hx Dermatological Problems: No Other/Comment: varicose vein surgery left leg 1995 - MUSCULOSKELETAL/RHEUMATOLOGICAL Hx Arthritis: Yes - GASTROINTESTINAL Hx Diverticulitis: Yes Hx Gastritis: Yes - GENITOURINARY/GYNECOLOGICAL Hx Genitourinary Disorders: No - PSYCHIATRIC Hx Substance Use: No - SURGICAL HISTORY Hx Cholecystectomy: Yes - ANESTHESIA Hx Anesthesia: Yes Hx Anesthesia Reactions: No Hx Malignant Hyperthermia: No Meds Allergies/Adverse Reactions: Allergies Allergy/AdvReac Type Severity Reaction Status Date / Time allopurinol Allergy Verified 02/04/17 17:32 atorvastatin Allergy Verified 02/04/17 17:32 heparin Allergy Verified 02/04/17 17:32 Iodinated Contrast- Oral and AdvReac Verified 02/04/17 17:32 IV Dye [Iodinated Contrast Media - IV Dye] Results - Vital Signs Recent Vital Signs: Last Vital Signs Temp 98.5 F 02/04/17 17:32 Pulse 81 02/04/17 17:32 Resp 20 02/04/17 17:32 BP 138/72 02/04/17 17:32 Pulse Ox 100 02/04/17 18:29 - Labs Result Diagrams: 02/04/17 18:30 02/04/17 18:30
[2017-02-04] MEDS: Rosuvastatin Calcium 2.5 mg Tab PO SCH (21:55)
[2017-02-04] MEDS: Ciprofloxacin 400mg/200ml D5W 400 MG/200 ML BAG IVPB SCH (21:55)
[2017-02-04] MEDS ORDERED: Home Med 1 UNIT (Colchicine [Colchicine] 0.6 MG) PO SCH (22:00)
[2017-02-04] MEDS ORDERED: Sodium Chloride 0.45% 1,000 ML IV SCH (22:00)
--- NOTE | 2017-02-04 22:05 | CT ---
EXAM: CT Abdomen and Pelvis Without Intravenous Contrast EXAM DATE/TIME: Exam ordered 02/04/2017 6:48 PM CLINICAL HISTORY: 71 years old, female; Pain; Abdominal pain; Flank; Left lower quadrant (llq); Additional info: Llq pain TECHNIQUE: Axial computed tomography images of the abdomen and pelvis without intravenous contrast. All CT scans at this facility use one or more dose reduction techniques, viz.: automated exposure control; ma/kV adjustment per patient size (including targeted exams where dose is matched to indication; i.e. head); or iterative reconstruction technique. Coronal and sagittal reformatted images were created and reviewed. COMPARISON: No relevant prior studies available. FINDINGS: Lower thorax: There is a moderate size right pleural effusion. Compression atelectasis is noted in the dependent portion of the right lower lobe. Discoid atelectasis is seen at the left lung base. The heart is enlarged. ABDOMEN: Liver: Unremarkable. Gallbladder and bile ducts: Surgical clips are seen in the gallbladder fossa. No calcified stones. No ductal dilation. Pancreas: Unremarkable. No ductal dilation. Spleen: Unremarkable. No splenomegaly. Adrenals: Unremarkable. No mass. Kidneys and ureters: The [place] kidneys are atrophic. There is a transplanted kidney in the right lower quadrant. No obstructing stones. No hydronephrosis. Stomach and bowel: There are multiple colonic diverticula scattered throughout the colon. There is wall thickening and muscular hypertrophy noted of the majority of the descending colon and sigmoid colon representing colonic diverticular disease. . There is a right inguinal hernia containing small bowel loops. No findings to suggest strangulat to moderate right pleural effusion with compression atelectasis at the right base, and discoid atelectasis at the left base. ion. Mild wall thickening of the colon is noted at the level of the ascending colon and hepatic flexure. No obstruction. Appendix: No findings to suggest acute appendicitis. PELVIS: Bladder: Unremarkable. No stones. Reproductive: Calcified uterine fibroids and/or uterine calcifications are present. ABDOMEN and PELVIS: Intraperitoneal space: There is generalized haziness of the intraperitoneal fat.. No free air. No significant fluid collection. Bones/joints: No acute fracture. No dislocation. Soft tissues: See above. Vasculature: An inferior vena cava filter is in place. No abdominal aortic aneurysm. Lymph nodes: Unremarkable. No enlarged lymph nodes. Other findings: There is accelerated arteriosclerosis. IMPRESSION: 1. Severe generalized colonic diverticular disease. Significant muscular hypertrophy and mild pericolonic inflammatory changes are seen in the region of the sigmoid colon which could represent a mild sigmoid diverticulitis. No abscess. No perforation. 2. Mild colonic wall thickening noted of the hepatic flexure. A few diverticula are noted in the region of the hepatic flexure. A second concurrent focus of diverticulitis might be considered. Other etiologies including infectious colitis or ischemia may be considered 3. Right inguinal hernia containing small bowel loops. No evidence of strangulation. 4. Atrophic [place] kidneys with a transplanted kidney in the right lower quadrant. Minimal fullness of the collecting system of the transplanted kidney. 5. The heart is moderately enlarged. 6. Small
[2017-02-04] MEDS: (Novolog) Insulin Aspart, Recombinant 100 u/ml 10 ml vial SC SCH (22:10)
[2017-02-05] MEDS: (Novolog) Insulin Aspart, Recombinant 100 u/ml 10 ml vial SC SCH ×6 (08:47→21:53)
[2017-02-05] MEDS: Ciprofloxacin 400mg/200ml D5W 400 MG/200 ML BAG IVPB SCH ×2 (09:00→20:59)
[2017-02-05] MEDS: metroNIDAZOLE IV 500 mg/100 ml 500 MG/100 ML BAG IVPB SCH ×2 (09:45→21:50)
[2017-02-05] MEDS: Pantoprazole 40 mg EC Tab PO SCH (09:47)
[2017-02-05] MEDS ORDERED: Enoxaparin 40 mg Syringe SC SCH ×2 (10:00)
[2017-02-05] MEDS ORDERED: Pantoprazole 40 mg EC Tab PO SCH (10:00)
--- NOTE | 2017-02-05 10:48 | CP.PCM.CON ---
History of Present Illness - History of Present Illness History of Present Illness: 71 yr old female presented to the ER right after usual dialysis treatment with complaints of abdominal pain for the past 4 days. Patient states the pain is constant, denies any exacerbating factors. Patient states she has not eaten in 4 days. Reports she initially had diarrhea but none now and also has nausea. Patient was seen in ER one day prior for similar complaints and was prescribes antibiotics, states she was told its "intestinal bacteria". Patient denies fever , chills, chest pain, SOB, vomiting, dysuria, weakness or numbness. 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 History of diabetic nephropathy with nephrotic proteinuria. Recent course complicated by GI bleed and severe gout. Review of Systems - Constitutional Constitutional: Chills, Fatigue. absent: Fever - EENT Eyes: absent: Irritation, Itchy Eyes, Loss of Vision Nose/Mouth/Throat: absent: Dry Mouth, Dysphagia, Neck Pain - Cardiovascular Cardiovascular: Leg Edema. absent: Chest Pain, Chest Pain at Rest, Dyspnea on Exertion, Lightheadedness - Respiratory Respiratory: absent: Cough, Dyspnea, Wheezing - Gastrointestinal Gastrointestinal: Abdominal Pain, Diarrhea, Heartburn, Nausea. absent: Coffee Ground Emesis, Melena - Genitourinary Genitourinary: absent: Hematuria, Pyuria, Nocturia - Musculoskeletal Musculoskeletal: Arthralgias, Myalgias. absent: Joint Swelling - Integumentary Integumentary: absent: Pruritus, Rash - Neurological Neurological: absent: Confusion, Convulsions, Dizziness, Headaches - Psychiatric Psychiatric: Depression. absent: Anxiety, Confusion - Endocrine Endocrine: absent: Polydipsia, Polyphagia, Polyuria Past Patient History - Infectious Disease Hx of Infectious Diseases: None - Past Medical History & Family History Past Medical History?: Yes - Past Social History Smoking Status: Never Smoked - CARDIAC Hx Congestive Heart Failure: Yes Hx Hypercholesterolemia: Yes Hx Hypertension: Yes - PULMONARY Hx Asthma: Yes Hx Sleep Apnea: Yes - NEUROLOGICAL Hx Neurological Disorder: No - HEENT Hx HEENT Problems: Yes Hx Cataracts: Yes (right eye july 2012 and left eye august 2012) - RENAL Hx Chronic Kidney Disease: Yes Hx Dialysis: Yes Type of Dialysis Access: Rt FA AVS Date of Last Dialysis Treatment: 02/04/17 Other/Comment: Kidney trasplant rt 2000 - ENDOCRINE/METABOLIC Hx Endocrine Disorders: Yes Hx Diabetes Mellitus Type 2: Yes - HEMATOLOGICAL/ONCOLOGICAL Hx Anemia: Yes - INTEGUMENTARY Hx Dermatological Problems: No Other/Comment: varicose vein surgery left leg 1995 - MUSCULOSKELETAL/RHEUMATOLOGICAL Hx Arthritis: Yes Hx Falls: No Hx Gout: Yes - GASTROINTESTINAL Hx Diverticulitis: Yes Hx Gastritis: Yes - GENITOURINARY/GYNECOLOGICAL Hx Genitourinary Disorders: No Other/Comment: voiding occasionally in small amounts. HX rt kidney transplant 2000 - PSYCHIATRIC Hx Substance Use: No - SURGICAL HISTORY Hx Cholecystectomy: Yes Other/Comment: rt FA AVS july 2016 - ANESTHESIA Hx Anesthesia: Yes Hx Anesthesia Reactions: No Hx Malignant Hyperthermia: No Has any member of the family had a problem w/ anesthesia?: No Meds Allergies/Adverse Reactions: Allergies Allergy/AdvReac Type Severity Reaction Status Date / Time allopurinol Allergy Verified 02/04/17 17:32 atorvastatin Allergy Verified 02/04/17 17:32 heparin Allergy Verified 02/04/17 17:32 Iodinated Contrast- Oral and AdvReac Verified 02/04/17 17:32 IV Dye [Iodinated Contrast Media - IV Dye] - Medications Medications: Current Medications Amlodipine Besylate (Norvasc) 5 mg PO DAILY [facility] Last Admin: 02/05/17 09:47 Dose: 5 mg Carvedilol (Coreg) 12.5 mg PO BID [facility] Last Admin: 02/05/17 09:44 Dose: 12.5 mg Dicyclomine HCl (Bentyl) 20 mg PO Q6 PRN PRN Reason: ABDOMINAL CRAMPING Enoxaparin Sodium (Lovenox) 40 mg SC DAILY [facility] Furosemide (Lasix) 40 mg PO BID [facility] Last Admin: 02/05/17 09:46 Dose: 40 mg Home Med (Colchicine [Colchicine]) 0.6 mg PO Q8 [facility] Home Med (Febuxostat [Uloric]) 80 mg PO DAILY [facility] Ciprofloxacin (Cipro 400mg/200ml Dsw) 400 mg in 200 mls @ 133 mls/hr IVPB Q12H [facility] Last Admin: 02/05/17 09:00 Dose: 133 mls/hr Metronidazole (Flagyl) 500 mg in 100 mls @ 100 mls/hr IVPB Q12 [facility] Last Admin: 02/05/17 09:45 Dose: 100 mls/hr Sodium Chloride (Sodium Chloride 0.45%) 1,000 mls @ 50 mls/hr IV .Q20H [facility] Last Admin: 02/04/17 21:59 Dose: 50 mls/hr Insulin Aspart (Novolog) 20 unit SC BID [facility] Insulin Aspart (Novolog) 0 unit SC ACHS [facility] PRN Reason: Protocol Last Admin: 02/05/17 08:47 Dose: Not Given Lactulose (Enulose) 10 gm PO DAILY [facility] Last Admin: 02/05/17 09:43 Dose: 10 gm Metolazone (Zaroxolyn) 5 mg PO PRN PRN PRN Reason: EDEMA Montelukast Sodium (Singulair) 10 mg PO HS [facility] Last Admin: 02/04/17 21:55 Dose: 10 mg Pantoprazole Sodium (Protonix Ec Tab) 40 mg PO DAILY [facility] Last Admin: 02/05/17 09:47 Dose: 40 mg Pantoprazole Sodium (Protonix Ec Tab) 40 mg PO DAILY [facility] Rosuvastatin Calcium (Crestor) 2.5 mg PO HS [facility] Last Admin: 02/04/17 21:55 Dose: 2.5 mg Fluticasone/Salmeterol (Advair Diskus 250/50) 2 puff INH RQ12 [facility] Physical Exam - Constitutional Appears: Non-toxic, Chronically Ill - Head Exam Head Exam: ATRAUMATIC, NORMAL INSPECTION - Eye Exam Eye Exam: EOMI, Normal appearance - ENT Exam ENT Exam: Mucous Membranes Moist, Normal Oropharynx - Neck Exam Neck exam: Negative for: Lymphadenopathy, Thyromegaly - Respiratory Exam Respiratory Exam: Clear to Auscultation Bilateral. absent: Rhonchi, Wheezes - Cardiovascular Exam Cardiovascular Exam: +S1, +S2. absent: JVD - GI/Abdominal Exam GI & Abdominal Exam: Normal Bowel Sounds, Soft. absent: Rebound - Extremities Exam Extremities exam: Positive for: pedal edema, tenderness - Neurological Exam Neurological exam: Alert, Oriented x3 - Psychiatric Exam Psychiatric exam: Normal Affect, Normal Mood - Skin Skin Exam: Dry, Intact Results - Vital Signs Recent Vital Signs: Last Vital Signs Temp 98.6 F 02/05/17 07:49 Pulse 80 02/05/17 07:49 Resp 20 02/05/17 07:49 BP 130/80 02/05/17 09:46 Pulse Ox 97 02/05/17 07:49 - Labs Result Diagrams: 02/04/17 18:30 02/04/17 18:30 Labs: Laboratory Results - last 24 hr 02/04/17 02/04/17 02/05/17 21:20 23:34 01:55 POC Glucose (mg/dL) 73 82 86 02/05/17 07:16 POC Glucose (mg/dL) 71 Assessment & Plan (1) Dependence on renal dialysis Status: Acute (2) Hypokalemia Status: Acute (3) Thrombocytopenia Status: Acute (4) Diabetes mellitus Status: Acute (5) Diverticulitis Status: Acute (6) ESRD (end stage renal disease) on dialysis Status: Acute (7) HTN (hypertension) Status: Acute (8) Vomiting Status: Acute (9) Gout Status: Chronic - Assessment and Plan (Free Text) Assessment: Gi distress with diverticulitis on CT Agree with empiric abx, consider gi evaluation Hypokalemia due to recent dialysis treatment - repeat prior to supplementation Maintain dialysis schedule - next treatment 02/07 Continue bp medications Phos binder when tolerating feeding
--- NOTE | 2017-02-05 11:11 | CP.PCM.CON ---
<Obed Cristina - Last Filed: 02/05/17 11:17> History of Present Illness - History of Present Illness History of Present Illness: PGY5 GI Fellow Consult Note Patient is a 71yo female with PMHx significant for kidney failure requiring transplant (2000) and HD via right forearm AVF, DM2, HTN, diverticulosis who presented to the ED with complaint of abdominal pain. Patient's son at bedside during examination. The patient states she suddenly developed epigastric and periumbilical abdominal pain last Tuesday (1 week prior to admission). The pain has remained fairly constant and was severe earlier, rating symptoms 10/10 at their worst. She admits to nausea without vomiting and development of loose stool in the days leading up to admission. Patient denies any sick contacts, recent travel or antibiotic use. CT A/P performed in the ED revealed mild sigmoid diverticulitis. Patient denies fever, chills, weight loss, rectal bleeding. PMHx: See HPI, also thoracic aortic aneurysm PSHx: kidney transplant (2000), cholecystectomy FHx: Multiple family members with DM2 Social: Denies tobacco, EtOH or illicit drug use Endo: EGD - 10/2016 - [place] Grade B esophagitis, H pylori NEGATIVE gastritis Colonoscopy - 10/2014 - miller-diverticulosis, large internal hemorrhoids Review of Systems - Constitutional Constitutional: absent: Anorexia, Chills, Fever, Weight Loss - EENT Eyes: absent: Change in Vision Nose/Mouth/Throat: absent: Sore Throat - Cardiovascular Cardiovascular: absent: Chest Pain, Dyspnea, Edema - Respiratory Respiratory: absent: Cough, Dyspnea, Excessive Mucous Production - Gastrointestinal Gastrointestinal: Abdominal Pain, Cramping, Loose Stools, Nausea. absent: Bloating, Constipation, Diarrhea, Dyspepsia, Hematemesis, Hematochezia, Melena, Vomiting - Genitourinary Genitourinary: absent: Dysuria, Urinary Frequency, Urinary Urgency - Musculoskeletal Musculoskeletal: absent: Back Pain, Neck Pain - Integumentary Integumentary: absent: New Lesions, Rash - Neurological Neurological: absent: Dizziness, Numbness, Focal Weakness - Psychiatric Psychiatric: absent: Anxiety, Depression - Endocrine Endocrine: absent: Polydipsia, Polyphagia, Polyuria - Hematologic/Lymphatic Hematologic: absent: Easy Bleeding, Easy Bruising, Lymphadenopathy Past Patient History - Infectious Disease Hx of Infectious Diseases: None - Past Medical History & Family History Past Medical History?: Yes - Past Social History Smoking Status: Never Smoked - CARDIAC Hx Congestive Heart Failure: Yes Hx Hypercholesterolemia: Yes Hx Hypertension: Yes - PULMONARY Hx Asthma: Yes Hx Sleep Apnea: Yes - NEUROLOGICAL Hx Neurological Disorder: No - HEENT Hx HEENT Problems: Yes Hx Cataracts: Yes (right eye july 2012 and left eye august 2012) - RENAL Hx Chronic Kidney Disease: Yes Hx Dialysis: Yes Type of Dialysis Access: Rt FA AVS Date of Last Dialysis Treatment: 02/04/17 Other/Comment: Kidney trasplant rt 2000 - ENDOCRINE/METABOLIC Hx Endocrine Disorders: Yes Hx Diabetes Mellitus Type 2: Yes - HEMATOLOGICAL/ONCOLOGICAL Hx Anemia: Yes - INTEGUMENTARY Hx Dermatological Problems: No Other/Comment: varicose vein surgery left leg 1995 - MUSCULOSKELETAL/RHEUMATOLOGICAL Hx Arthritis: Yes Hx Falls: No Hx Gout: Yes - GASTROINTESTINAL Hx Diverticulitis: Yes Hx Gastritis: Yes - GENITOURINARY/GYNECOLOGICAL Hx Genitourinary Disorders: No Other/Comment: voiding occasionally in small amounts. HX rt kidney transplant 2000 - PSYCHIATRIC Hx Substance Use: No - SURGICAL HISTORY Hx Cholecystectomy: Yes Other/Comment: rt FA AVS july 2016 - ANESTHESIA Hx Anesthesia: Yes Hx Anesthesia Reactions: No Hx Malignant Hyperthermia: No Has any member of the family had a problem w/ anesthesia?: No Meds Allergies/Adverse Reactions: Allergies Allergy/AdvReac Type Severity Reaction Status Date / Time allopurinol Allergy Verified 02/04/17 17:32 atorvastatin Allergy Verified 02/04/17 17:32 heparin Allergy Verified 02/04/17 17:32 Iodinated Contrast- Oral and AdvReac Verified 02/04/17 17:32 IV Dye [Iodinated Contrast Media - IV Dye] - Medications Medications: Current Medications Amlodipine Besylate (Norvasc) 5 mg PO DAILY [facility] Last Admin: 02/05/17 09:47 Dose: 5 mg Carvedilol (Coreg) 12.5 mg PO BID [facility] Last Admin: 02/05/17 09:44 Dose: 12.5 mg Dicyclomine HCl (Bentyl) 20 mg PO Q6 PRN PRN Reason: ABDOMINAL CRAMPING Enoxaparin Sodium (Lovenox) 40 mg SC DAILY [facility] Furosemide (Lasix) 40 mg PO BID [facility] Last Admin: 02/05/17 09:46 Dose: 40 mg Home Med (Colchicine [Colchicine]) 0.6 mg PO Q8 [facility] Home Med (Febuxostat [Uloric]) 80 mg PO DAILY [facility] Ciprofloxacin (Cipro 400mg/200ml Dsw) 400 mg in 200 mls @ 133 mls/hr IVPB Q12H [facility] Last Admin: 02/05/17 09:00 Dose: 133 mls/hr Metronidazole (Flagyl) 500 mg in 100 mls @ 100 mls/hr IVPB Q12 [facility] Last Admin: 02/05/17 09:45 Dose: 100 mls/hr Sodium Chloride (Sodium Chloride 0.45%) 1,000 mls @ 50 mls/hr IV .Q20H [facility] Last Admin: 02/04/17 21:59 Dose: 50 mls/hr Insulin Aspart (Novolog) 20 unit SC BID [facility] Insulin Aspart (Novolog) 0 unit SC ACHS [facility] PRN Reason: Protocol Last Admin: 02/05/17 08:47 Dose: Not Given Lactulose (Enulose) 10 gm PO DAILY [facility] Last Admin: 02/05/17 09:43 Dose: 10 gm Metolazone (Zaroxolyn) 5 mg PO PRN PRN PRN Reason: EDEMA Montelukast Sodium (Singulair) 10 mg PO [facility] Last Admin: 02/04/17 21:55 Dose: 10 mg Pantoprazole Sodium (Protonix Ec Tab) 40 mg PO DAILY [facility] Last Admin: 02/05/17 09:47 Dose: 40 mg Pantoprazole Sodium (Protonix Ec Tab) 40 mg PO DAILY [facility] Rosuvastatin Calcium (Crestor) 2.5 mg PO [facility] Last Admin: 02/04/17 21:55 Dose: 2.5 mg Fluticasone/Salmeterol (Advair Diskus 250/50) 2 puff INH RQ12 [facility] Physical Exam - Constitutional Appears: Non-toxic, No Acute Distress - Eye Exam Eye Exam: EOMI, PERRL - ENT Exam ENT Exam: Mucous Membranes Moist - Respiratory Exam Respiratory Exam: Clear to Auscultation Bilateral. absent: Rales, Rhonchi, Wheezes - Cardiovascular Exam Cardiovascular Exam: RRR, +S1, +S2 - GI/Abdominal Exam GI & Abdominal Exam: Normal Bowel Sounds, Soft. absent: Distended, Firm, Guarding, Rigid, Tenderness - Extremities Exam Additional comments: very tender on both LE; mild erythema of medial aspect right leg and lateral aspect left leg - Neurological Exam Neurological exam: Alert, Oriented x3 - Psychiatric Exam Psychiatric exam: Normal Affect, Normal Mood - Skin Skin Exam: Dry, Warm Results - Vital Signs Recent Vital Signs: Last Vital Signs Temp 98.6 F 02/05/17 07:49 Pulse 80 02/05/17 07:49 Resp 20 02/05/17 07:49 BP 130/80 02/05/17 09:46 Pulse Ox 97 02/05/17 07:49 - Labs Result Diagrams: 02/04/17 18:30 02/04/17 18:30 Labs: Laboratory Results - last 24 hr 02/04/17 02/04/17 02/05/17 21:20 23:34 01:55 POC Glucose (mg/dL) 73 82 86 02/05/17 07:16 POC Glucose (mg/dL) 71 Assessment & Plan - Assessment and Plan (Free Text) Assessment: Patient is a 71yo female with PMHx significant for kidney failure requiring transplant (2000) and HD via right forearm AVF, DM2, HTN, diverticulosis who presented to the ED with complaint of abdominal pain. -Acute sigmoid diverticulitis -Miller-diverticulosis -ESRD on HD; H/O kidney transplant Plan: -Agree with current management, IV ABX cipro/flagyl -Liquid diet, slowly advance as tolerated by patient -Recommend outpatient colonoscopy 6-8 weeks from resolution of symptoms to evaluate underlying etiology -Known miller-diverticulosis - encourage augmentation of fiber/water supplementation as tolerated -Prior imaging suggestive of atrophic pancreas and fatty liver/nodular contour - no appreciable ascites on current imaging but may warrant diagnostic paracentesis if present moving forward - Date & Time Date: 02/05/17 Time: 10:00 <Osorio Phelan - Last Filed: 02/05/17 11:37> Meds - Medications Medications: Current Medications Amlodipine Besylate (Norvasc) 5 mg PO DAILY [facility] Last Admin: 02/05/17 09:47 Dose: 5 mg Carvedilol (Coreg) 12.5 mg PO BID [facility] Last Admin: 02/05/17 09:44 Dose: 12.5 mg Dicyclomine HCl (Bentyl) 20 mg PO Q6 PRN PRN Reason: ABDOMINAL CRAMPING Enoxaparin Sodium (Lovenox) 40 mg SC DAILY [facility] Furosemide (Lasix) 40 mg PO BID [facility] Last Admin: 02/05/17 09:46 Dose: 40 mg Home Med (Colchicine [Colchicine]) 0.6 mg PO Q8 [facility] Home Med (Febuxostat [Uloric]) 80 mg PO DAILY [facility] Ciprofloxacin (Cipro 400mg/200ml Dsw) 400 mg in 200 mls @ 133 mls/hr IVPB Q12H [facility] Last Admin: 02/05/17 09:00 Dose: 133 mls/hr Metronidazole (Flagyl) 500 mg in 100 mls @ 100 mls/hr IVPB Q12 [facility] Last Admin: 02/05/17 09:45 Dose: 100 mls/hr Sodium Chloride (Sodium Chloride 0.45%) 1,000 mls @ 50 mls/hr IV .Q20H [facility] Last Admin: 02/04/17 21:59 Dose: 50 mls/hr Insulin Aspart (Novolog) 20 unit SC BID [facility] Insulin Aspart (Novolog) 0 unit SC ACHS [facility] PRN Reason: Protocol Last Admin: 02/05/17 08:47 Dose: Not Given Lactulose (Enulose) 10 gm PO DAILY [facility] Last Admin: 02/05/17 09:43 Dose: 10 gm Metolazone (Zaroxolyn) 5 mg PO PRN PRN PRN Reason: EDEMA Montelukast Sodium (Singulair) 10 mg PO HS [facility] Last Admin: 02/04/17 21:55 Dose: 10 mg Pantoprazole Sodium (Protonix Ec Tab) 40 mg PO DAILY [facility] Last Admin: 02/05/17 09:47 Dose: 40 mg Pantoprazole Sodium (Protonix Ec Tab) 40 mg PO DAILY [facility] Rosuvastatin Calcium (Crestor) 2.5 mg PO HS [facility] Last Admin: 02/04/17 21:55 Dose: 2.5 mg Fluticasone/Salmeterol (Advair Diskus 250/50) 2 puff INH RQ12 [facility] Results - Vital Signs Recent Vital Signs: Last Vital Signs Temp 98.6 F 02/05/17 07:49 Pulse 80 02/05/17 07:49 Resp 20 02/05/17 07:49 BP 130/80 02/05/17 09:46 Pulse Ox 97 02/05/17 07:49 - Labs Result Diagrams: 02/04/17 18:30 02/04/17 18:30 Labs: Laboratory Results - last 24 hr 02/04/17 02/04/17 02/05/17 21:20 23:34 01:55 POC Glucose (mg/dL) 73 82 86 02/05/17 02/05/17 07:16 11:06 POC Glucose (mg/dL) 71 98 Attending/Attestation - Attestation I have personally seen and examined this patient.: Yes I have fully participated in the care of the patient.: Yes I have reviewed all pertinent clinical information: Yes Notes (Text): 02/05/17 11:32 I have seen and examined patient with GI fellow. Agree with above documentation with the following additions. In brief, this is a 71 year old female with history of cirrhosis (unclear etiology), kidney transplant now dialysis dependant, DM, HTN who presented to hospital with complaint of abdominal pain. She describes a progressively worsening pain over the past one week that is 10/10 intensity and located in LLQ, worse with movement. She denies nausea, vomiting, fever/chills, weight loss, or rectal bleeding. She had a colonoscopy in 2014 which showed diverticular disease, EGD performed 3 months ago showing gastritis, esophagitis. DM HTN ESRD on HD Cirrhosis - unclear etiology Abdominal pain - acute sigmoid diverticulitis - Clear liquid diet as tolerated - Obtain stool studies, blood cultures - Continue with antibiotic therapy - Patient would benefit from further cirrhosis workup including autoimmune panel testing, AFP. CT imaging reviewed by me, no significant ascites present to perform diagnostic paracentesis. - Patient will require outpatient colonoscopy 6-8 weeks following resolution of acute symptoms. Will continue to monitor patient clinical course.
--- NOTE | 2017-02-05 15:09 | CP.PCM.PN ---
Subjective - Date & Time of Evaluation Date of Evaluation: 02/05/17 Time of Evaluation: 08:20 - Subjective Subjective: clinically same Objective - Vital Signs/Intake and Output Vital Signs (last 24 hours): Temp Pulse Resp BP Pulse Ox 98.6 F 80 20 130/80 97 02/05/17 07:49 02/05/17 07:49 02/05/17 07:49 02/05/17 09:46 02/05/17 07:49 Intake and Output: 02/05/17 02/05/17 06:59 18:59 Intake Total 900 800 Output Total 0 Balance 900 800 - Medications Medications: Current Medications Amlodipine Besylate (Norvasc) 5 mg PO DAILY [facility] Last Admin: 02/05/17 09:47 Dose: 5 mg Carvedilol (Coreg) 12.5 mg PO BID [facility] Last Admin: 02/05/17 09:44 Dose: 12.5 mg Dicyclomine HCl (Bentyl) 20 mg PO Q6 PRN PRN Reason: ABDOMINAL CRAMPING Enoxaparin Sodium (Lovenox) 40 mg SC DAILY [facility] Furosemide (Lasix) 40 mg PO BID [facility] Last Admin: 02/05/17 09:46 Dose: 40 mg Home Med (Colchicine [Colchicine]) 0.6 mg PO Q8 [facility] Home Med (Febuxostat [Uloric]) 80 mg PO DAILY [facility] Ciprofloxacin (Cipro 400mg/200ml Dsw) 400 mg in 200 mls @ 133 mls/hr IVPB Q12H [facility] Last Admin: 02/05/17 09:00 Dose: 133 mls/hr Metronidazole (Flagyl) 500 mg in 100 mls @ 100 mls/hr IVPB Q12 [facility] Last Admin: 02/05/17 09:45 Dose: 100 mls/hr Sodium Chloride (Sodium Chloride 0.45%) 1,000 mls @ 50 mls/hr IV .Q20H [facility] Last Admin: 02/04/17 21:59 Dose: 50 mls/hr Insulin Aspart (Novolog) 20 unit SC BID [facility] Last Admin: 02/05/17 10:42 Dose: Not Given Insulin Aspart (Novolog) 0 unit SC ACHS [facility] PRN Reason: Protocol Last Admin: 02/05/17 11:43 Dose: Not Given Lactulose (Enulose) 10 gm PO DAILY [facility] Last Admin: 02/05/17 09:43 Dose: 10 gm Metolazone (Zaroxolyn) 5 mg PO PRN PRN PRN Reason: EDEMA Montelukast Sodium (Singulair) 10 mg PO HS [facility] Last Admin: 02/04/17 21:55 Dose: 10 mg Pantoprazole Sodium (Protonix Ec Tab) 40 mg PO DAILY [facility] Last Admin: 02/05/17 09:47 Dose: 40 mg Pantoprazole Sodium (Protonix Ec Tab) 40 mg PO DAILY [facility] Rosuvastatin Calcium (Crestor) 2.5 mg PO [facility] Last Admin: 02/04/17 21:55 Dose: 2.5 mg Fluticasone/Salmeterol (Advair Diskus 250/50) 2 puff INH RQ12 [facility] - Constitutional Appears: Well - Head Exam Head Exam: ATRAUMATIC, NORMAL INSPECTION, NORMOCEPHALIC - Eye Exam Eye Exam: EOMI, Normal appearance, PERRL Pupil Exam: NORMAL ACCOMODATION, PERRL - ENT Exam ENT Exam: Mucous Membranes Moist, Normal Exam - Neck Exam Neck Exam: Full ROM, Normal Inspection. absent: Lymphadenopathy - Respiratory Exam Respiratory Exam: Decreased Breath Sounds - Cardiovascular Exam Cardiovascular Exam: REGULAR RHYTHM, +S1, +S2 - GI/Abdominal Exam GI & Abdominal Exam: Soft, Diminished Bowel Sounds - Rectal Exam Rectal Exam: Deferred
[2017-02-05] MEDS: Vitamins A & D Oint UD Foilpak TOP SCH (18:55)
[2017-02-05] MEDS: Fluticasone-Salmeterol 250-50mcg Diskus INH SCH (20:59)
[2017-02-05] MEDS: Rosuvastatin Calcium 2.5 mg Tab PO SCH (21:51)
[2017-02-06] MEDS: (Novolog) Insulin Aspart, Recombinant 100 u/ml 10 ml vial SC SCH ×6 (08:23→22:10)
[2017-02-06] MEDS: Fluticasone-Salmeterol 250-50mcg Diskus INH SCH ×2 (09:00→21:15)
[2017-02-06] MEDS: Ciprofloxacin 400mg/200ml D5W 400 MG/200 ML BAG IVPB SCH ×2 (09:37→19:30)
[2017-02-06] MEDS: Pantoprazole 40 mg EC Tab PO SCH (09:53)
--- NOTE | 2017-02-06 09:54 | CP.PCM.PN ---
Subjective - Date & Time of Evaluation Date of Evaluation: 02/06/17 Time of Evaluation: 09:46 - Subjective Subjective: Patient seen and examined, resting in bed comfortably. No acute events overnight, abdominal pain has improved and she has not had any bowel movements for past 24 hours. She complains of ongoing nausea, though tolerating PO liquids without difficulty. She also complains of significant lower extremity pain and "burning" sensation with movement. Review of vitals from today are normal. 12 point review of systems performed, negative aside from mentioned above. Objective - Vital Signs/Intake and Output Vital Signs (last 24 hours): Temp Pulse Resp BP Pulse Ox 98.2 F 80 20 109/64 97 02/06/17 07:54 02/06/17 07:54 02/06/17 07:54 02/06/17 07:54 02/06/17 07:54 Intake and Output: 02/06/17 02/06/17 06:59 18:59 Intake Total 1000 Balance 1000 - Medications Medications: Current Medications Amlodipine Besylate (Norvasc) 5 mg PO DAILY [facility] Last Admin: 02/05/17 09:47 Dose: 5 mg Carvedilol (Coreg) 12.5 mg PO BID [facility] Last Admin: 02/05/17 18:50 Dose: Not Given Colchicine (Colocrys) 0.6 mg PO MWF [facility] Dicyclomine HCl (Bentyl) 20 mg PO Q6 PRN PRN Reason: ABDOMINAL CRAMPING Furosemide (Lasix) 40 mg PO BID [facility] Last Admin: 02/05/17 18:51 Dose: Not Given Home Med (Febuxostat [Uloric]) 80 mg PO DAILY [facility] Ciprofloxacin (Cipro 400mg/200ml Dsw) 400 mg in 200 mls @ 133 mls/hr IVPB Q12H [facility] Last Admin: 02/05/17 20:59 Dose: 133 mls/hr Metronidazole (Flagyl) 500 mg in 100 mls @ 100 mls/hr IVPB Q12 [facility] Last Admin: 02/05/17 21:50 Dose: 100 mls/hr Insulin Aspart (Novolog) 20 unit SC BID [facility] Last Admin: 02/05/17 17:23 Dose: Not Given Insulin Aspart (Novolog) 0 unit SC ACHS [facility] PRN Reason: Protocol Last Admin: 02/06/17 08:23 Dose: Not Given Lactulose (Enulose) 10 gm PO DAILY [facility] Last Admin: 02/05/17 09:43 Dose: 10 gm Metolazone (Zaroxolyn) 5 mg PO DAILY [facility] Montelukast Sodium (Singulair) 10 mg PO HS [facility] Last Admin: 02/05/17 21:51 Dose: 10 mg Morphine Sulfate (Morphine) 2 mg IV Q8 PRN PRN Reason: Pain, moderate (4-7) Last Admin: 02/05/17 18:05 Dose: 2 mg Pantoprazole Sodium (Protonix Ec Tab) 40 mg PO DAILY [facility] Last Admin: 02/05/17 09:47 Dose: 40 mg Rosuvastatin Calcium (Crestor) 2.5 mg PO HS [facility] Last Admin: 02/05/17 21:51 Dose: 2.5 mg Fluticasone/Salmeterol (Advair Diskus 250/50) 1 puff INH RQ12 [facility] Last Admin: 02/05/17 20:59 Dose: 1 puff Vitamin A (Vitamin A & D Oint Ud Foilpak) 1 ea TOP BID [facility] Last Admin: 02/05/17 18:55 Dose: 1 ea - Constitutional Appears: Non-toxic, No Acute Distress - Head Exam Head Exam: NORMAL INSPECTION - Eye Exam Eye Exam: EOMI, Normal appearance - ENT Exam ENT Exam: Mucous Membranes Moist - Respiratory Exam Respiratory Exam: Clear to Ausculation Bilateral - Cardiovascular Exam Cardiovascular Exam: REGULAR RHYTHM, +S1, +S2 - GI/Abdominal Exam GI & Abdominal Exam: Soft, Tenderness, Normal Bowel Sounds Additional comments: mild RLQ tenderness to palpation, no rebound/guarding surgical scar present - Extremities Exam Extremities Exam: Pedal Edema Additional comments: 1+ pitting edema b/l lower extremities region of erythema present b/l lower extremities - Skin Skin Exam: Dry, Intact, Normal Color, Warm Assessment and Plan - Assessment and Plan (Free Text) Assessment: DM / HTN history of kidney transplant ESRD on HD Cirrhosis, unclear etiology Abdominal pain, acute sigmoid diverticulitis Plan: - Continue with antibiotic therapy - Advance to full liquid diet and continue to monitor patient - LFTs stable, continue to monitor. Awaiting autoimmune panel, AFP testing. - Obtain INR - Continue with diuretic therapy, lactulose for HE prevention - Given lower extremity pain with erythema, suggestive of cellulitis - would consider broadening antibiotic coverage, will discuss with Dr. Esquivel - Patient will require elective outpatient colonoscopy 6-8 weeks following resolution of acute symptoms
[2017-02-06] MEDS: metOLazone 5 MG TAB PO SCH (09:56)
[2017-02-06] MEDS: Vitamins A & D Oint UD Foilpak TOP SCH ×2 (10:01→18:03)
[2017-02-06] MEDS: metroNIDAZOLE IV 500 mg/100 ml 500 MG/100 ML BAG IVPB SCH ×2 (10:42→21:28)
--- NOTE | 2017-02-06 10:49 | CP.PCM.PN ---
Subjective - Date & Time of Evaluation Date of Evaluation: 02/06/17 Time of Evaluation: 08:00 - Subjective Subjective: clinically same Objective - Vital Signs/Intake and Output Vital Signs (last 24 hours): Temp Pulse Resp BP Pulse Ox 98.2 F 80 20 120/74 97 02/06/17 07:54 02/06/17 07:54 02/06/17 07:54 02/06/17 09:54 02/06/17 07:54 Intake and Output: 02/06/17 02/06/17 06:59 18:59 Intake Total 1000 Balance 1000 - Medications Medications: Current Medications Amlodipine Besylate (Norvasc) 5 mg PO DAILY [facility] Last Admin: 02/05/17 09:47 Dose: 5 mg Carvedilol (Coreg) 12.5 mg PO BID [facility] Last Admin: 02/06/17 09:54 Dose: 12.5 mg Colchicine (Colocrys) 0.6 mg PO MWF [facility] Dicyclomine HCl (Bentyl) 20 mg PO Q6 PRN PRN Reason: ABDOMINAL CRAMPING Furosemide (Lasix) 40 mg PO BID [facility] Last Admin: 02/06/17 09:53 Dose: 40 mg Home Med (Febuxostat [Uloric]) 80 mg PO DAILY [facility] Ciprofloxacin (Cipro 400mg/200ml Dsw) 400 mg in 200 mls @ 133 mls/hr IVPB Q12H [facility] Last Admin: 02/06/17 09:37 Dose: 133 mls/hr Metronidazole (Flagyl) 500 mg in 100 mls @ 100 mls/hr IVPB Q12 [facility] Last Admin: 02/06/17 10:42 Dose: 100 mls/hr Insulin Aspart (Novolog) 20 unit SC BID [facility] Last Admin: 02/06/17 08:54 Dose: Not Given Insulin Aspart (Novolog) 0 unit SC ACHS [facility] PRN Reason: Protocol Last Admin: 02/06/17 08:23 Dose: Not Given Lactulose (Enulose) 10 gm PO DAILY [facility] Last Admin: 02/06/17 09:56 Dose: 10 gm Metolazone (Zaroxolyn) 5 mg PO DAILY [facility] Last Admin: 02/06/17 09:56 Dose: 5 mg Montelukast Sodium (Singulair) 10 mg PO HS [facility] Last Admin: 02/05/17 21:51 Dose: 10 mg Morphine Sulfate (Morphine) 2 mg IV Q8 PRN PRN Reason: Pain, moderate (4-7) Last Admin: 02/05/17 18:05 Dose: 2 mg Pantoprazole Sodium (Protonix Ec Tab) 40 mg PO DAILY [facility] Last Admin: 02/06/17 09:53 Dose: 40 mg Rosuvastatin Calcium (Crestor) 2.5 mg PO HS [facility] Last Admin: 02/05/17 21:51 Dose: 2.5 mg Fluticasone/Salmeterol (Advair Diskus 250/50) 1 puff INH RQ12 [facility] Last Admin: 02/05/17 20:59 Dose: 1 puff Vitamin A (Vitamin A & D Oint Ud Foilpak) 1 ea TOP BID [facility] Last Admin: 02/05/17 18:55 Dose: 1 ea - Constitutional Appears: Well - Head Exam Head Exam: ATRAUMATIC, NORMAL INSPECTION, NORMOCEPHALIC - Eye Exam Eye Exam: EOMI, Normal appearance, PERRL Pupil Exam: NORMAL ACCOMODATION, PERRL - ENT Exam ENT Exam: Mucous Membranes Moist, Normal Exam - Neck Exam Neck Exam: Full ROM, Normal Inspection. absent: Lymphadenopathy - Respiratory Exam Respiratory Exam: Decreased Breath Sounds - Cardiovascular Exam Cardiovascular Exam: REGULAR RHYTHM, +S1, +S2 - GI/Abdominal Exam GI & Abdominal Exam: Soft, Diminished Bowel Sounds - Rectal Exam Rectal Exam: Deferred
[2017-02-06 16:55] LABS: POTASSIUM 4.4 mmol/L (3.6-5.2)
[2017-02-06 16:57] LABS: TOTAL PROTEIN 5.1 g/dL (6.3-8.3)
[2017-02-06 16:58] LABS: CALCIUM 8.4 mg/dl (8.6-10.4)
[2017-02-06 17:01] LABS: INR 1.5
[2017-02-06] MEDS: Rosuvastatin Calcium 2.5 mg Tab PO SCH (21:29)
--- NOTE | 2017-02-07 04:54 | CON ---
ENDOCRINOLOGY CONSULT LOCATION: In room 369. HISTORY OF PRESENT ILLNESS: This is a 71-year-old female with known history of type 2 insulin-requiring diabetes, presenting here with severe epigastric pain and associated nausea, dyspepsia, and vomiting with loose watery diarrhea and is now being referred for endocrine evaluation for possible Branch's disease as noted thereof. PAST MEDICAL HISTORY: As mentioned above. History of type 2 insulin-requiring diabetes, currently on a premixed insulin regimen at home using NovoLog 70/30 given as 20 units b.i.d. before meals as given, history of hypertensive cardiovascular disease and dyslipidemia, history of diabetic retinopathy, polyneuropathy and nephropathy with end-stage renal disease and dialysis dependent. She had a failed kidney transplant and received kidney transplant in 2000 as noted. History of coronary artery disease and previous admissions for congestive heart failure. She also has known history of thoracic aortic aneurysm, being followed by serial CAT scan. She also has previous history of gastritis, hiatal hernia and pandiverticulosis. The previous endoscopic procedure, which showed low-grade esophagitis. There is also known history of obstructive sleep apnea as noted. cystectomy many years ago. History of diffuse osteoarthritis with low back pain and knee arthralgias. FAMILY HISTORY: Positive for diabetes and hypertension. SOCIAL HISTORY: The patient has supportive family. No known substance use. REVIEW OF SYSTEMS: As mentioned above. Admits to generalized body weakness with easy fatigability and tiredness and suboptimal energy level. Also admits to episodic dizziness and lightheadedness, worse on the day of admission. No chest pain, palpitations, or PND. Her oral intake has been variable and suboptimal with nausea, dyspepsia, and episodic vomiting episodes. She also has a recent bout of loose watery diarrhea with severe supervening epigastric pain radiating to the periumbilical area. PHYSICAL EXAMINATION: GENERAL: This is an average-built female in no apparent distress. VITAL SIGNS: Blood pressure 140/80, pulse 70 beats per minute and regular, temperature 98, respirations 20, height is 4 feet 11 inches, and weight is 121 pounds. HEENT: Head is normocephalic. Eyes; anicteric with pink conjunctivae. Funduscopy not possible at this time. Ears, nose, and throat are otherwise normal. NECK: Supple. Thyroid gland is normal size. No carotid bruits. No cervical adenopathy. CARDIOPULMONARY: Adynamic precordium. S1 and S2 is rapid and regular. LUNGS: Clear to auscultation. ABDOMEN: Flat and soft with positive bowel sounds. EXTREMITIES: No peripheral edema. Pulses are +2 bilaterally. LABORATORY DATA: The chemistries showed a BUN of 12, sodium 137, potassium 3.1, chloride 96, CO2 of 30, glucose 72, and creatinine 1.5. Subsequent glucose levels have ranged from 71 to 73 and 86 mg/dL. The subsequent creatinine was 3.9 as noted with elevated alkaline phosphatase of 547, calcium is 8.4, and albumin is 2.5. ASSESSMENT: This is a 71-year-old female with uncontrolled and decompensated type 2 insulin-requiring diabetes with low normal glycemic levels related to suboptimal and variable oral intake at this time with ongoing insulin therapy given as a rapid-acting analog, i.e., NovoLog insulin as given. She was actually on a premixed insulin regimen using NovoLog 70/30 twice daily as ordered. Moreover, she also has diabetic microvascular complications of retinopathy, polyneuropathy and nephropathy with end-stage renal disease and dialysis dependent with a significant history of failed renal transplant as noted. There is also significant diabetic macrovascular complications of coronary artery disease and peripheral arterial disease and vasculopathy. The possibility of Branch's disease has been raised at this time; although, she has been already off steroid therapy, which she was on for a long time because of anti-rejection immunotherapy as given. Since she started back on hemodialysis, she has stopped the oral steroids as given. The possibility always of secondary hypoadrenalism in patient with long-term steroid replacement therapy has to be excluded at this point in time. PLAN OF MANAGEMENT: We will obtain a baseline comprehensive hormonal profile with a serum cortisol and ACTH level to be obtain for tomorrow morning. We will also add hemoglobin A1c to her prior glycemic control and baseline thyroid function studies will be ordered. We will also obtain serial chemistry and supplement accordingly as needed. We will modify the coverage scale to hypoglycemia and detailed orders have been given for low dose correctional scale using NovoLog insulin as ordered. We will also restart her on a low dose of premixed insulin regimen with NovoLog 70/30 given as 14 units a.c. breakfast and 10 units a.c. dinner as ordered. We will titrate incrementally as indicated to optimize metabolic control. We will follow the patient. Becky Newton MD
[2017-02-07] MEDS ORDERED: (Novolog Mix 70/30) Insulin Aspart/Insulin Aspar 100 units/ml SC SCH ×2 (07:30→16:30)
[2017-02-07] MEDS: (Novolog) Insulin Aspart, Recombinant 100 u/ml 10 ml vial SC SCH ×4 (07:48→21:50)
[2017-02-07] MEDS: Ciprofloxacin 400mg/200ml D5W 400 MG/200 ML BAG IVPB SCH (08:07)
[2017-02-07] MEDS: Pantoprazole 40 mg EC Tab PO SCH ×2 (08:23→10:11)
[2017-02-07] MEDS: metOLazone 5 MG TAB PO SCH ×2 (08:23→10:09)
[2017-02-07] MEDS: Fluticasone-Salmeterol 250-50mcg Diskus INH SCH ×2 (08:33→20:24)
[2017-02-07 08:34] LABS: T4 5.87 ug/dL (5.5-11.0)
[2017-02-07 08:46] LABS: CHOLESTEROL < 50 mg/dL (0-199)
[2017-02-07 08:47] LABS: CORTISOL AM 15.3 ug/dL (4.46-22.7)
[2017-02-07 08:48] LABS: THYROID STIMULATING HORMONE 3.29 mIU/L (0.46-4.68)
--- NOTE | 2017-02-07 09:57 | CP.PCM.PN ---
<Elizabeth Lema - Last Filed: 02/07/17 11:42> Subjective - Date & Time of Evaluation Date of Evaluation: 02/07/17 Time of Evaluation: 07:40 - Subjective Subjective: GI Fellow pGY4 Progress Note Patient seen and examined at bedside, resting in bed comfortably with no acute events overnight. Pt reports still having epigastric abdominal pain and LLQ pain has improved. Pt reports nausea and does not want to eat breakfast tray of clear liquids. Pt reports nausea but no vomiting. She also complains of lower extremity pain and burning sensation. ROS: A 12 point review of systems was negative except as mentioned above. Objective - Vital Signs/Intake and Output Vital Signs (last 24 hours): Temp Pulse Resp BP Pulse Ox 97.5 F L 88 20 116/68 99 02/07/17 07:00 02/07/17 07:00 02/07/17 07:00 02/07/17 07:00 02/07/17 07:00 Intake and Output: 02/07/17 02/07/17 06:59 18:59 Intake Total 420 Balance 420 - Medications Medications: Current Medications Amlodipine Besylate (Norvasc) 5 mg PO DAILY [facility] Last Admin: 02/06/17 10:30 Dose: Not Given Carvedilol (Coreg) 12.5 mg PO BID [facility] Last Admin: 02/06/17 17:40 Dose: Not Given Colchicine (Colocrys) 0.6 mg PO MWF [facility] Last Admin: 02/07/17 08:23 Dose: 0.6 mg Dicyclomine HCl (Bentyl) 20 mg PO Q6 PRN PRN Reason: ABDOMINAL CRAMPING Furosemide (Lasix) 40 mg PO BID [facility] Last Admin: 02/06/17 17:40 Dose: Not Given Home Med (Febuxostat [Uloric]) 80 mg PO DAILY [facility] Ciprofloxacin (Cipro 400mg/200ml Dsw) 400 mg in 200 mls @ 133 mls/hr IVPB Q12H [facility] Last Admin: 02/07/17 08:07 Dose: 133 mls/hr Metronidazole (Flagyl) 500 mg in 100 mls @ 100 mls/hr IVPB Q12 [facility] Last Admin: 02/06/17 21:28 Dose: 100 mls/hr Insulin Aspart (Novolog Mix 70/30 (70/30 Units/Ml)) 14 units SC ACB [facility] Last Admin: 02/07/17 08:24 Dose: Not Given Insulin Aspart (Novolog Mix 70/30 (70/30 Units/Ml)) 10 units SC ACD [facility] Insulin Aspart (Novolog) 0 unit SC ACHS [facility] PRN Reason: Protocol Last Admin: 02/07/17 07:48 Dose: Not Given Lactulose (Enulose) 10 gm PO DAILY [facility] Last Admin: 02/07/17 08:27 Dose: 10 gm Metolazone (Zaroxolyn) 5 mg PO DAILY [facility] Last Admin: 02/07/17 08:23 Dose: 5 mg Montelukast Sodium (Singulair) 10 mg PO HS [facility] Last Admin: 02/06/17 22:49 Dose: 10 mg Morphine Sulfate (Morphine) 2 mg IV Q8 PRN PRN Reason: Pain, moderate (4-7) Last Admin: 02/06/17 21:22 Dose: 2 mg Pantoprazole Sodium (Protonix Ec Tab) 40 mg PO DAILY [facility] Last Admin: 02/07/17 08:23 Dose: 40 mg Rosuvastatin Calcium (Crestor) 2.5 mg PO HS [facility] Last Admin: 02/06/17 21:29 Dose: 2.5 mg Fluticasone/Salmeterol (Advair Diskus 250/50) 1 puff INH RQ12 [facility] Last Admin: 02/07/17 08:33 Dose: 1 puff Vitamin A (Vitamin A & D Oint Ud Foilpak) 1 ea TOP BID [facility] Last Admin: 02/06/17 18:03 Dose: 1 ea - Labs Labs: 02/06/17 16:42 PT 17.7 SECONDS (9.7-12.2) H 02/06/17 16:42 INR 1.5 02/06/17 16:42 - Constitutional Appears: Non-toxic, No Acute Distress - Head Exam Head Exam: ATRAUMATIC, NORMAL INSPECTION, NORMOCEPHALIC - Eye Exam Eye Exam: EOMI, Normal appearance, PERRL Pupil Exam: PERRL - ENT Exam ENT Exam: Mucous Membranes Moist - Neck Exam Neck Exam: Full ROM, Normal Inspection - Respiratory Exam Respiratory Exam: Clear to Ausculation Bilateral - Cardiovascular Exam Cardiovascular Exam: RRR, +S1, +S2 - GI/Abdominal Exam GI & Abdominal Exam: Soft, Tenderness, Normal Bowel Sounds. absent: Distended, Firm, Guarding, Organomegaly - Rectal Exam Rectal Exam: Deferred - Extremities Exam Extremities Exam: Full ROM, Normal Inspection - Back Exam Back Exam: NORMAL INSPECTION - Neurological Exam Neurological Exam: Alert, Awake, Oriented x3 - Psychiatric Exam Psychiatric exam: Normal Affect, Normal Mood - Skin Skin Exam: Dry, Intact, Normal Color, Warm Assessment and Plan - Assessment and Plan (Free Text) Assessment: This is a 71y female with PMHx significant for kidney failure requiring transplant, ESRD on HD, DM, HTN, diverticulosis who presented to the ED with complaint of abdominal pain. 1. Acute sigmoid diverticulitis 2. DM 3. HTN 4. History of kidney transplant 5. ESRD on HD 6. Constipation 7. LE pain, edema Plan: - Continue with antibiotic therapy - Continue full liquid diet and advance as tolerated - LFTs stable, continue to monitor. Awaiting autoimmune panel, AFP testing - Continue with diuretic therapy, lactulose for HE prevention - Lower extremity pain with erythema possible cellulitis recommend LE US to r/o DVT and possible Imaging to r/o trauma or possible gout flare - Bowel regimen - Patient will need outpatient colonoscopy 6-8 weeks after resolution of acute diverticulitis to evaluate for underlying pathology <Barbara DEL CASTILLO,Hector - Last Filed: 02/07/17 12:59> Objective - Vital Signs/Intake and Output Vital Signs (last 24 hours): Temp Pulse Resp BP Pulse Ox 97.5 F L 88 20 116/68 99 02/07/17 07:00 02/07/17 07:00 02/07/17 07:00 02/07/17 07:00 02/07/17 07:00 Intake and Output: 02/07/17 02/07/17 06:59 18:59 Intake Total 420 Balance 420 - Medications Medications: Current Medications Carvedilol (Coreg) 12.5 mg PO BID [facility] Last Admin: 02/07/17 10:03 Dose: Not Given Colchicine (Colocrys) 0.6 mg PO MWF [facility] Last Admin: 02/07/17 08:23 Dose: 0.6 mg Dicyclomine HCl (Bentyl) 20 mg PO Q6 PRN PRN Reason: ABDOMINAL CRAMPING Home Med (Febuxostat [Uloric]) 80 mg PO DAILY [facility] Ciprofloxacin (Cipro 400mg/200ml Dsw) 400 mg in 200 mls @ 133 mls/hr IVPB Q12H [facility] Last Admin: 02/07/17 08:07 Dose: 133 mls/hr Metronidazole (Flagyl) 500 mg in 100 mls @ 100 mls/hr IVPB Q12 [facility] Last Admin: 02/07/17 10:09 Dose: 100 mls/hr Insulin Aspart (Novolog Mix 70/30 (70/30 Units/Ml)) 14 units SC ACB [facility] Last Admin: 02/07/17 08:24 Dose: Not Given Insulin Aspart (Novolog Mix 70/30 (70/30 Units/Ml)) 10 units SC ACD [facility] Insulin Aspart (Novolog) 0 unit SC ACHS [facility] PRN Reason: Protocol Last Admin: 02/07/17 12:14 Dose: Not Given Montelukast Sodium (Singulair) 10 mg PO HS [facility] Last Admin: 02/06/17 22:49 Dose: 10 mg Morphine Sulfate (Morphine) 2 mg IV Q8 PRN PRN Reason: Pain, moderate (4-7) Last Admin: 02/07/17 11:47 Dose: 2 mg Ondansetron HCl (Zofran Inj) 4 mg IVP Q8H PRN PRN Reason: Nausea/Vomiting Last Admin: 02/07/17 12:03 Dose: 4 mg Pantoprazole Sodium (Protonix Ec Tab) 40 mg PO DAILY [facility] Last Admin: 02/07/17 10:11 Dose: Not Given Polyethylene Glycol (Miralax) 17 gm PO DAILY [facility] Last Admin: 02/07/17 12:38 Dose: 17 gm Rosuvastatin Calcium (Crestor) 2.5 mg PO HS [facility] Last Admin: 02/06/17 21:29 Dose: 2.5 mg Fluticasone/Salmeterol (Advair Diskus 250/50) 1 puff INH RQ12 [facility] Last Admin: 02/07/17 08:33 Dose: 1 puff Vitamin A (Vitamin A & D Oint Ud Foilpak) 1 ea TOP BID [facility] Last Admin: 02/07/17 10:12 Dose: 1 ea - Labs Labs: 02/06/17 16:42 PT 17.7 SECONDS (9.7-12.2) H 02/06/17 16:42 INR 1.5 02/06/17 16:42 Attending/Attestation - Attestation I have personally seen and examined this patient.: Yes I have fully participated in the care of the patient.: Yes I have reviewed all pertinent clinical information, including history, physical exam and plan: Yes Notes (Text): 02/07/17 12:57 Patient seen with GI fellow on rounds. This is a 71 year old female with PMHx significant for kidney failure requiring transplant, ESRD on HD, DM, HTN, diverticulosis who presented to the ED with complaint of abdominal pain found to have uncomplicated sigmoid diverticulosis. Denies abdominal pain but complains of constipation and nausea. Will give bowel regimen and advance diet as tolerated. Complains of LE pain with edema on right ankle. Recommend LE dopplers to r/o DVT and or rule out trauma vs gout. Outpatient colonoscopy in 6- 8 weeks
[2017-02-07] MEDS: metroNIDAZOLE IV 500 mg/100 ml 500 MG/100 ML BAG IVPB SCH ×2 (10:09→21:49)
[2017-02-07] MEDS: Vitamins A & D Oint UD Foilpak TOP SCH ×2 (10:12→17:55)
--- NOTE | 2017-02-07 11:33 | CP.PCM.PN ---
Subjective - Date & Time of Evaluation Date of Evaluation: 02/07/17 Time of Evaluation: 11:30 - Subjective Subjective: c/o weakness, nausea no more diarrhea chronically SOB on diuretics-will stop stop laxatives as well Objective - Vital Signs/Intake and Output Vital Signs (last 24 hours): Temp Pulse Resp BP Pulse Ox 97.5 F L 88 20 116/68 99 02/07/17 07:00 02/07/17 07:00 02/07/17 07:00 02/07/17 07:00 02/07/17 07:00 Intake and Output: 02/07/17 02/07/17 06:59 18:59 Intake Total 420 Balance 420 - Medications Medications: Current Medications Carvedilol (Coreg) 12.5 mg PO BID [facility] Last Admin: 02/07/17 10:03 Dose: Not Given Colchicine (Colocrys) 0.6 mg PO MWF [facility] Last Admin: 02/07/17 08:23 Dose: 0.6 mg Dicyclomine HCl (Bentyl) 20 mg PO Q6 PRN PRN Reason: ABDOMINAL CRAMPING Home Med (Febuxostat [Uloric]) 80 mg PO DAILY [facility] Ciprofloxacin (Cipro 400mg/200ml Dsw) 400 mg in 200 mls @ 133 mls/hr IVPB Q12H [facility] Last Admin: 02/07/17 08:07 Dose: 133 mls/hr Metronidazole (Flagyl) 500 mg in 100 mls @ 100 mls/hr IVPB Q12 [facility] Last Admin: 02/07/17 10:09 Dose: 100 mls/hr Insulin Aspart (Novolog Mix 70/30 (70/30 Units/Ml)) 14 units SC ACB [facility] Last Admin: 02/07/17 08:24 Dose: Not Given Insulin Aspart (Novolog Mix 70/30 (70/30 Units/Ml)) 10 units SC ACD [facility] Insulin Aspart (Novolog) 0 unit SC ACHS [facility] PRN Reason: Protocol Last Admin: 02/07/17 07:48 Dose: Not Given Montelukast Sodium (Singulair) 10 mg PO HS [facility] Last Admin: 02/06/17 22:49 Dose: 10 mg Morphine Sulfate (Morphine) 2 mg IV Q8 PRN PRN Reason: Pain, moderate (4-7) Last Admin: 02/06/17 21:22 Dose: 2 mg Ondansetron HCl (Zofran Inj) 4 mg IVP Q8H PRN PRN Reason: Nausea/Vomiting Pantoprazole Sodium (Protonix Ec Tab) 40 mg PO DAILY [facility] Last Admin: 02/07/17 10:11 Dose: Not Given Rosuvastatin Calcium (Crestor) 2.5 mg PO HS [facility] Last Admin: 02/06/17 21:29 Dose: 2.5 mg Fluticasone/Salmeterol (Advair Diskus 250/50) 1 puff INH RQ12 [facility] Last Admin: 02/07/17 08:33 Dose: 1 puff Vitamin A (Vitamin A & D Oint Ud Foilpak) 1 ea TOP BID [facility] Last Admin: 02/07/17 10:12 Dose: 1 ea - Labs Labs: 02/06/17 16:42 PT 17.7 SECONDS (9.7-12.2) H 02/06/17 16:42 INR 1.5 02/06/17 16:42 - Constitutional Appears: No Acute Distress, Chronically Ill - Head Exam Head Exam: ATRAUMATIC, NORMAL INSPECTION - Eye Exam Eye Exam: EOMI, Normal appearance - Neck Exam Neck Exam: Normal Inspection. absent: Tenderness - Respiratory Exam Respiratory Exam: Rales, NORMAL BREATHING PATTERN - Cardiovascular Exam Cardiovascular Exam: REGULAR RHYTHM, +S1 - GI/Abdominal Exam GI & Abdominal Exam: Soft, Tenderness - Extremities Exam Extremities Exam: Normal Inspection. absent: Tenderness - Neurological Exam Neurological Exam: Alert, CN II-XII Intact - Skin Skin Exam: Dry, Warm Assessment and Plan (1) Diabetes mellitus Status: Acute (2) Diverticula of colon Status: Acute (3) ESRD (end stage renal disease) Status: Acute (4) HTN (hypertension) Status: Acute (5) Renal transplant recipient Status: Chronic - Assessment and Plan (Free Text) Plan: Hold laxatives decrease BP meds dialysis MWF
--- NOTE | 2017-02-07 12:32 | CARD ---
APPROVED REPORT EKG Measurement Heart [id number] <Conclusion> Normal sinus rhythm Left axis deviation Right bundle branch block Left ventricular hypertrophy with repolarization abnormality Abnormal ECG
[2017-02-07] MEDS: POLYETHYLENE GLYCOL 3350 17 GM/Dose PACKET PO SCH (12:38)
[2017-02-07] MEDS: Megestrol Acetate 40 mg/ml Cup PO SCH (18:00)
--- NOTE | 2017-02-07 21:25 | CP.PCM.PN ---
Subjective - Date & Time of Evaluation Date of Evaluation: 02/07/17 Time of Evaluation: 09:00 - Subjective Subjective: clinically same Objective - Vital Signs/Intake and Output Vital Signs (last 24 hours): Temp Pulse Resp BP Pulse Ox 97.8 F 81 20 115/57 L 97 02/07/17 18:30 02/07/17 19:04 02/07/17 19:04 02/07/17 21:00 02/07/17 18:30 - Medications Medications: Current Medications Carvedilol (Coreg) 12.5 mg PO BID [facility] Last Admin: 02/07/17 17:54 Dose: 12.5 mg Colchicine (Colocrys) 0.6 mg PO MWF [facility] Last Admin: 02/07/17 08:23 Dose: 0.6 mg Dicyclomine HCl (Bentyl) 20 mg PO Q6 PRN PRN Reason: ABDOMINAL CRAMPING Home Med (Febuxostat [Uloric]) 80 mg PO DAILY [facility] Metronidazole (Flagyl) 500 mg in 100 mls @ 100 mls/hr IVPB Q12 [facility] Last Admin: 02/07/17 10:09 Dose: 100 mls/hr Ciprofloxacin (Cipro 400mg/200ml Dsw) 400 mg in 200 mls @ 133 mls/hr IVPB Q24H [facility] Insulin Aspart (Novolog Mix 70/30 (70/30 Units/Ml)) 14 units SC ACB [facility] Last Admin: 02/07/17 08:24 Dose: Not Given Insulin Aspart (Novolog Mix 70/30 (70/30 Units/Ml)) 10 units SC ACD [facility] Last Admin: 02/07/17 16:30 Dose: Not Given Insulin Aspart (Novolog) 0 unit SC ACHS [facility] PRN Reason: Protocol Last Admin: 02/07/17 16:30 Dose: Not Given Megestrol Acetate (Megace) 400 mg PO BID [facility] Montelukast Sodium (Singulair) 10 mg PO HS [facility] Last Admin: 02/06/17 22:49 Dose: 10 mg Morphine Sulfate (Morphine) 2 mg IV Q8 PRN PRN Reason: Pain, moderate (4-7) Last Admin: 02/07/17 11:47 Dose: 2 mg Ondansetron HCl (Zofran Inj) 4 mg IVP Q8H PRN PRN Reason: Nausea/Vomiting Last Admin: 02/07/17 12:03 Dose: 4 mg Pantoprazole Sodium (Protonix Ec Tab) 40 mg PO DAILY [facility] Last Admin: 02/07/17 10:11 Dose: Not Given Polyethylene Glycol (Miralax) 17 gm PO DAILY [facility] Last Admin: 02/07/17 12:38 Dose: 17 gm Rosuvastatin Calcium (Crestor) 2.5 mg PO HS [facility] Last Admin: 02/06/17 21:29 Dose: 2.5 mg Fluticasone/Salmeterol (Advair Diskus 250/50) 1 puff INH RQ12 [facility] Last Admin: 02/07/17 20:24 Dose: Not Given Vitamin A (Vitamin A & D Oint Ud Foilpak) 1 ea TOP BID [facility] Last Admin: 02/07/17 17:55 Dose: 1 ea - Labs Labs: 02/06/17 16:42 PT 17.7 SECONDS (9.7-12.2) H 02/06/17 16:42 INR 1.5 02/06/17 16:42 - Constitutional Appears: Well - Head Exam Head Exam: ATRAUMATIC, NORMAL INSPECTION, NORMOCEPHALIC - Eye Exam Eye Exam: EOMI, Normal appearance, PERRL Pupil Exam: NORMAL ACCOMODATION, PERRL - ENT Exam ENT Exam: Mucous Membranes Moist, Normal Exam - Neck Exam Neck Exam: Full ROM, Normal Inspection. absent: Lymphadenopathy - Respiratory Exam Respiratory Exam: Decreased Breath Sounds - Cardiovascular Exam Cardiovascular Exam: REGULAR RHYTHM, +S1, +S2 - GI/Abdominal Exam GI & Abdominal Exam: Soft, Diminished Bowel Sounds - Rectal Exam Rectal Exam: Deferred Assessment and Plan - Assessment and Plan (Free Text) Plan: Continue same started IV fluid Pain medications Cipro dose adjusted Flagyl Renal consult as ordered and Discussed with the daughter Awaiting for Dr. solano
[2017-02-07] MEDS: Rosuvastatin Calcium 2.5 mg Tab PO SCH (21:49)
[2017-02-07] MEDS ORDERED: Sodium Chloride 0.45% 1,000 ML IV SCH (22:45)
[2017-02-08] MEDS: (Novolog) Insulin Aspart, Recombinant 100 u/ml 10 ml vial SC SCH ×4 (07:38→21:57)
[2017-02-08] MEDS: (Novolog Mix 70/30) Insulin Aspart/Insulin Aspar 100 units/ml SC SCH (07:43)
[2017-02-08] MEDS: Ciprofloxacin 400mg/200ml D5W 400 MG/200 ML BAG IVPB SCH (08:07)
--- NOTE | 2017-02-08 08:17 | PN ---
ENDO FOLLOWUP NOTE LOCATION: Room 369. This is a 71-year-old female with recent uncontrolled type 2 insulin-requiring diabetes now being followed closely for metabolic management. She was also been referred for evaluation of possible [place] disease as noted. She remains clinically and biochemically euadrenal at this time as noted. The serum cortisol level done today is 15.3 mcg/dL, and her thyroid study showed T4 of 5.87 with a TSH of 3.29. Lipids are normal as noted. Her latest chemistry showed a BUN of 25, sodium 130, potassium 4.4, chloride 93, CO2 of 29, glucose 100 and creatinine 3.9. Her glucose levels have ranged from 88 to 102 and 112 mg/dL. So at this time, we will continue the premixed insulin regimen as ordered with NovoLog 70/30 given as 14 units a.c. breakfast and 10 units a.c. dinner as ordered. We will continue the low dose correctional scale using NovoLog insulin as given. We will titrate incrementally as indicated to optimize metabolic control. We will follow and advise accordingly. Becky Newton MD
[2017-02-08] MEDS: Fluticasone-Salmeterol 250-50mcg Diskus INH SCH ×2 (08:19→21:37)
[2017-02-08 09:04] LABS: POTASSIUM 3.3 mmol/L (3.6-5.2)
[2017-02-08 09:07] LABS: BILIRUBIN,TOTAL 2.2 mg/dL (0.2-1.3); TOTAL PROTEIN 4.4 g/dL (6.3-8.3)
[2017-02-08 09:08] LABS: CALCIUM 7.6 mg/dl (8.6-10.4)
--- NOTE | 2017-02-08 10:23 | CP.PCM.PN ---
<JannasharynObed gallego - Last Filed: 02/08/17 10:11> Subjective - Date & Time of Evaluation Date of Evaluation: 02/08/17 Time of Evaluation: 07:10 - Subjective Subjective: PGY5 GI Fellow Progress Note Patient seen and examined bedside this morning. The patient continues to complain of B/L leg pain, particularly with palpation of the legs. She states she continues to have poor appetite and has not eaten much in the last 24 H. She has minimal right sided abdominal pain. Denies any nausea, vomiting, fever, chills overnight. Pt much less verbal over the last two days. 1 BM since admission. 12 system ROS performed and negative except where stated. Objective - Vital Signs/Intake and Output Vital Signs (last 24 hours): Temp Pulse Resp BP Pulse Ox 98.6 F 81 20 107/64 97 02/08/17 09:14 02/08/17 09:14 02/08/17 09:14 02/08/17 09:14 02/08/17 09:14 Intake and Output: 02/08/17 02/08/17 06:59 18:59 Intake Total 840 456 Balance 840 456 - Medications Medications: Current Medications Carvedilol (Coreg) 12.5 mg PO BID [facility] Last Admin: 02/07/17 17:54 Dose: 12.5 mg Colchicine (Colocrys) 0.6 mg PO MWF [facility] Last Admin: 02/07/17 08:23 Dose: 0.6 mg Dicyclomine HCl (Bentyl) 20 mg PO Q6 PRN PRN Reason: ABDOMINAL CRAMPING Home Med (Febuxostat [Uloric]) 80 mg PO DAILY [facility] Metronidazole (Flagyl) 500 mg in 100 mls @ 100 mls/hr IVPB Q12 [facility] Last Admin: 02/07/17 21:49 Dose: 100 mls/hr Ciprofloxacin (Cipro 400mg/200ml Dsw) 400 mg in 200 mls @ 133 mls/hr IVPB Q24H [facility] Last Admin: 02/08/17 08:07 Dose: 133 mls/hr Sodium Chloride (Sodium Chloride 0.45%) 1,000 mls @ 40 mls/hr IV .Q24H [facility] Last Admin: 02/07/17 22:50 Dose: 40 mls/hr Insulin Aspart (Novolog) 0 unit SC ACHS [facility] PRN Reason: Protocol Last Admin: 02/08/17 07:38 Dose: Not Given Insulin Aspart (Novolog Mix 70/30 (70/30 Units/Ml)) 12 units SC ACB [facility] Last Admin: 02/08/17 07:43 Dose: Not Given Insulin Aspart (Novolog Mix 70/30 (70/30 Units/Ml)) 8 units SC ACD [facility] Megestrol Acetate (Megace) 400 mg PO BID [facility] Last Admin: 02/07/17 18:00 Dose: 400 mg Montelukast Sodium (Singulair) 10 mg PO HS [facility] Last Admin: 02/07/17 21:50 Dose: 10 mg Morphine Sulfate (Morphine) 2 mg IV Q8 PRN PRN Reason: Pain, moderate (4-7) Last Admin: 02/08/17 00:56 Dose: 2 mg Ondansetron HCl (Zofran Inj) 4 mg IVP Q8H PRN PRN Reason: Nausea/Vomiting Last Admin: 02/07/17 12:03 Dose: 4 mg Pantoprazole Sodium (Protonix Ec Tab) 40 mg PO DAILY [facility] Last Admin: 02/07/17 10:11 Dose: Not Given Polyethylene Glycol (Miralax) 17 gm PO DAILY [facility] Last Admin: 02/07/17 12:38 Dose: 17 gm Rosuvastatin Calcium (Crestor) 2.5 mg PO HS [facility] Last Admin: 02/07/17 21:49 Dose: 2.5 mg Fluticasone/Salmeterol (Advair Diskus 250/50) 1 puff INH RQ12 [facility] Last Admin: 02/08/17 08:19 Dose: 1 puff Vitamin A (Vitamin A & D Oint Ud Foilpak) 1 ea TOP BID [facility] Last Admin: 02/07/17 17:55 Dose: 1 ea - Labs Labs: 02/08/17 08:24 PT 17.7 SECONDS (9.7-12.2) H 02/06/17 16:42 INR 1.5 02/06/17 16:42 - Constitutional Appears: Non-toxic, No Acute Distress - Eye Exam Eye Exam: EOMI, PERRL - ENT Exam ENT Exam: Mucous Membranes Moist - Respiratory Exam Respiratory Exam: Clear to Ausculation Bilateral. absent: Rales, Rhonchi, Wheezes - Cardiovascular Exam Cardiovascular Exam: RRR, +S1, +S2 - GI/Abdominal Exam GI & Abdominal Exam: Soft, Normal Bowel Sounds. absent: Distended, Firm, Guarding, Rigid, Tenderness, Organomegaly - Extremities Exam Additional comments: tenderness over both shins; warmth and erythema noted - Neurological Exam Neurological Exam: Alert, Awake, Oriented x3 - Psychiatric Exam Psychiatric exam: Normal Affect, Normal Mood - Skin Skin Exam: Dry, Warm Assessment and Plan - Assessment and Plan (Free Text) Assessment: Patient is a 71yo female with PMHx significant for kidney failure requiring transplant (2000) and HD via right forearm AVF, DM2, HTN, diverticulosis who presented to the ED with complaint of abdominal pain. -Acute sigmoid diverticulitis -King-diverticulosis -B/L leg pain -Tophaceous gout -Question of cirrhosis given prior imaging -ESRD on HD; H/O kidney transplant Plan: -Patient much less talkative today, slightly altered -Consider work up including ABG -Lactulose was discontinued but I have resumed therapy at 20g PO QD given concern for cirrhosis with prior imaging suggestive of this; patient should be titrated to 1-2 BM/day which may improve mentation as well -LE dopplers ordered -Pt on colchicine and uloric with h/o gouty arthropathy -Abdominal pain improved; advance diet -Outpatient colonoscopy in 6-8 weeks <Osorio Phelan - Last Filed: 02/08/17 15:15> Objective - Vital Signs/Intake and Output Vital Signs (last 24 hours): Temp Pulse Resp BP Pulse Ox 98.6 F 81 20 107/64 97 02/08/17 09:14 02/08/17 09:14 02/08/17 09:14 02/08/17 10:26 02/08/17 09:14 Intake and Output: 02/08/17 02/08/17 06:59 18:59 Intake Total 840 986 Balance 840 986 - Medications Medications: Current Medications Apixaban (Eliquis) 5 mg PO BID [facility] Carvedilol (Coreg) 12.5 mg PO BID [facility] Last Admin: 02/08/17 10:26 Dose: 12.5 mg Colchicine (Colocrys) 0.6 mg PO MWF [facility] Last Admin: 02/07/17 08:23 Dose: 0.6 mg Dicyclomine HCl (Bentyl) 20 mg PO Q6 PRN PRN Reason: ABDOMINAL CRAMPING Last Admin: 02/08/17 10:27 Dose: 20 mg Home Med (Febuxostat [Uloric]) 80 mg PO DAILY [facility] Last Admin: 02/08/17 10:27 Dose: 80 mg Metronidazole (Flagyl) 500 mg in 100 mls @ 100 mls/hr IVPB Q12 [facility] Last Admin: 02/08/17 10:40 Dose: 100 mls/hr Ciprofloxacin (Cipro 400mg/200ml Dsw) 400 mg in 200 mls @ 133 mls/hr IVPB Q24H [facility] Last Admin: 02/08/17 08:07 Dose: 133 mls/hr Insulin Aspart (Novolog) 0 unit SC ACHS [facility] PRN Reason: Protocol Last Admin: 02/08/17 11:37 Dose: Not Given Insulin Aspart (Novolog Mix 70/30 (70/30 Units/Ml)) 12 units SC ACB [facility] Last Admin: 02/08/17 07:43 Dose: Not Given Insulin Aspart (Novolog Mix 70/30 (70/30 Units/Ml)) 8 units SC ACD [facility] Lactulose (Enulose) 20 gm PO DAILY [facility] Last Admin: 02/08/17 10:35 Dose: 20 gm Megestrol Acetate (Megace) 400 mg PO BID [facility] Last Admin: 02/08/17 10:36 Dose: 400 mg Montelukast Sodium (Singulair) 10 mg PO [facility] Last Admin: 02/07/17 21:50 Dose: 10 mg Morphine Sulfate (Morphine) 2 mg IV Q8 PRN PRN Reason: Pain, moderate (4-7) Last Admin: 02/08/17 00:56 Dose: 2 mg Ondansetron HCl (Zofran Inj) 4 mg IVP Q8H PRN PRN Reason: Nausea/Vomiting Last Admin: 02/07/17 12:03 Dose: 4 mg Pantoprazole Sodium (Protonix Ec Tab) 40 mg PO DAILY [facility] Last Admin: 02/08/17 10:26 Dose: 40 mg Polyethylene Glycol (Miralax) 17 gm PO DAILY [facility] Last Admin: 02/08/17 10:26 Dose: 17 gm Rosuvastatin Calcium (Crestor) 2.5 mg PO [facility] Last Admin: 02/07/17 21:49 Dose: 2.5 mg Fluticasone/Salmeterol (Advair Diskus 250/50) 1 puff INH RQ12 [facility] Last Admin: 02/08/17 08:19 Dose: 1 puff Vitamin A (Vitamin A & D Oint Ud Foilpak) 1 ea TOP BID [facility] Last Admin: 02/08/17 10:26 Dose: 1 ea - Labs Labs: 02/08/17 08:24 PT 17.7 SECONDS (9.7-12.2) H 02/06/17 16:42 INR 1.5 02/06/17 16:42 Attending/Attestation - Attestation I have personally seen and examined this patient.: Yes I have fully participated in the care of the patient.: Yes I have reviewed all pertinent clinical information, including history, physical exam and plan: Yes Notes (Text): 02/08/17 15:06 I have seen and examined patient with GI fellow. She remains lethargic and complains mainly of bilateral lower extremity leg pain. Her abdominal pain has improved and she denies nausea, vomiting, fever/chills. She continues to have poor appetite. Review of vitals from today are normal. History of kidney transplant ESRD on HD DM / HTN Abdominal pain, acute sigmoid diverticulitis Gout Lower extremity pain, swelling Cirrhosis - Advance diet as tolerated - Continue with antibiotic therapy - Lower extremity dopplers ordered, follow up results - Continue with lactulose therapy for HE prevention - Consider ABG given altered mental status, patient requires close observation - Patient will require elective outpatient colonoscopy 6-8 weeks following resolution of acute symptoms
[2017-02-08] MEDS: Pantoprazole 40 mg EC Tab PO SCH (10:26)
[2017-02-08] MEDS: POLYETHYLENE GLYCOL 3350 17 GM/Dose PACKET PO SCH (10:26)
[2017-02-08] MEDS: Vitamins A & D Oint UD Foilpak TOP SCH ×2 (10:26→18:00)
[2017-02-08] MEDS: ULORIC 80MG PO SCH (10:27)
[2017-02-08] MEDS: Megestrol Acetate 40 mg/ml Cup PO SCH ×2 (10:36→17:55)
[2017-02-08] MEDS: metroNIDAZOLE IV 500 mg/100 ml 500 MG/100 ML BAG IVPB SCH ×2 (10:40→21:57)
--- NOTE | 2017-02-08 10:59 | CP.PCM.PN ---
Subjective - Date & Time of Evaluation Date of Evaluation: 02/08/17 Time of Evaluation: 10:57 - Subjective Subjective: seen and examined, at bedside diarrhea improved, denies any abd pain c/o b/l leg pain hd yesterday eating lunch Objective - Vital Signs/Intake and Output Vital Signs (last 24 hours): Temp Pulse Resp BP Pulse Ox 98.6 F 81 20 107/64 97 02/08/17 09:14 02/08/17 09:14 02/08/17 09:14 02/08/17 10:26 02/08/17 09:14 Intake and Output: 02/08/17 02/08/17 06:59 18:59 Intake Total 840 456 Balance 840 456 - Medications Medications: Current Medications Carvedilol (Coreg) 12.5 mg PO BID [facility] Last Admin: 02/08/17 10:26 Dose: 12.5 mg Colchicine (Colocrys) 0.6 mg PO MWF [facility] Last Admin: 02/07/17 08:23 Dose: 0.6 mg Dicyclomine HCl (Bentyl) 20 mg PO Q6 PRN PRN Reason: ABDOMINAL CRAMPING Last Admin: 02/08/17 10:27 Dose: 20 mg Home Med (Febuxostat [Uloric]) 80 mg PO DAILY [facility] Last Admin: 02/08/17 10:27 Dose: 80 mg Metronidazole (Flagyl) 500 mg in 100 mls @ 100 mls/hr IVPB Q12 [facility] Last Admin: 02/08/17 10:40 Dose: 100 mls/hr Ciprofloxacin (Cipro 400mg/200ml Dsw) 400 mg in 200 mls @ 133 mls/hr IVPB Q24H [facility] Last Admin: 02/08/17 08:07 Dose: 133 mls/hr Insulin Aspart (Novolog) 0 unit SC ACHS [facility] PRN Reason: Protocol Last Admin: 02/08/17 07:38 Dose: Not Given Insulin Aspart (Novolog Mix 70/30 (70/30 Units/Ml)) 12 units SC ACB [facility] Last Admin: 02/08/17 07:43 Dose: Not Given Insulin Aspart (Novolog Mix 70/30 (70/30 Units/Ml)) 8 units SC ACD [facility] Lactulose (Enulose) 20 gm PO DAILY [facility] Last Admin: 02/08/17 10:35 Dose: 20 gm Megestrol Acetate (Megace) 400 mg PO BID [facility] Last Admin: 02/08/17 10:36 Dose: 400 mg Montelukast Sodium (Singulair) 10 mg PO HS [facility] Last Admin: 02/07/17 21:50 Dose: 10 mg Morphine Sulfate (Morphine) 2 mg IV Q8 PRN PRN Reason: Pain, moderate (4-7) Last Admin: 02/08/17 00:56 Dose: 2 mg Ondansetron HCl (Zofran Inj) 4 mg IVP Q8H PRN PRN Reason: Nausea/Vomiting Last Admin: 02/07/17 12:03 Dose: 4 mg Pantoprazole Sodium (Protonix Ec Tab) 40 mg PO DAILY [facility] Last Admin: 02/08/17 10:26 Dose: 40 mg Polyethylene Glycol (Miralax) 17 gm PO DAILY [facility] Last Admin: 02/08/17 10:26 Dose: 17 gm Rosuvastatin Calcium (Crestor) 2.[address] [facility] Last Admin: 02/07/17 21:49 Dose: 2.5 mg Fluticasone/Salmeterol (Advair Diskus 250/50) 1 puff INH RQ12 [facility] Last Admin: 02/08/17 08:19 Dose: 1 puff Vitamin A (Vitamin A & D Oint Ud Foilpak) 1 ea TOP BID [facility] Last Admin: 02/08/17 10:26 Dose: 1 ea - Labs Labs: 02/08/17 08:24 PT 17.7 SECONDS (9.7-12.2) H 02/06/17 16:42 INR 1.5 02/06/17 16:42 - Constitutional Appears: Non-toxic, No Acute Distress, Chronically Ill - Head Exam Head Exam: NORMAL INSPECTION - Eye Exam Eye Exam: Normal appearance - ENT Exam ENT Exam: Mucous Membranes Moist, Normal Exam - Neck Exam Neck Exam: Normal Inspection - Respiratory Exam Respiratory Exam: Clear to Ausculation Bilateral, NORMAL BREATHING PATTERN - Cardiovascular Exam Cardiovascular Exam: REGULAR RHYTHM, RRR Additional comments: rue avf w/ thrill - GI/Abdominal Exam GI & Abdominal Exam: Distended, Soft - Extremities Exam Extremities Exam: Normal Inspection Assessment and Plan (1) Dependence on renal dialysis Status: Acute (2) Hypokalemia Status: Acute (3) Anemia Status: Acute (4) Colitis Status: Acute - Assessment and Plan (Free Text) Assessment: dc hypotonic fluids hd tomorrow, high k bath
[2017-02-08 14:24] LABS: SMOOTH MUSCLE AB TITER 1:20 Titer (< 1:20)
--- NOTE | 2017-02-08 15:29 | VASCLAB ---
PROCEDURE: Lower Extremity Venous Duplex Exam. HISTORY: Pain in limb, r/o dvt PRIORS: Last exam 11/20/2014, abnormal. TECHNIQUE: Bilateral common femoral, femoral, popliteal and posterior tibial, peroneal and great saphenous veins were evaluated. Flow was assessed with color Doppler, compressibility, assessment of phasic flow and augmentation response. Report prepared by CELESTINA Paris FINDINGS: RIGHT: 1. Common Femoral Vein: 1.1. Compressibility - Partial: Thrombus - Acute : Flow - Phasic: Augmentation -Normal: Reflux - None. 2. Femoral Vein: 2.1. Compressibility - Fully compressible: Thrombus - None : Flow - Phasic: Augmentation -Normal: Reflux - None. 3. Popliteal Vein: 3.1. Compressibility - Fully compressible: Thrombus - None : Flow - Phasic: Augmentation -Normal: Reflux - None. 4. Posterior Tibial Vein: 4.1. Unable to image due to small caliber vessels 5. Peroneal Vein: 5.1. Compressibility - Fully compressible: Thrombus - None: Flow - Phasic: Augmentation -Normal: Reflux - None. 6. Great Saphenous Vein: 6.1. Compressibility - Fully compressible: Thrombus - None: Flow - Phasic: Augmentation - Normal: Reflux - None. LEFT: 1. Common Femoral Vein: 1.1. Compressibility - Fully compressible: Thrombus - None: Flow - Phasic: Augmentation -Normal: Reflux - None. 2. Femoral Vein: 2.1. Compressibility - Fully compressible: Thrombus - None: Flow - Phasic: Augmentation -Normal: Reflux - None. 3. Popliteal Vein: 3.1. Compressibility - Fully compressible: Thrombus - None : Flow - Phasic: Augmentation -Normal: Reflux - None. 4. Posterior Tibial Vein: 4.1. Compressibility - Fully compressible: Thrombus - None: Flow - Phasic: Augmentation -Normal: Reflux - None. 5. Peroneal Vein: 5.1. Compressibility - Fully compressible: Thrombus - None: Flow - Phasic: Augmentation -Normal: Reflux - None. 6. Great Saphenous Vein: 6.1. Previously harvested for bypass OTHER FINDINGS: IMPRESSION: Right: Partial acute, non occlusive venous thrombosis of the right common femoral vein. Left: No evidence of deep or superficial vein thrombosis of the left lower extremity. Normal valve function noted of the left side. Findings were reported by the vascular surgeon, to R.N. Carole at 9:56 a.m.
[2017-02-08] MEDS ORDERED: (Novolog Mix 70/30) Insulin Aspart/Insulin Aspar 100 units/ml SC SCH (16:30)
--- NOTE | 2017-02-08 17:26 | CP.PCM.PN ---
Subjective - Date & Time of Evaluation Date of Evaluation: 02/08/17 Time of Evaluation: 13:00 - Subjective Subjective: NEW [employer] NOTES VENOUS DUPLEX DONE THIS AM AND POSITIVE FOR DVT- PARTIAL ACUTE VENOUS THROMBOSIS OF THE RIGHT COMMON FEMORAL VEIN D/W DR. Celestina KEATING , ELIQUIS ORDERED PER DR. Celestina KEATING DOSE CHECKED WITH PHARMACY ( PT IS ESRD/ HD ) AND OK FOR THE DOSE Objective - Vital Signs/Intake and Output Vital Signs (last 24 hours): Temp Pulse Resp BP Pulse Ox 98.4 F 74 20 108/66 100 02/08/17 15:00 02/08/17 15:00 02/08/17 15:00 02/08/17 15:00 02/08/17 16:30 Intake and Output: 02/08/17 02/08/17 06:59 18:59 Intake Total 840 986 Balance 840 986 - Medications Medications: Current Medications Apixaban (Eliquis) 5 mg PO BID [facility] Carvedilol (Coreg) 12.5 mg PO BID [facility] Last Admin: 02/08/17 10:26 Dose: 12.5 mg Colchicine (Colocrys) 0.6 mg PO MWF [facility] Last Admin: 02/07/17 08:23 Dose: 0.6 mg Dicyclomine HCl (Bentyl) 20 mg PO Q6 PRN PRN Reason: ABDOMINAL CRAMPING Last Admin: 02/08/17 10:27 Dose: 20 mg Home Med (Febuxostat [Uloric]) 80 mg PO DAILY [facility] Last Admin: 02/08/17 10:27 Dose: 80 mg Metronidazole (Flagyl) 500 mg in 100 mls @ 100 mls/hr IVPB Q12 [facility] Last Admin: 02/08/17 10:40 Dose: 100 mls/hr Ciprofloxacin (Cipro 400mg/200ml Dsw) 400 mg in 200 mls @ 133 mls/hr IVPB Q24H [facility] Last Admin: 02/08/17 08:07 Dose: 133 mls/hr Insulin Aspart (Novolog) 0 unit SC ACHS [facility] PRN Reason: Protocol Last Admin: 02/08/17 11:37 Dose: Not Given Insulin Aspart (Novolog Mix 70/30 (70/30 Units/Ml)) 12 units SC ACB [facility] Last Admin: 02/08/17 07:43 Dose: Not Given Insulin Aspart (Novolog Mix 70/30 (70/30 Units/Ml)) 8 units SC ACD [facility] Lactulose (Enulose) 20 gm PO DAILY [facility] Last Admin: 02/08/17 10:35 Dose: 20 gm Megestrol Acetate (Megace) 400 mg PO BID [facility] Last Admin: 02/08/17 10:36 Dose: 400 mg Montelukast Sodium (Singulair) 10 mg PO HS [facility] Last Admin: 02/07/17 21:50 Dose: 10 mg Morphine Sulfate (Morphine) 2 mg IV Q8 PRN PRN Reason: Pain, moderate (4-7) Last Admin: 02/08/17 00:56 Dose: 2 mg Ondansetron HCl (Zofran Inj) 4 mg IVP Q8H PRN PRN Reason: Nausea/Vomiting Last Admin: 02/07/17 12:03 Dose: 4 mg Pantoprazole Sodium (Protonix Ec Tab) 40 mg PO DAILY [facility] Last Admin: 02/08/17 10:26 Dose: 40 mg Polyethylene Glycol (Miralax) 17 gm PO DAILY [facility] Last Admin: 02/08/17 10:26 Dose: 17 gm Rosuvastatin Calcium (Crestor) 2.5 mg PO HS [facility] Last Admin: 02/07/17 21:49 Dose: 2.5 mg Fluticasone/Salmeterol (Advair Diskus 250/50) 1 puff INH RQ12 [facility] Last Admin: 02/08/17 08:19 Dose: 1 puff Vitamin A (Vitamin A & D Oint Ud Foilpak) 1 ea TOP BID [facility] Last Admin: 02/08/17 10:26 Dose: 1 ea - Labs Labs: 02/08/17 08:24 PT 17.7 SECONDS (9.7-12.2) H 02/06/17 16:42 INR 1.5 02/06/17 16:42
--- NOTE | 2017-02-08 19:47 | PN ---
ENDO FOLLOWUP NOTE LOCATION: Room 369. This is a 71-year-old female with recent uncontrolled type 2 insulin-requiring diabetes, continues variable and suboptimal oral intake at this time. She is currently also with ongoing hemodialysis as noted. Her latest glucose levels have ranged from 149 to 180 mg/dL. Her latest chemistries include the BUN of 15, sodium 136, potassium 3.3, chloride 99, CO2 of 28, glucose 92 and creatinine 2.4. So, at this time, we will continue the modified premixed insulin regimen as given with NovoLog 70/30 given as 12 units a.c. breakfast and 8 units a.c. dinner as ordered. We will continue the low-dose correction scale using Novolin insulin as ordered. We will obtain serial chemistries and supplement accordingly as needed. We will follow. Becky Newton MD
--- NOTE | 2017-02-08 20:12 | CP.PCM.PN ---
Subjective - Date & Time of Evaluation Date of Evaluation: 02/08/17 Time of Evaluation: 08:20 - Subjective Subjective: clinically same Objective - Vital Signs/Intake and Output Vital Signs (last 24 hours): Temp Pulse Resp BP Pulse Ox 98.4 F 74 20 108/64 100 02/08/17 15:00 02/08/17 15:00 02/08/17 15:00 02/08/17 17:54 02/08/17 16:30 Intake and Output: 02/08/17 02/09/17 18:59 06:59 Intake Total 986 Balance 986 - Medications Medications: Current Medications Apixaban (Eliquis) 5 mg PO BID [facility] Carvedilol (Coreg) 12.5 mg PO BID [facility] Last Admin: 02/08/17 17:54 Dose: 12.5 mg Colchicine (Colocrys) 0.6 mg PO MWF [facility] Last Admin: 02/07/17 08:23 Dose: 0.6 mg Dicyclomine HCl (Bentyl) 20 mg PO Q6 PRN PRN Reason: ABDOMINAL CRAMPING Last Admin: 02/08/17 10:27 Dose: 20 mg Home Med (Febuxostat [Uloric]) 80 mg PO DAILY [facility] Last Admin: 02/08/17 10:27 Dose: 80 mg Metronidazole (Flagyl) 500 mg in 100 mls @ 100 mls/hr IVPB Q12 [facility] Last Admin: 02/08/17 10:40 Dose: 100 mls/hr Ciprofloxacin (Cipro 400mg/200ml Dsw) 400 mg in 200 mls @ 133 mls/hr IVPB Q24H [facility] Last Admin: 02/08/17 08:07 Dose: 133 mls/hr Insulin Aspart (Novolog) 0 unit SC ACHS [facility] PRN Reason: Protocol Last Admin: 02/08/17 17:55 Dose: Not Given Insulin Aspart (Novolog Mix 70/30 (70/30 Units/Ml)) 12 units SC ACB [facility] Last Admin: 02/08/17 07:43 Dose: Not Given Insulin Aspart (Novolog Mix 70/30 (70/30 Units/Ml)) 8 units SC ACD [facility] Lactulose (Enulose) 20 gm PO DAILY [facility] Last Admin: 02/08/17 10:35 Dose: 20 gm Megestrol Acetate (Megace) 400 mg PO BID [facility] Last Admin: 02/08/17 17:55 Dose: 400 mg Montelukast Sodium (Singulair) 10 mg PO HS [facility] Last Admin: 02/07/17 21:50 Dose: 10 mg Morphine Sulfate (Morphine) 2 mg IV Q8 PRN PRN Reason: Pain, moderate (4-7) Last Admin: 02/08/17 00:56 Dose: 2 mg Ondansetron HCl (Zofran Inj) 4 mg IVP Q8H PRN PRN Reason: Nausea/Vomiting Last Admin: 02/07/17 12:03 Dose: 4 mg Pantoprazole Sodium (Protonix Ec Tab) 40 mg PO DAILY [facility] Last Admin: 02/08/17 10:26 Dose: 40 mg Polyethylene Glycol (Miralax) 17 gm PO DAILY [facility] Last Admin: 02/08/17 10:26 Dose: 17 gm Rosuvastatin Calcium (Crestor) 2.5 mg PO HS [facility] Last Admin: 02/07/17 21:49 Dose: 2.5 mg Fluticasone/Salmeterol (Advair Diskus 250/50) 1 puff INH RQ12 [facility] Last Admin: 02/08/17 08:19 Dose: 1 puff Vitamin A (Vitamin A & D Oint Ud Foilpak) 1 ea TOP BID [facility] Last Admin: 02/08/17 10:26 Dose: 1 ea - Labs Labs: 02/08/17 08:24 PT 17.7 SECONDS (9.7-12.2) H 02/06/17 16:42 INR 1.5 02/06/17 16:42 - Constitutional Appears: Well - Head Exam Head Exam: ATRAUMATIC, NORMAL INSPECTION, NORMOCEPHALIC - Eye Exam Eye Exam: EOMI, Normal appearance, PERRL Pupil Exam: NORMAL ACCOMODATION, PERRL - ENT Exam ENT Exam: Mucous Membranes Moist, Normal Exam - Neck Exam Neck Exam: Full ROM, Normal Inspection. absent: Lymphadenopathy - Respiratory Exam Respiratory Exam: Decreased Breath Sounds - Cardiovascular Exam Cardiovascular Exam: REGULAR RHYTHM, +S1, +S2 Additional comments: clinically same - GI/Abdominal Exam GI & Abdominal Exam: Soft, Diminished Bowel Sounds - Rectal Exam Rectal Exam: Deferred Assessment and Plan - Assessment and Plan (Free Text) Plan: Family refused Rubensis spoke to the granddaughter spoke to the in the morning spoke to the other family member Celina and say both of the doctors continue a Cipro IV continue Flagyl IV Continue same the granddaughter claims that patient appetite has increased significantly after the Megace Patient claims that her pain is significantly better
[2017-02-08] MEDS: Rosuvastatin Calcium 2.5 mg Tab PO SCH (21:56)
[2017-02-08 22:43] LABS: LKM-1 Ab (IgG) <=20.0 U (<=20.0)
--- NOTE | 2017-02-09 07:34 | CP.PCM.PN ---
<Obed Cristina - Last Filed: 02/09/17 15:03> Subjective - Date & Time of Evaluation Date of Evaluation: 02/09/17 Time of Evaluation: 07:10 - Subjective Subjective: PGY5 GI Fellow Progress Note Patient seen and examined bedside this morning. The patient admits to feeling slightly better today. Legs somewhat painful still but less sensitive to touch today. No abdominal pain. Had loose stool yesterday with lactulose use. Later this morning, patient was noted to have hypotension on arrival to HD and HD was cancelled. [facility]PO[facility] SERVER was called and pt transported to ICU for ongoing care. Dopamine gtt initaited. 12 system ROS performed and negative except where stated. Objective - Vital Signs/Intake and Output Vital Signs (last 24 hours): Temp Pulse Resp BP Pulse Ox 97.6 F 60 20 92/53 L 100 02/08/17 23:24 02/08/17 23:24 02/08/17 23:24 02/08/17 23:24 02/08/17 23:24 Intake and Output: 02/09/17 02/09/17 06:59 18:59 Intake Total 350 Balance 350 - Medications Medications: Current Medications Carvedilol (Coreg) 12.5 mg PO BID [facility] Last Admin: 02/08/17 17:54 Dose: 12.5 mg Colchicine (Colocrys) 0.6 mg PO MWF [facility] Last Admin: 02/07/17 08:23 Dose: 0.6 mg Dicyclomine HCl (Bentyl) 20 mg PO Q6 PRN PRN Reason: ABDOMINAL CRAMPING Last Admin: 02/08/17 10:27 Dose: 20 mg Home Med (Febuxostat [Uloric]) 80 mg PO DAILY [facility] Last Admin: 02/08/17 10:27 Dose: 80 mg Metronidazole (Flagyl) 500 mg in 100 mls @ 100 mls/hr IVPB Q12 [facility] Last Admin: 02/08/17 21:57 Dose: 100 mls/hr Ciprofloxacin (Cipro 400mg/200ml Dsw) 400 mg in 200 mls @ 133 mls/hr IVPB Q24H [facility] Last Admin: 02/08/17 08:07 Dose: 133 mls/hr Insulin Aspart (Novolog) 0 unit SC ACHS [facility] PRN Reason: Protocol Last Admin: 02/08/17 21:57 Dose: Not Given Insulin Aspart (Novolog Mix 70/30 (70/30 Units/Ml)) 12 units SC ACB [facility] Last Admin: 02/08/17 07:43 Dose: Not Given Insulin Aspart (Novolog Mix 70/30 (70/30 Units/Ml)) 8 units SC ACD [facility] Lactulose (Enulose) 20 gm PO DAILY [facility] Last Admin: 02/08/17 10:35 Dose: 20 gm Megestrol Acetate (Megace) 400 mg PO BID [facility] Last Admin: 02/08/17 17:55 Dose: 400 mg Montelukast Sodium (Singulair) 10 mg PO HS [facility] Last Admin: 02/08/17 21:56 Dose: 10 mg Morphine Sulfate (Morphine) 2 mg IV Q8 PRN PRN Reason: Pain, moderate (4-7) Last Admin: 02/08/17 00:56 Dose: 2 mg Ondansetron HCl (Zofran Inj) 4 mg IVP Q8H PRN PRN Reason: Nausea/Vomiting Last Admin: 02/07/17 12:03 Dose: 4 mg Pantoprazole Sodium (Protonix Ec Tab) 40 mg PO DAILY [facility] Last Admin: 02/08/17 10:26 Dose: 40 mg Polyethylene Glycol (Miralax) 17 gm PO DAILY [facility] Last Admin: 02/08/17 10:26 Dose: 17 gm Rosuvastatin Calcium (Crestor) 2.5 mg PO HS [facility] Last Admin: 02/08/17 21:56 Dose: 2.5 mg Fluticasone/Salmeterol (Advair Diskus 250/50) 1 puff INH RQ12 [facility] Last Admin: 02/08/17 21:37 Dose: Not Given Vitamin A (Vitamin A & D Oint Ud Foilpak) 1 ea TOP BID [facility] Last Admin: 02/08/17 18:00 Dose: 1 ea - Labs Labs: 02/08/17 08:24 PT 17.7 SECONDS (9.7-12.2) H 02/06/17 16:42 INR 1.5 02/06/17 16:42 - Constitutional Appears: Non-toxic, No Acute Distress - Eye Exam Eye Exam: EOMI, PERRL - ENT Exam ENT Exam: Mucous Membranes Moist - Respiratory Exam Respiratory Exam: Clear to Ausculation Bilateral. absent: Rales, Rhonchi, Wheezes - Cardiovascular Exam Cardiovascular Exam: RRR, +S1, +S2 - GI/Abdominal Exam GI & Abdominal Exam: Soft, Normal Bowel Sounds. absent: Distended, Firm, Guarding, Rigid, Tenderness, Organomegaly - Extremities Exam Additional comments: warmth, tenderness R>L LE; improved - Neurological Exam Neurological Exam: Alert, Awake, Oriented x3 - Psychiatric Exam Psychiatric exam: Normal Affect, Normal Mood - Skin Skin Exam: Dry, Warm Assessment and Plan - Assessment and Plan (Free Text) Assessment: Patient is a 71yo female with PMHx significant for kidney failure requiring transplant (2000) and HD via right forearm AVF, DM2, HTN, diverticulosis who presented to the ED with complaint of abdominal pain. -Acute sigmoid diverticulitis -King-diverticulosis -B/L leg pain -Tophaceous gout -Question of cirrhosis given prior imaging; low grade HE -ESRD on HD; H/O kidney transplant -DVT RLE Plan: -No abdominal pain at present -Started on renal dose of Eliquis per documentation, do not see medication in [facility] -Recommend D/C Megace given DVT finding -Monitor CBC on anticoagulation -Continue lactulose as ordered; titrate to 1-2 BM/day -Pt on colchicine and uloric with h/o gouty arthropathy -Abdominal pain improved; diet as tolerated -Outpatient colonoscopy in 6-8 weeks <Prateek Madison - Last Filed: 02/09/17 16:02> Objective - Vital Signs/Intake and Output Vital Signs (last 24 hours): Temp Pulse Resp BP Pulse Ox 97.4 F L 64 33 H 90/48 L 100 02/09/17 14:00 02/09/17 14:50 02/09/17 14:50 02/09/17 14:39 02/09/17 14:50 Intake and Output: 02/09/17 02/09/17 06:59 18:59 Intake Total 350 792.6 Output Total 0 Balance 350 792.6 - Medications Medications: Current Medications Carvedilol (Coreg) 12.5 mg PO BID [facility] Last Admin: 02/09/17 09:30 Dose: Not Given Colchicine (Colocrys) 0.6 mg PO MWF [facility] Last Admin: 02/09/17 09:29 Dose: Not Given Dicyclomine HCl (Bentyl) 20 mg PO Q6 PRN PRN Reason: ABDOMINAL CRAMPING Last Admin: 02/08/17 10:27 Dose: 20 mg Home Med (Febuxostat [Uloric]) 80 mg PO DAILY [facility] Last Admin: 02/09/17 09:30 Dose: Not Given Metronidazole (Flagyl) 500 mg in 100 mls @ 100 mls/hr IVPB Q12 [facility] Last Admin: 02/09/17 09:30 Dose: Not Given Ciprofloxacin (Cipro 400mg/200ml Dsw) 400 mg in 200 mls @ 133 mls/hr IVPB Q24H [facility] Last Admin: 02/09/17 12:59 Dose: 133 mls/hr Dopamine HCl/Dextrose (Dopamine 400mg/250ml D5w) 400 mg in 250 mls @ 10.875 mls /hr IV .Q23H PRN; Protocol; 5 MCG/KG/MIN PRN Reason: TITRATE PER MD ORDER Last Titration: 02/09/17 12:57 Dose: 9 mcg/kg/min, 19.575 mls/hr Insulin Aspart (Novolog) 0 unit SC ACHS [facility] PRN Reason: Protocol Last Admin: 02/09/17 15:52 Dose: Not Given Insulin Aspart (Novolog Mix 70/30 (70/30 Units/Ml)) 12 units SC ACB [facility] Last Admin: 02/09/17 08:30 Dose: 12 units Insulin Aspart (Novolog Mix 70/30 (70/30 Units/Ml)) 8 units SC ACD [facility] Lactulose (Enulose) 20 gm PO DAILY [facility] Last Admin: 02/08/17 10:35 Dose: 20 gm Megestrol Acetate (Megace) 400 mg PO BID [facility] Last Admin: 02/09/17 09:30 Dose: Not Given Montelukast Sodium (Singulair) 10 mg PO HS [facility] Last Admin: 02/08/17 21:56 Dose: 10 mg Morphine Sulfate (Morphine) 2 mg IV Q8 PRN PRN Reason: Pain, moderate (4-7) Last Admin: 02/08/17 00:56 Dose: 2 mg Ondansetron HCl (Zofran Inj) 4 mg IVP Q8H PRN PRN Reason: Nausea/Vomiting Last Admin: 02/07/17 12:03 Dose: 4 mg Pantoprazole Sodium (Protonix Ec Tab) 40 mg PO DAILY [facility] Last Admin: 02/09/17 09:30 Dose: Not Given Polyethylene Glycol (Miralax) 17 gm PO DAILY [facility] Last Admin: 02/09/17 09:30 Dose: Not Given Rosuvastatin Calcium (Crestor) 2.5 mg PO HS [facility] Last Admin: 02/08/17 21:56 Dose: 2.5 mg Fluticasone/Salmeterol (Advair Diskus 250/50) 1 puff INH RQ12 [facility] Last Admin: 02/09/17 08:24 Dose: 1 puff Vitamin A (Vitamin A & D Oint Ud Foilpak) 1 ea TOP BID [facility] Last Admin: 02/09/17 09:30 Dose: Not Given - Labs Labs: 02/09/17 09:40 02/09/17 09:40 PT 17.1 SECONDS (9.7-12.2) H 02/09/17 09:40 INR 1.5 02/09/17 09:40 Attending/Attestation - Attestation I have personally seen and examined this patient.: Yes I have fully participated in the care of the patient.: Yes I have reviewed all pertinent clinical information, including history, physical exam and plan: Yes Notes (Text): 02/09/17 16:01 71 year old female admitted with acute diverticulitis. 1. Acute diverticulitis Plan: -continue antibiotics -abdominal pain resolved -tolerating diet -no signs of complications -advise colonoscopy in 6-8 weeks -will sign off
[2017-02-09] MEDS: (Novolog) Insulin Aspart, Recombinant 100 u/ml 10 ml vial SC SCH ×4 (07:39→21:52)
[2017-02-09] MEDS: Fluticasone-Salmeterol 250-50mcg Diskus INH SCH ×2 (08:24→19:24)
[2017-02-09] MEDS: (Novolog Mix 70/30) Insulin Aspart/Insulin Aspar 100 units/ml SC SCH (08:30)
[2017-02-09] MEDS: Ciprofloxacin 400mg/200ml D5W 400 MG/200 ML BAG IVPB SCH ×2 (09:05→12:59)
[2017-02-09] MEDS: Vitamins A & D Oint UD Foilpak TOP SCH ×2 (09:30→17:20)
[2017-02-09] MEDS: Megestrol Acetate 40 mg/ml Cup PO SCH ×2 (09:30→17:20)
[2017-02-09] MEDS: ULORIC 80MG PO SCH (09:30)
[2017-02-09] MEDS: POLYETHYLENE GLYCOL 3350 17 GM/Dose PACKET PO SCH (09:30)
[2017-02-09] MEDS: Pantoprazole 40 mg EC Tab PO SCH (09:30)
[2017-02-09] MEDS: metroNIDAZOLE IV 500 mg/100 ml 500 MG/100 ML BAG IVPB SCH ×2 (09:30→22:30)
[2017-02-09 09:44] LABS: BASO % 0.6 % (0.0-2.0); EOS % 0.7 % (0.0-4.0); HEMATOCRIT 31.3 % (34.0-47.0); LYMPH # 0.5 K/uL (1.0-4.3); LYMPH % 13.2 % (20.0-40.0); MEAN CELL VOLUME 95.8 fL (81.0-99.0); MEAN CORPUSCULAR HEMOGLOBIN 31.6 pg (27.0-31.0); MEAN PLATELET VOLUME 8.7 fL (7.2-11.7); MONO # 0.9 K/uL (0.0-0.8); MONO % 24.1 % (0.0-10.0); PLATELET COUNT 74 K/uL (130-400); RED CELL DISTRIBUTION WIDTH 16.4 % (11.5-14.5); WHITE BLOOD COUNT 3.8 K/uL (4.8-10.8)
[2017-02-09 09:50] LABS: INR 1.5
[2017-02-09] MEDS ORDERED: Albumin Human 25% (12.5 gm/50 ml) IV ONE ×2 (09:53→10:00)
[2017-02-09 09:55] LABS: ALKALINE PHOSPHATASE 446 U/L (38-126); ALT/SGPT 33 U/L (9-52); AST/SGOT 23 U/L (14-36); BILIRUBIN,TOTAL 2.1 mg/dL (0.2-1.3); BLOOD UREA NITROGEN 23 mg/dL (7-17); CALCIUM 7.4 mg/dl (8.6-10.4); CARBON DIOXIDE 24 mmol/L (22-30); CHLORIDE 94 mmol/L (98-107); GFR AFRICAN-AMERICAN 18; GLUCOSE,RANDOM 131 mg/dL (65-105); POTASSIUM 3.6 mmol/L (3.6-5.2); SODIUM 130 mmol/L (132-148)
--- NOTE | 2017-02-09 10:39 | RAD ---
Chest x-ray single frontal view History: Hypotension. Bradycardia. Comparison: 02/03/2017 Findings: Worsening now moderate right and small left pleural effusion. Diffuse increased opacification throughout the right mid to lower lung zone as well as within the left mid to lower lung zone. Small nodular density in the medial right lung apex. Enlarged ectatic aorta. Bilateral hilar prominence. Cardiomegaly. Calcification at the aortic knob. Degenerative changes in the spine and shoulders. Suggestion of a rounded radiopaque density projecting over the mid left upper abdomen. Surgical clips in the right upper abdomen. IVC filter in place. Impression: Worsening airspace opacities and effusions.
[2017-02-09] MEDS ORDERED: Sodium Chloride 0.9% 250 ML IV ONE (10:45)
--- NOTE | 2017-02-09 10:49 | PCM.RRT ---
<Cristiana Pressley - Last Filed: 02/09/17 11:28> SOLE MOLDING MACHINE OPERATOR Nurses Assessment - IV IV Inserted during SOLE MOLDING MACHINE OPERATOR?: No New IV Insertion Tolerance: Fair I.Reason for SOLE MOLDING MACHINE OPERATOR - A) Acute Change in Patient: (Select all that apply): Acute change in heart rate less than 50 or greater than 120, Acute change in SBP below (bp 76/45 and bp 50 ) - Neurological Status (Select all that apply): Alert, Responsive, Oriented - Respiratory Oxygen Delivery Method: Nasal Cannula @L/min (nasal cannula at 2.5 L ) - Constitutional Appears: Non-toxic, No Acute Distress - Head Head Exam: ATRAUMATIC, NORMAL INSPECTION, NORMOCEPHALIC - Eyes Eye Exam: EOMI, Normal appearance - Respiratory Exam Respiratory Exam: Clear to Ausculation Bilateral, NORMAL BREATHING PATTERN - Cardiovascular Exam Cardiovascular Exam: Bradycardia. absent: Gallop, Rubs, Murmur - GI/Abdominal Exam GI & Abdominal Exam: Soft, Normal Bowel Sounds - Neurological Exam Neurological Exam: Alert, Awake, Oriented x3 - Extremities Exam Extremities Exam: Pedal Edema Additional comments: right LE erythema Plan - Assessment of Findings&Treatment Plan Rapid Response called at 9:37 for BP of 76/45 and HR of 53. Patient was about to get dialysis, but it was not started. Patient had some chest pain and said she was not feeling well. Medications given: Patient given 250 cc NS which did not increase blood pressure. Coreg, lactulose, and morphine were held. Albumin 12.5gm/50 ml given. Aspirin 325mg and Plavix 75mg ordered. Dopamine 5mcg/ kg started at 10:15 Labs: JAYLAN: Troponin (-) , CKMB: .50 Imaging: EKG ordered which showed bradycardia and an old right bundle branch block. Cxray ordered which showed worsening now moderate right and small left pleural effusion. Diffuse increased opacification throughout the right mid to lower lung zone as well as within the left mid to lower lung zone. Small nodular density in the medial right lung apex. Bilateral hilar prominence. Cardiomegaly. Suggestion of a rounded radiopaque density projection over the mid left upper abdomen. Impression: worsening airspace opacities and effusions. At 10:30 patient's blood pressure 74/51, Pulse of 42 patient transferred to ICU At 10:40 in ICU patient's blood pressure 140/97, Pulse of 67 <Stefain Trivedi V - Last Filed: 02/09/17 21:51> Attending/Attestation - Attestation I have personally seen and examined this patient.: Yes I have fully participated in the care of the patient.: Yes I have reviewed all pertinent clinical information, including history, physical exam and plan: Yes Notes (Text): Brief Hospitalist Note Responded to SOLE MOLDING MACHINE OPERATOR with SOLE MOLDING MACHINE OPERATOR Team including myself, colleague: Dr White, and resident instruction assistant principal, ICU nurse: Tin, Dialysis nurse, and Patient's primary care nurse: Teri. Called in light of bradycardia (HR: 50s) and hypotension (SBP:60-70s) Patient is currently here in the hospital for diverticulitis and possible cirrhosis with hx of renal transplant, diabetes, hypertension, thoracic anuerysm , dvt s/p IVC, possible Rob's? per review of patient's medical record available in the ER. Blood pressure remained low in spite of NS 250cc bolus, two dose of Albumin 12.5mg, and initiating Dopamine 5mcg/kg. Held patient's coreg (last dose last night), lactulose (bowel movement this morning), Pain prn in light of severe hypotension. EKG repeated at bedside. Patient ordered for blood work at the rapid: CBC, CMP, JAYLAN. Resident Min, PGY-[address] Celestina Esquivel regarding this patient. Recommended Dr. Martin for Cardiology. My colleague spoke with Dr. Harp, ICU Attending, for ICU eval for refractory hypotension and bradycardia and accepted to ICU for further management and monitoring. Patient is awake, alert, conversant in [place]. Does not feel lightheaded nor dizzy; main complaint of right lower extremity pain. Chest xray performed. EKG performed.
[2017-02-09 11:21] LABS: NEUTROPHIL 63 % (50-75); TOTAL CELLS COUNTED 100
[2017-02-09] MEDS: DOPamine 400mg/250ml D5W 400 MG/250 ML BAG IV PRN ×2 (11:33→21:30)
--- NOTE | 2017-02-09 14:14 | RAD ---
HISTORY: s/p central line placement COMPARISON: Portable chest 02/09/2017 FINDINGS: A right central venous line is now placed by an apparent internal jugular approach with tip terminating at the atrial caval junction. LUNGS: Right perihilar and bilateral basilar atelectasis or infiltrates are identified once again, not simply changed in appearance in the interval. Peripheral septal markings are increased bilaterally. PLEURA: Bilateral pleural effusions remaining greater the right than left sides. No pneumothorax bilaterally. CARDIOVASCULAR: Cardiac silhouette remains prominent. Underlying pulmonary venous congestion is not excluded. OSSEOUS STRUCTURES: No significant abnormalities. VISUALIZED UPPER ABDOMEN: Inferior vena cava filter again evident as well as right upper quadrant surgical clips. OTHER FINDINGS: None. IMPRESSION: Status post right internal jugular central venous line placement identified. No pneumothorax bilaterally. Bilateral infiltrates and pleural effusions remaining greater the right than left sides inner not simply changed. CHF pattern suggested.
--- NOTE | 2017-02-09 15:34 | CP.PCM.PN ---
Subjective - Date & Time of Evaluation Date of Evaluation: 02/09/17 Time of Evaluation: 13:30 - Subjective Subjective: events noted hypotensive and bradycardic on HD unable to initiate HD due to hemodyanamic instability on dopamine awake says abdomen feels better no chest pain or sob minimal urine output no rash no fever no cough Objective - Vital Signs/Intake and Output Vital Signs (last 24 hours): Temp Pulse Resp BP Pulse Ox 97.4 F L 64 33 H 90/48 L 100 02/09/17 14:00 02/09/17 14:50 02/09/17 14:50 02/09/17 14:39 02/09/17 14:50 Intake and Output: 02/09/17 02/09/17 06:59 18:59 Intake Total 350 415 Output Total 0 Balance 350 415 - Medications Medications: Current Medications Carvedilol (Coreg) 12.5 mg PO BID [facility] Last Admin: 02/09/17 09:30 Dose: Not Given Colchicine (Colocrys) 0.6 mg PO MWF [facility] Last Admin: 02/09/17 09:29 Dose: Not Given Dicyclomine HCl (Bentyl) 20 mg PO Q6 PRN PRN Reason: ABDOMINAL CRAMPING Last Admin: 02/08/17 10:27 Dose: 20 mg Home Med (Febuxostat [Uloric]) 80 mg PO DAILY [facility] Last Admin: 02/09/17 09:30 Dose: Not Given Metronidazole (Flagyl) 500 mg in 100 mls @ 100 mls/hr IVPB Q12 [facility] Last Admin: 02/09/17 09:30 Dose: Not Given Ciprofloxacin (Cipro 400mg/200ml Dsw) 400 mg in 200 mls @ 133 mls/hr IVPB Q24H [facility] Last Admin: 02/09/17 12:59 Dose: 133 mls/hr Dopamine HCl/Dextrose (Dopamine 400mg/250ml D5w) 400 mg in 250 mls @ 10.875 mls /hr IV .Q23H PRN; Protocol; 5 MCG/KG/MIN PRN Reason: TITRATE PER MD ORDER Last Titration: 02/09/17 12:57 Dose: 9 mcg/kg/min, 19.575 mls/hr Insulin Aspart (Novolog) 0 unit SC ACHS [facility] PRN Reason: Protocol Last Admin: 02/09/17 07:39 Dose: Not Given Insulin Aspart (Novolog Mix 70/30 (70/30 Units/Ml)) 12 units SC ACB [facility] Last Admin: 02/09/17 08:30 Dose: 12 units Insulin Aspart (Novolog Mix 70/30 (70/30 Units/Ml)) 8 units SC ACD [facility] Lactulose (Enulose) 20 gm PO DAILY [facility] Last Admin: 02/08/17 10:35 Dose: 20 gm Megestrol Acetate (Megace) 400 mg PO BID [facility] Last Admin: 02/09/17 09:30 Dose: Not Given Montelukast Sodium (Singulair) 10 mg PO HS [facility] Last Admin: 02/08/17 21:56 Dose: 10 mg Morphine Sulfate (Morphine) 2 mg IV Q8 PRN PRN Reason: Pain, moderate (4-7) Last Admin: 02/08/17 00:56 Dose: 2 mg Ondansetron HCl (Zofran Inj) 4 mg IVP Q8H PRN PRN Reason: Nausea/Vomiting Last Admin: 02/07/17 12:03 Dose: 4 mg Pantoprazole Sodium (Protonix Ec Tab) 40 mg PO DAILY [facility] Last Admin: 02/09/17 09:30 Dose: Not Given Polyethylene Glycol (Miralax) 17 gm PO DAILY [facility] Last Admin: 02/09/17 09:30 Dose: Not Given Rosuvastatin Calcium (Crestor) 2.5 mg PO HS [facility] Last Admin: 02/08/17 21:56 Dose: 2.5 mg Fluticasone/Salmeterol (Advair Diskus 250/50) 1 puff INH RQ12 [facility] Last Admin: 02/09/17 08:24 Dose: 1 puff Vitamin A (Vitamin A & D Oint Ud Foilpak) 1 ea TOP BID [facility] Last Admin: 02/09/17 09:30 Dose: Not Given - Labs Labs: 02/09/17 09:40 02/09/17 09:40 PT 17.1 SECONDS (9.7-12.2) H 02/09/17 09:40 INR 1.5 02/09/17 09:40 - Constitutional Appears: Chronically Ill - Head Exam Head Exam: ATRAUMATIC - Eye Exam Eye Exam: EOMI, Normal appearance - ENT Exam ENT Exam: Mucous Membranes Moist - Neck Exam Neck Exam: Full ROM. absent: Lymphadenopathy - Respiratory Exam Respiratory Exam: Decreased Breath Sounds. absent: Accessory Muscle Use - Cardiovascular Exam Cardiovascular Exam: Bradycardia. absent: Rubs - GI/Abdominal Exam GI & Abdominal Exam: Soft, Normal Bowel Sounds. absent: Tenderness - Extremities Exam Extremities Exam: absent: Pedal Edema - Neurological Exam Neurological Exam: Alert, Oriented x3 Assessment and Plan - Assessment and Plan (Free Text) Assessment: esrd dm htn kidney transplant failure diverticulitis s/p ct of abdomen yesterday now with hypotension and bradycardia ?due to bp meds for hemodynamic support HD in am cardiac eval new right dvt noted as well
--- NOTE | 2017-02-09 16:09 | CP.PCM.CON ---
<Maury Goodman - Last Filed: 02/09/17 16:11> History of Present Illness - History of Present Illness History of Present Illness: Patient is a 71yo female with PMHx significant for kidney failure requiring transplant (2000) and HD via right forearm AVF, DM2, HTN, diverticulosis who presented to the ED with complaint of abdominal pain. Patient's son at bedside during examination. The patient states she suddenly developed epigastric and periumbilical abdominal pain last Tuesday (1 week prior to admission). The pain has remained fairly constant and was severe earlier, rating symptoms 10/10 at their worst. She admits to nausea without vomiting and development of loose stool in the days leading up to admission. Patient denies any sick contacts, recent travel or antibiotic use. CT A/P performed in the ED revealed mild sigmoid diverticulitis. Patient denies fever, chills, weight loss, rectal bleeding. Today 02/09/17 a STRIPER SPRAY GUN was called at 9:37am for hypotension 76/45 and HR of 53. Patient was transferred to ICU. PMHx: See HPI, also thoracic aortic aneurysm PSHx: kidney transplant (2000), cholecystectomy FHx: Multiple family members with DM2 Social: Denies tobacco, EtOH or illicit drug use Endo: EGD - 10/2016 - [place] Grade B esophagitis, H pylori NEGATIVE gastritis; Colonoscopy - 10/2014 - miller-diverticulosis, large internal hemorrhoids Review of Systems - Constitutional Constitutional: absent: Chills, Fever - Cardiovascular Cardiovascular: Chest Pain - Respiratory Respiratory: absent: Dyspnea, Wheezing - Gastrointestinal Gastrointestinal: absent: Abdominal Pain, Constipation, Diarrhea - Genitourinary Genitourinary: absent: Dysuria Past Patient History - Infectious Disease Hx of Infectious Diseases: None - Past Medical History & Family History Past Medical History?: Yes - Past Social History Smoking Status: Never Smoked - CARDIAC Hx Congestive Heart Failure: Yes Hx Hypercholesterolemia: Yes Hx Hypertension: Yes - PULMONARY Hx Asthma: Yes Hx Sleep Apnea: Yes - NEUROLOGICAL Hx Neurological Disorder: No - HEENT Hx HEENT Problems: Yes Hx Cataracts: Yes (right eye july 2012 and left eye august 2012) - RENAL Hx Chronic Kidney Disease: Yes - ENDOCRINE/METABOLIC Hx Diabetes Mellitus Type 2: Yes - HEMATOLOGICAL/ONCOLOGICAL Hx Anemia: Yes - INTEGUMENTARY Hx Dermatological Problems: No Other/Comment: varicose vein surgery left leg 1995 - MUSCULOSKELETAL/RHEUMATOLOGICAL Hx Arthritis: Yes - GASTROINTESTINAL Hx Diverticulitis: Yes Hx Gastritis: Yes - GENITOURINARY/GYNECOLOGICAL Hx Genitourinary Disorders: No Other/Comment: voiding occasionally in small amounts. HX rt kidney transplant 2000 - PSYCHIATRIC Hx Substance Use: No - SURGICAL HISTORY Hx Cholecystectomy: Yes - ANESTHESIA Hx Anesthesia: Yes Hx Anesthesia Reactions: No Hx Malignant Hyperthermia: No Has any member of the family had a problem w/ anesthesia?: No Meds Allergies/Adverse Reactions: Allergies Allergy/AdvReac Type Severity Reaction Status Date / Time allopurinol Allergy Verified 02/04/17 17:32 atorvastatin Allergy Verified 02/04/17 17:32 heparin Allergy Verified 02/04/17 17:32 Iodinated Contrast- Oral and AdvReac Verified 02/04/17 17:32 IV Dye [Iodinated Contrast Media - IV Dye] - Medications Medications: Current Medications Carvedilol (Coreg) 12.5 mg PO BID [facility] Last Admin: 02/09/17 09:30 Dose: Not Given Colchicine (Colocrys) 0.6 mg PO MWF [facility] Last Admin: 02/09/17 09:29 Dose: Not Given Dicyclomine HCl (Bentyl) 20 mg PO Q6 PRN PRN Reason: ABDOMINAL CRAMPING Last Admin: 02/08/17 10:27 Dose: 20 mg Home Med (Febuxostat [Uloric]) 80 mg PO DAILY [facility] Last Admin: 02/09/17 09:30 Dose: Not Given Metronidazole (Flagyl) 500 mg in 100 mls @ 100 mls/hr IVPB Q12 [facility] Last Admin: 02/09/17 09:30 Dose: Not Given Ciprofloxacin (Cipro 400mg/200ml Dsw) 400 mg in 200 mls @ 133 mls/hr IVPB Q24H [facility] Last Admin: 02/09/17 12:59 Dose: 133 mls/hr Dopamine HCl/Dextrose (Dopamine 400mg/250ml D5w) 400 mg in 250 mls @ 10.875 mls /hr IV .Q23H PRN; Protocol; 5 MCG/KG/MIN PRN Reason: TITRATE PER MD ORDER Last Titration: 02/09/17 12:57 Dose: 9 mcg/kg/min, 19.575 mls/hr Insulin Aspart (Novolog) 0 unit SC ACHS [facility] PRN Reason: Protocol Last Admin: 02/09/17 15:52 Dose: Not Given Insulin Aspart (Novolog Mix 70/30 (70/30 Units/Ml)) 12 units SC ACB [facility] Last Admin: 02/09/17 08:30 Dose: 12 units Insulin Aspart (Novolog Mix 70/30 (70/30 Units/Ml)) 8 units SC ACD [facility] Lactulose (Enulose) 20 gm PO DAILY [facility] Last Admin: 02/08/17 10:35 Dose: 20 gm Megestrol Acetate (Megace) 400 mg PO BID [facility] Last Admin: 02/09/17 09:30 Dose: Not Given Montelukast Sodium (Singulair) 10 mg PO HS [facility] Last Admin: 02/08/17 21:56 Dose: 10 mg Morphine Sulfate (Morphine) 2 mg IV Q8 PRN PRN Reason: Pain, moderate (4-7) Last Admin: 02/08/17 00:56 Dose: 2 mg Ondansetron HCl (Zofran Inj) 4 mg IVP Q8H PRN PRN Reason: Nausea/Vomiting Last Admin: 02/07/17 12:03 Dose: 4 mg Pantoprazole Sodium (Protonix Ec Tab) 40 mg PO DAILY [facility] Last Admin: 02/09/17 09:30 Dose: Not Given Polyethylene Glycol (Miralax) 17 gm PO DAILY [facility] Last Admin: 02/09/17 09:30 Dose: Not Given Rosuvastatin Calcium (Crestor) 2.5 mg PO HS [facility] Last Admin: 02/08/17 21:56 Dose: 2.5 mg Fluticasone/Salmeterol (Advair Diskus 250/50) 1 puff INH RQ12 [facility] Last Admin: 02/09/17 08:24 Dose: 1 puff Vitamin A (Vitamin A & D Oint Ud Foilpak) 1 ea TOP BID [facility] Last Admin: 02/09/17 09:30 Dose: Not Given Physical Exam - Head Exam Head Exam: ATRAUMATIC - Eye Exam Eye Exam: EOMI, Normal appearance - ENT Exam ENT Exam: Mucous Membranes Moist - Neck Exam Neck exam: Positive for: Normal Inspection - Respiratory Exam Respiratory Exam: Clear to Auscultation Bilateral - Cardiovascular Exam Cardiovascular Exam: REGULAR RHYTHM, +S1, +S2 - GI/Abdominal Exam GI & Abdominal Exam: Normal Bowel Sounds, Soft. absent: Tenderness - Rectal Exam Rectal Exam: absent: Deferred - Extremities Exam Extremities exam: Positive for: normal inspection, tenderness - Neurological Exam Neurological exam: Alert, Oriented x3 Results - Vital Signs Recent Vital Signs: Last Vital Signs Temp 97.4 F L 02/09/17 14:00 Pulse 60 02/09/17 16:00 Resp 27 H 02/09/17 16:00 BP 89/47 L 02/09/17 15:39 Pulse Ox 100 02/09/17 16:00 - Labs Result Diagrams: 02/09/17 09:40 02/09/17 09:40 Labs: Laboratory Results - last 24 hr 02/06/17 02/07/17 02/08/17 07:41 07:48 16:33 WBC RBC Hgb Hct MCV MCH MCHC RDW Plt Count MPV Neut % (Auto) Lymph % (Auto) [place] % (Auto) Eos % (Auto) Baso % (Auto) Neut # Lymph # [place] # Eos # Baso # Neutrophils % (Manual) Lymphocytes % (Manual) Monocytes % (Manual) Platelet Estimate Hypochromasia (manual) Poikilocytosis (manual Anisocytosis (manual) Tear Drop Cells Ovalocytes PT INR Sodium Potassium Chloride Carbon Dioxide Anion Gap BUN Creatinine Est GFR ( Amer) Est GFR (Non-Af Amer) POC Glucose (mg/dL) 149 H Random Glucose Calcium Total Bilirubin AST ALT Alkaline Phosphatase Total Creatine Kinase CK-MB (Mass) Troponin I, Quant Total Protein Albumin Globulin Albumin/Globulin Ratio ACTH 8 Liver/Kid Microsomes Ab <=20.0 02/08/17 02/09/17 02/09/17 20:58 07:06 09:40 WBC 3.8 L RBC 3.27 L Hgb 10.3 L Hct 31.3 L MCV 95.8 MCH 31.6 H MCHC 33.0 RDW 16.4 H Plt Count 74 L MPV 8.7 Neut % (Auto) 61.4 Lymph % (Auto) 13.2 L [place] % (Auto) 24.1 H Eos % (Auto) 0.7 Baso % (Auto) 0.6 Neut # 2.3 Lymph # 0.5 L [place] # 0.9 H Eos # 0.0 Baso # 0.0 Neutrophils % (Manual) 63 Lymphocytes % (Manual) 15 L Monocytes % (Manual) 22 H Platelet Estimate Decreased L Hypochromasia (manual) Slight Poikilocytosis (manual Slight Anisocytosis (manual) Slight Tear Drop Cells Slight Ovalocytes Slight PT INR Sodium Potassium Chloride Carbon Dioxide Anion Gap BUN Creatinine Est GFR ( Amer) Est GFR (Non-Af Amer) POC Glucose (mg/dL) 145 H 152 H Random Glucose Calcium Total Bilirubin AST ALT Alkaline Phosphatase Total Creatine Kinase CK-MB (Mass) Troponin I, Quant Total Protein Albumin Globulin Albumin/Globulin Ratio ACTH Liver/Kid Microsomes Ab 02/09/17 02/09/17 02/09/17 09:40 09:40 09:42 WBC RBC Hgb Hct MCV MCH MCHC RDW Plt Count MPV Neut % (Auto) Lymph % (Auto) [place] % (Auto) Eos % (Auto) Baso % (Auto) Neut # Lymph # [place] # Eos # Baso # Neutrophils % (Manual) Lymphocytes % (Manual) Monocytes % (Manual) Platelet Estimate Hypochromasia (manual) Poikilocytosis (manual Anisocytosis (manual) Tear Drop Cells Ovalocytes PT 17.1 H INR 1.5 Sodium 130 L Potassium 3.6 Chloride 94 L Carbon Dioxide 24 Anion Gap 16 BUN 23 H Creatinine 3.1 H Est GFR ( Amer) 18 Est GFR (Non-Af Amer) 15 POC Glucose (mg/dL) 177 H Random Glucose 131 H Calcium 7.4 L Total Bilirubin 2.1 H AST 23 ALT 33 Alkaline Phosphatase 446 H Total Creatine Kinase < 20 L CK-MB (Mass) 0.50 Troponin I, Quant < 0.0120 Total Protein 4.0 L Albumin 1.9 L Globulin 2.0 L Albumin/Globulin Ratio 1.0 ACTH Liver/Kid Microsomes Ab 02/09/17 02/09/17 12:53 16:06 WBC RBC Hgb Hct MCV MCH MCHC RDW Plt Count MPV Neut % (Auto) Lymph % (Auto) [place] % (Auto) Eos % (Auto) Baso % (Auto) Neut # Lymph # [place] # Eos # Baso # Neutrophils % (Manual) Lymphocytes % (Manual) Monocytes % (Manual) Platelet Estimate Hypochromasia (manual) Poikilocytosis (manual Anisocytosis (manual) Tear Drop Cells Ovalocytes PT INR Sodium Potassium Chloride Carbon Dioxide Anion Gap BUN Creatinine Est GFR ( Amer) Est GFR (Non-Af Amer) POC Glucose (mg/dL) 129 H 224 H Random Glucose Calcium Total Bilirubin AST ALT Alkaline Phosphatase Total Creatine Kinase CK-MB (Mass) Troponin I, Quant Total Protein Albumin Globulin Albumin/Globulin Ratio ACTH Liver/Kid Microsomes Ab Assessment & Plan - Assessment and Plan (Free Text) Assessment: 71 yr old F admitted to ICU from floors after [facility] G[facility] was called for hypotension when patient was getting hemodialysis. CV: hypotension; new right DVT of right common femoral vein - Dopamine drip - - con't home med rosuvastatin 2.5mg po hs - apixaban 2.5mg po bid - holding carvedilol 12.5 mg po bid Nephro: ESRD on HD; Hx of kidney transplant GI: acute sigmoid diverticulitis; miller-diverticulosis - outpatient colonoscopy in 6-8 weeks Endo: hx of DM - RISS sc achs - novolog 12 units sc acb - novolog 8 units sc acd Prophylaxis: GI: pantoprazole 40mg po daily DVT: SCDs Diet: Renal <Josesito Harp - Last Filed: 02/09/17 17:46> Meds - Medications Medications: Current Medications Apixaban (Eliquis) 2.5 mg PO BID [facility] Carvedilol (Coreg) 12.5 mg PO BID [facility] Last Admin: 02/09/17 09:30 Dose: Not Given Colchicine (Colocrys) 0.6 mg PO MWF [facility] Last Admin: 02/09/17 09:29 Dose: Not Given Dicyclomine HCl (Bentyl) 20 mg PO Q6 PRN PRN Reason: ABDOMINAL CRAMPING Last Admin: 02/08/17 10:27 Dose: 20 mg Home Med (Febuxostat [Uloric]) 80 mg PO DAILY [facility] Last Admin: 02/09/17 09:30 Dose: Not Given Metronidazole (Flagyl) 500 mg in 100 mls @ 100 mls/hr IVPB Q12 [facility] Last Admin: 02/09/17 09:30 Dose: Not Given Ciprofloxacin (Cipro 400mg/200ml Dsw) 400 mg in 200 mls @ 133 mls/hr IVPB Q24H [facility] Last Admin: 02/09/17 12:59 Dose: 133 mls/hr Dopamine HCl/Dextrose (Dopamine 400mg/250ml D5w) 400 mg in 250 mls @ 10.875 mls /hr IV .Q23H PRN; Protocol; 5 MCG/KG/MIN PRN Reason: TITRATE PER MD ORDER Last Titration: 02/09/17 16:12 Dose: 10 mcg/kg/min, 21.75 mls/hr Insulin Aspart (Novolog) 0 unit SC ACHS [facility] PRN Reason: Protocol Last Admin: 02/09/17 16:36 Dose: Not Given Insulin Aspart (Novolog Mix 70/30 (70/30 Units/Ml)) 12 units SC ACB [facility] Last Admin: 02/09/17 08:30 Dose: 12 units Insulin Aspart (Novolog Mix 70/30 (70/30 Units/Ml)) 8 units SC ACD [facility] Last Admin: 02/09/17 17:21 Dose: 8 units Lactulose (Enulose) 20 gm PO DAILY [facility] Last Admin: 02/08/17 10:35 Dose: 20 gm Megestrol Acetate (Megace) 400 mg PO BID [facility] Last Admin: 02/09/17 17:20 Dose: 400 mg Montelukast Sodium (Singulair) 10 mg PO HS [facility] Last Admin: 02/08/17 21:56 Dose: 10 mg Morphine Sulfate (Morphine) 2 mg IV Q8 PRN PRN Reason: Pain, moderate (4-7) Last Admin: 02/08/17 00:56 Dose: 2 mg Ondansetron HCl (Zofran Inj) 4 mg IVP Q8H PRN PRN Reason: Nausea/Vomiting Last Admin: 02/07/17 12:03 Dose: 4 mg Pantoprazole Sodium (Protonix Ec Tab) 40 mg PO DAILY [facility] Last Admin: 02/09/17 09:30 Dose: Not Given Polyethylene Glycol (Miralax) 17 gm PO DAILY [facility] Last Admin: 02/09/17 09:30 Dose: Not Given Rosuvastatin Calcium (Crestor) 2.5 mg PO HS [facility] Last Admin: 02/08/17 21:56 Dose: 2.5 mg Fluticasone/Salmeterol (Advair Diskus 250/50) 1 puff INH RQ12 [facility] Last Admin: 02/09/17 08:24 Dose: 1 puff Vitamin A (Vitamin A & D Oint Ud Foilpak) 1 ea TOP BID [facility] Last Admin: 02/09/17 17:20 Dose: 1 ea Results - Vital Signs Recent Vital Signs: Last Vital Signs Temp 97.6 F 02/09/17 16:00 Pulse 65 09/13/17 17:20 Resp 23 02/09/17 17:20 BP 85/42 L 02/09/17 17:09 Pulse Ox 99 02/09/17 17:20 - Labs Result Diagrams: 02/09/17 09:40 02/09/17 09:40 Labs: Laboratory Results - last 24 hr 02/06/17 02/07/17 02/08/17 07:41 07:48 20:58 WBC RBC Hgb Hct MCV MCH MCHC RDW Plt Count MPV Neut % (Auto) Lymph % (Auto) [place] % (Auto) Eos % (Auto) Baso % (Auto) Neut # Lymph # [place] # Eos # Baso # Neutrophils % (Manual) Lymphocytes % (Manual) Monocytes % (Manual) Platelet Estimate Hypochromasia (manual) Poikilocytosis (manual Anisocytosis (manual) Tear Drop Cells Ovalocytes PT INR Sodium Potassium Chloride Carbon Dioxide Anion Gap BUN Creatinine Est GFR ( Amer) Est GFR (Non-Af Amer) POC Glucose (mg/dL) 145 H Random Glucose Calcium Total Bilirubin AST ALT Alkaline Phosphatase Total Creatine Kinase CK-MB (Mass) Troponin I, Quant Total Protein Albumin Globulin Albumin/Globulin Ratio ACTH 8 Liver/Kid Microsomes Ab <=20.0 02/09/17 02/09/17 02/09/17 07:06 09:40 09:40 WBC 3.8 L RBC 3.27 L Hgb 10.3 L Hct 31.3 L MCV 95.8 MCH 31.6 H MCHC 33.0 RDW 16.4 H Plt Count 74 L MPV 8.7 Neut % (Auto) 61.4 Lymph % (Auto) 13.2 L [place] % (Auto) 24.1 H Eos % (Auto) 0.7 Baso % (Auto) 0.6 Neut # 2.3 Lymph # 0.5 L [place] # 0.9 H Eos # 0.0 Baso # 0.0 Neutrophils % (Manual) 63 Lymphocytes % (Manual) 15 L Monocytes % (Manual) 22 H Platelet Estimate Decreased L Hypochromasia (manual) Slight Poikilocytosis (manual Slight Anisocytosis (manual) Slight Tear Drop Cells Slight Ovalocytes Slight PT 17.1 H INR 1.5 Sodium Potassium Chloride Carbon Dioxide Anion Gap BUN Creatinine Est GFR ( Amer) Est GFR (Non-Af Amer) POC Glucose (mg/dL) 152 H Random Glucose Calcium Total Bilirubin AST ALT Alkaline Phosphatase Total Creatine Kinase CK-MB (Mass) Troponin I, Quant Total Protein Albumin Globulin Albumin/Globulin Ratio ACTH Liver/Kid Microsomes Ab 02/09/17 02/09/17 02/09/17 09:40 09:42 12:53 WBC RBC Hgb Hct MCV MCH MCHC RDW Plt Count MPV Neut % (Auto) Lymph % (Auto) [place] % (Auto) Eos % (Auto) Baso % (Auto) Neut # Lymph # [place] # Eos # Baso # Neutrophils % (Manual) Lymphocytes % (Manual) Monocytes % (Manual) Platelet Estimate Hypochromasia (manual) Poikilocytosis (manual Anisocytosis (manual) Tear Drop Cells Ovalocytes PT INR Sodium 130 L Potassium 3.6 Chloride 94 L Carbon Dioxide 24 Anion Gap 16 BUN 23 H Creatinine 3.1 H Est GFR ( Amer) 18 Est GFR (Non-Af Amer) 15 POC Glucose (mg/dL) 177 H 129 H Random Glucose 131 H Calcium 7.4 L Total Bilirubin 2.1 H AST 23 ALT 33 Alkaline Phosphatase 446 H Total Creatine Kinase < 20 L CK-MB (Mass) 0.50 Troponin I, Quant < 0.0120 Total Protein 4.0 L Albumin 1.9 L Globulin 2.0 L Albumin/Globulin Ratio 1.0 ACTH Liver/Kid Microsomes Ab 02/09/17 16:06 WBC RBC Hgb Hct MCV MCH MCHC RDW Plt Count MPV Neut % (Auto) Lymph % (Auto) [place] % (Auto) Eos % (Auto) Baso % (Auto) Neut # Lymph # [place] # Eos # Baso # Neutrophils % (Manual) Lymphocytes % (Manual) Monocytes % (Manual) Platelet Estimate Hypochromasia (manual) Poikilocytosis (manual Anisocytosis (manual) Tear Drop Cells Ovalocytes PT INR Sodium Potassium Chloride Carbon Dioxide Anion Gap BUN Creatinine Est GFR ( Amer) Est GFR (Non-Af Amer) POC Glucose (mg/dL) 224 H Random Glucose Calcium Total Bilirubin AST ALT Alkaline Phosphatase Total Creatine Kinase CK-MB (Mass) Troponin I, Quant Total Protein Albumin Globulin Albumin/Globulin Ratio ACTH Liver/Kid Microsomes Ab Attending/Attestation - Attestation I have personally seen and examined this patient.: Yes I have fully participated in the care of the patient.: Yes I have reviewed all pertinent clinical information: Yes Notes (Text): 02/09/17 17:45 Patient seen and examined Patient transferred to ICU for hypotension and started on pressors Triple-lumen catheter inserted and right ventricular jugular vein Etiology of hypertension, diverticulitis/sepsis Normal lactate level Continue antibiotics Continue pressors Hemodialysis Follow-up culture and sensitivity Continue ICU observation
--- NOTE | 2017-02-09 16:13 | PCM.PROC ---
Procedures Attestation:: I certify that I have explained the specified Operation(s) or Procedure(s), risks, benefits and reasonable alternatives to the Patient and/or other person responsible. The opportunity was given to ask questions and all questions answered - Central Line Placement Right Internal Jugular Aseptic technique was employed throughout the procedure: Hand Hygiene done prior to procedure, Full sterile barriers (mask, hair cover, sterile gown, sterile gloves), Full body sterile drape, Chloraprep Antiseptic: 30 second prep for IJ or SC sites CVP Time Out Performed: Yes Pt. Placed on Pulse Ox Monitor: Yes Central Line Prep: Chlorhexidine-Alcohol Combination Local Anesthesia Used: Lidocaine 1% Amount of Anesthesia Used (mls): 3 Ultrasound Used for Placement: Yes Central Line Lumen Inserted: triple Central Line Length: 16 cm Post Procedure: Sutured in Place, Good Blood Return, All Ports Aspirated, Flushed, Capped, Sterile Dressing Applied Secured by: Suture Post procedure dressing: Chlorhexidine disc (Biopatch) Post Procedure X-Ray: Yes Patient Tolerated Procedure: Well Immediate Complications: None
[2017-02-09 18:03] LABS: POTASSIUM 3.5 mmol/L (3.6-5.2)
[2017-02-09 18:05] LABS: BILIRUBIN,TOTAL 1.9 mg/dL (0.2-1.3)
[2017-02-09 18:06] LABS: CALCIUM 7.9 mg/dl (8.6-10.4); TOTAL PROTEIN 4.7 g/dL (6.3-8.3)
--- NOTE | 2017-02-09 18:59 | CP.PCM.PN ---
Subjective - Date & Time of Evaluation Date of Evaluation: 02/09/17 Time of Evaluation: 14:00 - Subjective Subjective: clinically same Objective - Vital Signs/Intake and Output Vital Signs (last 24 hours): Temp Pulse Resp BP Pulse Ox 97.6 F 68 22 101/53 L 99 02/09/17 16:00 02/09/17 18:20 02/09/17 18:20 02/09/17 18:09 02/09/17 18:20 Intake and Output: 02/09/17 02/09/17 06:59 18:59 Intake Total 350 903.2 Output Total 0 Balance 350 903.2 - Medications Medications: Current Medications Carvedilol (Coreg) 12.5 mg PO BID [facility] Last Admin: 02/09/17 09:30 Dose: Not Given Colchicine (Colocrys) 0.6 mg PO MWF [facility] Last Admin: 02/09/17 09:29 Dose: Not Given Dicyclomine HCl (Bentyl) 20 mg PO Q6 PRN PRN Reason: ABDOMINAL CRAMPING Last Admin: 02/08/17 10:27 Dose: 20 mg Home Med (Febuxostat [Uloric]) 80 mg PO DAILY [facility] Last Admin: 02/09/17 09:30 Dose: Not Given Metronidazole (Flagyl) 500 mg in 100 mls @ 100 mls/hr IVPB Q12 [facility] Last Admin: 02/09/17 09:30 Dose: Not Given Ciprofloxacin (Cipro 400mg/200ml Dsw) 400 mg in 200 mls @ 133 mls/hr IVPB Q24H [facility] Last Admin: 02/09/17 12:59 Dose: 133 mls/hr Dopamine HCl/Dextrose (Dopamine 400mg/250ml D5w) 400 mg in 250 mls @ 10.875 mls /hr IV .Q23H PRN; Protocol; 5 MCG/KG/MIN PRN Reason: TITRATE PER MD ORDER Last Titration: 02/09/17 16:12 Dose: 10 mcg/kg/min, 21.75 mls/hr Insulin Aspart (Novolog) 0 unit SC ACHS [facility] PRN Reason: Protocol Last Admin: 02/09/17 16:36 Dose: Not Given Insulin Aspart (Novolog Mix 70/30 (70/30 Units/Ml)) 12 units SC ACB [facility] Last Admin: 02/09/17 08:30 Dose: 12 units Insulin Aspart (Novolog Mix 70/30 (70/30 Units/Ml)) 8 units SC ACD [facility] Last Admin: 02/09/17 17:21 Dose: 8 units Lactulose (Enulose) 20 gm PO DAILY [facility] Last Admin: 02/08/17 10:35 Dose: 20 gm Megestrol Acetate (Megace) 400 mg PO BID [facility] Last Admin: 02/09/17 17:20 Dose: 400 mg Montelukast Sodium (Singulair) 10 mg PO HS [facility] Last Admin: 02/08/17 21:56 Dose: 10 mg Morphine Sulfate (Morphine) 2 mg IV Q8 PRN PRN Reason: Pain, moderate (4-7) Last Admin: 02/08/17 00:56 Dose: 2 mg Ondansetron HCl (Zofran Inj) 4 mg IVP Q8H PRN PRN Reason: Nausea/Vomiting Last Admin: 02/07/17 12:03 Dose: 4 mg Pantoprazole Sodium (Protonix Ec Tab) 40 mg PO DAILY [facility] Last Admin: 02/09/17 09:30 Dose: Not Given Polyethylene Glycol (Miralax) 17 gm PO DAILY [facility] Last Admin: 02/09/17 09:30 Dose: Not Given Rosuvastatin Calcium (Crestor) 2.5 mg PO HS [facility] Last Admin: 02/08/17 21:56 Dose: 2.5 mg Fluticasone/Salmeterol (Advair Diskus 250/50) 1 puff INH RQ12 [facility] Last Admin: 02/09/17 08:24 Dose: 1 puff Vitamin A (Vitamin A & D Oint Ud Foilpak) 1 ea TOP BID [facility] Last Admin: 02/09/17 17:20 Dose: 1 ea - Labs Labs: 02/09/17 09:40 02/09/17 17:49 PT 17.1 SECONDS (9.7-12.2) H 02/09/17 09:40 INR 1.5 02/09/17 09:40 - Constitutional Appears: Well - Head Exam Head Exam: ATRAUMATIC, NORMAL INSPECTION, NORMOCEPHALIC - Eye Exam Eye Exam: EOMI, Normal appearance, PERRL Pupil Exam: NORMAL ACCOMODATION, PERRL - ENT Exam ENT Exam: Mucous Membranes Moist, Normal Exam - Neck Exam Neck Exam: Full ROM, Normal Inspection. absent: Lymphadenopathy - Respiratory Exam Respiratory Exam: Decreased Breath Sounds - Cardiovascular Exam Cardiovascular Exam: REGULAR RHYTHM, +S1, +S2 - GI/Abdominal Exam GI & Abdominal Exam: Soft, Diminished Bowel Sounds - Rectal Exam Rectal Exam: Deferred
[2017-02-09] MEDS ORDERED: MethylPREDNISolone 40 mg Vial IVP STA (19:33)
[2017-02-09] MEDS ORDERED: Potassium Chloride 20 mEq ER Tab PO STA (21:09)
[2017-02-09] MEDS: Rosuvastatin Calcium 2.5 mg Tab PO SCH (21:36)
--- NOTE | 2017-02-09 23:37 | CP.PCM.CON ---
History of Present Illness - History of Present Illness History of Present Illness: Patient seen and evaluated Hypotension on Dopamine CKD on HD DM 2 Steroid dependance? Patient is a 71yo female with PMHx significant for kidney failure requiring transplant (2000) and HD via right forearm AVF, DM2, HTN, diverticulosis who presented to the ED with complaint of abdominal pain. Patient's son at bedside during examination. The patient states she suddenly developed epigastric and periumbilical abdominal pain last Tuesday (1 week prior to admission). The pain has remained fairly constant and was severe earlier, rating symptoms 10/10 at their worst. She admits to nausea without vomiting and development of loose stool in the days leading up to admission. Patient denies any sick contacts, recent travel or antibiotic use. CT A/P performed in the ED revealed mild sigmoid diverticulitis. Patient denies fever, chills, weight loss, rectal bleeding. Today 02/09/17 a VOLLEYBALL REFEREE was called at 9:37am for hypotension 76/45 and HR of 53. Patient was transferred to ICU. PMHx: See HPI, also thoracic aortic aneurysm PSHx: kidney transplant (2000), cholecystectomy FHx: Multiple family members with DM2 Social: Denies tobacco, EtOH or illicit drug use Endo: EGD - 10/2016 - [place] Grade B esophagitis, H pylori NEGATIVE gastritis; Colonoscopy - 10/2014 - miller-diverticulosis, large internal hemorrhoids Review of Systems - Constitutional Constitutional: absent: Chills, Fever - Cardiovascular Cardiovascular: Chest Pain - Respiratory Respiratory: absent: Dyspnea, Wheezing - Gastrointestinal Gastrointestinal: absent: Abdominal Pain, Constipation, Diarrhea - Genitourinary Genitourinary: absent: Dysuria Physical Exam - Head Exam Head Exam: ATRAUMATIC - Eye Exam Eye Exam: EOMI, Normal appearance - ENT Exam ENT Exam: Mucous Membranes Moist - Neck Exam Neck exam: Positive for: Normal Inspection - Respiratory Exam Respiratory Exam: Clear to Auscultation Bilateral - Cardiovascular Exam Cardiovascular Exam: REGULAR RHYTHM, +S1, +S2 - GI/Abdominal Exam GI & Abdominal Exam: Normal Bowel Sounds, Soft. absent: Tenderness - Rectal Exam Rectal Exam: absent: Deferred - Extremities Exam Extremities exam: Positive for: normal inspection, tenderness - Neurological Exam Neurological exam: Alert, Oriented x3 Past Patient History - Infectious Disease Hx of Infectious Diseases: None - Past Medical History & Family History Past Medical History?: Yes - Past Social History Smoking Status: Never Smoked - CARDIAC Hx Congestive Heart Failure: Yes Hx Hypercholesterolemia: Yes Hx Hypertension: Yes - PULMONARY Hx Asthma: Yes Hx Sleep Apnea: Yes - NEUROLOGICAL Hx Neurological Disorder: No - HEENT Hx HEENT Problems: Yes Hx Cataracts: Yes (right eye july 2012 and left eye august 2012) - RENAL Hx Chronic Kidney Disease: Yes - ENDOCRINE/METABOLIC Hx Diabetes Mellitus Type 2: Yes - HEMATOLOGICAL/ONCOLOGICAL Hx Anemia: Yes - INTEGUMENTARY Hx Dermatological Problems: No Other/Comment: varicose vein surgery left leg 1995 - MUSCULOSKELETAL/RHEUMATOLOGICAL Hx Arthritis: Yes - GASTROINTESTINAL Hx Diverticulitis: Yes Hx Gastritis: Yes - GENITOURINARY/GYNECOLOGICAL Hx Genitourinary Disorders: No Other/Comment: voiding occasionally in small amounts. HX rt kidney transplant 2000 - PSYCHIATRIC Hx Substance Use: No - SURGICAL HISTORY Hx Cholecystectomy: Yes - ANESTHESIA Hx Anesthesia: Yes Hx Anesthesia Reactions: No Hx Malignant Hyperthermia: No Has any member of the family had a problem w/ anesthesia?: No Meds Home Medications: Home Medication List Medication Instructions Recorded Confirmed Type ALPRAZolam [Xanax] 0.25 mg PO HS PRN #5 tab 02/12/17 Rx Ciprofloxacin HCl [Cipro] 500 mg PO BID #10 tablet 02/12/17 Rx Dicyclomine [Bentyl] 20 mg PO BID PRN #30 tab 02/12/17 Rx Metronidazole [Flagyl] 250 mg PO TID #15 tab 02/12/17 Rx Allergies/Adverse Reactions: Allergies Allergy/AdvReac Type Severity Reaction Status Date / Time allopurinol Allergy Verified 02/04/17 17:32 atorvastatin Allergy Verified 02/04/17 17:32 heparin Allergy Verified 02/04/17 17:32 Iodinated Contrast- Oral and AdvReac Verified 02/04/17 17:32 IV Dye [Iodinated Contrast Media - IV Dye] - Medications Medications: Current Medications Carvedilol (Coreg) 12.5 mg PO BID [facility] Last Admin: 02/09/17 09:30 Dose: Not Given Colchicine (Colocrys) 0.6 mg PO MWF [facility] Last Admin: 02/09/17 09:29 Dose: Not Given Dicyclomine HCl (Bentyl) 20 mg PO Q6 PRN PRN Reason: ABDOMINAL CRAMPING Last Admin: 02/08/17 10:27 Dose: 20 mg Home Med (Febuxostat [Uloric]) 80 mg PO DAILY [facility] Last Admin: 02/09/17 09:30 Dose: Not Given Metronidazole (Flagyl) 500 mg in 100 mls @ 100 mls/hr IVPB Q12 [facility] Last Admin: 02/09/17 09:30 Dose: Not Given Ciprofloxacin (Cipro 400mg/200ml Dsw) 400 mg in 200 mls @ 133 mls/hr IVPB Q24H [facility] Last Admin: 02/09/17 12:59 Dose: 133 mls/hr Dopamine HCl/Dextrose (Dopamine 400mg/250ml D5w) 400 mg in 250 mls @ 10.875 mls /hr IV .Q23H PRN; Protocol; 5 MCG/KG/MIN PRN Reason: TITRATE PER MD ORDER Last Admin: 02/09/17 21:30 Dose: 20 mcg/kg/min, 43.5 mls/hr Insulin Aspart (Novolog) 0 unit SC ACHS [facility] PRN Reason: Protocol Last Admin: 02/09/17 21:52 Dose: Not Given Insulin Aspart (Novolog Mix 70/30 (70/30 Units/Ml)) 12 units SC ACB [facility] Last Admin: 02/09/17 08:30 Dose: 12 units Insulin Aspart (Novolog Mix 70/30 (70/30 Units/Ml)) 8 units SC ACD [facility] Last Admin: 02/09/17 17:21 Dose: 8 units Lactulose (Enulose) 20 gm PO DAILY [facility] Last Admin: 02/08/17 10:35 Dose: 20 gm Megestrol Acetate (Megace) 400 mg PO BID [facility] Last Admin: 02/09/17 17:20 Dose: 400 mg Montelukast Sodium (Singulair) 10 mg PO HS [facility] Last Admin: 02/08/17 21:56 Dose: 10 mg Morphine Sulfate (Morphine) 2 mg IV Q8 PRN PRN Reason: Pain, moderate (4-7) Last Admin: 02/08/17 00:56 Dose: 2 mg Ondansetron HCl (Zofran Inj) 4 mg IVP Q8H PRN PRN Reason: Nausea/Vomiting Last Admin: 02/07/17 12:03 Dose: 4 mg Pantoprazole Sodium (Protonix Ec Tab) 40 mg PO DAILY [facility] Last Admin: 02/09/17 09:30 Dose: Not Given Polyethylene Glycol (Miralax) 17 gm PO DAILY [facility] Last Admin: 02/09/17 09:30 Dose: Not Given Rosuvastatin Calcium (Crestor) 2.5 mg PO HS [facility] Last Admin: 02/09/17 21:36 Dose: 2.5 mg Fluticasone/Salmeterol (Advair Diskus 250/50) 1 puff INH RQ12 [facility] Last Admin: 02/09/17 19:24 Dose: 1 puff Vitamin A (Vitamin A & D Oint Ud Foilpak) 1 ea TOP BID [facility] Last Admin: 02/09/17 17:20 Dose: 1 ea Results - Vital Signs Recent Vital Signs: Last Vital Signs Temp 98 F 02/09/17 20:00 Pulse 75 02/09/17 21:30 Resp 22 02/09/17 21:30 BP 100/53 L 02/09/17 21:30 Pulse Ox 97 02/09/17 21:30 - Labs Result Diagrams: 02/10/17 05:59 02/10/17 05:59 Labs: Laboratory Results - last 24 hr 02/07/17 02/09/17 02/09/17 07:48 07:06 09:40 WBC 3.8 L RBC 3.27 L Hgb 10.3 L Hct 31.3 L MCV 95.8 MCH 31.6 H MCHC 33.0 RDW 16.4 H Plt Count 74 L MPV 8.7 Neut % (Auto) 61.4 Lymph % (Auto) 13.2 L [place] % (Auto) 24.1 H Eos % (Auto) 0.7 Baso % (Auto) 0.6 Neut # 2.3 Lymph # 0.5 L [place] # 0.9 H Eos # 0.0 Baso # 0.0 Neutrophils % (Manual) 63 Lymphocytes % (Manual) 15 L Monocytes % (Manual) 22 H Platelet Estimate Decreased L Hypochromasia (manual) Slight Poikilocytosis (manual Slight Anisocytosis (manual) Slight Tear Drop Cells Slight Ovalocytes Slight PT INR Sodium Potassium Chloride Carbon Dioxide Anion Gap BUN Creatinine Est GFR ( Amer) Est GFR (Non-Af Amer) POC Glucose (mg/dL) 152 H Random Glucose Lactic Acid Calcium Total Bilirubin AST ALT Alkaline Phosphatase Total Creatine Kinase CK-MB (Mass) Troponin I, Quant Total Protein Albumin Globulin Albumin/Globulin Ratio ACTH 8 02/09/17 02/09/17 02/09/17 09:40 09:40 09:42 WBC RBC Hgb Hct MCV MCH MCHC RDW Plt Count MPV Neut % (Auto) Lymph % (Auto) [place] % (Auto) Eos % (Auto) Baso % (Auto) Neut # Lymph # [place] # Eos # Baso # Neutrophils % (Manual) Lymphocytes % (Manual) Monocytes % (Manual) Platelet Estimate Hypochromasia (manual) Poikilocytosis (manual Anisocytosis (manual) Tear Drop Cells Ovalocytes PT 17.1 H INR 1.5 Sodium 130 L Potassium 3.6 Chloride 94 L Carbon Dioxide 24 Anion Gap 16 BUN 23 H Creatinine 3.1 H Est GFR ( Amer) 18 Est GFR (Non-Af Amer) 15 POC Glucose (mg/dL) 177 H Random Glucose 131 H Lactic Acid Calcium 7.4 L Total Bilirubin 2.1 H AST 23 ALT 33 Alkaline Phosphatase 446 H Total Creatine Kinase < 20 L CK-MB (Mass) 0.50 Troponin I, Quant < 0.0120 Total Protein 4.0 L Albumin 1.9 L Globulin 2.0 L Albumin/Globulin Ratio 1.0 ACTH 02/09/17 02/09/17 02/09/17 12:53 16:06 17:49 WBC RBC Hgb Hct MCV MCH MCHC RDW Plt Count MPV Neut % (Auto) Lymph % (Auto) [place] % (Auto) Eos % (Auto) Baso % (Auto) Neut # Lymph # [place] # Eos # Baso # Neutrophils % (Manual) Lymphocytes % (Manual) Monocytes % (Manual) Platelet Estimate Hypochromasia (manual) Poikilocytosis (manual Anisocytosis (manual) Tear Drop Cells Ovalocytes PT INR Sodium 130 L Potassium 3.5 L Chloride 94 L Carbon Dioxide 26 Anion Gap 13 BUN 26 H Creatinine 3.5 H Est GFR ( Amer) 16 Est GFR (Non-Af Amer) 13 POC Glucose (mg/dL) 129 H 224 H Random Glucose 135 H Lactic Acid Calcium 7.9 L Total Bilirubin 1.9 H AST 28 ALT 34 Alkaline Phosphatase 486 H Total Creatine Kinase CK-MB (Mass) Troponin I, Quant Total Protein 4.7 L Albumin 2.4 L D Globulin 2.3 Albumin/Globulin Ratio 1.0 ACTH 02/09/17 02/09/17 17:49 21:05 WBC RBC Hgb Hct MCV MCH MCHC RDW Plt Count MPV Neut % (Auto) Lymph % (Auto) [place] % (Auto) Eos % (Auto) Baso % (Auto) Neut # Lymph # [place] # Eos # Baso # Neutrophils % (Manual) Lymphocytes % (Manual) Monocytes % (Manual) Platelet Estimate Hypochromasia (manual) Poikilocytosis (manual Anisocytosis (manual) Tear Drop Cells Ovalocytes PT INR Sodium Potassium Chloride Carbon Dioxide Anion Gap BUN Creatinine Est GFR ( Amer) Est GFR (Non-Af Amer) POC Glucose (mg/dL) 161 H Random Glucose Lactic Acid 2.0 Calcium Total Bilirubin AST ALT Alkaline Phosphatase Total Creatine Kinase CK-MB (Mass) Troponin I, Quant Total Protein Albumin Globulin Albumin/Globulin Ratio ACTH Assessment & Plan - Assessment and Plan (Free Text) Assessment: Assessment & Plan - Assessment and Plan (Free Text) Assessment: 71 yr old F admitted to ICU from floors after VOLLEYBALL REFEREE was called for hypotension when patient was getting hemodialysis. CV: hypotension - Dopamine drip - - con't home med rosuvastatin 2.5mg po hs - apixaban 2.5mg po bid - holding carvedilol 12.5 mg po bid Nephro: ESRD on HD; Hx of kidney transplant GI: acute sigmoid diverticulitis; miller-diverticulosis - outpatient colonoscopy in 6-8 weeks Endo: hx of DM - RISS sc achs - novolog 12 units sc acb - novolog 8 units sc acd Prophylaxis: GI: pantoprazole 40mg po daily DVT: SCDs Diet: Renal
--- NOTE | 2017-02-09 23:57 | PN ---
ENDOCRINOLOGY FOLLOWUP NOTE DATE: LOCATION: ICU room 16. SUBJECTIVE: This is a 71-year-old female with sudden onset of hypotension and bradycardia during hemodialysis and has been transferred to ICU for closer hemodynamic monitoring as noted thereof. She is also being followed closely for recent uncontrolled type II insulin requiring diabetes with recent hyperglycemic accelerations as noted thereof. LABORATORY DATA: Her latest glucose levels today have ranged from 129 to 224 mg/dL. It was 177 at wellness consultant today as noted. The latest chemistry showed a BUN of 26, sodium 130, potassium 3.5, chloride 94, CO2 of 26, glucose 135, and creatinine 3.5. Her thyroid study showed a T4 of 5.87 with a TSH of 3.29 and a cortisol level of 15.3 mcg/dL excluding the possibility of Chugach's disease. PLAN: So at this time, we will modify her premixed insulin regimen to NovoLog 70/30 given at 12 units a.c. breakfast and 8 units a.c. dinner as given. We will titrate incrementally as indicated to optimize the metabolic control. We will follow and advise accordingly. Becky Newton MD
[2017-02-10 06:09] LABS: BASO % 0.7 % (0.0-2.0); EOS % 0.2 % (0.0-4.0); HEMATOCRIT 32.9 % (34.0-47.0); LYMPH # 0.3 K/uL (1.0-4.3); LYMPH % 4.7 % (20.0-40.0); MEAN CELL VOLUME 94.7 fL (81.0-99.0); MEAN CORPUSCULAR HEMOGLOBIN 31.6 pg (27.0-31.0); MEAN CORPUSCULAR HGB CONC 33.4 g/dL (33.0-37.0); MEAN PLATELET VOLUME 9.3 fL (7.2-11.7); MONO # 0.3 K/uL (0.0-0.8); MONO % 6.3 % (0.0-10.0); PLATELET COUNT 108 K/uL (130-400); WHITE BLOOD COUNT 5.3 K/uL (4.8-10.8)
[2017-02-10 06:29] LABS: BILIRUBIN,TOTAL 2.1 mg/dL (0.2-1.3); PHOSPHOROUS 3.2 mg/dL (2.5-4.5); TOTAL PROTEIN 4.9 g/dL (6.3-8.3)
[2017-02-10 06:30] LABS: MAGNESIUM 1.5 mg/dL (1.6-2.3)
[2017-02-10] MEDS: (Novolog) Insulin Aspart, Recombinant 100 u/ml 10 ml vial SC SCH ×4 (08:04→22:21)
[2017-02-10] MEDS: Ciprofloxacin 400mg/200ml D5W 400 MG/200 ML BAG IVPB SCH (08:06)
[2017-02-10] MEDS: (Novolog Mix 70/30) Insulin Aspart/Insulin Aspar 100 units/ml SC SCH (08:07)
[2017-02-10] MEDS: Fluticasone-Salmeterol 250-50mcg Diskus INH SCH ×2 (08:13→20:03)
[2017-02-10 08:46] LABS: NEUTROPHIL 84 % (50-75); TOTAL CELLS COUNTED 100
[2017-02-10 08:47] LABS: GIANT PLATELETS PRESENT; LARGE PLATELETS PRESENT
--- NOTE | 2017-02-10 10:06 | CP.PCM.PN ---
Subjective - Date & Time of Evaluation Date of Evaluation: 02/10/17 Time of Evaluation: 10:04 - Subjective Subjective: feels better BP stable now-off carvedilol and HR normal same aches, arthralgias Objective - Vital Signs/Intake and Output Vital Signs (last 24 hours): Temp Pulse Resp BP Pulse Ox 98.5 F 65 20 94/53 L 100 02/10/17 08:00 02/10/17 08:00 02/10/17 08:00 02/10/17 08:00 02/10/17 08:00 Intake and Output: 02/10/17 02/10/17 06:59 18:59 Intake Total 917.95 200 Output Total 0 0 Balance 917.95 200 - Medications Medications: Current Medications Carvedilol (Coreg) 12.5 mg PO BID [facility] Last Admin: 02/09/17 09:30 Dose: Not Given Colchicine (Colocrys) 0.6 mg PO MWF [facility] Last Admin: 02/09/17 09:29 Dose: Not Given Dicyclomine HCl (Bentyl) 20 mg PO Q6 PRN PRN Reason: ABDOMINAL CRAMPING Last Admin: 02/08/17 10:27 Dose: 20 mg Home Med (Febuxostat [Uloric]) 80 mg PO DAILY [facility] Last Admin: 02/09/17 09:30 Dose: Not Given Metronidazole (Flagyl) 500 mg in 100 mls @ 100 mls/hr IVPB Q12 [facility] Last Admin: 02/09/17 22:30 Dose: 100 mls/hr Ciprofloxacin (Cipro 400mg/200ml Dsw) 400 mg in 200 mls @ 133 mls/hr IVPB Q24H [facility] Last Admin: 02/10/17 08:06 Dose: 133 mls/hr Dopamine HCl/Dextrose (Dopamine 400mg/250ml D5w) 400 mg in 250 mls @ 10.875 mls /hr IV .Q23H PRN; Protocol; 5 MCG/KG/MIN PRN Reason: TITRATE PER MD ORDER Last Titration: 02/10/17 06:30 Dose: 0 mcg/kg/min, 0 mls/hr Insulin Aspart (Novolog) 0 unit SC ACHS [facility] PRN Reason: Protocol Last Admin: 02/10/17 08:04 Dose: Not Given Insulin Aspart (Novolog Mix 70/30 (70/30 Units/Ml)) 12 units SC ACB [facility] Last Admin: 02/10/17 08:07 Dose: 12 units Insulin Aspart (Novolog Mix 70/30 (70/30 Units/Ml)) 8 units SC ACD [facility] Last Admin: 02/09/17 17:21 Dose: 8 units Lactulose (Enulose) 20 gm PO DAILY [facility] Last Admin: 02/08/17 10:35 Dose: 20 gm Megestrol Acetate (Megace) 400 mg PO BID [facility] Last Admin: 02/09/17 17:20 Dose: 400 mg Montelukast Sodium (Singulair) 10 mg PO HS [facility] Last Admin: 02/09/17 23:38 Dose: 10 mg Morphine Sulfate (Morphine) 2 mg IV Q8 PRN PRN Reason: Pain, moderate (4-7) Last Admin: 02/08/17 00:56 Dose: 2 mg Ondansetron HCl (Zofran Inj) 4 mg IVP Q8H PRN PRN Reason: Nausea/Vomiting Last Admin: 02/07/17 12:03 Dose: 4 mg Pantoprazole Sodium (Protonix Ec Tab) 40 mg PO DAILY [facility] Last Admin: 02/09/17 09:30 Dose: Not Given Polyethylene Glycol (Miralax) 17 gm PO DAILY [facility] Last Admin: 02/09/17 09:30 Dose: Not Given Rosuvastatin Calcium (Crestor) 2.5 mg PO HS [facility] Last Admin: 02/09/17 21:36 Dose: 2.5 mg Fluticasone/Salmeterol (Advair Diskus 250/50) 1 puff INH RQ12 [facility] Last Admin: 02/10/17 08:13 Dose: 1 puff Vitamin A (Vitamin A & D Oint Ud Foilpak) 1 ea TOP BID [facility] Last Admin: 02/09/17 17:20 Dose: 1 ea - Labs Labs: 02/10/17 05:59 02/10/17 05:59 PT 17.1 SECONDS (9.7-12.2) H 02/09/17 09:40 INR 1.5 02/09/17 09:40 - Constitutional Appears: No Acute Distress, Chronically Ill - Head Exam Head Exam: ATRAUMATIC, NORMAL INSPECTION - Eye Exam Eye Exam: EOMI, Normal appearance - Neck Exam Neck Exam: Normal Inspection. absent: Tenderness - Cardiovascular Exam Cardiovascular Exam: REGULAR RHYTHM, +S1 - GI/Abdominal Exam GI & Abdominal Exam: Soft. absent: Tenderness - Extremities Exam Extremities Exam: Normal Inspection, Tenderness - Neurological Exam Neurological Exam: Alert, CN II-XII Intact - Skin Skin Exam: Dry, Warm Assessment and Plan (1) Diabetes mellitus Status: Acute (2) Diverticula of colon Status: Acute (3) ESRD (end stage renal disease) Status: Acute (4) HTN (hypertension) Status: Acute (5) Renal transplant recipient Status: Chronic - Assessment and Plan (Free Text) Plan: Dialysis TTS for now stop carvedilol
[2017-02-10] MEDS: metroNIDAZOLE IV 500 mg/100 ml 500 MG/100 ML BAG IVPB SCH ×2 (11:14→22:27)
[2017-02-10] MEDS: Vitamins A & D Oint UD Foilpak TOP SCH ×2 (11:14→17:30)
[2017-02-10] MEDS: ULORIC 80MG PO SCH (11:15)
[2017-02-10] MEDS: Megestrol Acetate 40 mg/ml Cup PO SCH ×2 (11:15→17:29)
[2017-02-10] MEDS: Pantoprazole 40 mg EC Tab PO SCH (11:15)
[2017-02-10] MEDS: POLYETHYLENE GLYCOL 3350 17 GM/Dose PACKET PO SCH ×2 (11:15→11:20)
[2017-02-10] MEDS ORDERED: (Novolog Mix 70/30) Insulin Aspart/Insulin Aspar 100 units/ml SC SCH (16:30)
[2017-02-10] MEDS ORDERED: Magnesium Sulfate 1 gm in D5W 1 GM/100 ML BAG IVPB ONE (18:46)
--- NOTE | 2017-02-10 20:04 | PN ---
ENDO FOLLOWUP NOTE LOCATION: ICU, room #16. SUBJECTIVE: This is a 71-year-old female with recent uncontrolled type 2 insulin requiring diabetes who developed sudden hypotension and bradycardia yesterday and was transferred to ICU for closer hemodynamic monitoring as noted thereof. She was also given a stat dose of IV steroids with supervening hyperglycemic accelerations as expected thereof. Today's glucose levels have ranged from 219 to 268 mg/dL. It was 161 at bedtime last night. The latest chemistry showed a BUN of 31, sodium 128, potassium 5.0, chloride 92, CO2 of 25, glucose 169 and creatinine 3.8. So, at this time, we will modify her basal and premixed insulin regimen and increase the NovoLog 70/30 to 16 units a.c. breakfast and 12 units a.c. dinner to start today. We will titrate incrementally as indicated to optimize metabolic control. We will continue the low-dose correction scale using NovoLog insulin as ordered. We will follow and advise accordingly. Becky Newton MD
--- NOTE | 2017-02-10 20:38 | CP.PCM.PN ---
Subjective - Date & Time of Evaluation Date of Evaluation: 02/10/17 Time of Evaluation: 15:20 - Subjective Subjective: clinically same Objective - Vital Signs/Intake and Output Vital Signs (last 24 hours): Temp Pulse Resp BP Pulse Ox 98.8 F 78 18 110/63 99 02/10/17 16:00 02/10/17 19:10 02/10/17 19:10 02/10/17 19:10 02/10/17 19:10 Intake and Output: 02/10/17 02/11/17 18:59 06:59 Intake Total 900 25 Output Total 0 0 Balance 900 25 - Medications Medications: Current Medications Colchicine (Colocrys) 0.6 mg PO MWF [facility] Last Admin: 02/09/17 09:29 Dose: Not Given Dicyclomine HCl (Bentyl) 20 mg PO Q6 PRN PRN Reason: ABDOMINAL CRAMPING Last Admin: 02/08/17 10:27 Dose: 20 mg Home Med (Febuxostat [Uloric]) 80 mg PO DAILY [facility] Last Admin: 02/10/17 11:15 Dose: 80 mg Metronidazole (Flagyl) 500 mg in 100 mls @ 100 mls/hr IVPB Q12 [facility] Last Admin: 02/10/17 11:14 Dose: 100 mls/hr Ciprofloxacin (Cipro 400mg/200ml Dsw) 400 mg in 200 mls @ 133 mls/hr IVPB Q24H [facility] Last Admin: 02/10/17 08:06 Dose: 133 mls/hr Insulin Aspart (Novolog) 0 unit SC ACHS [facility] PRN Reason: Protocol Last Admin: 02/10/17 16:50 Dose: Not Given Insulin Aspart (Novolog Mix 70/30 (70/30 Units/Ml)) 16 units SC ACB [facility] Insulin Aspart (Novolog Mix 70/30 (70/30 Units/Ml)) 12 units SC ACD [facility] Last Admin: 02/10/17 17:29 Dose: 12 units Lactulose (Enulose) 20 gm PO DAILY [facility] Last Admin: 02/08/17 10:35 Dose: 20 gm Megestrol Acetate (Megace) 400 mg PO BID [facility] Last Admin: 02/10/17 17:29 Dose: 400 mg Montelukast Sodium (Singulair) 10 mg PO HS [facility] Last Admin: 02/09/17 23:38 Dose: 10 mg Morphine Sulfate (Morphine) 2 mg IV Q8 PRN PRN Reason: Pain, moderate (4-7) Last Admin: 02/08/17 00:56 Dose: 2 mg Ondansetron HCl (Zofran Inj) 4 mg IVP Q8H PRN PRN Reason: Nausea/Vomiting Last Admin: 02/07/17 12:03 Dose: 4 mg Pantoprazole Sodium (Protonix Ec Tab) 40 mg PO DAILY [facility] Last Admin: 02/10/17 11:15 Dose: 40 mg Polyethylene Glycol (Miralax) 17 gm PO DAILY [facility] Last Admin: 02/10/17 11:20 Dose: Not Given Rosuvastatin Calcium (Crestor) 2.5 mg PO HS [facility] Last Admin: 02/09/17 21:36 Dose: 2.5 mg Fluticasone/Salmeterol (Advair Diskus 250/50) 1 puff INH RQ12 [facility] Last Admin: 02/10/17 20:03 Dose: Not Given Vitamin A (Vitamin A & D Oint Ud Foilpak) 1 ea TOP BID [facility] Last Admin: 02/10/17 17:30 Dose: 1 ea - Labs Labs: 02/10/17 05:59 02/10/17 05:59 PT 17.1 SECONDS (9.7-12.2) H 02/09/17 09:40 INR 1.5 02/09/17 09:40 Assessment and Plan - Assessment and Plan (Free Text) Plan: Blood pressure better of the patient blood pressure Colchicine Cipro Flagyl Continue monitoring the blood pressure Recent echo within normal EF. Patient is off the carvedilol heart rate is normal Monitor for the abdominal pain
[2017-02-10] MEDS: Rosuvastatin Calcium 2.5 mg Tab PO SCH (22:27)
--- NOTE | 2017-02-10 22:28 | CP.PCM.PN ---
Subjective - Date & Time of Evaluation Date of Evaluation: 02/10/17 Time of Evaluation: 11:00 - Subjective Subjective: Patient seen and evaluated BP better Off pressors Objective - Vital Signs/Intake and Output Vital Signs (last 24 hours): Temp Pulse Resp BP Pulse Ox 98.6 F 83 22 112/68 98 02/10/17 20:30 02/10/17 20:30 02/10/17 20:30 02/10/17 20:30 02/10/17 20:30 Intake and Output: 02/10/17 02/11/17 18:59 06:59 Intake Total 900 25 Output Total 0 0 Balance 900 25 - Medications Medications: Current Medications Colchicine (Colocrys) 0.6 mg PO MWF [facility] Last Admin: 02/09/17 09:29 Dose: Not Given Dicyclomine HCl (Bentyl) 20 mg PO Q6 PRN PRN Reason: ABDOMINAL CRAMPING Last Admin: 02/08/17 10:27 Dose: 20 mg Home Med (Febuxostat [Uloric]) 80 mg PO DAILY [facility] Last Admin: 02/10/17 11:15 Dose: 80 mg Metronidazole (Flagyl) 500 mg in 100 mls @ 100 mls/hr IVPB Q12 [facility] Last Admin: 02/10/17 11:14 Dose: 100 mls/hr Ciprofloxacin (Cipro 400mg/200ml Dsw) 400 mg in 200 mls @ 133 mls/hr IVPB Q24H [facility] Last Admin: 02/10/17 08:06 Dose: 133 mls/hr Insulin Aspart (Novolog) 0 unit SC ACHS [facility] PRN Reason: Protocol Last Admin: 02/10/17 22:21 Dose: Not Given Insulin Aspart (Novolog Mix 70/30 (70/30 Units/Ml)) 16 units SC ACB [facility] Insulin Aspart (Novolog Mix 70/30 (70/30 Units/Ml)) 12 units SC ACD [facility] Last Admin: 02/10/17 17:29 Dose: 12 units Lactulose (Enulose) 20 gm PO DAILY [facility] Last Admin: 02/08/17 10:35 Dose: 20 gm Megestrol Acetate (Megace) 400 mg PO BID [facility] Last Admin: 02/10/17 17:29 Dose: 400 mg Montelukast Sodium (Singulair) 10 mg PO HS [facility] Last Admin: 02/09/17 23:38 Dose: 10 mg Morphine Sulfate (Morphine) 2 mg IV Q8 PRN PRN Reason: Pain, moderate (4-7) Last Admin: 02/08/17 00:56 Dose: 2 mg Ondansetron HCl (Zofran Inj) 4 mg IVP Q8H PRN PRN Reason: Nausea/Vomiting Last Admin: 02/07/17 12:03 Dose: 4 mg Pantoprazole Sodium (Protonix Ec Tab) 40 mg PO DAILY [facility] Last Admin: 02/10/17 11:15 Dose: 40 mg Polyethylene Glycol (Miralax) 17 gm PO DAILY [facility] Last Admin: 02/10/17 11:20 Dose: Not Given Rosuvastatin Calcium (Crestor) 2.5 mg PO HS [facility] Last Admin: 02/09/17 21:36 Dose: 2.5 mg Fluticasone/Salmeterol (Advair Diskus 250/50) 1 puff INH RQ12 [facility] Last Admin: 02/10/17 20:03 Dose: Not Given Vitamin A (Vitamin A & D Oint Ud Foilpak) 1 ea TOP BID [facility] Last Admin: 02/10/17 17:30 Dose: 1 ea - Labs Labs: 02/10/17 05:59 02/10/17 05:59 PT 17.1 SECONDS (9.7-12.2) H 02/09/17 09:40 INR 1.5 02/09/17 09:40 - Head Exam Head Exam: ATRAUMATIC, NORMAL INSPECTION - Eye Exam Eye Exam: EOMI, PERRL Pupil Exam: NORMAL ACCOMODATION - ENT Exam ENT Exam: Mucous Membranes Moist - Neck Exam Neck Exam: Full ROM, Normal Inspection - Respiratory Exam Respiratory Exam: Clear to Ausculation Bilateral, NORMAL BREATHING PATTERN - Cardiovascular Exam Cardiovascular Exam: REGULAR RHYTHM, +S1, +S2 - GI/Abdominal Exam GI & Abdominal Exam: Soft, Normal Bowel Sounds - Extremities Exam Extremities Exam: Full ROM - Neurological Exam Neurological Exam: Alert, Awake, Oriented x3 - Psychiatric Exam Psychiatric exam: Normal Mood - Skin Skin Exam: Warm Assessment and Plan - Assessment and Plan (Free Text) Assessment: 1. Hypotension: Resolved ? Sterod withdrawl 2. CKD on HD 3. 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
[2017-02-11] MEDS ORDERED: (Novolog Mix 70/30) Insulin Aspart/Insulin Aspar 100 units/ml SC SCH ×2 (07:30→16:30)
[2017-02-11] MEDS: (Novolog) Insulin Aspart, Recombinant 100 u/ml 10 ml vial SC SCH ×4 (07:42→21:50)
[2017-02-11] MEDS: Ciprofloxacin 400mg/200ml D5W 400 MG/200 ML BAG IVPB SCH (08:29)
[2017-02-11] MEDS: Fluticasone-Salmeterol 250-50mcg Diskus INH SCH ×2 (08:30→20:53)
[2017-02-11] MEDS: Pantoprazole 40 mg EC Tab PO SCH (09:17)
[2017-02-11] MEDS: Megestrol Acetate 40 mg/ml Cup PO SCH ×2 (09:17→17:34)
[2017-02-11] MEDS: POLYETHYLENE GLYCOL 3350 17 GM/Dose PACKET PO SCH (09:17)
[2017-02-11] MEDS: Vitamins A & D Oint UD Foilpak TOP SCH ×2 (09:17→17:34)
[2017-02-11] MEDS: metroNIDAZOLE IV 500 mg/100 ml 500 MG/100 ML BAG IVPB SCH ×2 (11:17→21:48)
--- NOTE | 2017-02-11 14:40 | CP.PCM.PN ---
Subjective - Date & Time of Evaluation Date of Evaluation: 02/11/17 Time of Evaluation: 14:38 - Subjective Subjective: s/p dialysis 02/11 c/o abdominal pains- on treatment for diverticulosis s/p IVC filter for right LE DVT BP and HR stable off carvedilol Objective - Vital Signs/Intake and Output Vital Signs (last 24 hours): Temp Pulse Resp BP Pulse Ox 97.9 F 74 20 113/67 97 02/11/17 13:35 02/11/17 13:35 02/11/17 13:35 02/11/17 13:35 02/11/17 13:35 Intake and Output: 02/11/17 02/11/17 06:59 18:59 Intake Total 25 Output Total 0 Balance 25 - Medications Medications: Current Medications Colchicine (Colocrys) 0.6 mg PO MWF [facility] Last Admin: 02/11/17 08:44 Dose: 0.6 mg Dicyclomine HCl (Bentyl) 20 mg PO Q6 PRN PRN Reason: ABDOMINAL CRAMPING Last Admin: 02/11/17 06:59 Dose: 20 mg Home Med (Febuxostat [Uloric]) 80 mg PO DAILY [facility] Last Admin: 02/10/17 11:15 Dose: 80 mg Metronidazole (Flagyl) 500 mg in 100 mls @ 100 mls/hr IVPB Q12 [facility] Last Admin: 02/11/17 11:17 Dose: 100 mls/hr Ciprofloxacin (Cipro 400mg/200ml Dsw) 400 mg in 200 mls @ 133 mls/hr IVPB Q24H [facility] Last Admin: 02/11/17 08:29 Dose: 133 mls/hr Insulin Aspart (Novolog) 0 unit SC ACHS [facility] PRN Reason: Protocol Last Admin: 02/11/17 12:16 Dose: Not Given Insulin Aspart (Novolog Mix 70/30 (70/30 Units/Ml)) 20 units SC ACB [facility] Insulin Aspart (Novolog Mix 70/30 (70/30 Units/Ml)) 14 units SC ACD [facility] Lactulose (Enulose) 20 gm PO DAILY [facility] Last Admin: 02/08/17 10:35 Dose: 20 gm Megestrol Acetate (Megace) 400 mg PO BID [facility] Last Admin: 02/11/17 09:17 Dose: 400 mg Montelukast Sodium (Singulair) 10 mg PO HS [facility] Last Admin: 02/09/17 23:38 Dose: 10 mg Morphine Sulfate (Morphine) 2 mg IV Q8 PRN PRN Reason: Pain, moderate (4-7) Last Admin: 02/08/17 00:56 Dose: 2 mg Ondansetron HCl (Zofran Inj) 4 mg IVP Q8H PRN PRN Reason: Nausea/Vomiting Last Admin: 02/11/17 11:18 Dose: 4 mg Pantoprazole Sodium (Protonix Ec Tab) 40 mg PO DAILY [facility] Last Admin: 02/11/17 09:17 Dose: 40 mg Polyethylene Glycol (Miralax) 17 gm PO DAILY [facility] Last Admin: 02/11/17 09:17 Dose: 17 gm Rosuvastatin Calcium (Crestor) 2.5 mg PO HS [facility] Last Admin: 02/10/17 22:27 Dose: 2.5 mg Fluticasone/Salmeterol (Advair Diskus 250/50) 1 puff INH RQ12 [facility] Last Admin: 02/11/17 08:30 Dose: Not Given Vitamin A (Vitamin A & D Oint Ud Foilpak) 1 ea TOP BID [facility] Last Admin: 02/11/17 09:17 Dose: 1 ea - Labs Labs: 02/10/17 05:59 02/10/17 05:59 PT 17.1 SECONDS (9.7-12.2) H 02/09/17 09:40 INR 1.5 02/09/17 09:40 - Constitutional Appears: No Acute Distress, Chronically Ill - Head Exam Head Exam: ATRAUMATIC, NORMAL INSPECTION - Eye Exam Eye Exam: EOMI, Normal appearance - Neck Exam Neck Exam: Normal Inspection. absent: Tenderness - Respiratory Exam Respiratory Exam: Clear to Ausculation Bilateral, NORMAL BREATHING PATTERN - Cardiovascular Exam Cardiovascular Exam: REGULAR RHYTHM, +S1 - GI/Abdominal Exam GI & Abdominal Exam: Soft, Tenderness - Extremities Exam Extremities Exam: Normal Inspection. absent: Tenderness - Neurological Exam Neurological Exam: Alert, CN II-XII Intact - Skin Skin Exam: Dry, Warm Assessment and Plan (1) Diabetes mellitus Status: Acute (2) Diverticula of colon Status: Acute (3) ESRD (end stage renal disease) Status: Acute (4) HTN (hypertension) Status: Acute (5) Renal transplant recipient Status: Chronic - Assessment and Plan (Free Text) Plan: Continue HD TTS IV ABs for diverticulitis rx Monitor BP
--- NOTE | 2017-02-11 17:54 | CP.PCM.PN ---
Subjective - Date & Time of Evaluation Date of Evaluation: 02/11/17 Time of Evaluation: 17:53 - Subjective Subjective: PT SEEN AND EVAL'D BY DR. KEATING AND CLEARED FOR D/C HOME TODAY BY HIM. UPON D/ C PROCESS PT AND FAMILY C/O PT STILL HAVING ABD PAIN; REFUSING D/C. D/C ORDER CANCELLED. RE-ORDERED GI TO RE-EVAL PT. NO FURTHER ORDERS BY MAIL PROCESSING ASSOCIATE. ALL OTHER MANAGEMENT PER MEDICAL TEAM. Objective - Vital Signs/Intake and Output Vital Signs (last 24 hours): Temp Pulse Resp BP Pulse Ox 97.9 F 74 20 113/67 97 02/11/17 13:35 02/11/17 13:35 02/11/17 13:35 02/11/17 13:35 02/11/17 13:35 Intake and Output: 02/11/17 02/11/17 06:59 18:59 Intake Total 25 500 Output Total 0 Balance 25 500 - Medications Medications: Current Medications Colchicine (Colocrys) 0.6 mg PO MWF [facility] Last Admin: 02/11/17 08:44 Dose: 0.6 mg Dicyclomine HCl (Bentyl) 20 mg PO Q6 PRN PRN Reason: ABDOMINAL CRAMPING Last Admin: 02/11/17 17:34 Dose: 20 mg Home Med (Febuxostat [Uloric]) 80 mg PO DAILY [facility] Last Admin: 02/10/17 11:15 Dose: 80 mg Metronidazole (Flagyl) 500 mg in 100 mls @ 100 mls/hr IVPB Q12 [facility] Last Admin: 02/11/17 11:17 Dose: 100 mls/hr Ciprofloxacin (Cipro 400mg/200ml Dsw) 400 mg in 200 mls @ 133 mls/hr IVPB Q24H [facility] Last Admin: 02/11/17 08:29 Dose: 133 mls/hr Insulin Aspart (Novolog) 0 unit SC ACHS [facility] PRN Reason: Protocol Last Admin: 02/11/17 17:34 Dose: 3 unit Insulin Aspart (Novolog Mix 70/30 (70/30 Units/Ml)) 20 units SC ACB [facility] Insulin Aspart (Novolog Mix 70/30 (70/30 Units/Ml)) 14 units SC ACD [facility] Last Admin: 02/11/17 17:35 Dose: 14 units Lactulose (Enulose) 20 gm PO DAILY [facility] Last Admin: 02/08/17 10:35 Dose: 20 gm Megestrol Acetate (Megace) 400 mg PO BID [facility] Last Admin: 02/11/17 17:34 Dose: 400 mg Montelukast Sodium (Singulair) 10 mg PO HS [facility] Last Admin: 02/09/17 23:38 Dose: 10 mg Morphine Sulfate (Morphine) 2 mg IV Q8 PRN PRN Reason: Pain, moderate (4-7) Last Admin: 02/08/17 00:56 Dose: 2 mg Ondansetron HCl (Zofran Inj) 4 mg IVP Q8H PRN PRN Reason: Nausea/Vomiting Last Admin: 02/11/17 11:18 Dose: 4 mg Pantoprazole Sodium (Protonix Ec Tab) 40 mg PO DAILY [facility] Last Admin: 02/11/17 09:17 Dose: 40 mg Polyethylene Glycol (Miralax) 17 gm PO DAILY [facility] Last Admin: 02/11/17 09:17 Dose: 17 gm Rosuvastatin Calcium (Crestor) 2.5 mg PO HS [facility] Last Admin: 02/10/17 22:27 Dose: 2.5 mg Fluticasone/Salmeterol (Advair Diskus 250/50) 1 puff INH RQ12 [facility] Last Admin: 02/11/17 08:30 Dose: Not Given Vitamin A (Vitamin A & D Oint Ud Foilpak) 1 ea TOP BID [facility] Last Admin: 02/11/17 17:34 Dose: 1 ea - Labs Labs: 02/10/17 05:59 02/10/17 05:59 PT 17.1 SECONDS (9.7-12.2) H 02/09/17 09:40 INR 1.5 02/09/17 09:40
--- NOTE | 2017-02-11 18:32 | CP.PCM.PN ---
Subjective - Date & Time of Evaluation Date of Evaluation: 02/11/17 Time of Evaluation: 10:20 - Subjective Subjective: clinically same Objective - Vital Signs/Intake and Output Vital Signs (last 24 hours): Temp Pulse Resp BP Pulse Ox 97.6 F 72 20 112/71 98 02/11/17 15:09 02/11/17 15:09 02/11/17 15:09 02/11/17 15:09 02/11/17 15:09 Intake and Output: 02/11/17 02/11/17 06:59 18:59 Intake Total 25 500 Output Total 0 Balance 25 500 - Medications Medications: Current Medications Colchicine (Colocrys) 0.6 mg PO MWF [facility] Last Admin: 02/11/17 08:44 Dose: 0.6 mg Dicyclomine HCl (Bentyl) 20 mg PO Q6 PRN PRN Reason: ABDOMINAL CRAMPING Last Admin: 02/11/17 17:34 Dose: 20 mg Home Med (Febuxostat [Uloric]) 80 mg PO DAILY [facility] Last Admin: 02/10/17 11:15 Dose: 80 mg Metronidazole (Flagyl) 500 mg in 100 mls @ 100 mls/hr IVPB Q12 [facility] Last Admin: 02/11/17 11:17 Dose: 100 mls/hr Ciprofloxacin (Cipro 400mg/200ml Dsw) 400 mg in 200 mls @ 133 mls/hr IVPB Q24H [facility] Last Admin: 02/11/17 08:29 Dose: 133 mls/hr Insulin Aspart (Novolog) 0 unit SC ACHS [facility] PRN Reason: Protocol Last Admin: 02/11/17 17:34 Dose: 3 unit Insulin Aspart (Novolog Mix 70/30 (70/30 Units/Ml)) 20 units SC ACB [facility] Insulin Aspart (Novolog Mix 70/30 (70/30 Units/Ml)) 14 units SC ACD [facility] Last Admin: 02/11/17 17:35 Dose: 14 units Lactulose (Enulose) 20 gm PO DAILY [facility] Last Admin: 02/08/17 10:35 Dose: 20 gm Megestrol Acetate (Megace) 400 mg PO BID [facility] Last Admin: 02/11/17 17:34 Dose: 400 mg Montelukast Sodium (Singulair) 10 mg PO HS [facility] Last Admin: 02/09/17 23:38 Dose: 10 mg Morphine Sulfate (Morphine) 2 mg IV Q8 PRN PRN Reason: Pain, moderate (4-7) Last Admin: 02/08/17 00:56 Dose: 2 mg Ondansetron HCl (Zofran Inj) 4 mg IVP Q8H PRN PRN Reason: Nausea/Vomiting Last Admin: 02/11/17 11:18 Dose: 4 mg Pantoprazole Sodium (Protonix Ec Tab) 40 mg PO DAILY [facility] Last Admin: 02/11/17 09:17 Dose: 40 mg Polyethylene Glycol (Miralax) 17 gm PO DAILY [facility] Last Admin: 02/11/17 09:17 Dose: 17 gm Rosuvastatin Calcium (Crestor) 2.5 mg PO HS [facility] Last Admin: 02/10/17 22:27 Dose: 2.5 mg Fluticasone/Salmeterol (Advair Diskus 250/50) 1 puff INH RQ12 [facility] Last Admin: 02/11/17 08:30 Dose: Not Given Vitamin A (Vitamin A & D Oint Ud Foilpak) 1 ea TOP BID [facility] Last Admin: 02/11/17 17:34 Dose: 1 ea - Labs Labs: 02/10/17 05:59 02/10/17 05:59 PT 17.1 SECONDS (9.7-12.2) H 02/09/17 09:40 INR 1.5 02/09/17 09:40 - Constitutional Appears: Well - Head Exam Head Exam: ATRAUMATIC, NORMAL INSPECTION, NORMOCEPHALIC - Eye Exam Eye Exam: EOMI, Normal appearance, PERRL Pupil Exam: NORMAL ACCOMODATION, PERRL - ENT Exam ENT Exam: Mucous Membranes Moist, Normal Exam - Neck Exam Neck Exam: Full ROM, Normal Inspection. absent: Lymphadenopathy - Respiratory Exam Respiratory Exam: Decreased Breath Sounds - Cardiovascular Exam Cardiovascular Exam: REGULAR RHYTHM, +S1, +S2 - GI/Abdominal Exam GI & Abdominal Exam: Soft, Diminished Bowel Sounds - Rectal Exam Rectal Exam: Deferred
[2017-02-11] MEDS: Rosuvastatin Calcium 2.5 mg Tab PO SCH (21:48)
[2017-02-11] MEDS ORDERED: (Lantus) Insulin Glargine, Recombinant SC SCH (22:00)
--- NOTE | 2017-02-12 01:08 | PN ---
DATE: ENDOCRINOLOGY FOLLOWUP NOTE LOCATION: Room 669. This is a 71-year-old female with recent uncontrolled type 2 insulin-requiring diabetes, now being followed closely for metabolic management. She received an injection of IV steroids in the ICU with supervening hyperglycemic accelerations as expected thereof. Her oral intake remained very poor and suboptimal as she continues to have persistent nausea, dyspepsia and vague upper abdominal pain. Her glucose levels today have ranged from 270 to 311 mg/dL. The fasting glucose was 257 mg/dL. So at this time, we will actually be adding a basal insulin with Lantus to be given as 10 units subcutaneously at bedtime daily to start tonight. We will modify the coverage scale to await hypoglycemia and detailed orders have been given. We will also increase a premixed insulin regimen with Novolog 70/30 to be given as 24 units subcutaneously before breakfast and Novolog 70/30 to be given as 14 units before dinner as ordered. We will titrate incremental as indicated to optimize metabolic control. We will obtain serial chemistries and supplement accordingly as needed. We will follow. Becky Newton MD
[2017-02-12] MEDS ORDERED: (Novolog Mix 70/30) Insulin Aspart/Insulin Aspar 100 units/ml SC SCH ×2 (07:30)
--- NOTE | 2017-02-12 08:04 | CP.PCM.PN ---
Subjective - Date & Time of Evaluation Date of Evaluation: 02/11/17 Time of Evaluation: 17:25 - Subjective Subjective: Patient seen and evaluated No chest pain or dyspnea Comfortable Objective - Vital Signs/Intake and Output Vital Signs (last 24 hours): Temp Pulse Resp BP Pulse Ox 97.7 F 86 20 119/76 99 02/12/17 05:23 02/12/17 05:23 02/12/17 05:23 02/12/17 05:23 02/12/17 05:23 Intake and Output: 02/12/17 02/12/17 06:59 18:59 Intake Total 340 Balance 340 - Medications Medications: Current Medications Colchicine (Colocrys) 0.6 mg PO MWF [facility] Last Admin: 02/11/17 08:44 Dose: 0.6 mg Dicyclomine HCl (Bentyl) 20 mg PO Q6 PRN PRN Reason: ABDOMINAL CRAMPING Last Admin: 02/11/17 17:34 Dose: 20 mg Home Med (Febuxostat [Uloric]) 80 mg PO DAILY [facility] Last Admin: 02/10/17 11:15 Dose: 80 mg Metronidazole (Flagyl) 500 mg in 100 mls @ 100 mls/hr IVPB Q12 [facility] Last Admin: 02/11/17 21:48 Dose: 100 mls/hr Ciprofloxacin (Cipro 400mg/200ml Dsw) 400 mg in 200 mls @ 133 mls/hr IVPB Q24H [facility] Last Admin: 02/11/17 08:29 Dose: 133 mls/hr Insulin Aspart (Novolog) 0 unit SC ACHS [facility] PRN Reason: Protocol Last Admin: 02/11/17 21:50 Dose: Not Given Insulin Aspart (Novolog Mix 70/30 (70/30 Units/Ml)) 14 units SC ACD [facility] Last Admin: 02/11/17 17:35 Dose: 14 units Insulin Aspart (Novolog Mix 70/30 (70/30 Units/Ml)) 24 units SC ACB [facility] Insulin Glargine (Lantus) 10 unit SC HS [facility] Last Admin: 02/11/17 21:48 Dose: 10 units Lactulose (Enulose) 20 gm PO DAILY [facility] Last Admin: 02/08/17 10:35 Dose: 20 gm Megestrol Acetate (Megace) 400 mg PO BID [facility] Last Admin: 02/11/17 17:34 Dose: 400 mg Montelukast Sodium (Singulair) 10 mg PO HS [facility] Last Admin: 02/11/17 21:48 Dose: 10 mg Morphine Sulfate (Morphine) 2 mg IV Q8 PRN PRN Reason: Pain, moderate (4-7) Last Admin: 02/08/17 00:56 Dose: 2 mg Ondansetron HCl (Zofran Inj) 4 mg IVP Q8H PRN PRN Reason: Nausea/Vomiting Last Admin: 02/12/17 05:14 Dose: 4 mg Pantoprazole Sodium (Protonix Ec Tab) 40 mg PO DAILY [facility] Last Admin: 02/11/17 09:17 Dose: 40 mg Polyethylene Glycol (Miralax) 17 gm PO DAILY [facility] Last Admin: 02/11/17 09:17 Dose: 17 gm Rosuvastatin Calcium (Crestor) 2.5 mg PO HS [facility] Last Admin: 02/11/17 21:48 Dose: 2.5 mg Fluticasone/Salmeterol (Advair Diskus 250/50) 1 puff INH RQ12 [facility] Last Admin: 02/11/17 20:53 Dose: Not Given Vitamin A (Vitamin A & D Oint Ud Foilpak) 1 ea TOP BID [facility] Last Admin: 02/11/17 17:34 Dose: 1 ea - Labs Labs: 02/10/17 05:59 02/10/17 05:59 PT 17.1 SECONDS (9.7-12.2) H 02/09/17 09:40 INR 1.5 02/09/17 09:40 - Head Exam Head Exam: ATRAUMATIC, NORMAL INSPECTION - Eye Exam Eye Exam: EOMI, PERRL Pupil Exam: NORMAL ACCOMODATION - ENT Exam ENT Exam: Mucous Membranes Moist, Normal Exam - Neck Exam Neck Exam: Full ROM - Respiratory Exam Respiratory Exam: Clear to Ausculation Bilateral, NORMAL BREATHING PATTERN - Cardiovascular Exam Cardiovascular Exam: REGULAR RHYTHM, +S1, +S2 - GI/Abdominal Exam GI & Abdominal Exam: Soft, Normal Bowel Sounds - Neurological Exam Neurological Exam: Alert, Awake, CN II-XII Intact, Oriented x3 - Psychiatric Exam Psychiatric exam: Normal Mood - Skin Skin Exam: Warm Assessment and Plan - Assessment and Plan (Free Text) Assessment: Assessment and Plan - Assessment and Plan (Free Text) Assessment: 1. Hypotension: Resolved 2. CKD on HD 3. 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
[2017-02-12] MEDS: Fluticasone-Salmeterol 250-50mcg Diskus INH SCH (08:14)
[2017-02-12] MEDS: (Novolog) Insulin Aspart, Recombinant 100 u/ml 10 ml vial SC SCH ×2 (08:16→11:31)
[2017-02-12] MEDS: Pantoprazole 40 mg EC Tab PO SCH (09:12)
[2017-02-12] MEDS: Vitamins A & D Oint UD Foilpak TOP SCH (09:12)
[2017-02-12] MEDS: Megestrol Acetate 40 mg/ml Cup PO SCH (09:12)
[2017-02-12] MEDS: POLYETHYLENE GLYCOL 3350 17 GM/Dose PACKET PO SCH ×2 (09:13→09:15)
[2017-02-12] MEDS: Ciprofloxacin 400mg/200ml D5W 400 MG/200 ML BAG IVPB SCH ×2 (09:18→14:39)
[2017-02-12] MEDS: metroNIDAZOLE IV 500 mg/100 ml 500 MG/100 ML BAG IVPB SCH (09:18)
[2017-02-12] MEDS: ULORIC 80MG PO SCH (09:18)
--- NOTE | 2017-02-12 10:21 | CP.PCM.PN ---
<Nataliya Esquivel - Last Filed: 02/12/17 10:23> Subjective - Date & Time of Evaluation Date of Evaluation: 02/12/17 Time of Evaluation: 08:00 - Subjective Subjective: PGY4 GI Follow-up Pt seen and examined bedside No complaints Denies any abd pain C/o of LE pain B/L + good appetite Denies any nausea, vomiting or diarrhea +BM ROS: 10- point ROS conducted, neg other than above Objective - Vital Signs/Intake and Output Vital Signs (last 24 hours): Temp Pulse Resp BP Pulse Ox 97.8 F 82 24 115/72 100 02/12/17 09:35 02/12/17 09:35 02/12/17 09:35 02/12/17 09:50 02/12/17 09:35 Intake and Output: 02/12/17 02/12/17 06:59 18:59 Intake Total 340 Balance 340 - Medications Medications: Current Medications Colchicine (Colocrys) 0.6 mg PO MWF [facility] Last Admin: 02/11/17 08:44 Dose: 0.6 mg Dicyclomine HCl (Bentyl) 20 mg PO Q6 PRN PRN Reason: ABDOMINAL CRAMPING Last Admin: 02/11/17 17:34 Dose: 20 mg Home Med (Febuxostat [Uloric]) 80 mg PO DAILY [facility] Last Admin: 02/12/17 09:18 Dose: Not Given Metronidazole (Flagyl) 500 mg in 100 mls @ 100 mls/hr IVPB Q12 [facility] Last Admin: 02/12/17 09:18 Dose: Not Given Ciprofloxacin (Cipro 400mg/200ml Dsw) 400 mg in 200 mls @ 133 mls/hr IVPB Q24H [facility] Last Admin: 02/12/17 09:18 Dose: Not Given Insulin Aspart (Novolog) 0 unit SC ACHS [facility] PRN Reason: Protocol Last Admin: 02/12/17 08:16 Dose: Not Given Insulin Aspart (Novolog Mix 70/30 (70/30 Units/Ml)) 14 units SC ACD [facility] Last Admin: 02/11/17 17:35 Dose: 14 units Insulin Aspart (Novolog Mix 70/30 (70/30 Units/Ml)) 24 units SC ACB [facility] Last Admin: 02/12/17 08:16 Dose: Not Given Insulin Glargine (Lantus) 10 unit SC [facility] Last Admin: 02/11/17 21:48 Dose: 10 units Lactulose (Enulose) 20 gm PO DAILY [facility] Last Admin: 02/08/17 10:35 Dose: 20 gm Megestrol Acetate (Megace) 400 mg PO BID [facility] Last Admin: 02/12/17 09:12 Dose: 400 mg Montelukast Sodium (Singulair) 10 mg PO HS [facility] Last Admin: 02/11/17 21:48 Dose: 10 mg Morphine Sulfate (Morphine) 2 mg IV Q8 PRN PRN Reason: Pain, moderate (4-7) Last Admin: 02/08/17 00:56 Dose: 2 mg Ondansetron HCl (Zofran Inj) 4 mg IVP Q8H PRN PRN Reason: Nausea/Vomiting Last Admin: 02/12/17 05:14 Dose: 4 mg Pantoprazole Sodium (Protonix Ec Tab) 40 mg PO DAILY [facility] Last Admin: 02/12/17 09:12 Dose: 40 mg Polyethylene Glycol (Miralax) 17 gm PO DAILY [facility] Last Admin: 02/12/17 09:15 Dose: Not Given Rosuvastatin Calcium (Crestor) 2.5 mg PO [facility] Last Admin: 02/11/17 21:48 Dose: 2.5 mg Fluticasone/Salmeterol (Advair Diskus 250/50) 1 puff INH RQ12 [facility] Last Admin: 02/12/17 08:14 Dose: Not Given Vitamin A (Vitamin A & D Oint Ud Foilpak) 1 ea TOP BID [facility] Last Admin: 02/12/17 09:12 Dose: 1 ea - Labs Labs: 02/10/17 05:59 02/10/17 05:59 PT 17.1 SECONDS (9.7-12.2) H 02/09/17 09:40 INR 1.5 02/09/17 09:40 - Constitutional Appears: Well, No Acute Distress - Head Exam Head Exam: ATRAUMATIC, NORMOCEPHALIC - Eye Exam Eye Exam: Normal appearance - ENT Exam ENT Exam: Mucous Membranes Moist - Respiratory Exam Respiratory Exam: Clear to Ausculation Bilateral, Respiratory Distress, NORMAL BREATHING PATTERN. absent: Rales, Rhonchi, Wheezes - Cardiovascular Exam Cardiovascular Exam: REGULAR RHYTHM, +S2. absent: +S1 - GI/Abdominal Exam GI & Abdominal Exam: Rigid, Soft, Normal Bowel Sounds. absent: Firm, Guarding, Tenderness, Organomegaly - Extremities Exam Extremities Exam: Joint Swelling, Pedal Edema - Neurological Exam Neurological Exam: Alert, Awake, Oriented x3 - Psychiatric Exam Psychiatric exam: Normal Affect, Normal Mood - Skin Skin Exam: Dry, Intact, Normal Color, Warm Assessment and Plan - Assessment and Plan (Free Text) Assessment: Patient is a 71yo female with PMHx significant for kidney failure requiring transplant (2000) and HD via right forearm AVF, DM2, HTN, diverticulosis who presented to the ED with complaint of abdominal pain. -Acute sigmoid diverticulitis -King-diverticulosis -B/L leg pain -Tophaceous gout -Question of cirrhosis given prior imaging; low grade HE -ESRD on HD; H/O kidney transplant -DVT RLE Plan: -No abdominal pain at present -Started on renal dose of Eliquis per documentation, do not see medication in [facility]UL -Monitor CBC on anticoagulation -Continue lactulose as ordered; titrate to 1-2 BM/day -Pt on colchicine and uloric with h/o gouty arthropathy -Abdominal pain improved; diet as tolerated -complete cipro as outpt -pt denies any abd pain -okay to d/c from GI standpoint -Outpatient colonoscopy in 6-8 weeks -Will sign off D/W Dr. Madison <Prateek Madison - Last Filed: 02/12/17 11:57> Objective - Vital Signs/Intake and Output Vital Signs (last 24 hours): Temp Pulse Resp BP Pulse Ox 97.8 F 82 24 120/70 100 02/12/17 09:35 02/12/17 09:35 02/12/17 09:35 02/12/17 11:35 02/12/17 09:35 Intake and Output: 02/12/17 02/12/17 06:59 18:59 Intake Total 340 Balance 340 - Medications Medications: Current Medications Colchicine (Colocrys) 0.6 mg PO MWF [facility] Last Admin: 02/11/17 08:44 Dose: 0.6 mg Dicyclomine HCl (Bentyl) 20 mg PO Q6 PRN PRN Reason: ABDOMINAL CRAMPING Last Admin: 02/11/17 17:34 Dose: 20 mg Home Med (Febuxostat [Uloric]) 80 mg PO DAILY [facility] Last Admin: 02/12/17 09:18 Dose: Not Given Metronidazole (Flagyl) 500 mg in 100 mls @ 100 mls/hr IVPB Q12 [facility] Last Admin: 02/12/17 09:18 Dose: Not Given Ciprofloxacin (Cipro 400mg/200ml Dsw) 400 mg in 200 mls @ 133 mls/hr IVPB Q24H [facility] Last Admin: 02/12/17 09:18 Dose: Not Given Insulin Aspart (Novolog) 0 unit SC ACHS [facility] PRN Reason: Protocol Last Admin: 02/12/17 11:31 Dose: Not Given Insulin Aspart (Novolog Mix 70/30 (70/30 Units/Ml)) 14 units SC ACD [facility] Last Admin: 02/11/17 17:35 Dose: 14 units Insulin Aspart (Novolog Mix 70/30 (70/30 Units/Ml)) 24 units SC ACB [facility] Last Admin: 02/12/17 08:16 Dose: Not Given Insulin Glargine (Lantus) 10 unit SC HS [facility] Last Admin: 02/11/17 21:48 Dose: 10 units Lactulose (Enulose) 20 gm PO DAILY [facility] Last Admin: 02/08/17 10:35 Dose: 20 gm Megestrol Acetate (Megace) 400 mg PO BID [facility] Last Admin: 02/12/17 09:12 Dose: 400 mg Montelukast Sodium (Singulair) 10 mg PO HS [facility] Last Admin: 02/11/17 21:48 Dose: 10 mg Morphine Sulfate (Morphine) 2 mg IV Q8 PRN PRN Reason: Pain, moderate (4-7) Last Admin: 02/08/17 00:56 Dose: 2 mg Ondansetron HCl (Zofran Inj) 4 mg IVP Q8H PRN PRN Reason: Nausea/Vomiting Last Admin: 02/12/17 05:14 Dose: 4 mg Pantoprazole Sodium (Protonix Ec Tab) 40 mg PO DAILY [facility] Last Admin: 02/12/17 09:12 Dose: 40 mg Polyethylene Glycol (Miralax) 17 gm PO DAILY [facility] Last Admin: 02/12/17 09:15 Dose: Not Given Rosuvastatin Calcium (Crestor) 2.5 mg PO [facility] Last Admin: 02/11/17 21:48 Dose: 2.5 mg Fluticasone/Salmeterol (Advair Diskus 250/50) 1 puff INH RQ12 GAGANDEEP Last Admin: 02/12/17 08:14 Dose: Not Given Vitamin A (Vitamin A & D Oint Ud Foilpak) 1 ea TOP BID [facility] Last Admin: 02/12/17 09:12 Dose: 1 ea - Labs Labs: 02/10/17 05:59 02/10/17 05:59 PT 17.1 SECONDS (9.7-12.2) H 02/09/17 09:40 INR 1.5 02/09/17 09:40 Attending/Attestation - Attestation I have personally seen and examined this patient.: Yes I have fully participated in the care of the patient.: Yes I have reviewed all pertinent clinical information, including history, physical exam and plan: Yes Notes (Text): 02/12/17 11:56 71 year old female with h/o ESRD s/p RT, DM, HTN, Diverticulosis a/w diverticulitis. 1. Acute diverticulitis Plan: -resolved -she has no pain currently -no diarrhea/bleeding -no fever -she is tolerated a diet -outpatient colonoscopy in 6-8 weeks -ok for discharge from gi standpoint
--- NOTE | 2017-02-12 11:15 | CP.PCM.PN ---
Subjective - Date & Time of Evaluation Date of Evaluation: 02/12/17 Time of Evaluation: 11:13 - Subjective Subjective: seen in dialysis feels fine abdomina pain when eats, otherwise no pain no SOB ROS- as per HPI, other than that 10 point ROS negative Objective - Vital Signs/Intake and Output Vital Signs (last 24 hours): Temp Pulse Resp BP Pulse Ox 97.8 F 82 24 126/69 100 02/12/17 09:35 02/12/17 09:35 02/12/17 09:35 02/12/17 11:05 02/12/17 09:35 Intake and Output: 02/12/17 02/12/17 06:59 18:59 Intake Total 340 Balance 340 - Medications Medications: Current Medications Colchicine (Colocrys) 0.6 mg PO MWF [facility] Last Admin: 02/11/17 08:44 Dose: 0.6 mg Dicyclomine HCl (Bentyl) 20 mg PO Q6 PRN PRN Reason: ABDOMINAL CRAMPING Last Admin: 02/11/17 17:34 Dose: 20 mg Home Med (Febuxostat [Uloric]) 80 mg PO DAILY [facility] Last Admin: 02/12/17 09:18 Dose: Not Given Metronidazole (Flagyl) 500 mg in 100 mls @ 100 mls/hr IVPB Q12 [facility] Last Admin: 02/12/17 09:18 Dose: Not Given Ciprofloxacin (Cipro 400mg/200ml Dsw) 400 mg in 200 mls @ 133 mls/hr IVPB Q24H [facility] Last Admin: 02/12/17 09:18 Dose: Not Given Insulin Aspart (Novolog) 0 unit SC ACHS [facility] PRN Reason: Protocol Last Admin: 02/12/17 08:16 Dose: Not Given Insulin Aspart (Novolog Mix 70/30 (70/30 Units/Ml)) 14 units SC ACD [facility] Last Admin: 02/11/17 17:35 Dose: 14 units Insulin Aspart (Novolog Mix 70/30 (70/30 Units/Ml)) 24 units SC ACB [facility] Last Admin: 02/12/17 08:16 Dose: Not Given Insulin Glargine (Lantus) 10 unit SC HS [facility] Last Admin: 02/11/17 21:48 Dose: 10 units Lactulose (Enulose) 20 gm PO DAILY [facility] Last Admin: 02/08/17 10:35 Dose: 20 gm Megestrol Acetate (Megace) 400 mg PO BID [facility] Last Admin: 02/12/17 09:12 Dose: 400 mg Montelukast Sodium (Singulair) 10 mg PO HS [facility] Last Admin: 02/11/17 21:48 Dose: 10 mg Morphine Sulfate (Morphine) 2 mg IV Q8 PRN PRN Reason: Pain, moderate (4-7) Last Admin: 02/08/17 00:56 Dose: 2 mg Ondansetron HCl (Zofran Inj) 4 mg IVP Q8H PRN PRN Reason: Nausea/Vomiting Last Admin: 02/12/17 05:14 Dose: 4 mg Pantoprazole Sodium (Protonix Ec Tab) 40 mg PO DAILY [facility] Last Admin: 02/12/17 09:12 Dose: 40 mg Polyethylene Glycol (Miralax) 17 gm PO DAILY [facility] Last Admin: 02/12/17 09:15 Dose: Not Given Rosuvastatin Calcium (Crestor) 2.5 mg PO [facility] Last Admin: 02/11/17 21:48 Dose: 2.5 mg Fluticasone/Salmeterol (Advair Diskus 250/50) 1 puff INH RQ12 [facility] Last Admin: 02/12/17 08:14 Dose: Not Given Vitamin A (Vitamin A & D Oint Ud Foilpak) 1 ea TOP BID [facility] Last Admin: 02/12/17 09:12 Dose: 1 ea - Labs Labs: 02/10/17 05:59 02/10/17 05:59 PT 17.1 SECONDS (9.7-12.2) H 02/09/17 09:40 INR 1.5 02/09/17 09:40 - Constitutional Appears: Well, Non-toxic - Head Exam Head Exam: ATRAUMATIC, NORMOCEPHALIC - Eye Exam Eye Exam: EOMI, Normal appearance, PERRL - ENT Exam ENT Exam: Mucous Membranes Moist - Respiratory Exam Respiratory Exam: Clear to Ausculation Bilateral. absent: Rhonchi, Wheezes - Cardiovascular Exam Cardiovascular Exam: REGULAR RHYTHM, +S1, +S2 - GI/Abdominal Exam GI & Abdominal Exam: Soft. absent: Distended, Tenderness - Extremities Exam Extremities Exam: Full ROM, Pedal Edema - Neurological Exam Neurological Exam: Alert, Awake, Oriented x3 - Psychiatric Exam Psychiatric exam: Normal Affect, Normal Mood - Skin Skin Exam: Normal Color, Warm Assessment and Plan (1) Dependence on renal dialysis Status: Acute (2) Anemia Status: Acute (3) CHF (congestive heart failure) Status: Acute (4) Diabetes mellitus Status: Acute (5) Diverticulitis Status: Acute (6) ESRD (end stage renal disease) Status: Acute - Assessment and Plan (Free Text) Plan: HD today to finish Abx course
[2017-02-12 13:07] VITALS: RESP 20
[2017-02-12 15:30] VITALS: BP 138/78; TEMP 98.3; O2SAT 94
--- NOTE | 2017-02-12 15:31 | CP.PCM.PN ---
Subjective - Date & Time of Evaluation Date of Evaluation: 02/12/17 Time of Evaluation: 10:20 - Subjective Subjective: clinically same Objective - Vital Signs/Intake and Output Vital Signs (last 24 hours): Temp Pulse Resp BP Pulse Ox 98.3 F 93 H 20 138/78 94 L 02/12/17 15:26 02/12/17 15:26 02/12/17 15:26 02/12/17 15:26 02/12/17 15:26 Intake and Output: 02/12/17 02/12/17 06:59 18:59 Intake Total 340 450 Balance 340 450 - Medications Medications: Current Medications Colchicine (Colocrys) 0.6 mg PO MWF [facility] Last Admin: 02/11/17 08:44 Dose: 0.6 mg Dicyclomine HCl (Bentyl) 20 mg PO Q6 PRN PRN Reason: ABDOMINAL CRAMPING Last Admin: 02/11/17 17:34 Dose: 20 mg Home Med (Febuxostat [Uloric]) 80 mg PO DAILY [facility] Last Admin: 02/12/17 09:18 Dose: Not Given Metronidazole (Flagyl) 500 mg in 100 mls @ 100 mls/hr IVPB Q12 [facility] Last Admin: 02/12/17 09:18 Dose: Not Given Ciprofloxacin (Cipro 400mg/200ml Dsw) 400 mg in 200 mls @ 133 mls/hr IVPB Q24H [facility] Last Admin: 02/12/17 14:39 Dose: 133 mls/hr Insulin Aspart (Novolog) 0 unit SC ACHS [facility] PRN Reason: Protocol Last Admin: 02/12/17 11:31 Dose: Not Given Insulin Aspart (Novolog Mix 70/30 (70/30 Units/Ml)) 14 units SC ACD [facility] Last Admin: 02/11/17 17:35 Dose: 14 units Insulin Aspart (Novolog Mix 70/30 (70/30 Units/Ml)) 24 units SC ACB [facility] Last Admin: 02/12/17 08:16 Dose: Not Given Insulin Glargine (Lantus) 10 unit SC HS [facility] Last Admin: 02/11/17 21:48 Dose: 10 units Lactulose (Enulose) 20 gm PO DAILY [facility] Last Admin: 02/08/17 10:35 Dose: 20 gm Megestrol Acetate (Megace) 400 mg PO BID [facility] Last Admin: 02/12/17 09:12 Dose: 400 mg Montelukast Sodium (Singulair) 10 mg PO HS [facility] Last Admin: 02/11/17 21:48 Dose: 10 mg Morphine Sulfate (Morphine) 2 mg IV Q8 PRN PRN Reason: Pain, moderate (4-7) Last Admin: 02/08/17 00:56 Dose: 2 mg Ondansetron HCl (Zofran Inj) 4 mg IVP Q8H PRN PRN Reason: Nausea/Vomiting Last Admin: 02/12/17 05:14 Dose: 4 mg Pantoprazole Sodium (Protonix Ec Tab) 40 mg PO DAILY [facility] Last Admin: 02/12/17 09:12 Dose: 40 mg Polyethylene Glycol (Miralax) 17 gm PO DAILY [facility] Last Admin: 02/12/17 09:15 Dose: Not Given Rosuvastatin Calcium (Crestor) 2.5 mg PO HS [facility] Last Admin: 02/11/17 21:48 Dose: 2.5 mg Fluticasone/Salmeterol (Advair Diskus 250/50) 1 puff INH RQ12 [facility] Last Admin: 02/12/17 08:14 Dose: Not Given Vitamin A (Vitamin A & D Oint Ud Foilpak) 1 ea TOP BID [facility] Last Admin: 02/12/17 09:12 Dose: 1 ea - Labs Labs: 02/10/17 05:59 02/10/17 05:59 PT 17.1 SECONDS (9.7-12.2) H 02/09/17 09:40 INR 1.5 02/09/17 09:40 - Constitutional Appears: Well - Head Exam Head Exam: ATRAUMATIC, NORMAL INSPECTION, NORMOCEPHALIC - Eye Exam Eye Exam: EOMI, Normal appearance, PERRL Pupil Exam: NORMAL ACCOMODATION, PERRL - ENT Exam ENT Exam: Mucous Membranes Moist, Normal Exam - Neck Exam Neck Exam: Full ROM, Normal Inspection. absent: Lymphadenopathy - Respiratory Exam Respiratory Exam: Decreased Breath Sounds - Cardiovascular Exam Cardiovascular Exam: REGULAR RHYTHM, +S1, +S2 - GI/Abdominal Exam GI & Abdominal Exam: Soft, Diminished Bowel Sounds - Rectal Exam Rectal Exam: Deferred
[2017-02-12 17:39] VITALS: PULSE 89
--- NOTE | 2017-02-12 18:10 | PCM.HF ---
Heart Failure Core Measure - Heart Failure Ejection Fraction: 40 % or Greater (EF 50-55%) Beta-Mendoza Prescribed: Carvedilol
--- NOTE | 2017-02-12 18:13 | CP.PCM.PN ---
Subjective - Date & Time of Evaluation Date of Evaluation: 02/12/17 Time of Evaluation: 11:00 - Subjective Subjective: Awake, alert, no acute distress. Objective - Vital Signs/Intake and Output Vital Signs (last 24 hours): Temp Pulse Resp BP Pulse Ox 98.3 F 89 20 138/78 94 L 02/12/17 15:26 02/12/17 16:00 02/12/17 15:26 02/12/17 15:26 02/12/17 15:26 Intake and Output: 02/12/17 02/12/17 06:59 18:59 Intake Total 340 450 Balance 340 450 - Medications Medications: Current Medications Colchicine (Colocrys) 0.6 mg PO MWF [facility] Last Admin: 02/11/17 08:44 Dose: 0.6 mg Dicyclomine HCl (Bentyl) 20 mg PO Q6 PRN PRN Reason: ABDOMINAL CRAMPING Last Admin: 02/11/17 17:34 Dose: 20 mg Home Med (Febuxostat [Uloric]) 80 mg PO DAILY [facility] Last Admin: 02/12/17 09:18 Dose: Not Given Metronidazole (Flagyl) 500 mg in 100 mls @ 100 mls/hr IVPB Q12 [facility] Last Admin: 02/12/17 09:18 Dose: Not Given Ciprofloxacin (Cipro 400mg/200ml Dsw) 400 mg in 200 mls @ 133 mls/hr IVPB Q24H [facility] Last Admin: 02/12/17 14:39 Dose: 133 mls/hr Insulin Aspart (Novolog) 0 unit SC ACHS [facility] PRN Reason: Protocol Last Admin: 02/12/17 11:31 Dose: Not Given Insulin Aspart (Novolog Mix 70/30 (70/30 Units/Ml)) 14 units SC ACD [facility] Last Admin: 02/11/17 17:35 Dose: 14 units Insulin Aspart (Novolog Mix 70/30 (70/30 Units/Ml)) 24 units SC ACB [facility] Last Admin: 02/12/17 08:16 Dose: Not Given Lactulose (Enulose) 20 gm PO DAILY [facility] Last Admin: 02/08/17 10:35 Dose: 20 gm Megestrol Acetate (Megace) 400 mg PO BID [facility] Last Admin: 02/12/17 09:12 Dose: 400 mg Montelukast Sodium (Singulair) 10 mg PO HS [facility] Last Admin: 02/11/17 21:48 Dose: 10 mg Morphine Sulfate (Morphine) 2 mg IV Q8 PRN PRN Reason: Pain, moderate (4-7) Last Admin: 02/08/17 00:56 Dose: 2 mg Ondansetron HCl (Zofran Inj) 4 mg IVP Q8H PRN PRN Reason: Nausea/Vomiting Last Admin: 02/12/17 05:14 Dose: 4 mg Pantoprazole Sodium (Protonix Ec Tab) 40 mg PO DAILY [facility] Last Admin: 02/12/17 09:12 Dose: 40 mg Polyethylene Glycol (Miralax) 17 gm PO DAILY [facility] Last Admin: 02/12/17 09:15 Dose: Not Given Rosuvastatin Calcium (Crestor) 2.5 mg PO HS [facility] Last Admin: 02/11/17 21:48 Dose: 2.5 mg Fluticasone/Salmeterol (Advair Diskus 250/50) 1 puff INH RQ12 [facility] Last Admin: 02/12/17 08:14 Dose: Not Given Vitamin A (Vitamin A & D Oint Ud Foilpak) 1 ea TOP BID [facility] Last Admin: 02/12/17 09:12 Dose: 1 ea - Labs Labs: 02/10/17 05:59 02/10/17 05:59 PT 17.1 SECONDS (9.7-12.2) H 02/09/17 09:40 INR 1.5 02/09/17 09:40 Assessment and Plan - Assessment and Plan (Free Text) Assessment: Patient is back from HD, seen and examined. Awake, alert, no nausea or pain now. D/W DR Celestina Esquivel, plan to discharge home on cipro ,flagyl, xanax, and bentyl. Advised to follow up in the office in 1 week. Cleared by GI for discharge. Family at the bedside, home care, home PT arranged by the case hardener.
--- NOTE | 2017-02-12 19:51 | PN ---
ENDO FOLLOWUP NOTE LOCATION: Room 669. SUBJECTIVE: This is a 71-year-old female with recent uncontrolled type 2 insulin-requiring diabetes with concomitant end-stage renal disease, dialysis dependent following a failed renal transplant as noted thereof. Her glycemic levels are fluctuating, but improved and her oral intake remains variable and suboptimal at this time. Her latest glucose levels today have ranged from 97 to 121 and 264 mg/dL. It was 120 early this morning as noted, but it was 311 at bedside last night. So at this time, we will modify her current basal and premixed insulin regimen and will actually discontinue the Lantus given as 10 units subcu at bedside daily as ordered. We will continue the modified premixed insulin regimen with NovoLog 70/30 given as 24 units a.c. breakfast and 14 units a.c. dinner as given. We will titrate incremental as indicated to optimize metabolic control. We will continue the low dose correction scale using NovoLog insulin as given. We will follow and advise accordingly. Becky Newton MD
--- NOTE | 2017-02-13 10:22 | CARD ---
APPROVED REPORT EKG Measurement Heart [id number] <Conclusion> Sinus bradycardia Right bundle branch block Left anterior fascicular block Bifascicular block Moderate voltage criteria for LVH, may be normal variant Abnormal ECG
== END 2017-02-12 15:30 | disposition home health service (06) | DRG 391 ==
LOC: C.ER 17:15 → C.3T 18:51 → C.9I 02-09 10:35 → C.6T 02-10 20:29
PROVIDERS: ADMIT Internal Medicine Nephrology; ATTEND Internal Medicine Nephrology
PROC: 5A1D60Z (ICD-10-PCS; principal; 2017-02-07)
PROC: 05HM33Z Insertion of Infusion Device into Right Internal Jugular Vein, Percutaneous Approach (ICD-10-PCS; 2017-02-07)
DX: K57.32 Diverticulitis of large intestine without perforation or abscess without bleeding (principal); N18.6 End stage renal disease; I13.2 Hypertensive heart and chronic kidney disease with heart failure and with stage 5 chronic kidney disease, or end stage renal disease; T86.12 Kidney transplant failure; I82.411 Acute embolism and thrombosis of right femoral vein; E27.1 Primary adrenocortical insufficiency; E11.21 Type 2 diabetes mellitus with diabetic nephropathy; E11.42 Type 2 diabetes mellitus with diabetic polyneuropathy; D64.9 Anemia, unspecified; E11.22 Type 2 diabetes mellitus with diabetic chronic kidney disease; E11.319 Type 2 diabetes mellitus with unspecified diabetic retinopathy without macular edema; E11.65 Type 2 diabetes mellitus with hyperglycemia; E87.6 Hypokalemia; G47.33 Obstructive sleep apnea (adult) (pediatric); I25.10 Atherosclerotic heart disease of native coronary artery without angina pectoris; I50.9 Heart failure, unspecified; E11.51 Type 2 diabetes mellitus with diabetic peripheral angiopathy without gangrene; Z79.4 Long term (current) use of insulin; J45.909 Unspecified asthma, uncomplicated; K20.9 Esophagitis, unspecified; K59.00 Constipation, unspecified; K52.9 Noninfective gastroenteritis and colitis, unspecified; K64.8 Other hemorrhoids; K74.60 Unspecified cirrhosis of liver; M1A.9XX1 Chronic gout, unspecified, with tophus (tophi); E78.5 Hyperlipidemia, unspecified; E78.00 Pure hypercholesterolemia, unspecified; Y83.0 Surgical operation with transplant of whole organ as the cause of abnormal reaction of the patient, or of later complication, without mention of misadventure at the time of the procedure; Z79.52 Long term (current) use of systemic steroids; Z79.899 Other long term (current) drug therapy; Z90.49 Acquired absence of other specified parts of digestive tract; Z86.718 Personal history of other venous thrombosis and embolism; Z99.2 Dependence on renal dialysis